=== PATIENT | female | born 1940 | race Caucasian/White ===

== ENCOUNTER → 2019-02-18 | Outpatient (CLI) | payer MEDICARE, OTHER ==
--- NOTE | 2019-02-18 09:51 | NUR ---
The pt and her daughter entered at the [facility] entrance and requested direction to wound care. I offered and provided the pt with a wheel chair and brought her to the place of her appointment. The pt and her daughter said they were extremely grateful for the assistance.
== END ==
LOC: WOUNDCARE 09:34
PROVIDERS: ATTEND Nurse Practitioner
DX: I70.261 Atherosclerosis of native arteries of extremities with gangrene, right leg (principal); L97.212 Non-pressure chronic ulcer of right calf with fat layer exposed; I87.2 Venous insufficiency (chronic) (peripheral)
CPT/HCPCS: 99204

== ENCOUNTER → 2019-02-25 | Outpatient (CLI) | payer MEDICARE, OTHER | LOC: WOUNDCARE 09:43 | PROVIDERS: ATTEND Nurse Practitioner | DX: L97.212 Non-pressure chronic ulcer of right calf with fat layer exposed (principal); I87.2 Venous insufficiency (chronic) (peripheral); I96 Gangrene, not elsewhere classified | CPT/HCPCS: 11042 ==

== ENCOUNTER → 2019-03-02 | Outpatient (CLI) | payer MEDICARE, OTHER | LOC: WOUNDCARE 11:06 | PROVIDERS: ATTEND Nurse Practitioner | DX: L97.212 Non-pressure chronic ulcer of right calf with fat layer exposed (principal); I10 Essential (primary) hypertension; I25.10 Atherosclerotic heart disease of native coronary artery without angina pectoris; M19.90 Unspecified osteoarthritis, unspecified site | CPT/HCPCS: 29581 ==

== ENCOUNTER → 2019-03-04 | Outpatient (CLI) | payer MEDICARE, OTHER | LOC: WOUNDCARE 09:40 | PROVIDERS: ATTEND Nurse Practitioner | DX: L97.212 Non-pressure chronic ulcer of right calf with fat layer exposed (principal); I87.2 Venous insufficiency (chronic) (peripheral); I96 Gangrene, not elsewhere classified | CPT/HCPCS: 11042 ==

== ENCOUNTER → 2019-03-09 | Outpatient (CLI) | payer MEDICARE, OTHER | LOC: WOUNDCARE 09:40 | PROVIDERS: ATTEND Nurse Practitioner | DX: L97.212 Non-pressure chronic ulcer of right calf with fat layer exposed (principal); H26.9 Unspecified cataract; D64.9 Anemia, unspecified; I49.9 Cardiac arrhythmia, unspecified; I25.10 Atherosclerotic heart disease of native coronary artery without angina pectoris; I10 Essential (primary) hypertension; K52.9 Noninfective gastroenteritis and colitis, unspecified; M19.90 Unspecified osteoarthritis, unspecified site; G62.9 Polyneuropathy, unspecified | CPT/HCPCS: 29581 ==

== ENCOUNTER → 2019-03-11 | Outpatient (CLI) | payer MEDICARE, OTHER | LOC: WOUNDCARE 09:32 | PROVIDERS: ATTEND Nurse Practitioner | DX: I87.2 Venous insufficiency (chronic) (peripheral) (principal); L97.212 Non-pressure chronic ulcer of right calf with fat layer exposed; I96 Gangrene, not elsewhere classified | CPT/HCPCS: 11042; 87070; 87075; 87205 ==

== ENCOUNTER → 2019-03-18 | Outpatient (CLI) | payer MEDICARE, OTHER | LOC: WOUNDCARE 09:23 | PROVIDERS: ATTEND Nurse Practitioner | DX: L97.212 Non-pressure chronic ulcer of right calf with fat layer exposed (principal); I87.2 Venous insufficiency (chronic) (peripheral); I96 Gangrene, not elsewhere classified | CPT/HCPCS: 11042 ==

== ENCOUNTER → 2019-03-25 | Outpatient (CLI) | payer MEDICARE, OTHER | LOC: WOUNDCARE 09:32 | PROVIDERS: ATTEND Nurse Practitioner | DX: I87.2 Venous insufficiency (chronic) (peripheral) (principal); L97.212 Non-pressure chronic ulcer of right calf with fat layer exposed | CPT/HCPCS: 99212 ==

== ENCOUNTER → 2019-12-09 | Outpatient (CLI) | payer OTHER, MEDICARE | LOC: LABNPT 13:09 | PROVIDERS: ATTEND Internal Medicine | DX: Z01.89 Encounter for other specified special examinations (principal) | CPT/HCPCS: 84145 ==

== ENCOUNTER → 2019-12-30 | Outpatient (CLI) | payer MEDICARE, OTHER ==
[~2019-12-30] MED LIST: CATHETER FLUSH 10 ML SYR IV PRN; HOLD METFORMIN - RECEIVED CONTRAST 20 ML VIAL IV SCH; IOHEXOL 350 MG/ML 100 ML (OMNIPAQUE 350) VIAL IV ONE; NS 100 ML (IVPB) BAG IV ONE
--- NOTE | 2019-12-30 14:14 | Diagnostic Imaging Report ---
PROCEDURE: CT chest with contrast only. TECHNIQUE: Multiple contiguous axial images were obtained through the chest after administration of intravenous contrast. Auto Exposure Controls were utilized during the CT exam to meet ALARA standards for radiation dose reduction. INDICATION: Thyroid cancer. COMPARISON: There are no prior CT chest examinations available for comparison. FINDINGS: The heart is enlarged.. There are dense coronary artery calcifications visualized. The ascending aorta is somewhat ectatic but not aneurysmally dilated. There is no sign of a dissection either. The pulmonary arteries were not well opacified and consequently difficult to assess for pulmonary embolus. There is no definite defect to indicate a pulmonary embolus. There are bilateral pleural effusions. The effusion on the right measures approximately 5.8 cm of maximum depth while the left-sided effusion is estimated to be approximately 1.5 cm. There is also small amount of associated atelectasis/infiltrate in the right lung base and very little atelectasis/infiltrate in the left lung base. However, there are alveolar/interstitial infiltrates in the superior segment of the right lower lobe and there is a prominent area of increased density in the periphery of the right upper lobe. This may be due to consolidated pneumonia. The possibility that there is a mass lesion in this area should also be considered. If previous studies are available, they would be helpful for comparison. If there are no prior exams available, then a short-term (4-6 week) follow-up CT chest exam should be obtained. The left lung is relatively clear. There is no mediastinal or hilar adenopathy. The thyroid gland was not well visualized. There is no obvious breast mass. The sections through the upper abdomen show several small rounded areas of low density within the liver. These are probably cysts. Ultrasound could confirm this. There are also numerous surgical clips in the region of the head of the pancreas and about the stomach. Correlation with patient's surgical history would be recommended. The bone windows show that the vertebral bodies have similar heterogeneous appearance. There is no clear evidence for a marrow replacing process to suggest metastatic disease. If further study is desired however, MRI would be recommended. There is a pectus excavatum deformity as well as evidence of prior trauma to the sternum. There is some deformity of the lower ribs on the right. This could be a sequela of prior trauma. IMPRESSION: 1. There is bibasilar pneumonia/atelectasis with bilateral pleural effusions with greater involvement on the right. There are also alveolar/interstitial infiltrates in the superior segment of the right lower lobe and the right upper lobe. The area of increased density in the right upper lobe could be due to pneumonia/atelectasis alone. The possibility that there is an underlying neoplastic process in this region should still be considered. Recommendations as above. 2. There is no acute cardiopulmonary abnormality noted, otherwise. The pulmonary arteries were not well opacified, however, difficult to assess. 3. There is cardiomegaly and coronary artery disease. 4. There is no clear evidence for a lytic or blastic lesion to suggest skeletal metastatic disease. Recommendations as above. Dictated by: Dictated on workstation # [id number]
== END ==
LOC: RAD 12:21
PROVIDERS: ATTEND Family Medicine
DX: I51.7 Cardiomegaly (principal); J98.4 Other disorders of lung; I25.10 Atherosclerotic heart disease of native coronary artery without angina pectoris; R93.89 Abnormal findings on diagnostic imaging of other specified body structures
CPT/HCPCS: 71260

== ENCOUNTER 2020-01-15 20:25 | Inpatient (IN) | payer MEDICARE, OTHER ==
[~2020-01-15] VITALS: Ht 162.5 cm; Wt 47.4 kg
[2020-01-15] MEDS ORDERED: ONDANSETRON 4 MG (ZOFRAN) ORAL DISSOLVE TAB PO PRN (20:30)
[2020-01-15] MEDS ORDERED: VANCOMYCIN INJECTION 750 MG in NS (IVPB) 250 ML IV SCH (20:30)
[2020-01-15] MEDS ORDERED: ONDANSETRON 4 MG/2 ML (SDV) Z0FRAN IV PRN (20:30)
[2020-01-15] MEDS ORDERED: MELATONIN 3 MG TABLET PO PRN (20:30)
[2020-01-15] MEDS ORDERED: polyethylene glycoL POWDER 17 GM (MIRALAX) PACK PO PRN (20:30)
[2020-01-15] MEDS ORDERED: BISACODYL 10 MG SUPP (DULCOLAX) PR PRN (20:30)
[2020-01-15] MEDS ORDERED: ACETAMINOPHEN 325 MG TABLET PO PRN (20:30)
[2020-01-15 23:30] VITALS: BP 65/43
[2020-01-15 23:45] VITALS: BP 43/30
[2020-01-16] VITALS (28 sets, daily range): BP systolic 50–139; BP diastolic 41–90
[2020-01-16] MEDS ORDERED: NS IV 1000 ML 1,000 ML ONE (00:15)
[2020-01-16] MEDS ORDERED: NS IV 500 ML 500 ML IV SCH (00:15)
--- NOTE | 2020-01-16 00:30 | NUR ---
0015: GREAT DIFFICULTY GETTING PT'S BLOOD PRESSURE AND O2 SATURATION TO PULL UP ON ICU MONITOR. MULTIPLE BLOOD PRESSURE SIZE CUFFS ATTEMPTED ON TO EACH ARM AND PT'S RIGHT THIGH. READINGS OF 40/20 INITIALLY ON RIGHT THIGH, HOWEVER PT IS A&O AND ABLE TO COMMUNICATE WITH THIS RN. O2 SATURATION CHECKED ON FOREHEAD, EAR, NOSE, TOES, AND FINGERS WITHOUT BEING ABLE TO READ. TEMP IS CURRENTLY 35.4, WARM BLANKETS AND BEAR HUGGER APPLIED IN ATTEMPTS TO WARM PT AND HELP WITH CIRCULATION TO FACILITATE AN O2 SATURATION READING. ABG DRAWN TO CHECK OXYGENATION. SEE LAB RESULTS. PT'S ONLY IV IS A 22 G TO LEFT INNER WRIST. E-ICU NOTIFIED. NEW ORDERS FOR CENTRAL LINE PLACEMENT AND 500 ML NS BOLUS. DOCTOR TO PUT IN ORDERS. 0020: DR. GRESHAM NOTIFIED OF CONSULT AND THE NEED FOR CENTRAL LINE PLACEMENT. CONSENT OBTAINED FROM PATIENT, WITNESSED BY THIS RN AND KERRY HUTCHINS. 0130: DR. GRESHAM AT BEDSIDE FOR CENTRAL LINE PLACEMENT. E-ICU TO CONFIRM PLACEMENT BY CHEST X-RAY. B/P FINALLY ABLE TO BE TAKEN WITH PORTABLE VITAL SIGN MACHINE. SEE INTERVENTIONS. 0220: E-ICU UNABLE TO SEE X-RAY RESULTS; STAT RAD TO READ X-RAY AND FAX REPORT. 0245: X-RAY REPORT FAXED TO THIS RN; DR. GRESHAM NOTIFIED OF RESULTS. NEW ORDER RECEIVED TO REPEAT CHEST X-RAY IN 4 HOURS AND OK GIVEN TO USE CENTRAL LINE. 0250: STAT RAD CALLED THIS RN FOR DR. GRESHAM'S PHONE NUMBER TO NOTIFY HIM OF FINDINGS. PT'S O2 SATURATION IS CURRENTLY 100% ON 3 L NC WITH NO DISTRESS OR WORK OF BREATHING NOTED.
[2020-01-16 00:33] LABS: ABG BASE EXCESS 4.5 MMOL/L (-2.5-2.5); ABG OXYGEN SATURATION 87 % (94-100); ABG PCO2 52 MMHG (35-45); ABG PH 7.37 (7.37-7.43); ABG PO2 58 MMHG (79-93); ABG TCO2 31.5 MMOL/L (21.0-31.0)
[2020-01-16 00:35] LABS: ALLENS TEST YES-POS; INSPIRED O2 ROOM AIR; PATIENT TEMP 35.5; VENTILATOR NO
--- OUTSIDE RECORDS SUMMARY | 2020-01-16 00:49 | XMS REPORT ---
Author Author Cookie PRICE Organization [facility] Address [address] [place] [address] Care Team Providers Care Law Firm Administrator Name Role Phone TJTAMY KINGA Unavailable PROBLEMS Type Condition ICD9-CM Code [id number] Code Onset Dates Condition S tatus SNOMED Code Problem Vitamin B12 deficiency E53.8 Jul, Acti ve [id number] Problem Hypoglycemia E16.2 May, Active 3028 10781 Problem Essential hypertension I10 Active 17491418 Problem Iron deficiency anemia D50.9 Active 53675792 Problem Depression F32.9 Active 69705801 Problem Osteoporosis M81.0 Active 1308960 6 Problem Osteoarthritis of spine with radiculopathy, cervical r egion M47.22 Oct, Active 708139850 Problem Stenosis of carotid artery I65.29 Oct, Active 654017207 Problem Papillary thyroid carcinoma C73 Sep, Active 491378436 Problem Postoperative hypothyroidism E89.0 A ctive 16308955 Problem CKD (chronic kidney disease) stage 3, GFR 30-59 ml/min N18.3 15 Feb, 2017 Active 648302457 Problem Benign essential hypertension I10 Active 5643735 Problem 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 Active 504991415 Problem Myalgia and myositis TUE8346 Aug, Active 35775881 Problem Headache(784.0) R51 Active 2506 4002 Problem Parathyroid adenoma D35.1 Jun, Active 704147770 Problem Pure hypercholesterolemia E78.00 Acti ve [id number] ALLERGIES No Information ENCOUNTERS Encounter Location Date Diagnosis [facility] [address] [place] [address] Oct, [facility] [address] [place] [address] Oct, Neuropathic pain M79.2 and Vitamin B12 deficiency E53.[address] [address] Oct, [address] [address] Sep, [address] [address] Sep, [address] [address] Sep, [address] [address] Sep, [facility] [address] [facility] [id number] [address] [place] [address] Sep, Fungal infection of toenail B35.1 [facility] [address] [facility] [id number] [address] [place] [address] Sep, Long-term use of high-risk m edication Z79.[address] [address] Sep, Postoperative hypothyroidism E89.0 ; Isra ign essential hypertension I10 ; High risk medications (not anticoagulants) long-term use Z79.899 ; Pure hypercholesterolemia E78.00 ; Fungal infection of toenail B35.1 and Long-term use of high-risk medication Z79.[address] [address] Sep, [address] [address] Sep, [address] [address] Aug, [facility] [address] [facility] [id number] [address] [place] [address] Aug, [facility] [address] [facility] [id number] [address] [place] [address] Jul, [facility] [address] [facility] [id number] [address] [place] [address] Jun, [facility] [address] [facility] [id number] [address] [place] [address] Jun, [facility] [address] [id number] [address] [place] [address] Jun, [facility] [address] [id number] [address] [place] [address] Jun, [facility] [address] [id number] [address] [place] [address] Jun, [facility] [address] [id number] [address] [place] [address] Jun, [facility] [address] [id number] [address] [place] [address] Jun, [facility] [address] [id number] [address] [place] [address] Oct, [facility] [address] [id number] [address] [place] [address] Jan, Acute pain of right knee M25 .561 [facility] [address] [id number] [address] [place] [address] November, IMMUNIZATIONS No Known Immunizations SOCIAL HISTORY Never Assessed REASON FOR VISIT Controlled Med Refill PLAN OF CARE VITAL SIGNS MEDICATIONS Medication Instructions Dosage Frequency Start Date End Date Duration S tatus Lamisil 250 MG Orally Once a day 1 tablet 24h Sep, Active Tramadol HCl 50 MG Orally 3 times a day 2 tablets 8h 28 days Active RESULTS No Results PROCEDURES No Known procedures INSTRUCTIONS MEDICATIONS ADMINISTERED No Known Medications MEDICAL (GENERAL) HISTORY Type Description Date Medical History Iron deficiency anemia Medical History Osteoporosis Medical History Arthritis Medical History Hypertension Medical History Thyroid cancer Medical History Aortic aneurysm Surgical History Thyroidectomy Surgical History Cholecystectomy Surgical History Appendectomy
--- OUTSIDE RECORDS SUMMARY | 2020-01-16 00:49 | XMS REPORT ---
Author Author Cookie PRICE Organization [facility] Address [address] [place] [address] Care Team Providers Care Laborer Road Name Role Phone TJTAMY KINGA Unavailable PROBLEMS Type Condition ICD9-CM Code MOB41-VN Code Onset Dates Condition S tatus SNOMED Code Problem Papillary thyroid carcinoma C73 Sep, Active 145833029 Problem Stenosis of carotid artery I65.29 Oct, Active 294948387 Problem Headache(784.0) R51 Active 2506 4002 Problem Myalgia and myositis [id number] Aug, Active 27558485 Problem Depression F32.9 Active 23515286 Problem Parathyroid adenoma D35.1 Jun, Active 203069147 Problem CKD (chronic kidney disease) stage 3, GFR 30-59 ml/min N18.3 Feb, Active 883853196 Problem 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 Active 397620470 Problem Vitamin B12 deficiency E53.8 28 Jul, 2009 Acti ve 516619907 Problem Iron deficiency anemia D50.9 Active 51472318 Problem Essential hypertension I10 Active 98780805 Problem Iron deficiency anemia secondary to inadequate d ietary iron intake D50.8 Active 962937753 Problem Hypoglycemia E16.2 May, Active 3028 87345 Problem Postprocedural hypothyroidism E89.0 Active 59732425 Problem Osteoarthritis of spine with radiculopathy, cervical r egion M47.22 Oct, Active 159848730 Problem Osteoporosis M81.0 Active 6522166 6 Problem Benign essential hypertension I10 Active 3556100 Problem Postoperative hypothyroidism E89.0 A ctive 24169011 Problem Pure hypercholesterolemia E78.00 Acti ve [id number] ALLERGIES No Information ENCOUNTERS Encounter Location Date Diagnosis [facility] [address] [place] [address] November, [facility] [address] [place] [address] November, [facility] [address] [address] November, [facility] [address] [place] [address] November, Urinary tract infection without hematuria, site unspecified N39.0 and Postprocedural hypothyroidism E89.0 [facility] [address] [address] November, Urinary tract infection without hematuri a, site unspecified N39.0 [facility] [address] [address] November, [facility] [address] [address] November, Hyponatremia E87.1 ; Iron deficiency ane ivanna secondary to inadequate dietary iron intake D50.8 ; Increased frequency of urination R35.0 ; Thyroid condition E07.9 and Postprocedural hypothyroidism E89.0 [facility] [address] [place] [address] Oct, Thyroid condition E07.9 and Postprocedural hypothyroidism E89.0 [facility] [address] [address] Oct, [facility] [address] [address] Oct, [facility] [address] [address] Oct, [facility] [address] [place] [address] Oct, [facility] [address] [place] [address] Oct, Neuropathic pain M79.2 and Vitamin B12 deficiency E53.8 [facility] [address] [address] Oct, [facility] [address] [address] Sep, [facility] [address] [address] Sep, [facility] [address] [address] Sep, [address] [address] Sep, [facility] [address] [id number] [address] [place] [address] Sep, Fungal infection of toenail B35.1 [facility] [address] [id number] [address] [place] [address] Sep, Long-term use of high-risk m edication Z79.[address] [address] Sep, Postoperative hypothyroidism E89.0 ; Isra ign essential hypertension I10 ; High risk medications (not anticoagulants) long-term use Z79.899 ; Pure hypercholesterolemia E78.00 ; Fungal infection of toenail B35.1 and Long-term use of high-risk medication Z79.[address] [address] Sep, [address] [address] Sep, [address] [address] Aug, [facility] [address] [facility] [id number] [address] [place] [address] Aug, [facility] [address] [facility] [id number] [address] [place] [address] Jul, [facility] [address] [id number] [address] [place] [address] Jun, [facility] [address] [id number] [address] [place] [address] Jun, [facility] [address] [facility] [id number] [address] [place] [address] Jun, [facility] [address] [facility] [id number] [address] [place] [address] Jun, [facility] [address] [facility] [id number] [address] [place] [address] Jun, [facility] [address] [facility] [id number] [address] [place] [address] Jun, [facility] [address] [facility] [id number] [address] [place] [address] Jun, [facility] [address] [facility] [id number] [address] [place] [address] Oct, [facility] [address] [facility] [id number] [address] [place] [address] Jan, Acute pain of right knee M25 .561 [facility] [address] [facility] [id number] [address] [place] [address] November, IMMUNIZATIONS No Known Immunizations SOCIAL HISTORY Never Assessed REASON FOR VISIT Controlled Med Refill PLAN OF CARE VITAL SIGNS MEDICATIONS Medication Instructions Dosage Frequency Start Date End Date Duration S tatus Hydrocodone-Acetaminophen 7.5-325 MG Orally 3 times a day 1 tablet as needed 8h Sep, 28 days Active RESULTS No Results PROCEDURES No Known procedures INSTRUCTIONS MEDICATIONS ADMINISTERED No Known Medications MEDICAL (GENERAL) HISTORY Type Description Date Medical History Iron deficiency anemia Medical History Osteoporosis Medical History Arthritis Medical History Hypertension Medical History Thyroid cancer Medical History Aortic aneurysm Surgical History Thyroidectomy Surgical History Cholecystectomy Surgical History Appendectomy
--- OUTSIDE RECORDS SUMMARY | 2020-01-16 00:49 | XMS REPORT ---
Author Author Cookie PRICE Organization [facility] Address [address] [place] [address] Care Team Providers Care Computer Security Coordinator Name Role Phone TJTAMY KINGA Unavailable PROBLEMS Type Condition ICD9-CM Code AHC95-LB Code Onset Dates Condition S tatus SNOMED Code Problem Papillary thyroid carcinoma C73 Sep, Active 166278463 Problem Stenosis of carotid artery I65.29 Oct, Active 628127805 Problem Parathyroid adenoma D35.1 Jun, Active 026872341 Problem Myalgia and myositis [id number] Aug, Active 09211309 Problem CKD (chronic kidney disease) stage 3, GFR 30-59 ml/min N18.3 Feb, Active 203362535 Problem 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 Active 061504153 Problem Hypoglycemia E16.2 May, Active 3028 69884 Problem Osteoarthritis of spine with radiculopathy, cervical r egion M47.22 Oct, Active 342903654 Problem Benign essential hypertension I10 Active 1703700 Problem Postoperative hypothyroidism E89.0 A ctive 76029028 Problem Pure hypercholesterolemia E78.00 Acti ve 510353211 Problem 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 Acti ve 26087312 Problem Osteoporosis M81.0 Active 0698667 6 Problem 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 Active [id number] Problem Vitamin B12 deficiency E53.8 28 Jul, 2009 Acti ve 033274042 Problem Iron deficiency anemia secondary to inadequate d ietary iron intake D50.8 Active 310023704 Problem Postprocedural hypothyroidism E89.0 Active 19890757 Problem Chronic systolic (congestive) heart failure I50.22 Active 735213759 Problem Atherosclerosis of [place] of both lower extremities, with unspecified presence of clinical manifestation I70.203 Active [id number] ALLERGIES No Information ENCOUNTERS Encounter Location Date Diagnosis [address] [place] [address] Dec, [address] [place] [address] Oct, [address] [place] [address] 05 Sep, 2019 Osteoarthritis of spine with radiculopathy, cervical region M47.22 [address] [place] [address] 21 Aug, 2019 Osteoarthritis of spine with radiculopathy, cervical region M47.22 [address] [place] [address] 17 Aug, 2019 Benign essential hypertensio n I10 [address] [place] [address] 13 Aug, 2019 Right hip pain M25.551 and R ight knee pain, unspecified chronicity M25.561 [address] [place] [address] 13 Aug, 2019 Encounter for Medicare [facility] wellness exam Z00.00 ; CKD (chronic kidney disease) stage 3, GFR 30-59 ml/min N18.3 ; Chronic systolic (congestive) heart failure I50.22 ; 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 ; Benign essential hypertension I10 ; Pure hypercholesterolemia E78.00 ; Osteoporosis M81.0 ; Atherosclerosis of [place] artery of both lower extremities, with unspecified presence of clinical manifestation I70.203 and 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 [place] [address] Aug, [facility] [address] [id number] [place] [address] Aug, Benign essential hypertension I10 [address] [place] [address] Aug, Osteoarthritis of spine with radiculopathy, cervical region M47.22 [facility] [address] [id number] [place] [address] Jul, [address] [place] [address] Jul, Osteoarthritis of spine with radiculopathy, cervical region M47.22 [address] [place] [address] Jul, [address] [place] [address] Jul, Benign essential hypertensio n I10 [address] [place] [address] 08 Jul, 2019 Iron deficiency anemia secon chris to inadequate dietary iron intake D50.8 ; Postprocedural hypothyroidism E89.0 ; Hyponatremia E87.1 ; Long-term use of high-risk medication Z79.899 ; CKD (chronic kidney disease) stage 3, GFR 30-59 ml/min N18.3 ; Pure hypercholesterolemia E78.00 ; Benign essential hypertension I10 ; Iron deficiency anemia D50.9 ; Neuropathic pain M79.2 ; Osteoporosis M81.0 ; Vitamin B12 deficiency E53.8 and Osteoarthritis of spine with radiculopathy, cervical region M47.22 [facility] [address] [facility] [place] [address] Jul, Iron deficiency anemia secondary to inadequate dietary iron intake D50.8 [address] [place] [address] Jun, [address] [place] [address] Jun, [address] [place] [address] Jun, Mixed simple and mucopurulen t chronic bronchitis J41.8 ; Vitamin B12 deficiency E53.8 and CKD (chronic kidney disease) stage 3, GFR 30-59 ml/min N18.3 [facility] [place] [address] [facility] [address] [id number] [place] [address] Jun, [facility] [place] [address] [place] [address] Jun, [facility] [address] [place] [address] May, [facility] [address] [place] [address] May, [facility] [address] [place] [address] May, [facility] [address] [place] [address] Apr, [facility] [address] [place] [address] Apr, [facility] [address] [place] [address] Apr, [facility] [address] [place] [address] Apr, [facility] [place] [address] [id number] [place] [address] Mar, [facility] [address] [place] [address] Mar, [facility] [address] [place] [address] Mar, [facility] [address] [place] [address] Mar, Acute on chronic systolic co ngestive heart failure I50.23 [facility] [address] [place] [address] Mar, [facility] [address] [place] [address] Feb, [facility] [address] [place] [address] Feb, [address] [place] [address] Feb, CKD (chronic kidney disease) stage 3, GFR 30-59 ml/min N18.[address] [place] [address] 08 Feb, 2019 Postoperative hypothyroidism E89.0 ; Papillary thyroid carcinoma C73 ; Hyponatremia E87.1 ; Wound drainage T14.8XXA and Bronchitis J40 [facility] [address] [id number] [place] [address] Feb, [address] [place] [address] Feb, [address] [place] [address] Jan, [address] [place] [address] Jan, Mixed simple and mucopurulen t chronic bronchitis J41.8 ; Iron deficiency anemia D50.9 ; Postoperative hypothyroidism E89.0 ; Benign essential hypertension I10 ; Papillary thyroid carcinoma C73 and Parathyroid adenoma D35.[address] [place] [address] Jan, [address] [place] [address] Jan, [address] [place] [address] Dec, [facility] [address] [facility] [place] [address] Dec, Iron deficiency anemia secondary to inadequate dietary iron intake D50.8 [address] [place] [address] Dec, Iron deficiency anemia secon chris to inadequate dietary iron intake D50.8 [address] [place] [address] Dec, [facility] [place] [address] [facility] [place] [address] Dec, Postprocedural hypothyroidism E89.0 [facility] [address] [place] [address] Dec, [facility] [address] [place] [address] November, [facility] [address] [place] [address] November, Postprocedural hypothyroidis m E89.0 [facility] [place] [address] [place] [address] November, [facility] [address] [place] [address] November, [facility] [place] [id number] [address] November, Urinary tract infection without hematuria, site unspecified N39.0 and Postprocedural hypothyroidism E89.0 [facility] [place] [address] [place] [address] November, Urinary tract infection with out hematuria, site unspecified N39.0 [facility] [address] [place] [address] November, [facility] [address] [place] [address] November, Hyponatremia E87.1 ; Iron de ficiency anemia secondary to inadequate dietary iron intake D50.8 ; Increased frequency of urination R35.0 ; Thyroid condition E07.9 and Postprocedural hypothyroidism E89.0 [facility] [place] [address] [facility] [place] [address] Oct, Thyroid condition E07.9 and Postprocedural hypothyroidism E89.0 [facility] [place] [address] [place] [address] Oct, [facility] [place] [address] [place] [address] Oct, [facility] [place] [address] [place] [address] Oct, [facility] [place] [address] [facility] [id number] [place] [address] Oct, [facility] [place] [address] [facility] [id number] [place] [address] Oct, Neuropathic pain M79.2 and Vitamin B12 deficiency E53.8 [facility] [address] [place] [address] Oct, [facility] [address] [place] [address] Sep, [facility] [address] [place] [address] Sep, [address] [place] [address] Sep, [facility] [address] [place] [address] Sep, [facility] [address] [id number] [place] [address] Sep, Fungal infection of toenail B35.1 [facility] [address] [id number] [place] [address] Sep, Long-term use of high-risk medication Z7 9.899 [facility] [address] [place] [address] Sep, Postoperative hypothyroidism E89.0 ; Benign essential hypertension I10 ; High risk medications (not anticoagulants) long-term use Z79.899 ; Pure hypercholesterolemia E78.00 ; Fungal infection of toenail B35.1 and Long-term use of high-risk medication Z79.899 [facility] [address] [place] [address] Sep, [address] [facility] [address] [place] [address] Sep, [facility] [facility] [address] [facility] [address] [place] [address] Aug, [facility] [address] [id number] [place] [address] Aug, [facility] [id number] [place] [address] Jul, [facility] [id number] [place] [address] Jun, [facility] [id number] [place] [address] Jun, [facility] [id number] [place] [address] Jun, [facility] [id number] [place] [address] Jun, [facility] [id number] [place] [address] Jun, [facility] [id number] [place] [address] Jun, [facility] [id number] [place] [address] Jun, [facility] [address] [id number] [place] [address] Oct, [facility] [address] [facility] [id number] [place] [address] Jan, Acute pain of right knee M25 .561 [facility] [address] [id number] [place] [address] November, IMMUNIZATIONS No Known Immunizations SOCIAL HISTORY Never Assessed REASON FOR VISIT PAIN MEDICATION PLAN OF CARE VITAL SIGNS MEDICATIONS Unknown Medications RESULTS No Results PROCEDURES No Known procedures INSTRUCTIONS MEDICATIONS ADMINISTERED No Known Medications MEDICAL (GENERAL) HISTORY Type Description Date Medical History Iron deficiency anemia Medical History Osteoporosis Medical History Arthritis Medical History Hypertension Medical History Thyroid cancer Medical History Aortic aneurysm Surgical History Thyroidectomy Surgical History Cholecystectomy Surgical History Appendectomy Hospitalization History Multiple Hospital Stays
--- OUTSIDE RECORDS SUMMARY | 2020-01-16 00:49 | XMS REPORT | Continuity of Care Document ---
Author Author [facility] Organization [facility] Address Unknown Phone Unavailable Care Team Providers Care Floor And Wall Applier Liquid Name Role Phone KINGA PRICE MD PP Insurance Providers Payer Name Policy Number Subscriber Name Relationship s Medicare [id number] Cookie Lofton Self / Same As Patient [employer] [id number] Cookie Lofton Self / Same As Patient Problems No Known Problems or Medical conditions. Allergies, Adverse Reactions, Alerts Allergen Type Severity Reaction Last Updated No Known Drug Allergies Allergy Unknown 09/18/07 Medications No known medications Response Recorded Date/Time Status not known Unknown Results No Known Relevant Diagnostic Tests, Laboratory Data and/or Discharge Summary.
--- OUTSIDE RECORDS SUMMARY | 2020-01-16 00:49 | XMS REPORT ---
Author Author Cookie PRICE Organization [facility] Address [address] [place] [address] Care Team Providers Care Receiving Team Member Name Role Phone JENNIFERJOSE KINGA Unavailable PROBLEMS Type Condition ICD9-CM Code CCK76-LQ Code Onset Dates Condition S tatus SNOMED Code Problem Vitamin B12 deficiency E53.8 Jul, Acti ve 761521976 Problem Hypoglycemia E16.2 May, Active 3028 06961 Problem Essential hypertension I10 Active 25890113 Problem Iron deficiency anemia D50.9 Active 88240603 Problem Depression F32.9 Active 70129215 Problem Osteoporosis M81.0 Active 0061291 6 Problem Osteoarthritis of spine with radiculopathy, cervical r egion M47.22 Oct, Active 059188049 Problem Stenosis of carotid artery I65.29 Oct, Active 265587009 Problem Papillary thyroid carcinoma C73 Sep, Active 230389148 Problem Postoperative hypothyroidism E89.0 A ctive 30332078 Problem CKD (chronic kidney disease) stage 3, GFR 30-59 ml/min N18.3 15 Feb, 2017 Active 870127650 Problem Benign essential hypertension I10 Active 9365369 Problem 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 Active 166165386 Problem Myalgia and myositis CKV0569 Aug, Active 29128583 Problem Headache(784.0) R51 Active 2506 4002 Problem Parathyroid adenoma D35.1 Jun, Active 795566932 Problem Pure hypercholesterolemia E78.00 Acti ve 569518032 ALLERGIES No Known Allergies ENCOUNTERS Encounter Location Date Diagnosis [facility] [address] [place] [address] Oct, [facility] [address] [place] [address] Oct, Neuropathic pain M79.2 and Vitamin B12 deficiency E53.[address] [address] Oct, [address] [address] Sep, [address] [address] Sep, [address] [address] Sep, [address] [address] Sep, [facility] [address] [facility] [id number] [address] [place] [address] Sep, Fungal infection of toenail B35.1 [facility] [address] [facility] [id number] [address] [place] [address] Sep, Long-term use of high-risk m edication Z79.[address] [address] Sep, Postoperative hypothyroidism E89.0 ; Isra ign essential hypertension I10 ; High risk medications (not anticoagulants) long-term use Z79.899 ; Pure hypercholesterolemia E78.00 ; Fungal infection of toenail B35.1 and Long-term use of high-risk medication Z79.[address] [address] Sep, [address] [address] Sep, [address] [address] Aug, [facility] [address] [id number] [address] [place] [address] Aug, [facility] [address] [facility] [id number] [address] [place] [address] Jul, [facility] [address] [facility] [id number] [address] [place] [address] Jun, [facility] [address] [facility] [id number] [address] [place] [address] Jun, [facility] [address] [id number] [address] [place] [address] Jun, [facility] [address] [id number] [address] [place] [address] Jun, [facility] [address] [id number] [address] [place] [address] Jun, [facility] [address] [id number] [address] [place] [address] Jun, [facility] [address] [id number] [address] [place] [address] Jun, [facility] [address] [id number] [address] [place] [address] Oct, [facility] [address] [id number] [address] [place] [address] Jan, Acute pain of right knee M25 .561 [facility] [address] [id number] [address] [place] [address] November, IMMUNIZATIONS No Known Immunizations SOCIAL HISTORY Never Assessed REASON FOR VISIT 6 Months F/U PLAN OF CARE VITAL SIGNS Height 65 in 2018-09-08 Weight 92lb lbs 2018-09-08 BMI 15.31 kg/m2 2018-09-08 Blood pressure systolic 102 mmHg 2018-09-08 Blood pressure diastolic 60 mmHg 2018-09-08 MEDICATIONS Medication Instructions Dosage Frequency Start Date End Date Duration S tatus Triamterene Active Hydrocodone-Acetaminophen 7.5-325 MG Orally every 8 hours prn 1 tab let Aug, 30 days Active Lamisil 250 MG Orally Once a day 1 tablet 24h Sep, Active Levothyroxine Sodium 100 MCG by oral route at bedtime 1 tablet Active Coreg Active Lisinopril Active Aspirin Adult Low Dose A ctive Tramadol HCl 50 MG Orally 3 times a day 2 tablets 8h 28 days Active RESULTS No Results PROCEDURES Procedure Date Ordered Result Body Site LAB NOT BILLED BY [facility] September 08, 2018 INSTRUCTIONS MEDICATIONS ADMINISTERED No Known Medications MEDICAL (GENERAL) HISTORY Type Description Date Medical History Iron deficiency anemia Medical History Osteoporosis Medical History Arthritis Medical History Hypertension Medical History Thyroid cancer Medical History Aortic aneurysm Surgical History Thyroidectomy Surgical History Cholecystectomy Surgical History Appendectomy
--- OUTSIDE RECORDS SUMMARY | 2020-01-16 00:49 | XMS REPORT ---
Author Author Jacey LEACH Organization [facility] Address [address] [place] [address] Care Team Providers Care Head Of Drama Name Role Phone RICH LEACH Unavailable PROBLEMS Unknown Problems ALLERGIES No Known Allergies ENCOUNTERS Encounter Location Date Diagnosis [facility] [address] [facility] [id number] [address] [place] [address] Jan, Acute pain of right knee M25 .561 IMMUNIZATIONS No Known Immunizations SOCIAL HISTORY Never Assessed REASON FOR VISIT knee pain PLAN OF CARE Activity Details Follow Up prn Reason: VITAL SIGNS Height 65 in 2017-01-04 Weight 83.4 lbs 2017-01-04 Temperature 98.4 degrees Fahrenheit 2017-01-04 Heart Rate 88 bpm 2017-01-04 Respiratory Rate 18 2017-01-04 BMI 13.88 kg/m2 2017-01-04 Blood pressure systolic 102 mmHg 2017-01-04 Blood pressure diastolic 64 mmHg 2017-01-04 MEDICATIONS Medication Instructions Dosage Frequency Start Date End Date Duration S tatus Aspirin Adult Low Dose A ctive Triamterene Active Hydrocodone-Acetaminophen Active Hydrocodone-Ibuprofen 7.5-200 MG Orally every 6 hrs 1 tablet as nee ded 6h Jan, Jan, 5 days Active Tramadol HCl Active Levothyroxine Sodium Act franklin Lisinopril Active Coreg Active RESULTS No Results PROCEDURES Procedure Date Ordered Result Body Site [facility] VISIT ESTABLISHED PATIENT January 04, 2017 INSTRUCTIONS MEDICATIONS ADMINISTERED No Known Medications MEDICAL (GENERAL) HISTORY Type Description Date Medical History iron deficiency anemia Medical History osteoporosis Medical History Arthritis Medical History hypertension Medical History thyroid cancer Medical History aortic aneurism Surgical History thyroidectomy Surgical History cholecystectomy Surgical History appendectomy
--- OUTSIDE RECORDS SUMMARY | 2020-01-16 00:49 | XMS REPORT ---
Author Author Cookie PRICE Organization [facility] Address [address] [place] [address] Care Team Providers Care Sleeping Room Cleaner Name Role Phone TJTAMY KINGA Unavailable PROBLEMS Type Condition ICD9-CM Code KGH90-AL Code Onset Dates Condition S tatus SNOMED Code Problem Papillary thyroid carcinoma C73 Sep, Active 158374180 Problem Stenosis of carotid artery I65.29 Oct, Active 276816469 Problem Parathyroid adenoma D35.1 Jun, Active 471001835 Problem Myalgia and myositis [id number] Aug, Active 60641572 Problem CKD (chronic kidney disease) stage 3, GFR 30-59 ml/min N18.3 Feb, Active 316092408 Problem 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 Active 645900548 Problem Hypoglycemia E16.2 May, Active 3028 01830 Problem Osteoarthritis of spine with radiculopathy, cervical r egion M47.22 Oct, Active 111519135 Problem Benign essential hypertension I10 Active 5721646 Problem Postoperative hypothyroidism E89.0 A ctive 51364582 Problem Pure hypercholesterolemia E78.00 Acti ve 187710488 Problem 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 Acti ve 38660750 Problem Osteoporosis M81.0 Active 8642952 6 Problem 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 Active [id number] Problem Vitamin B12 deficiency E53.8 28 Jul, 2009 Acti ve 401996381 Problem Iron deficiency anemia secondary to inadequate d ietary iron intake D50.8 Active 251513141 Problem Postprocedural hypothyroidism E89.0 Active 19382294 Problem Chronic systolic (congestive) heart failure I50.22 Active 550455551 Problem Atherosclerosis of lytton ar pernell of both lower extremities, with unspecified presence of clinical manifestation I70.203 Active [id number] ALLERGIES No Information ENCOUNTERS Encounter Location Date Diagnosis [address] [place] [address] Dec, [address] [place] [address] Oct, [address] [place] [address] 05 Sep, 2019 Osteoarthritis of spine with radiculopathy, cervical region M47.22 [address] [place] [address] 21 Aug, 2019 Osteoarthritis of spine with radiculopathy, cervical region M47.22 [address] [place] [address] 17 Aug, 2019 Benign essential hypertensio n I10 [address] [place] [address] 13 Aug, 2019 Right hip pain M25.551 and R ight knee pain, unspecified chronicity M25.561 [address] [place] [address] 13 Aug, 2019 Encounter for Medicare [facility] wellness exam Z00.00 ; CKD (chronic kidney disease) stage 3, GFR 30-59 ml/min N18.3 ; Chronic systolic (congestive) heart failure I50.22 ; 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22 [facility] [address] [id number] [place] [address] Jul, [address] [place] [address] Jul, Osteoarthritis of spine with radiculopathy, cervical region M47.22 [address] [place] [address] Jul, [address] [place] [address] Jul, Benign essential hypertensio n I10 [address] [place] [address] 08 Jul, 2019 Iron deficiency anemia secon [...] of spine with radiculopathy, cervical region M47.22 [facility] [address] [facility] [place] [address] Jul, Iron deficiency anemia secondary to inadequate dietary iron intake D50.8 [address] [place] [address] Jun, [address] [place] [address] Jun, [address] [place] [address] Jun, Mixed simple and mucopurulen t chronic bronchitis J41.8 ; Vitamin B12 deficiency E53.8 and CKD (chronic kidney disease) stage 3, GFR 30-59 ml/min N18.3 [facility] [place] [address] [facility] [address] [id number] [place] [address] Jun, [facility] [place] [address] [place] [address] Jun, [facility] [address] [place] [address] May, [facility] [address] [place] [address] May, [facility] [address] [place] [address] May, [facility] [address] [place] [address] Apr, [facility] [address] [place] [address] Apr, [facility] [address] [place] [address] Apr, [facility] [address] [place] [address] Apr, [facility] [address] [id number] [place] [address] Mar, [facility] [address] [place] [address] Mar, [facility] [address] [place] [address] Mar, [facility] [address] [place] [address] Mar, Acute on chronic systolic co ngestive heart failure I50.23 [facility] [place] [address] [place] [address] Mar, [facility] [address] [place] [address] Feb, [facility] [address] [place] [address] Feb, [address] [place] [address] Feb, CKD (chronic kidney disease) stage 3, GFR 30-59 ml/min N18.[address] [place] [address] 08 Feb, 2019 Postoperative hypothyroidism E89.0 ; Papillary thyroid carcinoma C73 ; Hyponatremia E87.1 ; Wound drainage T14.8XXA and Bronchitis J40 [facility] [address] [id number] [place] [address] Feb, [address] [place] [address] Feb, [address] [place] [address] Jan, [address] [place] [address] Jan, Mixed simple and mucopurulen t chronic bronchitis J41.8 ; Iron deficiency anemia D50.9 ; Postoperative hypothyroidism E89.0 ; Benign essential hypertension I10 ; Papillary thyroid carcinoma C73 and Parathyroid adenoma D35.1 [address] [place] [address] Jan, [address] [place] [address] Jan, [address] [place] [address] Dec, [facility] [address] [facility] [place] [address] Dec, Iron deficiency anemia secondary to inadequate dietary iron intake D50.8 [address] [place] [address] Dec, Iron deficiency anemia secon chris to inadequate dietary iron intake D50.8 [address] [place] [address] Dec, [facility] [place] [address] [facility] [place] [address] Dec, Postprocedural hypothyroidism E89.0 [facility] [address] [place] [address] Dec, [facility] [address] [place] [address] November, [facility] [address] [place] [address] November, Postprocedural hypothyroidis m E89.0 [facility] [place] [place] [address] [place] [address] November, [facility] [place] [address] [place] [address] November, [facility] [place] [id number] [address] November, Urinary tract infection without hematuria, site unspecified N39.0 and Postprocedural hypothyroidism E89.0 [facility] [place] [address] [place] [address] November, Urinary tract infection with out hematuria, site unspecified N39.0 [facility] [place] [address] [place] [address] November, [facility] [place] [address] [place] [address] November, Hyponatremia E87.1 ; Iron de ficiency anemia secondary to inadequate dietary iron intake D50.8 ; Increased frequency of urination R35.0 ; Thyroid condition E07.9 and Postprocedural hypothyroidism E89.0 [facility] [place] [address] [id number] [place] [address] Oct, Thyroid condition E07.9 and Postprocedural hypothyroidism E89.0 [facility] [place] [address] [place] [address] Oct, [facility] [place] [address] [place] [address] Oct, [facility] [place] [address] [place] [address] Oct, [facility] [place] [address] [facility] [id number] [place] [address] Oct, [facility] [place] [address] [facility] [id number] [place] [address] Oct, Neuropathic pain M79.2 and Vitamin B12 deficiency E53.[address] [facility] [address] [place] [address] Oct, [facility] [address] [place] [address] Sep, [facility] [address] [place] [address] Sep, [address] [place] [address] Sep, [facility] [address] [place] [address] Sep, [facility] [address] [id number] [place] [address] Sep, Fungal infection of toenail B35.1 [facility] [address] [id number] [place] [address] Sep, Long-term use of high-risk medication Z7 9.[address] [facility] [address] [place] [address] Sep, Postoperative hypothyroidism E89.0 ; Benign essential hypertension I10 ; High risk medications (not anticoagulants) long-term use Z79.899 ; Pure hypercholesterolemia E78.00 ; Fungal infection of toenail B35.1 and Long-term use of high-risk medication Z79.[address] [facility] [address] [place] [address] Sep, [address] [facility] [address] [place] [address] Sep, [facility] [place] [address] [place] [address] Aug, [facility] [address] [id number] [place] [address] Aug, [facility] [id number] [place] [address] Jul, [facility] [id number] [place] [address] Jun, [facility] [id number] [place] [address] Jun, [facility] [id number] [place] [address] Jun, [facility] [id number] [place] [address] Jun, [facility] [id number] [place] [address] Jun, [facility] [id number] [place] [address] Jun, [facility] [id number] [place] [address] Jun, [facility] [address] [id number] [place] [address] Oct, [facility] [address] [facility] [id number] [place] [address] Jan, Acute pain of right knee M25 .561 [facility] [id number] [place] [address] November, IMMUNIZATIONS No Known Immunizations SOCIAL HISTORY Never Assessed REASON FOR VISIT med refill PLAN OF CARE VITAL SIGNS MEDICATIONS Medication Instructions Dosage Frequency Start Date End Date Duration S tatus Lisinopril 10 MG Orally Once a day 1 tablet 24h 90 d ays Active RESULTS No Results PROCEDURES No Known procedures INSTRUCTIONS MEDICATIONS ADMINISTERED No Known Medications MEDICAL (GENERAL) HISTORY Type Description Date Medical History Iron deficiency anemia Medical History Osteoporosis Medical History Arthritis Medical History Hypertension Medical History Thyroid cancer Medical History Aortic aneurysm Surgical History Thyroidectomy Surgical History Cholecystectomy Surgical History Appendectomy Hospitalization History Multiple Hospital Stays
--- OUTSIDE RECORDS SUMMARY | 2020-01-16 00:49 | XMS REPORT ---
Author Author Cookie PRICE Organization [facility] Address [address] [place] [address] Care Team Providers Care Research Laboratory Manager Name Role Phone TJTAMY KINGA Unavailable PROBLEMS Type Condition ICD9-CM Code UPY71-ZP Code Onset Dates Condition S tatus SNOMED Code Problem Papillary thyroid carcinoma C73 Sep, Active 301353167 Problem Stenosis of carotid artery I65.29 Oct, Active 869063142 Problem Parathyroid adenoma D35.1 Jun, Active 500717392 Problem Myalgia and myositis [id number] Aug, Active 26677367 Problem CKD (chronic kidney disease) stage 3, GFR 30-59 ml/min N18.3 Feb, Active 909435258 Problem 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 Active 672633922 Problem Hypoglycemia E16.2 May, Active 3028 38410 Problem Osteoarthritis of spine with radiculopathy, cervical r egion M47.22 Oct, Active 924879156 Problem Benign essential hypertension I10 Active 1502546 Problem Postoperative hypothyroidism E89.0 A ctive 45137148 Problem Pure hypercholesterolemia E78.00 Acti ve 957644982 Problem 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 Acti ve 50203582 Problem Osteoporosis M81.0 Active 9966287 6 Problem 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 Active [id number] Problem Vitamin B12 deficiency E53.8 28 Jul, 2009 Acti ve 167907443 Problem Iron deficiency anemia secondary to inadequate d ietary iron intake D50.8 Active 662249312 Problem Postprocedural hypothyroidism E89.0 Active 90608905 Problem Chronic systolic (congestive) heart failure I50.22 Active 361478089 Problem Atherosclerosis of [place] of both lower extremities, with unspecified presence of clinical manifestation I70.203 Active [id number] ALLERGIES No Information ENCOUNTERS Encounter Location Date Diagnosis [address] [place] [address] Dec, [address] [place] [address] Oct, [address] [place] [address] 05 Sep, 2019 Osteoarthritis of spine with radiculopathy, cervical region M47.22 [address] [place] [address] 21 Aug, 2019 Osteoarthritis of spine with radiculopathy, cervical region M47.22 [address] [place] [address] 17 Aug, 2019 Benign essential hypertensio n I10 [address] [place] [address] 13 Aug, 2019 Right hip pain M25.551 and R ight knee pain, unspecified chronicity M25.561 [address] [place] [address] 13 Aug, 2019 Encounter [facility] Medicare [facility] Z00.00 ; CKD (chronic kidney disease) stage 3, GFR 30-59 ml/min N18.3 ; Chronic systolic (congestive) heart failure I50.22 ; 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 ; Benign essential hypertension I10 ; Pure hypercholesterolemia E78.00 ; Osteoporosis M81.0 ; Atherosclerosis of [place] artery of both lower extremities, with unspecified presence of clinical manifestation I70.203 and 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 [facility] [address] [id number] [place] [address] Aug, [facility] [address] [id number] [place] [address] Aug, Benign essential hypertension I10 [address] [place] [address] Aug, Osteoarthritis of spine with radiculopathy, cervical region M47.22 [facility] [address] [id number] [place] [address] Jul, [address] [place] [address] Jul, Osteoarthritis of spine with radiculopathy, cervical region M47.22 [address] [place] [address] Jul, [address] [place] [address] Jul, Benign essential hypertensio n I10 [address] [place] [address] 08 Jul, 2019 Iron deficiency anemia secon [...] of spine with radiculopathy, cervical region M47.22 [facility] [address] [facility] [place] [address] Jul, Iron deficiency anemia secondary to inadequate dietary iron intake D50.8 [address] [place] [address] Jun, [address] [place] [address] Jun, [address] [place] [address] Jun, Mixed simple and mucopurulen t chronic bronchitis J41.8 ; Vitamin B12 deficiency E53.8 and CKD (chronic kidney disease) stage 3, GFR 30-59 ml/min N18.3 [facility] [place] [address] [facility] [id number] [address] Jun, [facility] [place] [address] [place] [address] Jun, [facility] [address] [place] [address] May, [facility] [address] [place] [address] May, [facility] [address] [place] [address] May, [facility] [address] [place] [address] Apr, [facility] [address] [place] [address] Apr, [facility] [address] [place] [address] Apr, [facility] [address] [place] [address] Apr, [facility] [address] [id number] [place] [address] Mar, [facility] [address] [place] [address] Mar, [facility] [address] [place] [address] Mar, [facility] [address] [place] [address] Mar, Acute on chronic systolic co ngestive heart failure I50.23 [facility] [place] [address] [place] [address] Mar, [facility] [address] [place] [address] Feb, [facility] [address] [place] [address] Feb, [address] [place] [address] Feb, CKD (chronic kidney disease) stage 3, GFR 30-59 ml/min N18.[address] [place] [address] 08 Feb, 2019 Postoperative hypothyroidism E89.0 ; Papillary thyroid carcinoma C73 ; Hyponatremia E87.1 ; Wound drainage T14.8XXA and Bronchitis J40 [facility] [address] [id number] [place] [address] Feb, [address] [place] [address] Feb, [address] [place] [address] Jan, [address] [place] [address] Jan, Mixed simple and mucopurulen t chronic bronchitis J41.8 ; Iron deficiency anemia D50.9 ; Postoperative hypothyroidism E89.0 ; Benign essential hypertension I10 ; Papillary thyroid carcinoma C73 and Parathyroid adenoma D35.1 [address] [place] [address] Jan, [address] [place] [address] Jan, [address] [place] [address] Dec, [facility] [address] [facility] [place] [address] Dec, Iron deficiency anemia secondary to inadequate dietary iron intake D50.8 [address] [place] [address] Dec, Iron deficiency anemia secon chris to inadequate dietary iron intake D50.8 [address] [place] [address] Dec, [facility] [place] [address] [facility] [place] [address] Dec, Postprocedural hypothyroidism E89.0 [facility] [address] [place] [address] Dec, [facility] [address] [place] [address] November, [facility] [address] [place] [address] November, Postprocedural hypothyroidis m E89.0 [facility] [place] [address] [place] [address] November, [facility] [address] [place] [address] November, [facility] [place] [id number] [address] November, Urinary tract infection without hematuria, site unspecified N39.0 and Postprocedural hypothyroidism E89.0 [facility] [place] [address] [place] [address] November, Urinary tract infection with out hematuria, site unspecified N39.0 [facility] [address] [place] [address] November, [facility] [address] [place] [address] November, Hyponatremia E87.1 ; Iron de ficiency anemia secondary to inadequate dietary iron intake D50.8 ; Increased frequency of urination R35.0 ; Thyroid condition E07.9 and Postprocedural hypothyroidism E89.0 [facility] [place] [address] [facility] [place] [address] Oct, Thyroid condition E07.9 and Postprocedural hypothyroidism E89.0 [facility] [place] [place] [address] [place] [address] Oct, [facility] [place] [address] [place] [address] Oct, [facility] [place] [address] [place] [address] Oct, [facility] [place] [address] [facility] [id number] [place] [address] Oct, [facility] [place] [address] [facility] [id number] [place] [address] Oct, Neuropathic pain M79.2 and Vitamin B12 deficiency E53.8 [facility] [address] [place] [address] Oct, [facility] [address] [place] [address] Sep, [facility] [address] [place] [address] Sep, [address] [place] [address] Sep, [facility] [address] [place] [address] Sep, [facility] [address] [id number] [place] [address] Sep, Fungal infection of toenail B35.1 [facility] [address] [id number] [place] [address] Sep, Long-term use of high-risk medication Z7 9.899 [facility] [address] [place] [address] Sep, Postoperative hypothyroidism E89.0 ; Benign essential hypertension I10 ; High risk medications (not anticoagulants) long-term use Z79.899 ; Pure hypercholesterolemia E78.00 ; Fungal infection of toenail B35.1 and Long-term use of high-risk medication Z79.899 [facility] [address] [place] [address] Sep, [address] [facility] [address] [place] [address] Sep, [facility] [place] [address] [place] [address] Aug, [facility] [address] [id number] [place] [address] Aug, [facility] [id number] [place] [address] Jul, [facility] [id number] [place] [address] Jun, [facility] [address] [address] Jun, [facility] [id number] [place] [address] Jun, [facility] [id number] [place] [address] Jun, [facility] [id number] [place] [address] Jun, [facility] [id number] [place] [address] Jun, [facility] [id number] [place] [address] Jun, [facility] [address] [id number] [place] [address] Oct, [facility] [address] [facility] [id number] [place] [address] Jan, Acute pain of right knee M25 .561 [facility] [id number] [place] [address] November, IMMUNIZATIONS No Known Immunizations SOCIAL HISTORY Never Assessed REASON FOR VISIT med refill PLAN OF CARE VITAL SIGNS MEDICATIONS Medication Instructions Dosage Frequency Start Date End Date Duration S tatus Tramadol HCl 50 MG Orally 3 times [...]
--- OUTSIDE RECORDS SUMMARY | 2020-01-16 00:50 | XMS REPORT | Continuity of Care Document ---
Author Organization Unknown Address Unknown Phone Unavailable Allergies Active Description Code Type Severity Reaction Onset Reported/Identified Relationship to Patient Clinical Status Yes NO KNOWN DRUG ALLERGIES UNKNOWN NO KNOWN DRUG ALLERG Yes NO KNOWN DRUG ALLERGIES UNKNOWN UNKNOWN Yes No Known Drug Allergies [id number] Drug Allergy Unknown N/A 09/18/2007 Medications Medication Packaging Start Date St op Date Route Dosage Sig IPRATROPIUM/ALBUTEROL INH SO LN (DUO-NEB INH SOLN) MLS 05/31/2017 05/31/2017 ONCE&1351 NORMAL SALINE 500CC IV BAG I NJ 0.9 % (NS 500CC IV BAG) ml 05/31/2017 05/31/2017 ONCE&1351 GUAIFENESIN TAB 600 MG (MUCINEX) MG 05/31/2017 05/31/2017 ONCE&1509 NORMAL SALINE 1000CC IV BAG INJ 0.9 % (NS 1000CC IV BAG) ml 05/31/2017 06/15/2017 CONTINUOUSEVERY 0 Hour AZITHROMYCIN TAB 250 MG (ZITHROMAX) MG 05/31/2017 05/31/2017 ONCE&1525 IPRATROPIUM/ALBUTEROL INH SO LN (DUO-NEB INH SOLN) MLS 05/31/2017 06/07/2017 QID&0600,1100,1600,2100 CARVEDILOL TAB 6.25 MG (COREG) MG 05/31/2017 06/07/2017 BID&0800,2000 TRAMADOL TAB 50 MG (ULTRAM) MG 05/31/2017 06/10/2017 Q8H&0600,1400,2200 LISINOPRIL TAB 10 MG (ZESTRIL) MG 06/01/2017 06/07/2017 Daily&0900 CEFTRIAXONE PREMIX IV BAG IV 1 GM/50CC (ROCEPHIN PREMIX IV BAG) GM 06/01/2017 06/07/2017 Daily&1700 LEVOTHYROXINE TAB 88 MCG (SYNTHROID) MCG 06/01/2017 06/07/2017 Daily&0900 TRAMADOL TAB 50 MG (ULTRAM) MG 06/01/2017 06/01/2017 ONCE&1400 TRAMADOL TAB 50 MG (ULTRAM) MG 06/01/2017 06/11/2017 Q8H&0600,1400,2200 CEFUROXIME TAB 250 MG (CEFTIN) MG 06/02/2017 06/12/2017 BID&0800,2000 AZITHROMYCIN TAB 500 MG (ZITHROMAX) MG 06/03/2017 06/06/2017 Daily&0900 KETOROLAC VIAL INJ 15 MG/CC (TORADOL VIAL) MG 08/18/2017 08/18/2017 ONCE&1620 NORMAL SALINE 500CC IV BAG I NJ 0.9 % (NS 500CC IV BAG) ml 02/16/2018 03/03/2018 CONTINUOUSEVERY 0 Hour HYDROCODONE/APAP 5MG/325MG T AB 5 MG/325MG (ERICA-TAB 5/325) Dose(s) 02/16/2018 02/26/2018 PRN Q4H SUMATRIPTAN TAB 50 MG (IMITREX) Dose(s) 02/16/2018 02/23/2018 PRN Q6H CEFTRIAXONE PREMIX IV BAG IV 1 GM/50CC (ROCEPHIN PREMIX IV BAG) GM 02/16/2018 02/22/2018 Daily&0900 NYSTATIN ORAL SUSP LIQ (MYCOSTATIN Susp) ml 02/16/2018 03/02/2018 Q6H&0600,1200,1800,2359 CARVEDILOL TAB 6.25 MG (COREG) Dose(s) 02/16/2018 02/23/2018 BID&0800,2000 RANITIDINE TAB 150 MG (ZANTAC) MG 02/16/2018 02/22/2018 QHS&2100 NORMAL SALINE 1000CC IV BAG INJ 0.9 % (NS 1000CC IV BAG) ml 02/17/2018 03/04/2018 CONTINUOUSEVERY 0 Hour TRAMADOL TAB 50 MG (ULTRAM) Dose(s) 02/17/2018 02/27/2018 PRN TID LISINOPRIL TAB 10 MG (ZESTRIL) MG 02/17/2018 02/23/2018 Daily&0900 ASA 81MG ENTERIC COATED TAB 81 MG (BABY ASPIRIN EC) Dose(s) 02/17/2018 03/02/2018 Daily&0900 NORMAL SALINE 50CC IV BAG IN J (NS 50CC MINI-BAG) ml 02/17/2018 02/22/2018 Daily&0900 LISINOPRIL TAB 10 MG (ZESTRIL) Dose(s) 02/17/2018 02/23/2018 Daily&0900 LEVOTHYROXINE TAB 88 MCG (SYNTHROID) Dose(s) 02/17/2018 02/23/2018 Daily&0900 MILK OF MARIANNE LIQ ml 02/17/2018 03/19/2018 PRN Daily NORMAL SALINE 1000CC IV BAG INJ 0.9 % (NS 1000CC IV BAG) ml 01/30/2019 02/14/2019 CONTINUOUSEVERY 0 Hour SUMATRIPTAN TAB 50 MG (IMITREX) Dose(s) 01/30/2019 02/06/2019 PRN Q6H CLONIDINE TAB 0.1 MG (CATAPRES) MG 01/30/2019 02/06/2019 PRN Q6H CALCIUM CARBONATE TAB 500 MG (TUMS) MG 01/30/2019 02/06/2019 PRN Q6H DIPHENHYDRAMINE CAP 25 MG (BENADRYL) MG 01/30/2019 02/06/2019 PRN Q6H ACETAMINOPHEN SUPPOS SUP 650 MG (TYLENOL) MG 01/30/2019 02/06/2019 PRN Q4H ONDANSETRON VIAL INJ 4 MG/2CC (ZOFRAN 2CC VIAL) MG 01/30/2019 02/06/2019 PRN Q4H ALUM/MAG/SIMETH 30CC LIQ (MYLANTA PLUS) cc 01/30/2019 02/09/2019 PRN Q4H GUAIFENESIN - DM LIQ (ROBITUSSIN DM) MLS 01/30/2019 02/06/2019 PRN Q4H CARVEDILOL TAB 6.25 MG (COREG) Dose(s) 01/30/2019 02/06/2019 BID&0800,2000 Docusate sodium 100mg oral capsule (COLACE ) 01/30/2019 03/01/2019 PRN BID RANITIDINE TAB 150 MG (ZANTAC) MG 01/30/2019 02/05/2019 QHS&2100 MELATONIN TAB 3 MG (MELATONIN) MG 01/30/2019 02/05/2019 PRN QHS LEVOTHYROXINE TAB 100 MCG (SYNTHROID) MCG 01/31/2019 02/28/2019 Q48H&0900 LISINOPRIL TAB 10 MG (ZESTRIL) Dose(s) 01/31/2019 02/06/2019 Daily&0900 ASA 81MG ENTERIC COATED TAB 81 MG (BABY ASPIRIN EC) Dose(s) 01/31/2019 02/13/2019 Daily&0900 POLYETHYLENE GLYCOL POWDER U D PWD (MIRALAX 17GM UNIT DOSE PAKS) gm 01/31/2019 02/06/2019 Daily&0900 MILK OF MARIANNE NAVA ml 01/31/2019 03/01/2019 PRN Daily LEVOTHYROXINE TAB 88 MCG (SYNTHROID) MCG 01/31/2019 02/06/2019 Q48H&0900 LEVOTHYROXINE TAB 100 MCG (SYNTHROID) MCG 02/01/2019 03/02/2019 Daily&0600 TRAMADOL TAB 50 MG (ULTRAM) MG 02/01/2019 02/11/2019 Q8H&0600,1400,2200 LORAZEPAM 1CC VIAL INJ 2 MG/CC (ATIVAN VIA L) MG 02/02/2019 02/02/2019 PRN ONCE LORAZEPAM 1CC VIAL INJ 2 MG/CC (ATIVAN VIA L) MG 02/02/2019 02/02/2019 PRN ONCE ONDANSETRON 8 MG Oral DissolveTab (ZOFRAN) MG 02/03/2019 03/04/2019 Daily&0600 LEVOTHYROXINE TAB 100 MCG (SYNTHROID) MCG 02/03/2019 02/03/2019 ONCE&0900 LEVOTHYROXINE TAB 88 MCG (SYNTHROID) MCG 02/03/2019 02/03/2019 ONCE&0900 TRIAMTERENE/HCTZ 37.5/25 TAB 37.5 MG-25MG (MAXZIDE-25) cap 02/03/2019 02/03/2019 ONCE&0900 ACETAMINOPHEN ORAL TABLET 325mg(Tylenol) MG 02/03/2019 03/05/2019 PRN EVERY 6 Hour ACETAMINOPHEN SUPPOS SUP 650 MG (TYLENOL) MG 02/03/2019 02/10/2019 PRN Q4H ONDANSETRON VIAL INJ 4 MG/2CC (ZOFRAN 2CC VIAL) MG 02/03/2019 02/10/2019 PRN Q4H NORMAL SALINE 1000CC IV BAG INJ 0.9 % (NS 1000CC IV BAG) ml 02/03/2019 02/18/2019 CONTINUOUSEVERY 0 Hour ALUM/MAG/SIMETH 30CC LIQ (MYLANTA PLUS) cc 02/03/2019 02/13/2019 PRN Q4H GUAIFENESIN - DM LIQ (ROBITUSSIN DM) MLS 02/03/2019 02/10/2019 PRN Q4H ALPRAZOLAM TAB 0.25 MG (XANAX) MG 02/03/2019 02/13/2019 PRN Q6H CLONIDINE TAB 0.1 MG (CATAPRES) MG 02/03/2019 02/10/2019 PRN Q6H CALCIUM CARBONATE TAB 500 MG (TUMS) MG 02/03/2019 02/10/2019 PRN Q6H DIPHENHYDRAMINE CAP 25 MG (BENADRYL) MG 02/03/2019 02/10/2019 PRN Q6H SUMATRIPTAN TAB 50 MG (IMITREX) MG 02/03/2019 02/10/2019 PRN Q6H TRAMADOL TAB 50 MG (ULTRAM) MG 02/03/2019 02/13/2019 Q8H&0600,1400,2200 CARVEDILOL TAB 6.25 MG (COREG) Dose(s) 02/03/2019 02/10/2019 BID&0800,2000 Docusate sodium 100mg oral capsule (COLACE ) 02/03/2019 03/05/2019 PRN BID LACTULOSE SYRUP LIQ 20 GM/30 CC (CHRONULAC SYRUP) GM 02/03/2019 03/05/2019 PRN BID RANITIDINE TAB 150 MG (ZANTAC) MG 02/03/2019 02/09/2019 QHS&2100 MELATONIN TAB 3 MG (MELATONIN) MG 02/03/2019 02/09/2019 PRN QHS LEVOTHYROXINE TAB 100 MCG (SYNTHROID) MCG 02/04/2019 03/05/2019 Daily&0600 ONDANSETRON 8 MG Oral DissolveTab (ZOFRAN) MG 02/04/2019 03/05/2019 Daily&0900 LISINOPRIL TAB 10 MG (ZESTRIL) MG 02/04/2019 03/04/2019 Daily&0900 ASPIRIN ENTERIC COATED TAB 8 1 MG (BABY ASPIRIN EC) MG 02/04/2019 02/09/2019 Daily&0900 BISACODYL TAB 5 MG (DULCOLAX) MG 02/04/2019 02/10/2019 PRN Daily POLYETHYLENE GLYCOL POWDER U D PWD (MIRALAX 17GM UNIT DOSE PAKS) gm 02/04/2019 02/10/2019 Daily&0900 BISACODYL SUPPOS 10 MG (DULCOLAX SUPPOS) MG 02/04/2019 02/10/2019 PRN Daily MILK OF MARIANNE LIQ ml 02/04/2019 03/05/2019 PRN Daily FUROSEMIDE VIAL INJ 20 MG (LASIX VIAL) MG 02/05/2019 02/05/2019 ONCE&0801 Docusate sodium 100mg oral capsule (COLACE ) 02/05/2019 03/07/2019 PRN BID FUROSEMIDE VIAL INJ 20 MG (LASIX VIAL) MG 02/06/2019 02/06/2019 ONCE&0643 FUROSEMIDE VIAL INJ 20 MG (LASIX VIAL) MG 02/08/2019 02/08/2019 ONCE&0700 LEVOTHYROXINE TAB 100 MCG (SYNTHROID) MCG 02/08/2019 03/09/2019 Daily&0900 IPRATROPIUM/ALBUTEROL INH SO LN (DUO-NEB INH SOLN) MLS 11/30/2019 11/30/2019 ONCE&0838 NORMAL SALINE 1000CC IV BAG INJ 0.9 % (NS 1000CC IV BAG) ml 11/30/2019 12/10/2019 CONTINUOUSEVERY 0 Hour Piperacillin-tazobactam) 2.2 5 Gm IV Vial (Zosyn) GM 11/30/2019 12/10/2019 Q8H&0200,1000,1800 Normal SALINE 0.9 % (NS 100cc) (plain bag) ml 11/30/2019 12/09/2019 BID&1100,2300 LACTOBACILLUS BULGARIS TAB (LACTINEX BULGA RIS) 11/30/2019 12/10/2019 QID&0800,1200,1700,2200 PANTOPRAZOLE VIAL INJ 40 MG (PROTONIX IV) MG 11/30/2019 12/09/2019 Q24H&1200 ONDANSETRON VIAL INJ 4 MG/2CC (ZOFRAN 2CC VIAL) MG 11/30/2019 12/07/2019 PRN Q6H TRAMADOL TAB 50 MG (ULTRAM) MG 11/30/2019 12/10/2019 Q8H&0600,1400,2200 HYDROCODONE/APAP 5MG/325MG T AB 5 MG/325MG (ERICA-TAB 5/325) TAB 11/30/2019 12/10/2019 PRN Q6H LEVALBUTEROL LIQ 1.25 MG/3ML (XOPENEX) MG 11/30/2019 12/07/2019 TID&0800,1400,2000 CARVEDILOL TAB 6.25 MG (COREG) MG 11/30/2019 12/07/2019 BID&0800,1999 ENOXAPARIN SYRINGE INJ 30 MG (LOVENOX SYRI NGE) MG 11/30/2019 12/09/2019 Daily&1999 LEVOTHYROXINE TAB 100 MCG (SYNTHROID) MCG 12/01/2019 12/10/2019 Daily&0900 LISINOPRIL TAB 10 MG (ZESTRIL) MG 12/01/2019 12/30/2019 Daily&0900 ASPIRIN ENTERIC COATED TAB 8 1 MG (BABY ASPIRIN EC) MG 12/01/2019 12/07/2019 Daily&0900 FUROSEMIDE TAB 20 MG (LASIX) MG 12/01/2019 12/07/2019 Daily&0900 Doxycycline hyclate 100mg capsule (Vibramy greg) MG 12/01/2019 12/11/2019 BID&0800,1999 SUMATRIPTAN TAB 50 MG (IMITREX) MG 12/02/2019 12/09/2019 PRN Q2H CEFDINIR CAP 300 MG (OMNICEF) MG 12/02/2019 12/06/2019 BID&1100,2300 HYDROCODONE/APAP 5MG/325MG T AB 5 MG/325MG (ERICA-TAB 5/325) TAB 12/02/2019 12/12/2019 PRN Q12H CARVEDILOL TAB 6.25 MG (COREG) MG 12/02/2019 12/09/2019 BID&0800,1999 Doxycycline hyclate 100mg capsule (Vibramy greg) MG 12/02/2019 12/05/2019 BID&0800,1999 PANTOPRAZOLE TAB 40 MG (PROTONIX) MG 12/03/2019 12/16/2019 Q24H&0900 ALPRAZOLAM TAB 0.25 MG (XANAX) MG 12/06/2019 12/06/2019 ONCE&1802 FUROSEMIDE VIAL INJ 20 MG (LASIX VIAL) MG 12/06/2019 12/06/2019 ONCE&1934 CARVEDILOL TAB 6.25 MG (COREG) MG 12/06/2019 12/13/2019 BID&08 CEFDINIR CAP 300 MG (OMNICEF) MG 12/06/2019 12/11/2019 BID&799,1999 ALBUTEROL INHALER MDI 8 GM (VENTOLIN HFA) PUFF(S) 12/06/2019 12/16/2019 QID&0600,1200,1800,2359 HYDROCODONE/APAP 5MG/325MG T AB 5 MG/325MG (ERICA-TAB 5/325) TAB 12/07/2019 12/17/2019 PRN Q12H ACETAMINOPHEN ORAL TABLET 325mg(Tylenol) MG 12/07/2019 01/05/2020 PRN EVERY 6 Hour ACETAMINOPHEN SUPPOS SUP 650 MG (TYLENOL) MG 12/07/2019 12/13/2019 PRN Q4H ALUM/MAG/SIMETH 30CC LIQ (MYLANTA PLUS) cc 12/07/2019 12/16/2019 PRN Q4H GUAIFENESIN - DM LIQ (ROBITUSSIN DM) MLS 12/07/2019 12/13/2019 PRN Q4H NORMAL SALINE 500CC IV BAG I NJ 0.9 % (NS 500CC IV BAG) ml 12/07/2019 12/07/2019 ONCE&0245 CLONIDINE TAB 0.1 MG (CATAPRES) MG 12/07/2019 12/20/2019 PRN Q6H ONDANSETRON VIAL INJ 4 MG/2CC (ZOFRAN 2CC VIAL) MG 12/07/2019 12/13/2019 PRN Q6H CALCIUM CARBONATE TAB 500 MG (TUMS) MG 12/07/2019 12/13/2019 PRN Q6H DIPHENHYDRAMINE CAP 25 MG (BENADRYL) MG 12/07/2019 12/13/2019 PRN Q6H ALBUTEROL SVN 2.5MG/3CC LIQ 2.5 MG (PROVENTIL KASANDRA 2.5MG/3CC) MG 12/07/2019 12/16/2019 QID&0600,1100,1600,2100 ALPRAZOLAM TAB 0.25 MG (XANAX) MG 12/07/2019 12/16/2019 PRN Q6H Docusate sodium 100mg oral capsule (COLACE ) MG 12/07/2019 01/05/2020 PRN BID LISINOPRIL TAB 10 MG (ZESTRIL) MG 12/07/2019 12/13/2019 Daily&0900 ASA 81MG ENTERIC COATED TAB 81 MG (BABY ASPIRIN EC) TABS 12/07/2019 12/20/2019 Daily&0900 BISACODYL TAB 5 MG (DULCOLAX) MG 12/07/2019 12/13/2019 PRN Daily FUROSEMIDE TAB 20 MG (LASIX) MG 12/07/2019 12/15/2019 Q48H&0900 BISACODYL SUPPOS 10 MG (DULCOLAX SUPPOS) MG 12/07/2019 12/13/2019 PRN Daily LEVOTHYROXINE TAB 112 MCG (SYNTHROID) MCG 12/07/2019 12/13/2019 Daily&0900 MILK OF MAGNMICHI LIQ ml 12/07/2019 01/05/2020 PRN Daily TRAMADOL TAB 50 MG (ULTRAM) MG 12/07/2019 12/12/2019 Q8H&0600,1400,2200 MELATONIN TAB 3 MG (MELATONIN) MG 12/07/2019 01/05/2020 PRN QHS TRAMADOL TAB 50 MG (ULTRAM) MG 12/07/2019 12/12/2019 Q8H&0600,1400,2200 LEVOTHYROXINE TAB 112 MCG (SYNTHROID) MCG 12/08/2019 12/17/2019 QAM&0600 POTASSIUM CHLORIDE TAB 10 MEQ (K-DUR) MEQ 12/08/2019 12/08/2019 ONCE&0900 FUROSEMIDE VIAL INJ 20 MG (LASIX VIAL) MG 12/08/2019 12/08/2019 ONCE&0900 NORMAL SALINE 1000CC IV BAG INJ 0.9 % (NS 1000CC IV BAG) ml 12/09/2019 12/24/2019 CONTINUOUSEVERY 0 Hour ACETAMINOPHEN ORAL TABLET 325mg(Tylenol) MG 12/09/2019 01/08/2020 PRN EVERY 6 Hour CLONIDINE TAB 0.1 MG (CATAPRES) MG 12/09/2019 12/23/2019 PRN Q6H ONDANSETRON VIAL INJ 4 MG/2CC (ZOFRAN 2CC VIAL) MG 12/09/2019 12/16/2019 PRN Q6H CALCIUM CARBONATE TAB 500 MG (TUMS) MG 12/09/2019 12/16/2019 PRN Q6H DIPHENHYDRAMINE CAP 25 MG (BENADRYL) MG 12/09/2019 12/16/2019 PRN Q6H HYDROCODONE/APAP 5MG/325MG T AB 5 MG/325MG (ERICA-TAB 5/325) TAB 12/09/2019 2019 PRN Q6H ALPRAZOLAM TAB 0.25 MG (XANAX) MG 12/09/2019 2019 PRN Q6H TRAMADOL TAB 50 MG (ULTRAM) MG 12/09/2019 12/14/2019 Q8H&0600,1400,2200 ACETAMINOPHEN SUPPOS SUP 650 MG (TYLENOL) MG 12/09/2019 12/16/2019 PRN Q4H Piperacillin-tazobactam 3.37 5 Gm IV recon soln (Zosyn) GM 12/09/2019 12/14/2019 Q8H&0600,1400,2200 ALUM/MAG/SIMETH 30CC LIQ (MYLANTA PLUS) cc 12/09/2019 2019 PRN Q4H GUAIFENESIN - DM LIQ (ROBITUSSIN DM) MLS 12/09/2019 12/16/2019 PRN Q4H ALBUTEROL SVN 2.5MG/3CC LIQ 2.5 MG (PROVENTIL KASANDRA 2.5MG/3CC) MG 12/09/2019 2019 QID&0600,1100,1600,2100 CARVEDILOL TAB 6.25 MG (COREG) MG 12/09/2019 12/16/2019 BID&0800,2000 Docusate sodium 100mg oral capsule (COLACE ) MG 12/09/2019 01/08/2020 PRN BID ENOXAPARIN SYRINGE INJ 40 MG (LOVENOX SYRI NGE) MG 12/09/2019 12/18/2019 QPM&2000 LACTULOSE SYRUP LIQ 20 GM/30 CC (CHRONULAC SYRUP) GM 12/09/2019 01/08/2020 BID&0800,2000 MELATONIN TAB 3 MG (MELATONIN) MG 12/09/2019 01/07/2020 PRN QHS LEVOTHYROXINE TAB 112 MCG (SYNTHROID) MCG 12/10/2019 12/16/2019 QAM&0630 LISINOPRIL TAB 10 MG (ZESTRIL) MG 12/10/2019 12/16/2019 Daily&0900 ASPIRIN ENTERIC COATED TAB 8 1 MG (BABY ASPIRIN EC) MG 12/10/2019 12/16/2019 Daily&0900 BISACODYL TAB 5 MG (DULCOLAX) MG 12/10/2019 12/16/2019 PRN Daily FUROSEMIDE TAB 20 MG (LASIX) MG 12/10/2019 12/18/2019 Q48H&0900 POLYETHYLENE GLYCOL POWDER U D PWD (MIRALAX 17GM UNIT DOSE PAKS) gm 12/10/2019 12/16/2019 Daily&0900 BISACODYL SUPPOS 10 MG (DULCOLAX SUPPOS) MG 12/10/2019 12/16/2019 PRN Daily MILK OF MAGNMICHI LIQ ml 12/10/2019 01/08/2020 PRN Daily FLUCONAZOLE TAB 100 MG (DIFLUCAN) MG 12/11/2019 12/24/2019 Daily&0900 AMOX-CLAV 875/125 TAB 875 MG-125MG (AUGMEN TIN) TAB 12/11/2019 12/20/2019 BID&0800,2000 CYANOCBALAMIN VIAL INJ 1000 MCG/CC (VIT B12 VIAL) 12/11/2019 12/11/2019 PRN ONCE NORMAL SALINE 1000CC IV BAG INJ 0.9 % (NS 1000CC IV BAG) ml 01/15/2020 01/30/2020 CONTINUOUSEVERY 0 Hour NORMAL SALINE 250CC IV BAG I NJ 0.9 % (NS 250CC IV BAG) ml 01/15/2020 01/15/2020 ONCE&2003 Piperacillin-tazobactam 3.37 5 Gm IV recon soln (Zosyn) GM 01/15/2020 01/15/2020 ONCE&2003 Problems Date Dx Coded Attending Type Code Diagnosis Diagnosed By 02/09/2017 Keith Crocker 729.5 PAIN IN LIMB 02/09/2017 Keith Crocker M79.652 PAIN IN LEFT THIGH 05/30/2017 Raquel Olguin J18.9 PNEUMONIA, UNSPECIFIED ORGANISM 05/30/2017 Raquel Olguin J18.9 PNEUMONIA, UNSPECIFIED ORGANISM 05/31/2017 Paul Naqvi 486 PNEUMONIA, ORGANISM UNSPECIFIED 05/31/2017 Brown, Paul A J18.9 PNEUMONIA, UNSPECIFIED ORGANISM 05/31/2017 Paul Naqvi A 486 PNEUMONIA, ORGANISM UNSPECIFIED 05/31/2017 Driss, Paul A J18.9 PNEUMONIA, UNSPECIFIED ORGANISM 05/31/2017 Keith Crocker J18.9 PNEUMONIA, UNSPECIFIED ORGANISM 05/31/2017 Paul Naqvi W 486 PNEUMONIA, ORGANISM UNSPECIFIED 05/31/2017 Brown, Paul W J18.9 PNEUMONIA, UNSPECIFIED ORGANISM 05/31/2017 Paul Naqvi W 486 PNEUMONIA, ORGANISM UNSPECIFIED 05/31/2017 BrownPaul W J18.9 PNEUMONIA, UNSPECIFIED ORGANISM 06/03/2017 Paul Naqvi W 244.9 UNSPECIFIED HYPOTHYROIDISM 06/03/2017 Paul Naqvi W 276.1 06/03/2017 BrownPaul W 401.0 MALIGNANT ESSENTIAL HYPERTENSION 06/03/2017 Paul Naqvi W 486 PNEUMONIA, ORGANISM UNSPECIFIED 06/03/2017 Paul Naqvi W 530.81 ESOPHAGEAL REFLUX 06/03/2017 Paul Naqvi W E03.9 HYPOTHYROIDISM, UNSPECIFIED 06/03/2017 Paul Naqvi W E87.1 HYPO- OSMOLALITY AND HYPONATREMIA 06/03/2017 Paul Naqvi W I10 ESSENTIAL (PRIMARY) HYPERTENSION 06/03/2017 Paul Naqvi W J18.9 PNEUMONIA, UNSPECIFIED ORGANISM 06/03/2017 Paul Naqvi W K21.9 GASTRO-ESOPHAGEAL REFLUX DISEASE WITHOUT ESOPHAGITIS 08/18/2017 Keith Crocker 244.9 UNSPECIFIED HYPOTHYROIDISM 08/18/2017 Keith Crocker 401.0 MALIGNANT ESSENTIAL HYPERTENSION 08/18/2017 Keith Crocker 518.89 OTHER DISEASES OF LUNG, NOT ELSEWHERE CLASSIFIED 08/18/2017 Keith Crocker 530.81 08/18/2017 Keith Crocker 780.79 OTHER MALAISE AND FATIGUE 08/18/2017 Keith Crocker 786.5 08/18/2017 Keith Crocker E03.9 HYPOTHYROIDISM, UNSPECIFIED 08/18/2017 Keith Crocker I10 ESSENTIAL (PRIMARY) HYPERTENSION 08/18/2017 Keith Crocker 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 08/18/2017 Keith Crocker K21.9 GASTRO-ESOPHAGEAL REFLUX DISEASE WITHOUT ESOPHAGITIS 08/18/2017 Howayek, Keith A R07.89 OTHER CHEST PAIN 08/18/2017 Keith Crocker W R53.83 OTHER FATIGUE 02/07/2018 W 466.0 ACUT E BRONCHITIS 02/07/2018 W J20.9 ACUT E BRONCHITIS, UNSPECIFIED 02/16/2018 César, Theresa W 263.0 MALNUTRITION OF MODERATE DEGREE 02/16/2018 César, Theresa W 276.1 HYPOSMOLALITY AND/OR HYPONATREMIA 02/16/2018 César, Theresa W 599.0 URINARY TRACT INFECTION, SITE NOT SPECIFIED 02/16/2018 César, Theresa W 797 SENILITY WITHOUT MENTION OF PSYCHOSIS 02/16/2018 César, Theresa W E44.0 MODERATE PROTEIN-CALORIE MALNUTRITION 02/16/2018 César, Theresa W E87.1 HYPO- OSMOLALITY AND HYPONATREMIA 02/16/2018 César, Theresa W N39.0 URINARY TRACT INFECTION, SITE NOT SPECIFIED 02/16/2018 César, Theresa W 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 02/18/2018 César, Theresa W 244.9 02/18/2018 César, Theresa W 263.0 MALNUTRITION OF MODERATE DEGREE 02/18/2018 César, Theresa A 276.1 HYPOSMOLALITY AND/OR HYPONATREMIA 02/18/2018 César, Theresa W 401.0 02/18/2018 César, Theresa W 599.0 URINARY TRACT INFECTION, SITE NOT SPECIFIED 02/18/2018 César, Theresa W 791.9 OTHER NONSPECIFIC FINDINGS ON EXAMINATION OF URINE 02/18/2018 César, Theresa W 797 SENILITY WITHOUT MENTION OF PSYCHOSIS 02/18/2018 César, Theresa W E03.9 HYPOTHYROIDISM, UNSPECIFIED 02/18/2018 César, Theresa W E44.0 MODERATE PROTEIN-CALORIE MALNUTRITION 02/18/2018 César, Theresa A E87.1 HYPO- OSMOLALITY AND HYPONATREMIA 02/18/2018 César, Theresa W I10 ESSENTIAL (PRIMARY) HYPERTENSION 02/18/2018 César, Theresa W N39.0 URINARY TRACT INFECTION, SITE NOT SPECIFIED 02/18/2018 César, Theresa W 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 02/18/2018 César, Theresa W R82.998 OTHER ABNORMAL FINDINGS IN URINE 02/21/2018 W 786.05 NITO RTNESS OF BREATH 02/21/2018 W R06.02 NITO RTNESS OF BREATH 05/09/2018 W 719.47 CHRISTOPH N IN JOINT INVOLVING ANKLE AND FOOT 05/09/2018 W M25.579 PA IN IN UNSPECIFIED ANKLE AND JOINTS OF UNSPECIFIED FOOT 09/27/2018 W 729.5 PAIN IN LIMB 09/27/2018 W M79.673 PA IN IN UNSPECIFIED FOOT 01/18/2019 Keith Crocker W 244.9 UNSPECIFIED HYPOTHYROIDISM 01/18/2019 Keith Crocker W 401.0 MALIGNANT ESSENTIAL HYPERTENSION 01/18/2019 Keith Crocker W 780.79 OTHER MALAISE AND FATIGUE 01/18/2019 Keith Crocker W E03.9 HYPOTHYROIDISM, UNSPECIFIED 01/18/2019 Keith Crocker W I10 ESSENTIAL (PRIMARY) HYPERTENSION 01/18/2019 Keith Crocker W R53.83 OTHER FATIGUE 01/30/2019 Raquel Olguin W 244.9 UNSPECIFIED HYPOTHYROIDISM 01/30/2019 Raquel Olguin W 276.1 HYPOSMOLALITY AND/OR HYPONATREMIA 01/30/2019 Raquel Olguin W E03.9 HYPOTHYROIDISM, UNSPECIFIED 01/30/2019 Raquel Olguin W E87.1 HYPO- OSMOLALITY AND HYPONATREMIA 02/03/2019 Raquel Olguin W 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 02/03/2019 Raquel Olguin W 244.9 UNSPECIFIED HYPOTHYROIDISM 02/03/2019 Raquel Olguin W 276.1 HYPOSMOLALITY AND/OR HYPONATREMIA 02/03/2019 Raquel Olguin W 401.0 MALIGNANT ESSENTIAL HYPERTENSION 02/03/2019 Raquel Olguin W 530.81 ESOPHAGEAL REFLUX 02/03/2019 Raquel Olguin W 780.79 OTHER MALAISE AND FATIGUE 02/03/2019 Raquel Olguin W 783.21 LOSS OF WEIGHT 02/03/2019 Raquel Olguin W E03.9 HYPOTHYROIDISM, UNSPECIFIED 02/03/2019 Raquel Olguin W E87.1 HYPO- OSMOLALITY AND HYPONATREMIA 02/03/2019 Raquel Olguin W 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 HYPOTHYROIDISM 02/03/2019 Raquel Olguin W I10 ESSENTIAL (PRIMARY) HYPERTENSION 02/03/2019 Raquel Olguin W K21.9 GASTRO- ESOPHAGEAL REFLUX DISEASE WITHOUT ESOPHAGITIS 02/03/2019 OlguinKeanui W R53.81 OTHER MALAISE 02/03/2019 OlguinKeanui W R63.4 ABNORMAL WEIGHT LOSS 02/08/2019 Olguin, Raquel W 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 02/08/2019 Olguin, Raquel W 276.1 HYPOSMOLALITY AND/OR HYPONATREMIA 02/08/2019 Dom Raquel W 401.0 MALIGNANT ESSENTIAL HYPERTENSION 02/08/2019 OlguinRaquel frausto W 530.81 ESOPHAGEAL REFLUX 02/08/2019 Olguin, Raquel W 780.79 OTHER MALAISE AND FATIGUE 02/08/2019 OlguinKeanui W E87.1 HYPO- OSMOLALITY AND HYPONATREMIA 02/08/2019 Olguin, Raquel W 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 HYPOTHYROIDISM 02/08/2019 Olguin, Raquel W I10 ESSENTIAL (PRIMARY) HYPERTENSION 02/08/2019 Dom Raquel W K21.9 GASTRO- ESOPHAGEAL REFLUX DISEASE WITHOUT ESOPHAGITIS 02/08/2019 Dom Raquel W R53.81 OTHER MALAISE 02/16/2019 RANDI CHOU, RUBY Shelton Ot 19 3 MALIGN NEOPL THYROID 02/22/2019 SIM WYATT APRN Ot 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 02/22/2019 SIM WYATT APRN Ot I87.2 VENOUS INSUFFICIENCY (CHRONIC) (PERIPHER 02/22/2019 SIM WYATT APRN Ot L97.212 NON-PRESSURE CHRONIC ULCER OF RIGHT CALF 02/27/2019 Keith Crocker 599.0 URINARY TRACT INFECTION, SITE NOT S 02/27/2019 Keith Crocker 780.79 OTHER M 02/27/2019 Keith Crocker E03.9 HYPOTHYROIDISM, UNSPECIFIED 02/27/2019 Keith Crocker E44.0 MODERATE PROTEIN-CALORIE MALNUTRITION 02/27/2019 Keith Crocker E87.1 HYPO- OSMOLALITY AND HYPONATREMIA 02/27/2019 Keith Crocker 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 HYPOTHYROIDISM 02/27/2019 Keith Crocker I10 ESSENTIAL 02/27/2019 Keith Crocker 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 02/27/2019 Keith Crocker K21.9 GASTRO-ESOPHAGEAL REFLUX DISEASE WITHOUT ESOPHAGITIS 02/27/2019 Keith Crocker M25.579 PAIN IN UNSPECIFIED ANKLE AND JOINTS OF UNSPECIFIED FOOT 02/27/2019 Keith Crocker M79.652 PAIN IN LEFT THIGH 02/27/2019 Keith Crocker M79.673 PAIN IN UNSPECIFIED FOOT 02/27/2019 Keith Crocker N39.0 URINARY TRACT INFECTION, SITE NOT SPECIFIED 02/27/2019 Keith Crocker R06.02 SHORTNESS OF BREATH 02/27/2019 Keith Crocker R53.1 WEAKNESS 02/27/2019 Keith Crocker R53.81 OTHER MALAISE 02/27/2019 Keith Crocker R53.83 OTHER FATIGUE 02/27/2019 Keith Crocker 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 02/27/2019 Keith Crocker R82.998 OTHER ABNORMAL FINDINGS IN URINE 03/01/2019 SIM WYATT APRN Ot I87.2 VENOUS INSUFFICIENCY (CHRONIC) (PERIPHER 03/01/2019 SIM WYATT STOCK LETTERER Ot I 96 GANGR[place], NOT ELSEWHERE CLASSIFIED 03/01/2019 SIM WYATT STOCK LETTERER Ot L97.212 NON-PRESSURE CHRONIC ULCER OF RIGHT CALF 03/04/2019 SIM WYATT STOCK LETTERER Ot I 10 ESSENTIAL (PRIMARY) HYPERTENSION 03/04/2019 SIM WYATT APRN Ot I25.10 ATHSCL HEART DISEASE OF [place] CORONARY 03/04/2019 SIM WYATT STOCK LETTERER Ot L97.212 NON-PRESSURE CHRONIC ULCER OF RIGHT CALF 03/04/2019 SIM WYATT APRN Ot M19.90 UNSPECIFIED OSTEOARTHRITIS, UNSPECIFIED 03/08/2019 SIM WYATT STOCK LETTERER Ot I 10 ESSENTIAL (PRIMARY) HYPERTENSION 03/08/2019 SIM WYATT APRN Ot I25.10 ATHSCL HEART DISEASE OF [place] CORONARY 03/08/2019 SIM WYATT STOCK LETTERER Ot L97.212 NON-PRESSURE CHRONIC ULCER OF RIGHT CALF 03/08/2019 SIM WYATT STOCK LETTERER Ot M19.90 UNSPECIFIED OSTEOARTHRITIS, UNSPECIFIED 03/11/2019 SIM WYATT APRN Ot D64.9 ANEMIA, UNSPECIFIED 03/11/2019 EDMUNDO, SIM R STOCK LETTERER Ot G62.9 POLYNEUROPATHY, UNSPECIFIED 03/11/2019 EDMUNDO SIM R STOCK LETTERER Ot H26.9 UNSPECIFIED CATARACT 03/11/2019 MOJGAN WYATTN R STOCK LETTERER Ot I 10 ESSENTIAL (PRIMARY) HYPERTENSION 03/11/2019 SIM WYATT R STOCK LETTERER Ot I25.10 ATHSCL HEART DISEASE OF [place] CORONARY 03/11/2019 SIM WYATT R STOCK LETTERER Ot I49.9 CARDIAC ARRHYTHMIA, UNSPECIFIED 03/11/2019 MOJGAN WYATTN R STOCK LETTERER Ot K52.9 NONINFECTIVE GASTROENTERITIS AND COLITIS 03/11/2019 EDMUNDO SIM R STOCK LETTERER Ot L97.212 NON-PRESSURE CHRONIC ULCER OF RIGHT CALF 03/11/2019 SIM WYATT R STOCK LETTERER Ot M19.90 UNSPECIFIED OSTEOARTHRITIS, UNSPECIFIED 03/11/2019 SIM WYATT R STOCK LETTERER Ot 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 03/11/2019 EDMUNDO SIM R STOCK LETTERER Ot I87.2 VENOUS INSUFFICIENCY (CHRONIC) (PERIPHER 03/11/2019 SIM WYATT R STOCK LETTERER Ot L97.212 NON-PRESSURE CHRONIC ULCER OF RIGHT CALF 03/15/2019 SIM WYATT R STOCK LETTERER Ot D64.9 ANEMIA, UNSPECIFIED 03/15/2019 SIM WYATT R STOCK LETTERER Ot G62.9 POLYNEUROPATHY, UNSPECIFIED 03/15/2019 SIM WYATT R STOCK LETTERER Ot H26.9 UNSPECIFIED CATARACT 03/15/2019 SIM WYATT R STOCK LETTERER Ot I 10 ESSENTIAL (PRIMARY) HYPERTENSION 03/15/2019 SIM WYATT STOCK LETTERER Ot I25.10 ATHSCL HEART DISEASE OF [place] CORONARY 03/15/2019 SIM WYATT R STOCK LETTERER Ot I49.9 CARDIAC ARRHYTHMIA, UNSPECIFIED 03/15/2019 EDMUNDO SIM R STOCK LETTERER Ot K52.9 NONINFECTIVE GASTROENTERITIS AND COLITIS 03/15/2019 EDMUNDO SIM R STOCK LETTERER Ot L97.212 NON-PRESSURE CHRONIC ULCER OF RIGHT CALF 03/15/2019 SIM WYATT R STOCK LETTERER Ot M19.90 UNSPECIFIED OSTEOARTHRITIS, UNSPECIFIED 03/15/2019 EDMUNDO SIM R STOCK LETTERER Ot 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 03/15/2019 SIM WYATT R STOCK LETTERER Ot I87.2 VENOUS INSUFFICIENCY (CHRONIC) (PERIPHER 03/15/2019 EDMUNDO SIM R STOCK LETTERER Ot L97.212 NON-PRESSURE CHRONIC ULCER OF RIGHT CALF 03/22/2019 SIM WYATT R STOCK LETTERER Ot I87.2 VENOUS INSUFFICIENCY (CHRONIC) (PERIPHER 03/22/2019 EDMUNDO SIM R STOCK LETTERER Ot I 96 GANGR[place], NOT ELSEWHERE CLASSIFIED 03/22/2019 SIM WYATT R STOCK LETTERER Ot L97.212 NON-PRESSURE CHRONIC ULCER OF RIGHT CALF 03/22/2019 EDMUNDO SIM R STOCK LETTERER Ot I87.2 VENOUS INSUFFICIENCY (CHRONIC) (PERIPHER 03/22/2019 EDMUNDO, SIM R STOCK LETTERER Ot I 96 GANGRENE, NOT ELSEWHERE CLASSIFIED 03/22/2019 EDMUNDO SIM R STOCK LETTERER Ot L97.212 NON-PRESSURE CHRONIC ULCER OF RIGHT CALF 03/25/2019 EDMUNDO SIM R STOCK LETTERER Ot I 10 ESSENTIAL (PRIMARY) HYPERTENSION 03/25/2019 EDMUNDO SIM R STOCK LETTERER Ot I25.10 ATHSCL HEART DISEASE OF [place] CORONARY 03/25/2019 EDMUNDO SIM R STOCK LETTERER Ot L97.212 NON-PRESSURE CHRONIC ULCER OF RIGHT CALF 03/25/2019 EDMUNDO SIM R STOCK LETTERER Ot M19.90 UNSPECIFIED OSTEOARTHRITIS, UNSPECIFIED 03/29/2019 EDMUNDO SIM R STOCK LETTERER Ot I 10 ESSENTIAL (PRIMARY) HYPERTENSION 03/29/2019 EDMUNDO SIM R STOCK LETTERER Ot I25.10 ATHSCL HEART DISEASE OF [place] CORONARY 03/29/2019 EDMUNDO SIM R STOCK LETTERER Ot L97.212 NON-PRESSURE CHRONIC ULCER OF RIGHT CALF 03/29/2019 EDMUNDO SIM R STOCK LETTERER Ot M19.90 UNSPECIFIED OSTEOARTHRITIS, UNSPECIFIED 03/30/2019 SIM WYATT R STOCK LETTERER Ot I87.2 VENOUS INSUFFICIENCY (CHRONIC) (PERIPHER 03/30/2019 EDMUNDO SIM R STOCK LETTERER Ot I 96 GANGRENE, NOT ELSEWHERE CLASSIFIED 03/30/2019 SIM WYATT R STOCK LETTERER Ot L97.212 NON-PRESSURE CHRONIC ULCER OF RIGHT CALF 03/31/2019 SIM WYATT R STOCK LETTERER Ot I87.2 VENOUS INSUFFICIENCY (CHRONIC) (PERIPHER 03/31/2019 EDMUNDO SIM R STOCK LETTERER Ot I 96 GANGRENE, NOT ELSEWHERE CLASSIFIED 03/31/2019 SIM WYATT R STOCK LETTERER Ot L97.212 NON-PRESSURE CHRONIC ULCER OF RIGHT CALF 03/31/2019 SIM WYATT R STOCK LETTERER Ot D64.9 ANEMIA, UNSPECIFIED 03/31/2019 SIM WYATT R STOCK LETTERER Ot G62.9 POLYNEUROPATHY, UNSPECIFIED 03/31/2019 SIM WYATT R STOCK LETTERER Ot H26.9 UNSPECIFIED CATARACT 03/31/2019 SIM WYATT R STOCK LETTERER Ot I 10 ESSENTIAL (PRIMARY) HYPERTENSION 03/31/2019 SIM WYATT R STOCK LETTERER Ot I25.10 ATHSCL HEART DISEASE OF [place] CORONARY 03/31/2019 SIM WYATT R STOCK LETTERER Ot I49.9 CARDIAC ARRHYTHMIA, UNSPECIFIED 03/31/2019 SIM WYATT R STOCK LETTERER Ot K52.9 NONINFECTIVE GASTROENTERITIS AND COLITIS 03/31/2019 SIM WYATT R STOCK LETTERER Ot L97.212 NON-PRESSURE CHRONIC ULCER OF RIGHT CALF 03/31/2019 SIM WYATT STOCK LETTERER Ot M19.90 UNSPECIFIED OSTEOARTHRITIS, UNSPECIFIED 04/01/2019 SIM WYATT STOCK LETTERER Ot I87.2 VENOUS INSUFFICIENCY (CHRONIC) (PERIPHER 04/01/2019 SIM WYATT R STOCK LETTERER Ot I 96 GANGRENE, NOT ELSEWHERE CLASSIFIED 04/01/2019 SIM WYATT R STOCK LETTERER Ot L97.212 NON-PRESSURE CHRONIC ULCER OF RIGHT CALF 04/14/2019 EDMUNDO SIM R STOCK LETTERER Ot I87.2 VENOUS INSUFFICIENCY (CHRONIC) (PERIPHER 04/14/2019 SIM WYATT R STOCK LETTERER Ot L97.212 NON-PRESSURE CHRONIC ULCER OF RIGHT CALF 04/14/2019 EDMUNDO SIM R STOCK LETTERER Ot I87.2 VENOUS INSUFFICIENCY (CHRONIC) (PERIPHER 04/14/2019 SIM WYATT R STOCK LETTERER Ot I 96 [place]ANGR[place], NOT ELSEWHERE CLASSIFIED 04/14/2019 SIM WYATT R STOCK LETTERER Ot L97.212 NON-PRESSURE CHRONIC ULCER OF RIGHT CALF 04/20/2019 SIM WYATT R STOCK LETTERER Ot I87.2 VENOUS INSUFFICIENCY (CHRONIC) (PERIPHER 04/20/2019 SIM WYATT R STOCK LETTERER Ot L97.212 NON-PRESSURE CHRONIC ULCER OF RIGHT CALF 05/22/2019 Raquel Olguin L97.209 NON- PRESSURE CHRONIC ULCER OF UNSP CALF WITH UNSP SEVERITY 05/22/2019 Raquel Olguin L97.209 NON- PRESSURE CHRONIC ULCER OF UNSP CALF WITH UNSP SEVERITY 11/30/2019 Olguin, Raquel W 486 PNEUMONIA, ORGANISM UNSPECIFIED 11/30/2019 Raquel Olguin W J18.8 OTHER PNEUMONIA, UNSPECIFIED ORGANISM 12/03/2019 Raquel Olguin W 486 PNEUMONIA, ORGANISM UNSPECIFIED 12/03/2019 Raquel Olguin W E03.9 HYPOTHYROIDISM, UNSPECIFIED 12/03/2019 Raquel Olguin W E44.0 MODERATE PROTEIN-CALORIE MALNUTRITION 12/03/2019 Raquel Olguin W E87.1 HYPO- OSMOLALITY AND HYPONATREMIA 12/03/2019 Raquel Olguin W 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 HYPOTHYROIDISM 12/03/2019 Raquel Olguin W I10 ESSENTIAL (PRIMARY) HYPERTENSION 12/03/2019 Raquel Olguin W J18.8 OTHER PNEUMONIA, UNSPECIFIED ORGANISM 12/03/2019 Raquel Olguin W 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 12/03/2019 Raquel Olguin W K21.9 GASTRO- ESOPHAGEAL REFLUX DISEASE WITHOUT ESOPHAGITIS 12/03/2019 Raquel Olguin W M25.579 PAIN IN UNSPECIFIED ANKLE AND JOINTS OF UNSPECIFIED FOOT 12/03/2019 Raquel Olguin W M79.652 PAIN IN LEFT THIGH 12/03/2019 Raquel Olguin W M79.673 PAIN IN UNSPECIFIED FOOT 12/03/2019 Raquel Olguin W N39.0 URINARY TRACT INFECTION, SITE NOT SPECIFIED 12/03/2019 Raquel Olguin W R06.02 SHORTNESS OF BREATH 12/03/2019 Raquel Olguin W R09.02 HYPOXEMIA 12/03/2019 Raquel Olguin W R53.81 OTHER MALAISE 12/03/2019 Raquel Olguin R53.83 OTHER FATIGUE 12/03/2019 Raquel Olguin W 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 12/03/2019 Raquel Olguin W R82.998 OTHER ABNORMAL FINDINGS IN URINE 12/06/2019 Raquel Olguin W 511.1 PLEURISY WITH EFFUSION, WITH MENTION OF A BACTERIAL CAUSE OTHER THAN TUBERCULOSIS 12/06/2019 Raquel Olguin W J90 PLEURAL EFFUSION, NOT ELSEWHERE CLASSIFIED 12/06/2019 Raquel Olguin W 511.1 PLEURISY WITH EFFUSION, WITH MENTION OF A BACTERIAL CAUSE OTHER THAN TUBERCULOSIS 12/06/2019 Raquel Olguin W 799.02 HYPOXEMIA 12/06/2019 Dom Raquel W J90 PLEURAL EFFUSION, NOT ELSEWHERE CLASSIFIED 12/06/2019 OlguinKeanui W R09.02 HYPOXEMIA 12/09/2019 OlguinKeanui W 511.1 PLEURISY WITH EFFUSION, WITH MENTION OF A BACTERIAL CAUSE OTHER THAN TUBERCULOSIS 12/09/2019 Olguin Raquel W 799.02 HYPOXEMIA 12/09/2019 OlguinKeanui W J90 PLEURAL EFFUSION, NOT ELSEWHERE CLASSIFIED 12/09/2019 DomKeanui W R09.02 HYPOXEMIA 12/09/2019 Dom Raquel W I10 ESSENTIAL (PRIMARY) HYPERTENSION 12/09/2019 Raquel Olguin W J18.8 OTHER PNEUMONIA, UNSPECIFIED ORGANISM 12/09/2019 Raquel Olguin W N39.0 URINARY TRACT INFECTION, SITE NOT SPECIFIED 12/09/2019 Raquel Olguin W R06.02 SHORTNESS OF BREATH 12/09/2019 Raquel Olguin W R82.998 OTHER ABNORMAL FINDINGS IN URINE 12/09/2019 Raquel Olguin W E44.0 MODERATE PROTEIN-CALORIE MALNUTRITION 12/09/2019 Raquel Olguin W 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 HYPOTHYROIDISM 12/09/2019 Raquel Olguin W I10 ESSENTIAL (PRIMARY) HYPERTENSION 12/09/2019 Raquel Olguin W J18.8 OTHER PNEUMONIA, UNSPECIFIED ORGANISM 12/09/2019 Raquel Olguin W 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 12/09/2019 Raquel Olguin W M79.652 PAIN IN LEFT THIGH 12/09/2019 Raquel Olguin W M79.673 PAIN IN UNSPECIFIED FOOT 12/09/2019 Raquel Olguin W N39.0 URINARY TRACT INFECTION, SITE NOT SPECIFIED 12/09/2019 Raquel Olguin W R06.02 SHORTNESS OF BREATH 12/09/2019 Raquel Olguin W R82.998 OTHER ABNORMAL FINDINGS IN URINE 12/09/2019 Raquel Olguin W E03.9 HYPOTHYROIDISM, UNSPECIFIED 12/09/2019 Dom Raquel W E44.0 MODERATE PROTEIN-CALORIE MALNUTRITION 12/09/2019 Dom Raquel W 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 HYPOTHYROIDISM 12/09/2019 Raquel Olguin W I10 ESSENTIAL (PRIMARY) HYPERTENSION 12/09/2019 Raquel Olguin W J18.8 OTHER PNEUMONIA, UNSPECIFIED ORGANISM 12/09/2019 Raquel Olguin W 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 12/09/2019 Raquel Olguin W K21.9 GASTRO- ESOPHAGEAL REFLUX DISEASE WITHOUT ESOPHAGITIS 12/09/2019 Raquel Olguin W M25.579 PAIN IN UNSPECIFIED ANKLE AND JOINTS OF UNSPECIFIED FOOT 12/09/2019 Raquel Olguin W M79.652 PAIN IN LEFT THIGH 12/09/2019 Raquel Olguin W M79.673 PAIN IN UNSPECIFIED FOOT 12/09/2019 Dom Raquel W N39.0 URINARY TRACT INFECTION, SITE NOT SPECIFIED 12/09/2019 Raquel Olguin W R06.02 SHORTNESS OF BREATH 12/09/2019 Dom Raquel W R53.81 OTHER MALAISE 12/09/2019 Dom Raquel W R82.998 OTHER ABNORMAL FINDINGS IN URINE 12/09/2019 Raquel Olguin W E03.9 HYPOTHYROIDISM, UNSPECIFIED 12/09/2019 Raquel Olguin W E44.0 MODERATE PROTEIN-CALORIE MALNUTRITION 12/09/2019 Dom Raquel W 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 HYPOTHYROIDISM 12/09/2019 Raquel Olguin W I10 ESSENTIAL (PRIMARY) HYPERTENSION 12/09/2019 Raquel Olguin W J18.8 OTHER PNEUMONIA, UNSPECIFIED ORGANISM 12/09/2019 Raquel Olguin W 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 12/09/2019 Raquel Olguin W K21.9 GASTRO- ESOPHAGEAL REFLUX DISEASE WITHOUT ESOPHAGITIS 12/09/2019 Raquel Olguin W M25.579 PAIN IN UNSPECIFIED ANKLE AND JOINTS OF UNSPECIFIED FOOT 12/09/2019 Raquel Olguin W M79.652 PAIN IN LEFT THIGH 12/09/2019 Dom Raquel W M79.673 PAIN IN UNSPECIFIED FOOT 12/09/2019 Dom Raquel W N39.0 URINARY TRACT INFECTION, SITE NOT SPECIFIED 12/09/2019 Dom Raquel W R06.02 SHORTNESS OF BREATH 12/09/2019 Dom Raquel W R53.81 OTHER MALAISE 12/09/2019 Dom Raquel W R82.998 OTHER ABNORMAL FINDINGS IN URINE 12/09/2019 Dom Raquel W E03.9 HYPOTHYROIDISM, UNSPECIFIED 12/09/2019 Dom Raquel W E44.0 MODERATE PROTEIN-CALORIE MALNUTRITION 12/09/2019 Dom Raquel W 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 HYPOTHYROIDISM 12/09/2019 Dom Raquel W I10 ESSENTIAL (PRIMARY) HYPERTENSION 12/09/2019 Dom Raquel W J18.8 OTHER PNEUMONIA, UNSPECIFIED ORGANISM 12/09/2019 Raquel Olguin W 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 12/09/2019 Raquel Olguin W K21.9 GASTRO- ESOPHAGEAL REFLUX DISEASE WITHOUT ESOPHAGITIS 12/09/2019 Raquel Olguin W M25.579 PAIN IN UNSPECIFIED ANKLE AND JOINTS OF UNSPECIFIED FOOT 12/09/2019 Raquel Olguin W M79.652 PAIN IN LEFT THIGH 12/09/2019 Dom Raquel W M79.673 PAIN IN UNSPECIFIED FOOT 12/09/2019 Raquel Olguin W N39.0 URINARY TRACT INFECTION, SITE NOT SPECIFIED 12/09/2019 Raquel Olguin W R06.02 SHORTNESS OF BREATH 12/09/2019 Raquel Olguin W R53.81 OTHER MALAISE 12/09/2019 Dom Raquel W 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 12/09/2019 Raquel Olguin W R82.998 OTHER ABNORMAL FINDINGS IN URINE 12/09/2019 Raquel Olguin W E03.9 HYPOTHYROIDISM, UNSPECIFIED 12/09/2019 Dom Raquel W E44.0 MODERATE PROTEIN-CALORIE MALNUTRITION 12/09/2019 Raquel Olguin W E87.1 HYPO- OSMOLALITY AND HYPONATREMIA 12/09/2019 Dom Raquel W 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 HYPOTHYROIDISM 12/09/2019 Dom Raquel W I10 ESSENTIAL (PRIMARY) HYPERTENSION 12/09/2019 Raquel Olguin W J18.8 OTHER PNEUMONIA, UNSPECIFIED ORGANISM 12/09/2019 Raquel Olguin W 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 12/09/2019 Dom Raquel W K21.9 GASTRO- ESOPHAGEAL REFLUX DISEASE WITHOUT ESOPHAGITIS 12/09/2019 Dom Raquel W M25.579 PAIN IN UNSPECIFIED ANKLE AND JOINTS OF UNSPECIFIED FOOT 12/09/2019 Raquel Olguin W M79.652 PAIN IN LEFT THIGH 12/09/2019 Raquel Olguin W M79.673 PAIN IN UNSPECIFIED FOOT 12/09/2019 Raquel Olguin W N39.0 URINARY TRACT INFECTION, SITE NOT SPECIFIED 12/09/2019 Raquel Olguin W R06.02 SHORTNESS OF BREATH 12/09/2019 Raquel Olguin W R09.02 HYPOXEMIA 12/09/2019 Raquel Olguin W R53.81 OTHER MALAISE 12/09/2019 Keanu Olguini R53.83 OTHER FATIGUE 12/09/2019 Raquel Olguin W 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 12/09/2019 Raquel Olguin W R82.998 OTHER ABNORMAL FINDINGS IN URINE 12/09/2019 Raquel Olguin W E03.9 HYPOTHYROIDISM, UNSPECIFIED 12/09/2019 Raquel Olguin W E44.0 MODERATE PROTEIN-CALORIE MALNUTRITION 12/09/2019 Raquel Olguin W E87.1 HYPO- OSMOLALITY AND HYPONATREMIA 12/09/2019 Raquel Olguin W 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 HYPOTHYROIDISM 12/09/2019 Raquel Olguin W I10 ESSENTIAL (PRIMARY) HYPERTENSION 12/09/2019 Raquel Olguin W J18.8 OTHER PNEUMONIA, UNSPECIFIED ORGANISM 12/09/2019 Raquel Olguin W 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 12/09/2019 Raquel Olguin W K21.9 GASTRO- ESOPHAGEAL REFLUX DISEASE WITHOUT ESOPHAGITIS 12/09/2019 Raquel Olguin W M25.579 PAIN IN UNSPECIFIED ANKLE AND JOINTS OF UNSPECIFIED FOOT 12/09/2019 Raquel Olguin W M79.652 PAIN IN LEFT THIGH 12/09/2019 Raquel Olguin W M79.673 PAIN IN UNSPECIFIED FOOT 12/09/2019 Raquel Olguin W N39.0 URINARY TRACT INFECTION, SITE NOT SPECIFIED 12/09/2019 Raquel Olguin W R06.02 SHORTNESS OF BREATH 12/09/2019 Raquel Olguin W R09.02 HYPOXEMIA 12/09/2019 Raquel Olguin W R53.81 OTHER MALAISE 12/09/2019 Raquel Olguin R53.83 OTHER FATIGUE 12/09/2019 Raquel Olguin W 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 12/09/2019 Raquel Olguin W R82.998 OTHER ABNORMAL FINDINGS IN URINE 12/09/2019 Raquel Olguin W E03.9 HYPOTHYROIDISM, UNSPECIFIED 12/09/2019 Raquel Olguin W E44.0 MODERATE PROTEIN-CALORIE MALNUTRITION 12/09/2019 Raquel Olguin W E87.1 HYPO- OSMOLALITY AND HYPONATREMIA 12/09/2019 Raquel Olguin W 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 HYPOTHYROIDISM 12/09/2019 Raquel Olguin W I10 ESSENTIAL (PRIMARY) HYPERTENSION 12/09/2019 Raquel Olguin W J18.8 OTHER PNEUMONIA, UNSPECIFIED ORGANISM 12/09/2019 Raquel Olguin W 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 12/09/2019 Raquel Olguin W K21.9 GASTRO- ESOPHAGEAL REFLUX DISEASE WITHOUT ESOPHAGITIS 12/09/2019 Raquel Olguin W M25.579 PAIN IN UNSPECIFIED ANKLE AND JOINTS OF UNSPECIFIED FOOT 12/09/2019 Raquel Olguin W M79.652 PAIN IN LEFT THIGH 12/09/2019 Raquel Olguin W M79.673 PAIN IN UNSPECIFIED FOOT 12/09/2019 Raquel Olguin W N39.0 URINARY TRACT INFECTION, SITE NOT SPECIFIED 12/09/2019 Raquel Olguin W R06.02 SHORTNESS OF BREATH 12/09/2019 Raquel Olguin W R09.02 HYPOXEMIA 12/09/2019 Raquel Olguin W R53.81 OTHER MALAISE 12/09/2019 Raquel Olguin R53.83 OTHER FATIGUE 12/09/2019 Raquel Olguin W 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 12/09/2019 Raquel Olguin W R82.998 OTHER ABNORMAL FINDINGS IN URINE 12/09/2019 Raquel Olguin W E03.9 HYPOTHYROIDISM, UNSPECIFIED 12/09/2019 Raquel Olguin W E44.0 MODERATE PROTEIN-CALORIE MALNUTRITION 12/09/2019 Raquel Olguin W E87.1 HYPO- OSMOLALITY AND HYPONATREMIA 12/09/2019 Raquel Olguin W 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 HYPOTHYROIDISM 12/09/2019 Raquel Olguin W I10 ESSENTIAL (PRIMARY) HYPERTENSION 12/09/2019 Raquel Olguin W J18.8 OTHER PNEUMONIA, UNSPECIFIED ORGANISM 12/09/2019 Raquel Olguin W 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 12/09/2019 Raquel Olguin W K21.9 GASTRO- ESOPHAGEAL REFLUX DISEASE WITHOUT ESOPHAGITIS 12/09/2019 Raquel Olguin W M25.579 PAIN IN UNSPECIFIED ANKLE AND JOINTS OF UNSPECIFIED FOOT 12/09/2019 Raquel Olguin W M79.652 PAIN IN LEFT THIGH 12/09/2019 Raquel Olguin W M79.673 PAIN IN UNSPECIFIED FOOT 12/09/2019 Raquel lOguin W N39.0 URINARY TRACT INFECTION, SITE NOT SPECIFIED 12/09/2019 Raquel Olguin W R06.02 SHORTNESS OF BREATH 12/09/2019 Raquel Olguin W R09.02 HYPOXEMIA 12/09/2019 Raquel Olguin W R53.81 OTHER MALAISE 12/09/2019 Raquel Olguin R53.83 OTHER FATIGUE 12/09/2019 Raquel Olguin W 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 12/09/2019 Raquel Olguin W R82.998 OTHER ABNORMAL FINDINGS IN URINE 12/09/2019 Raquel Olguin W E03.9 HYPOTHYROIDISM, UNSPECIFIED 12/09/2019 Raquel Olguin W E44.0 MODERATE PROTEIN-CALORIE MALNUTRITION 12/09/2019 Raquel Olguin W E87.1 HYPO- OSMOLALITY AND HYPONATREMIA 12/09/2019 Raquel Olguin W 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 HYPOTHYROIDISM 12/09/2019 Raquel Olguin W I10 ESSENTIAL (PRIMARY) HYPERTENSION 12/09/2019 Raquel Olguin W J18.8 OTHER PNEUMONIA, UNSPECIFIED ORGANISM 12/09/2019 Raquel Olguin W 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 12/09/2019 Raquel Olguin W K21.9 GASTRO- ESOPHAGEAL REFLUX DISEASE WITHOUT ESOPHAGITIS 12/09/2019 Raquel Olguin W M25.579 PAIN IN UNSPECIFIED ANKLE AND JOINTS OF UNSPECIFIED FOOT 12/09/2019 Raquel Olguin W M79.652 PAIN IN LEFT THIGH 12/09/2019 Raquel Olguin W M79.673 PAIN IN UNSPECIFIED FOOT 12/09/2019 Raquel Olguin W N39.0 URINARY TRACT INFECTION, SITE NOT SPECIFIED 12/09/2019 Raquel Olguin W R06.02 SHORTNESS OF BREATH 12/09/2019 Raquel Olguin W R09.02 HYPOXEMIA 12/09/2019 Raquel Olguin W R53.81 OTHER MALAISE 12/09/2019 Keanu Olguini R53.83 OTHER FATIGUE 12/09/2019 Raquel Olguin W 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 12/09/2019 Raquel Olguin W R82.998 OTHER ABNORMAL FINDINGS IN URINE 12/09/2019 Raquel Olguin W E03.9 HYPOTHYROIDISM, UNSPECIFIED 12/09/2019 Raquel Olguin W E44.0 MODERATE PROTEIN-CALORIE MALNUTRITION 12/09/2019 Raquel Olguin W E87.1 HYPO- OSMOLALITY AND HYPONATREMIA 12/09/2019 Raquel Olguin W 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 HYPOTHYROIDISM 12/09/2019 Raquel Olguin W I10 ESSENTIAL (PRIMARY) HYPERTENSION 12/09/2019 Raquel Olguin W J18.8 OTHER PNEUMONIA, UNSPECIFIED ORGANISM 12/09/2019 Raquel Olguin W 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 12/09/2019 Raquel Olguin W K21.9 GASTRO- ESOPHAGEAL REFLUX DISEASE WITHOUT ESOPHAGITIS 12/09/2019 Raquel Olguin W M25.579 PAIN IN UNSPECIFIED ANKLE AND JOINTS OF UNSPECIFIED FOOT 12/09/2019 Raquel Olguin W M79.652 PAIN IN LEFT THIGH 12/09/2019 Raquel Olguin W M79.673 PAIN IN UNSPECIFIED FOOT 12/09/2019 Raquel Olguin W N39.0 URINARY TRACT INFECTION, SITE NOT SPECIFIED 12/09/2019 Raquel Olguin W R06.02 SHORTNESS OF BREATH 12/09/2019 Raquel Olguin W R09.02 HYPOXEMIA 12/09/2019 Raquel Olguin W R53.81 OTHER MALAISE 12/09/2019 Raquel Olguin R53.83 OTHER FATIGUE 12/09/2019 Raquel Olguin W 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 12/09/2019 Raquel Olguin W R82.998 OTHER ABNORMAL FINDINGS IN URINE 12/09/2019 Raquel Olguin W E03.9 HYPOTHYROIDISM, UNSPECIFIED 12/09/2019 Raquel Olguin W E44.0 MODERATE PROTEIN-CALORIE MALNUTRITION 12/09/2019 Raquel Olguin W E87.1 HYPO- OSMOLALITY AND HYPONATREMIA 12/09/2019 Raquel Olguin W 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 HYPOTHYROIDISM 12/09/2019 Raquel Olguin W I10 ESSENTIAL (PRIMARY) HYPERTENSION 12/09/2019 Raquel Olguin W J18.8 OTHER PNEUMONIA, UNSPECIFIED ORGANISM 12/09/2019 Raquel Olguin W 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 12/09/2019 Raquel Olguin W K21.9 GASTRO- ESOPHAGEAL REFLUX DISEASE WITHOUT ESOPHAGITIS 12/09/2019 Raquel Olguin W M25.579 PAIN IN UNSPECIFIED ANKLE AND JOINTS OF UNSPECIFIED FOOT 12/09/2019 Raquel Olguin W M79.652 PAIN IN LEFT THIGH 12/09/2019 Raquel Olguin W M79.673 PAIN IN UNSPECIFIED FOOT 12/09/2019 Raquel Olguin W N39.0 URINARY TRACT INFECTION, SITE NOT SPECIFIED 12/09/2019 Raquel Olguin W R06.02 SHORTNESS OF BREATH 12/09/2019 Raquel Olguin W R09.02 HYPOXEMIA 12/09/2019 Raquel Olguin W R53.81 OTHER MALAISE 12/09/2019 Raquel Olguin R53.83 OTHER FATIGUE 12/09/2019 Raquel Olguin W 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 12/09/2019 Raquel Olguin W R82.998 OTHER ABNORMAL FINDINGS IN URINE 12/09/2019 Raquel Olguin W E03.9 HYPOTHYROIDISM, UNSPECIFIED 12/09/2019 Raquel Olguin W E44.0 MODERATE PROTEIN-CALORIE MALNUTRITION 12/09/2019 Raquel Olguin W E87.1 HYPO- OSMOLALITY AND HYPONATREMIA 12/09/2019 Raquel Olguin W 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 HYPOTHYROIDISM 12/09/2019 Raquel Olguin W I10 ESSENTIAL (PRIMARY) HYPERTENSION 12/09/2019 Raquel Olguin W J18.8 OTHER PNEUMONIA, UNSPECIFIED ORGANISM 12/09/2019 Raquel Olguin W 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 12/09/2019 Raquel Olguin W K21.9 GASTRO- ESOPHAGEAL REFLUX DISEASE WITHOUT ESOPHAGITIS 12/09/2019 Raquel Olguin W M25.579 PAIN IN UNSPECIFIED ANKLE AND JOINTS OF UNSPECIFIED FOOT 12/09/2019 Raquel Olguin W M79.652 PAIN IN LEFT THIGH 12/09/2019 Raquel Olguin W M79.673 PAIN IN UNSPECIFIED FOOT 12/09/2019 Raquel Olguin W N39.0 URINARY TRACT INFECTION, SITE NOT SPECIFIED 12/09/2019 Raquel Olguin W R06.02 SHORTNESS OF BREATH 12/09/2019 Raquel Olguin W R09.02 HYPOXEMIA 12/09/2019 Raquel Olguin W R53.81 OTHER MALAISE 12/09/2019 Keanu Olguini R53.83 OTHER FATIGUE 12/09/2019 Raquel Olguin W 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 12/09/2019 Raquel Olguin W R82.998 OTHER ABNORMAL FINDINGS IN URINE 12/09/2019 Raqule Olguin W E03.9 HYPOTHYROIDISM, UNSPECIFIED 12/09/2019 Raquel Olguin W E44.0 MODERATE PROTEIN-CALORIE MALNUTRITION 12/09/2019 Raquel Olguin W E87.1 HYPO- OSMOLALITY AND HYPONATREMIA 12/09/2019 Raquel Olguin W 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 HYPOTHYROIDISM 12/09/2019 Raquel Olguin W I10 ESSENTIAL (PRIMARY) HYPERTENSION 12/09/2019 Raquel Olguin W J18.8 OTHER PNEUMONIA, UNSPECIFIED ORGANISM 12/09/2019 Raquel Olguin W 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 12/09/2019 Raquel Olguin W K21.9 GASTRO- ESOPHAGEAL REFLUX DISEASE WITHOUT ESOPHAGITIS 12/09/2019 Raquel Olguin M25.579 PAIN IN UNSPECIFIED ANKLE AND JOINTS OF UNSPECIFIED FOOT 12/09/2019 Raquel Olguin W M79.652 PAIN IN LEFT THIGH 12/09/2019 Raquel Olguin W M79.673 PAIN IN UNSPECIFIED FOOT 12/09/2019 Raquel Olguin W N39.0 URINARY TRACT INFECTION, SITE NOT SPECIFIED 12/09/2019 Raquel Olguin W R06.02 SHORTNESS OF BREATH 12/09/2019 Raquel Olguin W R09.02 HYPOXEMIA 12/09/2019 Raquel Olguin W R53.81 OTHER MALAISE 12/09/2019 Olguin, Raquel R53.83 OTHER FATIGUE 12/09/2019 Dom Raquel W 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 12/09/2019 DomKeanui W R82.998 OTHER ABNORMAL FINDINGS IN URINE 12/12/2019 Dom Raquel W E03.9 HYPOTHYROIDISM, UNSPECIFIED 12/12/2019 OlguinKeanui W E44.0 MODERATE PROTEIN-CALORIE MALNUTRITION 12/12/2019 Dom Raquel W E87.1 HYPO- OSMOLALITY AND HYPONATREMIA 12/12/2019 Dom Raquel W 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 HYPOTHYROIDISM 12/12/2019 Dom Raquel W I10 ESSENTIAL (PRIMARY) HYPERTENSION 12/12/2019 Raquel Olguin W J18.8 OTHER PNEUMONIA, UNSPECIFIED ORGANISM 12/12/2019 Raquel Olguin W 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 12/12/2019 Dom Raquel W K21.9 GASTRO- ESOPHAGEAL REFLUX DISEASE WITHOUT ESOPHAGITIS 12/12/2019 Raquel Olguin W M25.579 PAIN IN UNSPECIFIED ANKLE AND JOINTS OF UNSPECIFIED FOOT 12/12/2019 Dom Raquel W M79.652 PAIN IN LEFT THIGH 12/12/2019 Dom Raquel W M79.673 PAIN IN UNSPECIFIED FOOT 12/12/2019 Dom Raquel W N39.0 URINARY TRACT INFECTION, SITE NOT SPECIFIED 12/12/2019 Dom Raquel W R06.02 SHORTNESS OF BREATH 12/12/2019 Dom Raquel W R09.02 HYPOXEMIA 12/12/2019 Dom Raquel W R53.81 OTHER MALAISE 12/12/2019 Raquel lOguin R53.83 OTHER FATIGUE 12/12/2019 oDm Raquel W 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 12/12/2019 Dom Raquel W R82.998 OTHER ABNORMAL FINDINGS IN URINE 12/13/2019 RAQUEL OLGUIN DO Ot Z01.89 ENCOUNTER FOR OTHER SPECIFIED SPECIAL EX 12/14/2019 RAQUEL OLGUIN DO Ot Z01.89 ENCOUNTER FOR OTHER SPECIFIED SPECIAL EX 12/14/2019 SIM WYATT STOCK LETTERER Ot 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 12/14/2019 SIM WYATT STOCK LETTERER Ot I87.2 VENOUS INSUFFICIENCY (CHRONIC) (PERIPHER 12/14/2019 EDMUNDO, SIM R STOCK LETTERER Ot L97.212 NON-PRESSURE CHRONIC ULCER OF RIGHT CALF 12/14/2019 EDMUNDO SIM R STOCK LETTERER Ot I87.2 VENOUS INSUFFICIENCY (CHRONIC) (PERIPHER 12/14/2019 EDMUNDO, SIM R STOCK LETTERER Ot I 96 [place]ANGR[place], NOT ELSEWHERE CLASSIFIED 12/14/2019 EDMUNDO SIM R STOCK LETTERER Ot L97.212 NON-PRESSURE CHRONIC ULCER OF RIGHT CALF 12/14/2019 EDMUNDO SIM R STOCK LETTERER Ot I 10 ESSENTIAL (PRIMARY) HYPERTENSION 12/14/2019 EDMUNDO, SIM R STOCK LETTERER Ot I25.10 ATHSCL HEART DISEASE OF [place] CORONARY 12/14/2019 EDMUNDO, SIM R STOCK LETTERER Ot L97.212 NON-PRESSURE CHRONIC ULCER OF RIGHT CALF 12/14/2019 EDMUNDO, SIM R STOCK LETTERER Ot M19.90 UNSPECIFIED OSTEOARTHRITIS, UNSPECIFIED 12/14/2019 EDMUNDO SIM R STOCK LETTERER Ot I87.2 VENOUS INSUFFICIENCY (CHRONIC) (PERIPHER 12/14/2019 EDMUNDO, SIM R STOCK LETTERER Ot I 96 [place]GR[place], NOT ELSEWHERE CLASSIFIED 12/14/2019 EDMUNDO SIM R STOCK LETTERER Ot L97.212 NON-PRESSURE CHRONIC ULCER OF RIGHT CALF 12/14/2019 EDMUNDO SIM R STOCK LETTERER Ot D64.9 ANEMIA, UNSPECIFIED 12/14/2019 EDMUNDO SIM R STOCK LETTERER Ot G62.9 POLYNEUROPATHY, UNSPECIFIED 12/14/2019 EDMUNDO, SIM R STOCK LETTERER Ot H26.9 UNSPECIFIED CATARACT 12/14/2019 EDMUNDO SIM R STOCK LETTERER Ot I 10 ESSENTIAL (PRIMARY) HYPERTENSION 12/14/2019 EDMUNDO SIM R STOCK LETTERER Ot I25.10 ATHSCL HEART DISEASE OF [place] CORONARY 12/14/2019 EDMUNDO SIM R STOCK LETTERER Ot I49.9 CARDIAC ARRHYTHMIA, UNSPECIFIED 12/14/2019 EDMUNDO SIM R STOCK LETTERER Ot K52.9 NONINFECTIVE GASTROENTERITIS AND COLITIS 12/14/2019 EDMUNDO SIM R STOCK LETTERER Ot L97.212 NON-PRESSURE CHRONIC ULCER OF RIGHT CALF 12/14/2019 EDMUNDO SIM R STOCK LETTERER Ot M19.90 UNSPECIFIED OSTEOARTHRITIS, UNSPECIFIED 12/14/2019 EDMUNDO, SIM R STOCK LETTERER Ot I87.2 VENOUS INSUFFICIENCY (CHRONIC) (PERIPHER 12/14/2019 EDMUNDO, SIM R STOCK LETTERER Ot I 96 [place], NOT ELSEWHERE CLASSIFIED 12/14/2019 EDMUNDO SIM R STOCK LETTERER Ot L97.212 NON-PRESSURE CHRONIC ULCER OF RIGHT CALF 12/14/2019 SIM WYATT R STOCK LETTERER Ot I87.2 VENOUS INSUFFICIENCY (CHRONIC) (PERIPHER 12/14/2019 EDMUNDO SIM R STOCK LETTERER Ot I 96 [place], NOT ELSEWHERE CLASSIFIED 12/14/2019 EDMUNDO SIM R STOCK LETTERER Ot L97.212 NON-PRESSURE CHRONIC ULCER OF RIGHT CALF 12/14/2019 SIM WYATT R STOCK LETTERER Ot I87.2 VENOUS INSUFFICIENCY (CHRONIC) (PERIPHER 12/14/2019 EDMUNDO SIM R STOCK LETTERER Ot L97.212 NON-PRESSURE CHRONIC ULCER OF RIGHT CALF 12/14/2019 KEANU OLGUIN DOI Ot Z01.89 ENCOUNTER FOR OTHER SPECIFIED SPECIAL EX 12/16/2019 SIM WYATT R STOCK LETTERER Ot 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 12/16/2019 SIM WYATT R STOCK LETTERER Ot I87.2 VENOUS INSUFFICIENCY (CHRONIC) (PERIPHER 12/16/2019 EDMUNDO SIM R STOCK LETTERER Ot L97.212 NON-PRESSURE CHRONIC ULCER OF RIGHT CALF 12/16/2019 EDMUNDO SIM R STOCK LETTERER Ot I87.2 VENOUS INSUFFICIENCY (CHRONIC) (PERIPHER 12/16/2019 SIM WYATT R STOCK LETTERER Ot I 96 GANGRENE, NOT ELSEWHERE CLASSIFIED 12/16/2019 EDMUNDO SIM R STOCK LETTERER Ot L97.212 NON-PRESSURE CHRONIC ULCER OF RIGHT CALF 12/16/2019 MOJGAN WYATTN R STOCK LETTERER Ot I 10 ESSENTIAL (PRIMARY) HYPERTENSION 12/16/2019 MOJGAN WYATTN R STOCK LETTERER Ot I25.10 ATHSCL HEART DISEASE OF [place] CORONARY 12/16/2019 EDMUNDO SIM R STOCK LETTERER Ot L97.212 NON-PRESSURE CHRONIC ULCER OF RIGHT CALF 12/16/2019 MOJGAN WYATTN R STOCK LETTERER Ot M19.90 UNSPECIFIED OSTEOARTHRITIS, UNSPECIFIED 12/16/2019 EDMUNDO SIM R STOCK LETTERER Ot I87.2 VENOUS INSUFFICIENCY (CHRONIC) (PERIPHER 12/16/2019 EDMUNDO SIM R STOCK LETTERER Ot I 96 GANGR[place], NOT ELSEWHERE CLASSIFIED 12/16/2019 EDMUNDO SIM R STOCK LETTERER Ot L97.212 NON-PRESSURE CHRONIC ULCER OF RIGHT CALF 12/16/2019 MOJGAN WYATTN R STOCK LETTERER Ot D64.9 ANEMIA, UNSPECIFIED 12/16/2019 EDMUNDO SIM R STOCK LETTERER Ot G62.9 POLYNEUROPATHY, UNSPECIFIED 12/16/2019 EDMUNDO SIM R STOCK LETTERER Ot H26.9 UNSPECIFIED CATARACT 12/16/2019 EDMUNDO SIM R STOCK LETTERER Ot I 10 ESSENTIAL (PRIMARY) HYPERTENSION 12/16/2019 EDMUNDO SIM R STOCK LETTERER Ot I25.10 ATHSCL HEART DISEASE OF [place] CORONARY 12/16/2019 EDMUNDO SIM R STOCK LETTERER Ot I49.9 CARDIAC ARRHYTHMIA, UNSPECIFIED 12/16/2019 EDMUNDO SIM R STOCK LETTERER Ot K52.9 NONINFECTIVE GASTROENTERITIS AND COLITIS 12/16/2019 EDMUNDO SIM R STOCK LETTERER Ot L97.212 NON-PRESSURE CHRONIC ULCER OF RIGHT CALF 12/16/2019 EDMUNDO SIM R STOCK LETTERER Ot M19.90 UNSPECIFIED OSTEOARTHRITIS, UNSPECIFIED 12/16/2019 EDMUNDO SIM R STOCK LETTERER Ot I87.2 VENOUS INSUFFICIENCY (CHRONIC) (PERIPHER 12/16/2019 EDMUNDO, SIM R STOCK LETTERER Ot I 96 GANGR[place], NOT ELSEWHERE CLASSIFIED 12/16/2019 EDMUNDO SIM R STOCK LETTERER Ot L97.212 NON-PRESSURE CHRONIC ULCER OF RIGHT CALF 12/16/2019 EDMUNDO SIM R STOCK LETTERER Ot I87.2 VENOUS INSUFFICIENCY (CHRONIC) (PERIPHER 12/16/2019 EDMUNDO, SIM R STOCK LETTERER Ot I 96 GANGRENE, NOT ELSEWHERE CLASSIFIED 12/16/2019 EDMUNDO SIM R STOCK LETTERER Ot L97.212 NON-PRESSURE CHRONIC ULCER OF RIGHT CALF 12/16/2019 EDMUNDO SIM R STOCK LETTERER Ot I87.2 VENOUS INSUFFICIENCY (CHRONIC) (PERIPHER 12/16/2019 EDMUNDO SIM R STOCK LETTERER Ot L97.212 NON-PRESSURE CHRONIC ULCER OF RIGHT CALF 12/16/2019 RAQUEL OLGUIN DO Ot Z01.89 ENCOUNTER FOR OTHER SPECIFIED SPECIAL EX 01/03/2020 KINGA PRICE MD Ot I25.10 ATHSCL HEART DISEASE OF [place] CORONARY 01/03/2020 KINGA PRICE MD Ot I51.7 CARDIOMEGALY 01/03/2020 KINGA PRICE MD Ot 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 01/03/2020 KINGA PRICE MD Ot R93.89 ABNORMAL FINDINGS ON DX IMAGING OF OTH B Procedures There is no data. Results Test Result Range Comprehensive Metabolic Panel - 05/31/17 14:15 Albumin 3.8 g/dL 3.6-5.1 ALP 103 U/L 35-130 ALT 14 U/L 6-45 Anion Gap 19 6-14 AST 23 U/L 2-40 BUN 16 mg/dL 5-25 Calcium 9.7 mg/dL 8.3-10.4 Chloride 84 mmol/L 95-114 CO2 27 mEq/L 22-33 Creat 1.06 mg/dL 0.50-1.50 eGFR 50 mL/min/1.73m2 >59 Globulin 2.9 g/dL 2.3-3.5 Glucose 100 mg/dL 70-110 Osmo 260 280-295 Potassium 4.7 mmol/L 3.5-5.3 Sodium 125 Result Verified by Repeat Analysis m mol/L 134-148 TBil 0.7 mg/dL 0.2-1.2 TP 6.7 g/dL 6.0-8.3 Mycoplasma - 05/31/17 14:15 Mycoplasma Positive Negative Lactic Acid - 05/31/17 14:15 Lactic Acid 26.2 mg/dL 4.5-19.8 Blood Culture - 05/31/17 14:15 PRELIM CULTURE RESULTS Blood Culture Negativ e, No Growth Day 1 FINAL CULTURE RESULTS Blood Culture Negative , No Growth Day 5 MEDIA PLATED Setup at 15:41 on 05/31/2017 C 44 CULTURE SOURCE Rt. arm Blood Culture - 05/31/17 15:15 PRELIM CULTURE RESULTS Blood Culture Negativ e, No Growth Day 1 FINAL CULTURE RESULTS Blood Culture Negative , No Growth Day 5 MEDIA PLATED Setup at 15:42 on 05/31/2017 C 41 CULTURE SOURCE Lt. arm Urinalysis - 05/31/17 18:02 Icotest N/A Negative Urine Crystals Amorphous material: moderate/HPF Urine Volume Urine Volume Sufficient (10mL) Urine-Appearance Slightly Cloudy Clear Urine-Bacteria Trace Urine-Bilirubin Negative Negative Urine-Blood Negative Negative Urine-Color Yellow Colorless-[place] ow Urine-Epithelial Cells 10-20/HPF Urine-Glucose Negative Negative Urine-Ketones Negative Negative Urine-Leukocytes Negative Negative Urine-Nitrite Negative Negative Urine-Other Urine Saved if Culture Need ed (48hrs from time of collection) Urine-pH 7.0 5-8.5 Urine-Protein Trace Negative Urine-RBC 0-2/HPF Urine-Specific Slemp 1.015 1.000-1 .030 Urine-WBC 0-3/HPF Urobilinogen 1.0 0.2-1.0 [facility] - 06/01/17 05:50 Anion Gap 14 6-14 BUN 13 mg/dL 5-25 Calcium 8.6 mg/dL 8.3-10.4 Chloride 91 mmol/L 95-114 CO2 28 mEq/L 22-33 Creat 0.79 mg/dL 0.50-1.50 eGFR 71 mL/min/1.73m2 >59 Glucose 96 mg/dL 70-110 Osmo 265 280-295 Potassium 4.5 mmol/L 3.5-5.3 Sodium 128 mmol/L 134-148 Lactic Acid - 06/02/17 07:00 Lactic Acid 8.9 mg/dL 4.5-19.8 [facility] - 06/03/17 07:19 Anion Gap 13 6-14 BUN 13 mg/dL 5-25 Calcium 8.7 mg/dL 8.3-10.4 Chloride 99 mmol/L 95-114 CO2 26 mEq/L 22-33 Creat 0.73 mg/dL 0.50-1.50 eGFR 77 mL/min/1.73m2 >59 Glucose 82 mg/dL 70-110 Osmo 274 280-295 Potassium 4.6 mmol/L 3.5-5.3 Sodium 133 mmol/L 134-148 Sputum Culture - 06/03/17 07:34 PRELIM CULTURE RESULTS Moderate Gram Positiv e Mixed [id number] Yeast FINAL CULTURE RESULTS No Further Workup done MEDIA PLATED Setup at 08:11 on 06/03/2017 Troponin I - 08/18/17 14:14 Troponin <0.020 ng/mL 0.0-0.4 Urinalysis - 08/18/17 14:14 Icotest N/A Negative Urine Volume Urine Volume Sufficient (10mL) Urine-Appearance Clear Clear Urine-Bacteria Trace Urine-Bilirubin Negative Negative Urine-Blood Negative Negative Urine-Color Yellow Colorless-[place] ow Urine-Epithelial Cells 5-10/HPF Urine-Glucose Negative Negative Urine-Ketones Negative Negative Urine-Leukocytes Negative Negative Urine-Nitrite Negative Negative Urine-Other Urine Saved if Culture Need ed (48hrs from time of collection) Urine-pH 6.0 5-8.5 Urine-Protein Negative Negative Urine-Specific Slemp 1.010 1.000-1 .030 Urine-WBC 2-5/HPF Urobilinogen 0.2 E.U./dL 0.2-1.0 Mycoplasma - 02/07/18 14:48 Mycoplasma Negative Negative CBC with Auto Diff - 02/07/18 14:48 Baso% 0.20 % 0.00-2.50 Eos 0.1 K/uL 0.0-0.7 Eos% 1.2 % 0.0-7.0 Hct 43.2 % 36.0-46.0 Hgb 14.0 g/dL 13.0-15.0 Lym 1.57 K/uL 0.60-3.40 Lym% 26.5 % 10.0-50.0 MCH 32.2 pg 27.0-31.0 MCHC 32.4 g/dL 32.0-36.0 MCV 99.3 fL 80.0-97.0 Tate% 9.9 % 0.0-12.0 MPV 8.7 fL 7.4-10.0 Jill% 62.2 % 37.0-80.0 Plt 318 K/uL 150-400 RBC 4.35 M/uL 3.60-5.00 RDW 14.6 % 11.6-14.8 WBC 5.93 K/uL 5.00-10.00 Jill 3.69 K/uL 2.00-6.90 Tate 0.6 K/uL 0.0-0.9 Baso 0.0 K/uL 0.0-0.2 Arterial Blood Gas - 02/16/18 14:28 Base 6.00 mmol/L 1.80-4.20 HCO3 31 mmol/L 20-31 O2 Sat 94 RM AIR % 95-100 pCO2 48 mm/Hg 35-45 pH 7.42 7.35-7.45 PO2 72 mm/Hg 80-95 Urinalysis - 02/16/18 15:11 Icotest N/A Negative Urine Volume Urine Volume Sufficient (10mL) Urine-Appearance Clear Clear Urine-Bacteria Trace Urine-Bilirubin Negative Negative Urine-Blood Negative Negative Urine-Color Yellow Colorless-[place] ow Urine-Epithelial Cells 10-20/HPF Urine-Glucose Negative Negative Urine-Ketones Negative Negative Urine-Leukocytes 1+ Negative Urine-Nitrite Negative Negative Urine-Other Urine Saved if Culture Need ed (48hrs from time of collection) Urine-pH 7.5 5-8.5 Urine-Protein Trace Negative Urine-RBC Rare/HPF Urine-Specific Slemp 1.015 1.000-1 .030 Urine-WBC 10-20/HPF Urobilinogen 0.2 E.U./dL 0.2-1.0 [facility] - 02/17/18 07:13 Anion Gap 17 6-14 BUN 12 mg/dL 5-25 Calcium 9.1 mg/dL 8.3-10.4 Chloride 91 mmol/L 95-114 CO2 26 mEq/L 22-33 Creat 0.75 mg/dL 0.50-1.50 eGFR 75 mL/min/1.73m2 >59 Glucose 98 mg/dL 70-110 Osmo 269 280-295 Potassium 4.1 mmol/L 3.5-5.3 Sodium 130 mmol/L 134-148 [facility] - 02/18/18 07:41 Anion Gap 15 6-14 BUN 12 mg/dL 5-25 Calcium 8.6 mg/dL 8.3-10.4 Chloride 97 mmol/L 95-114 CO2 24 mEq/L 22-33 Creat 0.73 mg/dL 0.50-1.50 eGFR 77 mL/min/1.73m2 >59 Glucose 110 mg/dL 70-110 Osmo 274 280-295 Potassium 4.2 mmol/L 3.5-5.3 Sodium 132 mmol/L 134-148 [facility] - 02/20/18 12:37 Anion Gap 14 6-14 BUN 11 mg/dL 5-25 Calcium 8.8 mg/dL 8.3-10.4 Chloride 95 mmol/L 95-114 CO2 27 mEq/L 22-33 Creat 0.76 mg/dL 0.50-1.50 eGFR 74 mL/min/1.73m2 >59 Glucose 93 mg/dL 70-110 Osmo 272 280-295 Potassium 4.4 mmol/L 3.5-5.3 Sodium 132 mmol/L 134-148 Thyroid Stimulating Hormone - 02/21/18 1 3:40 TSH 23.25 mIU/mL 0.32-5.00 Sed Rate - 05/09/18 14:39 Sed Rate 9 mm/hr -15 - PANEL (PROFILE 1) - 09/08/18 15 :52 Prescribed Drug 1 Tramadol NRG Creatinine 24.9 mg/dL > or = 20.0 pH 7.08 4.5 - 9.0 Oxidant NEGATIVE mcg/mL <200 Amphetamines NEGATIVE ng/mL <500 medMATCH Amphetamines CONSISTENT NRG Benzodiazepines NEGATIVE ng/mL <100 medMATCH Benzodiazepines CONSISTENT NRG Marijuana Metabolite NEGATIVE ng/mL <20 medMATCH Marijuana Metab CONSISTENT NRG Cocaine Metabolite NEGATIVE ng/mL <150 medMATCH Cocaine Metab CONSISTENT NRG Opiates POSITIVE ng/mL <100 Oxycodone NEGATIVE ng/mL <100 medMATCH Oxycodone CONSISTENT NRG COMMENT NRG Codeine NEGATIVE ng/mL <50 medMATCH Codeine CONSISTENT NRG Hydrocodone 530 ng/mL <50 medMATCH Hydrocodone CONSISTENT NRG Hydromorphone 181 ng/mL <50 medMATCH Hydromorphone CONSISTENT NRG Morphine NEGATIVE ng/mL <50 medMATCH Morphine CONSISTENT NRG Norhydrocodone 1317 ng/mL <50 medMATCH Norhydrocodone CONSISTENT NRG Prescribed Drug 2 Hydrocodone NRG Barbiturates NEGATIVE ng/mL <300 medMATCH Barbiturates CONSISTENT NRG Methadone Metabolite NEGATIVE ng/mL <100 medMATCH Methadone Metab CONSISTENT NRG Phencyclidine NEGATIVE ng/mL <25 medMATCH Phencyclidine CONSISTENT NRG THYROID ANTIBODIES - 11/05/18 15:06 THYROID PEROXIDASE ANTIBODIES <1 IU/mL <9 THYROGLOBULIN ANTIBODIES <1 IU/mL < or = 1 CMP - 11/05/18 15:06 GLUCOSE 105 mg/dL 65-99 UREA NITROGEN (BUN) 22 mg/dL 7-25 CREATININE 0.91 mg/dL 0.60-0.93 eGFR NON-AFR. SAUDI ARABIAN 61 mL/min/1.73m2 > OR = 60 eGFR 71 mL/min/1.73m2 > OR = 60 BUN/CREATININE RATIO NOT APPLICABLE (calc) 6-22 SODIUM 133 mmol/L 135-146 POTASSIUM 4.9 mmol/L 3.5-5.3 CHLORIDE 91 mmol/L 98-110 CARBON DIOXIDE 29 mmol/L 20-32 CALCIUM 9.2 mg/dL 8.6-10.4 PROTEIN, TOTAL 6.1 g/dL 6.1-8.1 ALBUMIN 3.8 g/dL 3.6-5.1 GLOBULIN 2.3 g/dL (calc) 1.9-3.7 ALBUMIN/GLOBULIN RATIO 1.7 (calc) 1.0-2. 5 BILIRUBIN, TOTAL 0.4 mg/dL 0.2-1.2 ALKALINE PHOSPHATASE 81 U/L 33-130 AST 28 U/L 10-35 ALT 15 U/L 6-29 TSH - 11/05/18 15:06 TSH 88.63 mIU/L 0.40-4.50 THYROGLOBULIN ANTIBODY - 11/06/18 16:03 THYROGLOBULIN ANTIBODIES <1 IU/mL < or = 1 THYROGLOBULIN - 12/08/18 16:24 THYROGLOBULIN NRG ANEMIA PANEL - 12/30/18 15:36 IRON, TOTAL 92 mcg/dL 45-160 FERRITIN 27 ng/mL 16-288 IRON BINDING CAPACITY 413 mcg/dL (calc) 250-450 % SATURATION 22 % (calc) 16-45 Urinalysis - 01/18/19 11:45 Icotest N/A Negative Urine Volume Urine Volume Sufficient (10mL) Urine Yeast No Yeast present Urine-Appearance Clear Clear Urine-Bacteria Negative Urine-Bilirubin Negative Negative Urine-Blood Negative Negative Urine-Color Yellow Colorless-[place] ow Urine-Glucose Negative Negative Urine-Ketones Negative Negative Urine-Leukocytes Negative Negative Urine-Nitrite Negative Negative Urine-Other Urine Saved if Culture Need ed (48hrs from time of collection) Urine-pH 7.0 5-8.5 Urine-Protein Negative Negative Urine-RBC Negative Urine-Specific Slemp 1.015 1.000-1 .030 Urine-WBC Rare/HPF Urobilinogen 0.2 E.U./dL 0.2-1.0 Comprehensive Metabolic Panel - 01/18/19 12:19 Albumin 3.4 g/dL 3.6-5.1 ALP 87 U/L 35-130 ALT 20 U/L 6-45 Anion Gap 15 6-14 AST 27 U/L 2-40 BUN 20 mg/dL 5-25 Calcium 9.5 mg/dL 8.3-10.4 Chloride 100 mmol/L 95-114 CO2 29 mEq/L 22-33 Creat 0.91 mg/dL 0.50-1.50 eGFR 60 mL/min/1.73m2 >59 Globulin 2.3 g/dL 2.3-3.5 Glucose 85 mg/dL 70-110 Osmo 289 280-295 Potassium 4.8 mmol/L 3.5-5.3 Sodium 139 mmol/L 134-148 TBil 0.3 mg/dL 0.2-1.2 TP 5.7 g/dL 6.0-8.3 BMP - 01/30/19 09:46 Anion Gap 16 6-14 BUN 18 mg/dL 5-25 Calcium 9.1 mg/dL 8.3-10.4 Chloride 88 mmol/L 95-114 CO2 25 mEq/L 22-33 Creat 0.84 mg/dL 0.50-1.50 eGFR 66 mL/min/1.73m2 >59 Glucose 109 mg/dL 70-110 Osmo 259 280-295 Potassium 5.1 mmol/L 3.5-5.3 Sodium 124 mmol/L 134-148 SPOT LYTES URINE - 01/30/19 10:18 CL-U 123.00 MMOL/L 0.00-0.00 K-U 52.40 mmol/L 0.00-0.00 Na-U 129.00 mmol/L 0.00-0.00 Urinalysis - 01/30/19 10:18 Icotest N/A Negative Urine Volume Urine Volume Sufficient (10mL) Urine Yeast No Yeast present Urine-Appearance Clear Clear Urine-Bacteria Trace Urine-Bilirubin Negative Negative Urine-Blood Negative Negative Urine-Color Yellow Colorless-[place] ow Urine-Epithelial Cells 10-20/HPF Urine-Glucose Negative Negative Urine-Ketones Negative Negative Urine-Leukocytes Trace Negative Urine-Nitrite Negative Negative Urine-Other Urine Saved if Culture Need ed (48hrs from time of collection) Urine-pH 7.0 5-8.5 Urine-Protein 1+ Negative Urine-RBC Negative Urine-Specific Slemp 1.015 1.000-1 .030 Urine-WBC Negative Urobilinogen 0.2 E.U./dL 0.2-1.0 Thyroid Stimulating Hormone - 01/30/19 1 1:02 TSH 50.09 mIU/mL 0.32-5.00 Osmolality, Urine - 01/30/19 11:02 OSMOLALITY, URINE 501 MOSMOL/KG Osmolality, Urine - 01/30/19 11:02 Osmolality, Urine 501 mOsmol/kg Comprehensive Metabolic Panel - 01/31/19 05:50 Albumin 3.3 g/dL 3.6-5.1 ALP 83 U/L 35-130 ALT 15 U/L 6-45 Anion Gap 16 6-14 AST 26 U/L 2-40 BUN 15 mg/dL 5-25 Calcium 8.9 mg/dL 8.3-10.4 Chloride 89 mmol/L 95-114 CO2 24 mEq/L 22-33 Creat 0.75 mg/dL 0.50-1.50 eGFR 75 mL/min/1.73m2 >59 Globulin 2.2 g/dL 2.3-3.5 Glucose 100 mg/dL 70-110 Osmo 258 280-295 Potassium 4.6 mmol/L 3.5-5.3 Sodium 124 mmol/L 134-148 TBil 0.4 mg/dL 0.2-1.2 TP 5.5 g/dL 6.0-8.3 Comprehensive Metabolic Panel - 02/01/19 05:48 Albumin 3.2 g/dL 3.6-5.1 ALP 81 U/L 35-130 ALT 15 U/L 6-45 Anion Gap 15 6-14 AST 25 U/L 2-40 BUN 13 mg/dL 5-25 Calcium 8.6 mg/dL 8.3-10.4 Chloride 92 mmol/L 95-114 CO2 23 mEq/L 22-33 Creat 0.75 mg/dL 0.50-1.50 eGFR 75 mL/min/1.73m2 >59 Globulin 2.2 g/dL 2.3-3.5 Glucose 105 mg/dL 70-110 Osmo 260 280-295 Potassium 4.6 mmol/L 3.5-5.3 Sodium 125 mmol/L 134-148 TBil 0.4 mg/dL 0.2-1.2 TP 5.4 g/dL 6.0-8.3 Comprehensive Metabolic Panel - 02/02/19 05:30 Albumin 3.2 g/dL 3.6-5.1 ALP 74 U/L 35-130 ALT 13 U/L 6-45 Anion Gap 11 6-14 AST 24 U/L 2-40 BUN 11 mg/dL 5-25 Calcium 8.8 mg/dL 8.3-10.4 Chloride 90 mmol/L 95-114 CO2 27 mEq/L 22-33 Creat 0.68 mg/dL 0.50-1.50 eGFR 84 mL/min/1.73m2 >59 Globulin 2.0 g/dL 2.3-3.5 Glucose 97 mg/dL 70-110 Osmo 257 280-295 Potassium 4.3 mmol/L 3.5-5.3 Sodium 124 mmol/L 134-148 TBil 0.3 mg/dL 0.2-1.2 TP 5.2 g/dL 6.0-8.3 [facility] 02/03/19 05:30 Anion Gap 11 6-14 BUN 11 mg/dL 5-25 Calcium 8.3 mg/dL 8.3-10.4 Chloride 92 mmol/L 95-114 CO2 27 mEq/L 22-33 Creat 0.64 mg/dL 0.50-1.50 eGFR 90 mL/min/1.73m2 >59 Glucose 97 mg/dL 70-110 Osmo 261 280-295 Potassium 4.4 mmol/L 3.5-5.3 Sodium 126 mmol/L 134-148 [facility] 02/04/19 05:51 Anion Gap 15 6-14 BUN 8 mg/dL 5-25 Calcium 8.5 mg/dL 8.3-10.4 Chloride 88 mmol/L 95-114 CO2 25 mEq/L 22-33 Creat 0.66 mg/dL 0.50-1.50 eGFR 87 mL/min/1.73m2 >59 Glucose 119 mg/dL 70-110 Osmo 257 280-295 Potassium 4.3 mmol/L 3.5-5.3 Sodium 124 mmol/L 134-148 [facility] 02/05/19 05:26 Anion Gap 12 6-14 BUN 8 mg/dL 5-25 Calcium 8.5 mg/dL 8.3-10.4 Chloride 92 mmol/L 95-114 CO2 27 mEq/L 22-33 Creat 0.63 mg/dL 0.50-1.50 eGFR 91 mL/min/1.73m2 >59 Glucose 93 mg/dL 70-110 Osmo 261 280-295 Potassium 4.4 mmol/L 3.5-5.3 Sodium 127 mmol/L 134-148 [facility] 02/06/19 05:20 Anion Gap 12 6-14 BUN 8 mg/dL 5-25 Calcium 8.3 mg/dL 8.3-10.4 Chloride 93 mmol/L 95-114 CO2 29 mEq/L 22-33 Creat 0.67 mg/dL 0.50-1.50 eGFR 85 mL/min/1.73m2 >59 Glucose 90 mg/dL 70-110 Osmo 267 280-295 Potassium 4.2 mmol/L 3.5-5.3 Sodium 130 mmol/L 134-148 [facility] - 02/07/19 05:40 Anion Gap 13 6-14 BUN 10 mg/dL 5-25 Calcium 9.0 mg/dL 8.3-10.4 Chloride 89 mmol/L 95-114 CO2 33 mEq/L 22-33 Creat 0.69 mg/dL 0.50-1.50 eGFR 82 mL/min/1.73m2 >59 Glucose 92 mg/dL 70-110 Osmo 270 280-295 Potassium 4.4 mmol/L 3.5-5.3 Sodium 131 mmol/L 134-148 [facility] - 02/08/19 05:10 Anion Gap 14 6-14 BUN 11 mg/dL 5-25 Calcium 8.9 mg/dL 8.3-10.4 Chloride 90 mmol/L 95-114 CO2 32 mEq/L 22-33 Creat 0.78 mg/dL 0.50-1.50 eGFR 71 mL/min/1.73m2 >59 Glucose 115 mg/dL 70-110 Osmo 271 280-295 Potassium 4.5 mmol/L 3.5-5.3 Sodium 131 mmol/L 134-148 [facility] - 02/11/19 15:33 GLUCOSE 80 mg/dL 65-99 UREA NITROGEN (BUN) 19 mg/dL 7-25 CREATININE 1.01 mg/dL 0.60-0.93 eGFR NON-AFR. SAUDI ARABIAN 53 mL/min/1.73m2 > OR = 60 eGFR 62 mL/min/1.73m2 > OR = 60 BUN/CREATININE RATIO 19 (calc) 6-22 SODIUM 134 mmol/L 135-146 POTASSIUM 4.4 mmol/L 3.5-5.3 CHLORIDE 93 mmol/L 98-110 CARBON DIOXIDE 33 mmol/L 20-32 CALCIUM 8.9 mg/dL 8.6-10.4 PROTEIN, TOTAL 5.6 g/dL 6.1-8.1 ALBUMIN 3.4 g/dL 3.6-5.1 GLOBULIN 2.2 g/dL (calc) 1.9-3.7 ALBUMIN/GLOBULIN RATIO 1.5 (calc) 1.0-2. 5 BILIRUBIN, TOTAL 0.4 mg/dL 0.2-1.2 ALKALINE PHOSPHATASE 69 U/L 33-130 AST 22 U/L 10-35 ALT 13 U/L 6-29 MYCOPLASMA, IgM - 02/11/19 15:33 MYCOPLASMA PNEUMONIAE ANTIBODY (IGM) 49 U/mL NRG Thyroid Stimulating Hormone - 02/27/19 1 1:02 TSH 7.36 mIU/mL 0.32-5.00 Comprehensive Metabolic Panel - 02/27/19 11:20 Albumin 2.9 g/dL 3.6-5.1 ALP 82 U/L 35-130 ALT 12 U/L 6-45 Anion Gap 17 6-14 AST 21 U/L 2-40 BUN 11 mg/dL 5-25 Calcium 9.1 mg/dL 8.3-10.4 Chloride 95 mmol/L 95-114 CO2 29 mEq/L 22-33 Creat 0.77 mg/dL 0.50-1.50 eGFR 72 mL/min/1.73m2 >59 Globulin 2.9 g/dL 2.3-3.5 Glucose 115 mg/dL 70-110 Osmo 283 280-295 Potassium 3.5 mmol/L 3.5-5.3 Sodium 137 mmol/L 134-148 TBil 0.4 mg/dL 0.2-1.2 TP 5.8 g/dL 6.0-8.3 Urinalysis - 02/27/19 12:06 Icotest N/A Negative Urine Volume Urine Volume Sufficient (10mL) Urine-Appearance Clear Clear Urine-Bacteria 2+ Urine-Bilirubin Negative Negative Urine-Blood Negative Negative Urine-Color Yellow Colorless-[place] ow Urine-Epithelial Cells 10-20/HPF Urine-Glucose Negative Negative Urine-Ketones Negative Negative Urine-Leukocytes 1+ Negative Urine-Nitrite Negative Negative Urine-Other Culture to follow Urine-pH 7.0 5-8.5 Urine-Protein Negative Negative Urine-RBC 0-2/HPF Urine-Specific Slemp 1.015 1.000-1 .030 Urine-WBC 20-40/HPF Urobilinogen 0.2 E.U./dL 0.2-1.0 Urine Culture - 02/27/19 12:06 PRELIM CULTURE RESULTS 20,000-50,000 Gram Po sitive Mixed April. FINAL CULTURE RESULTS Probable Skin Contamin ant NO Pathogens Isolated No Further Workup done MEDIA PLATED Setup at 12:48 on 02/27/2019 CULTURE SOURCE voided Bacteria identification in isolate by an aerobe culture - 03/11/19 10:00 Bacteria identification in isolate by anaerobe culture NOANA NRG Gram stain microscopy - 03/11/19 10:00 Gram stain microscopy No bacteria seen NRG Bacteria identification in wound by cult ure - 03/11/19 10:00 Bacteria identification in wound by culture NG NRG Mycoplasma - 06/13/19 14:05 Mycoplasma Negative Negative CMP - 06/24/19 15:09 GLUCOSE 80 mg/dL 65-99 UREA NITROGEN (BUN) 22 mg/dL 7-25 CREATININE 1.09 mg/dL 0.60-0.93 eGFR NON-AFR. SAUDI ARABIAN 49 mL/min/1.73m2 > OR = 60 eGFR 56 mL/min/1.73m2 > OR = 60 BUN/CREATININE RATIO 20 (calc) 6-22 SODIUM 136 mmol/L 135-146 POTASSIUM 4.9 mmol/L 3.5-5.3 CHLORIDE 98 mmol/L 98-110 CARBON DIOXIDE 27 mmol/L 20-32 CALCIUM 8.5 mg/dL 8.6-10.4 PROTEIN, TOTAL 5.4 g/dL 6.1-8.1 ALBUMIN 3.1 g/dL 3.6-5.1 GLOBULIN 2.3 g/dL (calc) 1.9-3.7 ALBUMIN/GLOBULIN RATIO 1.3 (calc) 1.0-2. 5 BILIRUBIN, TOTAL 0.3 mg/dL 0.2-1.2 ALKALINE PHOSPHATASE 86 U/L 33-130 AST 16 U/L 10-35 ALT 8 U/L 6-29 CBC - 06/24/19 15:09 WHITE BLOOD CELL COUNT 7.1 Thousand/uL 3 .8-10.8 RED BLOOD CELL COUNT 3.71 Million/uL 3.8 0-5.10 HEMOGLOBIN 11.1 g/dL 11.7-15.5 HEMATOCRIT 33.8 % 35.0-45.0 MCV 91.1 fL 80.0-100.0 MCH 29.9 pg 27.0-33.0 MCHC 32.8 g/dL 32.0-36.0 RDW 14.5 % 11.0-15.0 PLATELET COUNT 374 Thousand/uL 140-400 MPV 9.6 fL 7.5-12.5 ABSOLUTE NEUTROPHILS 4991 cells/uL 1500- 7800 ABSOLUTE LYMPHOCYTES 1392 cells/uL 850-3 900 ABSOLUTE MONOCYTES 618 cells/uL 200-950 ABSOLUTE EOSINOPHILS 57 cells/uL 15-500 ABSOLUTE BASOPHILS 43 cells/uL 0-200 NEUTROPHILS 70.3 % NRG LYMPHOCYTES 19.6 % NRG MONOCYTES 8.7 % NRG EOSINOPHILS 0.8 % NRG BASOPHILS 0.6 % NRG VITAMIN B12/FOLATE, SERUM PANEL - 15:09 VITAMIN B12 >2000 pg/mL 200-1100 FOLATE, SERUM 11.5 ng/mL NRG LDH - 07/13/19 17:24 LD 182 U/L 120-250 CBC - 07/13/19 17:24 WHITE BLOOD CELL COUNT 4.7 Thousand/uL 3 .8-10.8 RED BLOOD CELL COUNT 3.45 Million/uL 3.8 0-5.10 HEMOGLOBIN 10.1 g/dL 11.7-15.5 HEMATOCRIT 31.1 % 35.0-45.0 MCV 90.1 fL 80.0-100.0 MCH 29.3 pg 27.0-33.0 MCHC 32.5 g/dL 32.0-36.0 RDW 14.5 % 11.0-15.0 PLATELET COUNT 372 Thousand/uL 140-400 MPV 9.9 fL 7.5-12.5 ABSOLUTE NEUTROPHILS 2618 cells/uL 1500- 7800 ABSOLUTE LYMPHOCYTES 1321 cells/uL 850-3 900 ABSOLUTE MONOCYTES 653 cells/uL 200-950 ABSOLUTE EOSINOPHILS 80 cells/uL 15-500 ABSOLUTE BASOPHILS 28 cells/uL 0-200 NEUTROPHILS 55.7 % NRG LYMPHOCYTES 28.1 % NRG MONOCYTES 13.9 % NRG EOSINOPHILS 1.7 % NRG BASOPHILS 0.6 % NRG BNP - 09/11/19 16:00 BNP 738.70 pg/ml 0.00-100.00 ANEMIA PANEL - 11/02/19 15:48 IRON, TOTAL 60 mcg/dL 45-160 FERRITIN 188 ng/mL 16-288 IRON BINDING CAPACITY 197 mcg/dL (calc) 250-450 % SATURATION 30 % (calc) 16-45 CMP - 11/02/19 15:48 GLUCOSE 92 mg/dL 65-99 UREA NITROGEN (BUN) 19 mg/dL 7-25 CREATININE 0.85 mg/dL 0.60-0.93 eGFR NON-AFR. [place]UDI [place] 66 mL/min/1.73m2 > OR = 60 eGFR 76 mL/min/1.73m2 > OR = 60 BUN/CREATININE RATIO NOT APPLICABLE (calc) 6-22 SODIUM 141 mmol/L 135-146 POTASSIUM 4.3 mmol/L 3.5-5.3 CHLORIDE 101 mmol/L 98-110 CARBON DIOXIDE 30 mmol/L 20-32 CALCIUM 8.6 mg/dL 8.6-10.4 PROTEIN, TOTAL 4.8 g/dL 6.1-8.1 ALBUMIN 2.7 g/dL 3.6-5.1 GLOBULIN 2.1 g/dL (calc) 1.9-3.7 ALBUMIN/GLOBULIN RATIO 1.3 (calc) 1.0-2. 5 BILIRUBIN, TOTAL 0.4 mg/dL 0.2-1.2 ALKALINE PHOSPHATASE 99 U/L 37-153 AST 16 U/L 10-35 ALT 8 U/L 6-29 LDH - 11/02/19 15:48 LD 179 U/L 120-250 CBC - 11/02/19 15:48 WHITE BLOOD CELL COUNT 6.3 Thousand/uL 3 .8-10.8 RED BLOOD CELL COUNT 3.85 Million/uL 3.8 0-5.10 HEMOGLOBIN 11.8 g/dL 11.7-15.5 HEMATOCRIT 36.9 % 35.0-45.0 MCV 95.8 fL 80.0-100.0 MCH 30.6 pg 27.0-33.0 MCHC 32.0 g/dL 32.0-36.0 RDW 18.4 % 11.0-15.0 PLATELET COUNT 360 Thousand/uL 140-400 MPV 10.0 fL 7.5-12.5 ABSOLUTE NEUTROPHILS 3667 cells/uL 1500- 7800 ABSOLUTE LYMPHOCYTES 1922 cells/uL 850-3 900 ABSOLUTE MONOCYTES 636 cells/uL 200-950 ABSOLUTE EOSINOPHILS 38 cells/uL 15-500 ABSOLUTE BASOPHILS 38 cells/uL 0-200 NEUTROPHILS 58.2 % NRG LYMPHOCYTES 30.5 % NRG MONOCYTES 10.1 % NRG EOSINOPHILS 0.6 % NRG BASOPHILS 0.6 % NRG Comprehensive Metabolic Panel - 11/30/19 08:38 Albumin 2.5 g/dL 3.6-5.1 ALP 103 U/L 35-130 ALT 8 U/L 6-45 Anion Gap 15 6-14 AST 23 U/L 2-40 BUN 23 mg/dL 5-25 Calcium 8.0 mg/dL 8.3-10.4 Chloride 101 mmol/L 95-114 CO2 30 mEq/L 22-33 Creat 0.84 mg/dL 0.50-1.50 eGFR 65 mL/min/1.73m2 >59 Globulin 2.4 g/dL 2.3-3.5 Glucose 94 mg/dL 70-110 Osmo 296 280-295 Potassium 3.5 mmol/L 3.5-5.3 Sodium 142 mmol/L 134-148 TBil 0.5 mg/dL 0.2-1.2 TP 4.9 g/dL 6.0-8.3 COVID19 - 11/30/19 08:47 COVID19 NEGATIVE test performed at [facility] Blood Culture - 11/30/19 08:47 PRELIM CULTURE RESULTS Blood Culture Negativ e, No Growth Day 1 FINAL CULTURE RESULTS Blood Culture Negative , No Growth Day 5 MEDIA PLATED Blood Culture Media Position C49 CULTURE SOURCE right wrist iv start Blood Culture - 11/30/19 09:15 PRELIM CULTURE RESULTS Blood Culture Negativ e, No Growth Day 1 FINAL CULTURE RESULTS Blood Culture Negative , No Growth Day 5 MEDIA PLATED Blood Culture Media Position C43 CULTURE SOURCE left hand Urinalysis - 11/30/19 09:20 Icotest N/A Negative Urine Volume Urine Volume Sufficient (10mL) Urine-Appearance Clear Clear Urine-Bacteria Negative Urine-Bilirubin Negative Negative Urine-Blood Negative Negative Urine-Color Yellow Colorless-[place] ow Urine-Epithelial Cells None Urine-Glucose Negative Negative Urine-Ketones Negative Negative Urine-Leukocytes Negative Negative Urine-Nitrite Negative Negative Urine-Other Urine Saved if Culture Need ed (48hrs from time of collection) Urine-pH 5.5 5-8.5 Urine-Protein Negative Negative Urine-RBC Negative Urine-Specific Slemp 1.015 1.000-1 .030 Urine-WBC Negative Urobilinogen 0.2 E.U./dL 0.2-1.0 Comprehensive Metabolic Panel - 12/01/19 05:00 Albumin 2.4 g/dL 3.6-5.1 ALP 87 U/L 35-130 ALT 6 U/L 6-45 Anion Gap 15 6-14 AST 15 U/L 2-40 BUN 20 mg/dL 5-25 Calcium 7.6 mg/dL 8.3-10.4 Chloride 101 mmol/L 95-114 CO2 29 mEq/L 22-33 Creat 0.79 mg/dL 0.50-1.50 eGFR 70 mL/min/1.73m2 >59 Globulin 2.1 g/dL 2.3-3.5 Glucose 107 mg/dL 70-110 Osmo 296 280-295 Potassium 3.3 mmol/L 3.5-5.3 Sodium 142 mmol/L 134-148 TBil 0.5 mg/dL 0.2-1.2 TP 4.5 g/dL 6.0-8.3 Comprehensive Metabolic Panel - 12/02/19 05:30 Albumin 2.3 g/dL 3.6-5.1 ALP 81 U/L 35-130 ALT 7 U/L 6-45 Anion Gap 15 6-14 AST 16 U/L 2-40 BUN 20 mg/dL 5-25 Calcium 7.6 mg/dL 8.3-10.4 Chloride 102 mmol/L 95-114 CO2 29 mEq/L 22-33 Creat 0.77 mg/dL 0.50-1.50 eGFR 72 mL/min/1.73m2 >59 Globulin 2.1 g/dL 2.3-3.5 Glucose 79 mg/dL 70-110 Osmo 295 280-295 Potassium 4.0 mmol/L 3.5-5.3 Sodium 142 mmol/L 134-148 TBil 0.3 mg/dL 0.2-1.2 TP 4.4 g/dL 6.0-8.3 Comprehensive Metabolic Panel - 12/03/19 05:00 Albumin 2.4 g/dL 3.6-5.1 ALP 82 U/L 35-130 ALT 8 U/L 6-45 Anion Gap 17 6-14 AST 20 U/L 2-40 BUN 21 mg/dL 5-25 Calcium 7.7 mg/dL 8.3-10.4 Chloride 102 mmol/L 95-114 CO2 28 mEq/L 22-33 Creat 0.75 mg/dL 0.50-1.50 eGFR 75 mL/min/1.73m2 >59 Globulin 2.5 g/dL 2.3-3.5 Glucose 88 mg/dL 70-110 Osmo 295 280-295 Potassium 4.7 mmol/L 3.5-5.3 Sodium 142 mmol/L 134-148 TBil 0.3 mg/dL 0.2-1.2 TP 4.9 g/dL 6.0-8.3 Arterial Blood Gas - 12/06/19 16:01 Base 9.00 mmol/L 1.80-4.20 HCO3 33 mmol/L 20-31 O2 Sat 92 RM AIR % 95-100 pCO2 48 mm/Hg 35-45 pH 7.45 7.35-7.45 PO2 62 mm/Hg 80-95 BMP - 12/06/19 16:35 Anion Gap 15 6-14 BUN 19 mg/dL 5-25 Calcium 8.4 mg/dL 8.3-10.4 Chloride 99 mmol/L 95-114 CO2 30 mEq/L 22-33 Creat 0.81 mg/dL 0.50-1.50 eGFR 68 mL/min/1.73m2 >59 Glucose 92 mg/dL 70-110 Osmo 291 280-295 Potassium 4.2 mmol/L 3.5-5.3 Sodium 140 mmol/L 134-148 Urinalysis - 12/06/19 20:30 Icotest N/A Negative Urine Volume Urine Volume Sufficient (10mL) Urine Yeast No Yeast present Urine-Appearance Clear Clear Urine-Bacteria Negative Urine-Bilirubin Negative Negative Urine-Blood Negative Negative Urine-Color Yellow Colorless-[place] ow Urine-Epithelial Cells 0-5/HPF Urine-Glucose Negative Negative Urine-Ketones Negative Negative Urine-Leukocytes Negative Negative Urine-Nitrite Negative Negative Urine-Other Urine Saved if Culture Need ed (48hrs from time of collection) Urine-pH 7.0 5-8.5 Urine-Protein Negative Negative Urine-RBC Negative Urine-Specific Slemp 1.020 1.000-1 .030 Urine-WBC Nothing Seen on Microscopic Urobilinogen 0.2 0.2-1.0 Protime - 12/06/19 22:05 INR 1.1 1.0-4.0 Protime 12.8 Sec 9.9-12.8 Comprehensive Metabolic Panel - 12/07/19 05:35 Albumin 2.4 g/dL 3.6-5.1 ALP 75 U/L 35-130 ALT 8 U/L 6-45 Anion Gap 15 6-14 AST 15 U/L 2-40 BUN 20 mg/dL 5-25 Calcium 8.0 mg/dL 8.3-10.4 Chloride 98 mmol/L 95-114 CO2 33 mEq/L 22-33 Creat 0.84 mg/dL 0.50-1.50 eGFR 65 mL/min/1.73m2 >59 Globulin 2.1 g/dL 2.3-3.5 Glucose 80 mg/dL 70-110 Osmo 295 280-295 Potassium 4.1 mmol/L 3.5-5.3 Sodium 142 mmol/L 134-148 TBil 0.3 mg/dL 0.2-1.2 TP 4.5 g/dL 6.0-8.3 Cytology - 12/07/19 13:10 Cyt Sent to [facility] Pathology Other Culture - 12/07/19 14:30 PRELIM CULTURE RESULTS No Growth 24 hours FINAL CULTURE RESULTS No Growth 48 hours MEDIA PLATED Setup at 15:05 on 12/07/2019 Lactic Acid Dehydrogenase (LD), Body Flu id - 12/07/19 14:30 LD, BODY FLUID 134 IU/L LD, Body Fluid - 12/07/19 14:30 LD, Body Fluid 134 IU/L Comprehensive Metabolic Panel - 12/08/19 05:20 Albumin 2.5 g/dL 3.6-5.1 ALP 77 U/L 35-130 ALT 8 U/L 6-45 Anion Gap 17 6-14 AST 13 U/L 2-40 BUN 21 mg/dL 5-25 Calcium 8.0 mg/dL 8.3-10.4 Chloride 98 mmol/L 95-114 CO2 31 mEq/L 22-33 Creat 0.79 mg/dL 0.50-1.50 eGFR 70 mL/min/1.73m2 >59 Globulin 2.2 g/dL 2.3-3.5 Glucose 77 mg/dL 70-110 Osmo 295 280-295 Potassium 3.7 mmol/L 3.5-5.3 Sodium 142 mmol/L 134-148 TBil 0.3 mg/dL 0.2-1.2 TP 4.7 g/dL 6.0-8.3 Comprehensive Metabolic Panel - 12/09/19 04:36 Albumin 2.4 g/dL 3.6-5.1 ALP 71 U/L 35-130 ALT 8 U/L 6-45 Anion Gap 16 6-14 AST 17 U/L 2-40 BUN 19 mg/dL 5-25 Calcium 7.8 mg/dL 8.3-10.4 Chloride 98 mmol/L 95-114 CO2 30 mEq/L 22-33 Creat 0.78 mg/dL 0.50-1.50 eGFR 71 mL/min/1.73m2 >59 Globulin 2.3 g/dL 2.3-3.5 Glucose 86 mg/dL 70-110 Osmo 291 280-295 Potassium 4.3 mmol/L 3.5-5.3 Sodium 140 mmol/L 134-148 TBil 0.3 mg/dL 0.2-1.2 TP 4.7 g/dL 6.0-8.3 Procalcitonin - 12/09/19 08:57 PROCALCITONIN 0.11 0.00-0.10 Blood Culture - 12/09/19 08:57 PRELIM CULTURE RESULTS Blood Culture Negativ e, No Growth Day 1 FINAL CULTURE RESULTS Blood Culture Negative , No Growth Day 5 MEDIA PLATED Blood Culture Media Position A11 CULTURE SOURCE right hand Blood Culture - 12/09/19 09:26 PRELIM CULTURE RESULTS Blood Culture Negativ e, No Growth Day 1 FINAL CULTURE RESULTS Blood Culture Negative , No Growth Day 5 MEDIA PLATED Blood Culture Media Position C46 CULTURE SOURCE left hand PROCALCITONIN (PCT) - 12/09/19 13:09 PROCALCITONIN (PCT) 0.11 ng/mL <0.10 Comprehensive Metabolic Panel - 12/10/19 05:00 Albumin 2.7 g/dL 3.6-5.1 ALP 82 U/L 35-130 ALT 9 U/L 6-45 Anion Gap 15 6-14 AST 16 U/L 2-40 BUN 17 mg/dL 5-25 Calcium 7.9 mg/dL 8.3-10.4 Chloride 102 mmol/L 95-114 CO2 29 mEq/L 22-33 Creat 0.91 mg/dL 0.50-1.50 eGFR 60 mL/min/1.73m2 >59 Globulin 2.3 g/dL 2.3-3.5 Glucose 92 mg/dL 70-110 Osmo 294 280-295 Potassium 4.3 mmol/L 3.5-5.3 Sodium 142 mmol/L 134-148 TBil 0.3 mg/dL 0.2-1.2 TP 5.0 g/dL 6.0-8.3 VIT B-12 - 12/11/19 05:00 Vitamin B12 731.00 pg/mL 213.00-816.00 Comprehensive Metabolic Panel - 12/11/19 05:50 Albumin 2.4 g/dL 3.6-5.1 ALP 73 U/L 35-130 ALT 9 U/L 6-45 Anion Gap 15 6-14 AST 16 U/L 2-40 BUN 15 mg/dL 5-25 Calcium 7.7 mg/dL 8.3-10.4 Chloride 103 mmol/L 95-114 CO2 31 mEq/L 22-33 Creat 0.82 mg/dL 0.50-1.50 eGFR 67 mL/min/1.73m2 >59 Globulin 1.9 g/dL 2.3-3.5 Glucose 76 mg/dL 70-110 Osmo 299 280-295 Potassium 4.1 mmol/L 3.5-5.3 Sodium 145 mmol/L 134-148 TBil 0.3 mg/dL 0.2-1.2 TP 4.3 g/dL 6.0-8.3 Comprehensive Metabolic Panel - 12/12/19 05:35 Albumin 2.4 g/dL 3.6-5.1 ALP 77 U/L 35-130 ALT <6 U/L 6-45 Anion Gap 13 6-14 AST 12 U/L 2-40 BUN 11 mg/dL 5-25 Calcium 7.8 mg/dL 8.3-10.4 Chloride 105 mmol/L 95-114 CO2 30 mEq/L 22-33 Creat 0.69 mg/dL 0.50-1.50 eGFR 82 mL/min/1.73m2 >59 Globulin 2.0 g/dL 2.3-3.5 Glucose 77 mg/dL 70-110 Osmo 296 280-295 Potassium 4.3 mmol/L 3.5-5.3 Sodium 144 mmol/L 134-148 TBil 0.2 mg/dL 0.2-1.2 TP 4.4 g/dL 6.0-8.3 CMP - 12/23/19 17:07 GLUCOSE 108 mg/dL 65-99 UREA NITROGEN (BUN) 20 mg/dL 7-25 CREATININE 1.08 mg/dL 0.60-0.93 eGFR NON-AFR. SAUDI ARABIAN 49 mL/min/1.73m2 > OR = 60 eGFR 57 mL/min/1.73m2 > OR = 60 BUN/CREATININE RATIO 19 (calc) 6-22 SODIUM 142 mmol/L 135-146 POTASSIUM 4.8 mmol/L 3.5-5.3 CHLORIDE 102 mmol/L 98-110 CARBON DIOXIDE 32 mmol/L 20-32 CALCIUM 8.4 mg/dL 8.6-10.4 PROTEIN, TOTAL 4.7 g/dL 6.1-8.1 ALBUMIN 2.5 g/dL 3.6-5.1 GLOBULIN 2.2 g/dL (calc) 1.9-3.7 ALBUMIN/GLOBULIN RATIO 1.1 (calc) 1.0-2. 5 BILIRUBIN, TOTAL 0.3 mg/dL 0.2-1.2 ALKALINE PHOSPHATASE 90 U/L 37-153 AST 16 U/L 10-35 ALT 9 U/L 6-29 CBC - 12/23/19 17:07 WHITE BLOOD CELL COUNT 6.4 Thousand/uL 3 .8-10.8 RED BLOOD CELL COUNT 3.53 Million/uL 3.8 0-5.10 HEMOGLOBIN 11.8 g/dL 11.7-15.5 HEMATOCRIT 35.4 % 35.0-45.0 MCV 100.3 fL 80.0-100.0 MCH 33.4 pg 27.0-33.0 MCHC 33.3 g/dL 32.0-36.0 RDW 13.7 % 11.0-15.0 PLATELET COUNT 386 Thousand/uL 140-400 MPV 10.5 fL 7.5-12.5 ABSOLUTE NEUTROPHILS 4115 cells/uL 1500- 7800 ABSOLUTE LYMPHOCYTES 1453 cells/uL 850-3 900 ABSOLUTE MONOCYTES 781 cells/uL 200-950 ABSOLUTE EOSINOPHILS 32 cells/uL 15-500 ABSOLUTE BASOPHILS 19 cells/uL 0-200 NEUTROPHILS 64.3 % NRG LYMPHOCYTES 22.7 % NRG MONOCYTES 12.2 % NRG EOSINOPHILS 0.5 % NRG BASOPHILS 0.3 % NRG TSH - 12/23/19 17:07 TSH 23.94 mIU/L 0.40-4.50 CULTURE, ANAEROBIC AND AEROBIC - 0 17:09 CULTURE, ANAEROBIC BACTERIA W/GRAM STAIN NRG CULTURE, AEROBIC BACTERIA NRG Thyroid Stimulating Hormone - 01/15/20 1 7:31 TSH 7.98 mIU/mL 0.32-5.00 Mycoplasma - 01/15/20 17:31 Mycoplasma Negative Negative Urinalysis - 01/15/20 17:31 Icotest Negative Negative Urine Casts None Seen Urine Crystals None Seen Urine Volume Urine Volume Sufficient (10mL) Urine Yeast No Yeast present Urine-Appearance Clear Clear Urine-Bacteria Negative Urine-Bilirubin 1+ Negative Urine-Blood Negative Negative Urine-Color Yellow Colorless-[place] ow Urine-Epithelial Cells 5-10/HPF Urine-Glucose Negative Negative Urine-Ketones Trace Negative Urine-Leukocytes Negative Negative Urine-Mucus Negative Urine-Nitrite Negative Negative Urine-Other Urine Saved if Culture Need ed (48hrs from time of collection) Urine-pH 5.0 5-8.5 Urine-Protein Negative Negative Urine-RBC Negative Urine-Specific Slemp 1.020 1.000-1 .030 Urine-WBC Negative Urobilinogen 0.2 E.U./dL 0.2-1.0 Arterial blood gas measurement - 0 00:20 Blood pCO2 52 mm[Hg] 35-45 Blood pO2 58 mm[Hg] 79-93 Arterial blood bicarbonate measurement (moles/volume) 30 mmol/L 23-27 Arterial blood base excess by calculation 4.5 mmol /L -2.5-2.5 Arterial blood oxygen saturation measurement 87 % 94-100 * Inhaled oxygen flow rate ROOM AIR NRG Arterial blood pH measurement with patient temperature correction 7.37 7.37-7.43 Arterial blood carbon dioxide, total measurement (mole s/volume) 31.5 mmol/L 21.0-31.0 Body site RIGHT RAIDAL NRG Assessment of wrist artery patency prior to arterial p uncture YES-POS NRG Setting of ventilation mode NO NR G Measurement of body temperature 35.5 NRG Encounters ACCT No. Visit Date/Time Discharge Status Pt. Type Provider Facility Loc./Unit Complaint [id number] 01/04/2020 13:45:00 01/04/2020 23:59: 59 [facility] Outpatient KINGA PRICE [facility] [id number] 12/31/2019 16:20:00 Document Registration [id number] 12/23/2019 16:40:00 Document Registration [id number] 11/02/2019 15:00:00 Document Registration [id number] 07/13/2019 17:00:00 Document Registration [id number] 06/24/2019 14:45:00 Document Registration [id number] 02/11/2019 15:15:00 Document Registration [id number] 12/30/2018 15:20:00 Document Registration [id number] 12/08/2018 16:24:00 Document Registration [id number] 12/08/2018 16:00:00 Document Registration [id number] 11/06/2018 16:00:00 Document Registration [id number] 11/05/2018 14:00:00 Document Registration [id number] 09/08/2018 14:30:00 Document Registration [id number] 02/07/2018 14:48:00 Document Registration [id number] 12/30/2019 12:21:00 23:59:59 CLS Outpatient KINGA PRICE MD [facility] RAD ABN X-RAY [id number] 12/09/2019 13:09:00 23:59:59 CLS Outpatient RAQUEL OLGUIN DO [facility] LABNPT [id number] 11/11/2019 14:00:00 23:59:59 CLS Preadmit KINGA PRICE MD [facility] CARD ACUTE SYSTOLIC CHF [id number] 03/25/2019 09:32:00 23:59:59 CLS Outpatient EDMUNDO, SIM R STOCK LETTERER [facility] WOUNDCARE [id number] 03/18/2019 09:23:00 23:59:59 CLS Outpatient EDMUNDO, SIM R STOCK LETTERER [facility] [id number] 03/11/2019 09:32:00 23:59:59 CLS Outpatient EDMUNDO, SIM R STOCK LETTERER [facility] [id number] 03/09/2019 09:40:00 23:59:59 CLS Outpatient EDMUNDO, SIM R STOCK LETTERER [facility] [id number] 03/04/2019 09:40:00 23:59:59 CLS Outpatient EDMUNDO, SIM R STOCK LETTERER [facility] [id number] 03/02/2019 11:06:00 23:59:59 CLS Outpatient EDMUNDO, SIM R STOCK LETTERER [facility] [id number] 02/25/2019 09:43:00 23:59:59 CLS Outpatient EDMUNDO, SIM R STOCK LETTERER [facility] [id number] 02/18/2019 09:34:00 019 23:59:59 CLS Outpatient SIM WYATT APRN [facility] [id number] 12/08/2013 12:47:00 014 23:59:59 CLS Outpatient RANDI CHOU, RUBY Shelton [facility] CARD THYROID CA [id number] 11/25/2012 12:17:00 00:01:00 DIS Outpatient [id number] 12/08/2012 12:48:00 23:59:59 CLS Outpatient [id number] 11/25/2012 12:43:00 23:59:59 CLS Outpatient [id number] 01/16/2020 00:36:00 Document Registration [id number] 12/13/2019 10:12:00 12/13/2019 23:59 :00 DIS Outpatient Raquel Olguin [id number] 12/09/2019 09:31:00 12/12/2019 13:20 :00 DIS Inpatient [facility] [id number] 12/06/2019 15:46:00 12/09/2019 11:30 :00 DIS Inpatient [facility] enter ICU [id number] 11/30/2019 08:13:00 12/03/2019 11:15 :00 DIS Inpatient [facility] [id number] 09/11/2019 15:39:00 09/11/2019 23:59 :00 DIS Outpatient Paul Naqvi [id number] 09/11/2019 14:47:00 09/11/2019 23:59 :00 DIS Outpatient Paul Naqvi [id number] 06/13/2019 13:59:00 06/13/2019 23:59 :00 DIS Outpatient Paul Naqvi [id number] 06/13/2019 13:18:00 06/13/2019 23:59 :00 DIS Outpatient Paul Naqvi [id number] 05/23/2019 09:26:00 05/23/2019 23:59: 00 DIS Outpatient Paul Naqvi [id number] 02/27/2019 10:11:00 02/27/2019 12:38: 00 DIS Outpatient [facility] ER [id number] 02/03/2019 10:00:00 02/08/2019 10:15: 00 [facility] [id number] 01/30/2019 09:19:00 02/03/2019 10:00: 00 DIS Inpatient Raquel Olguin [facility] enter MED-SURG [id number] 01/18/2019 11:06:00 01/18/2019 14:59: 00 DIS Outpatient Lizz[facility] ER [id number] 05/09/2018 14:38:00 05/09/2018 23:59: 00 DIS Outpatient Paul Naqvi [id number] 02/21/2018 13:32:00 02/21/2018 23:59: 00 DIS Outpatient Driss Paul [id number] 02/20/2018 12:32:00 02/20/2018 23:59: 00 DIS Outpatient César Theresa [id number] 02/16/2018 14:18:00 02/18/2018 12:30: 00 DIS Outpatient César [facility] MED-SURG [id number] 02/07/2018 15:08:00 02/07/2018 23:59: 00 DIS Outpatient Paul Naqvi [id number] 02/07/2018 14:48:00 02/07/2018 23:59: 00 DIS Outpatient DrissDarriusPaul [id number] 08/18/2017 13:30:00 08/18/2017 17:00: 00 DIS Outpatient Lizzette [facility] ER [id number] 05/31/2017 13:40:00 06/03/2017 13:50: 00 DIS Inpatient Paul Naqvi [facility] MED-SURG [id number] 02/09/2017 15:48:00 02/09/2017 17:25: 00 [id number] 01/15/2020 17:20:00 Document Registration [id number] 09/27/2018 16:16:00 Document Registration [id number] 05/09/2018 13:57:00 Document Registration [id number] 02/21/2018 12:42:00 Document Registration [id number] 02/07/2018 13:55:00 Document Registration [id number] 05/31/2017 13:52:53 Document Registration [id number] 02/01/2019 11:09:00 Document Registration [id number] 12/10/2019 18:08:00 Document Registration
--- NOTE | 2020-01-16 01:42 | Pulmonary Consultation ---
History of Present Illness History of Present Illness Date Seen by Provider: Jan 16, 2020 Time Seen by Provider: 01:40 Date of Admission History of Present Illness 79yo transferred from [facility] [place] secondary to PNA and hypotension. Allergies and Home Medications Allergies Coded Allergies: No Known Drug Allergies (Verified Allergy, Unknown, 09/18/07) Sepsis Event Evaluation Height, Weight, BMI Height: '" Weight: lbs. oz. kg; 17.91 BMI Method: Exam Exam Vital Signs Date Time Temp Pulse Resp B/P (MAP) Pulse Ox O2 Delivery O2 Flow Rate FiO2 01/16/20 00:15 101 17 50/41 (44) Room Air 01/16/20 00:00 100 17 72/56 (61) Room Air 01/15/20 23:45 93 17 43/30 (34) Room Air 01/15/20 23:30 35.4 90 18 65/43 (50) Room Air 01/15/20 23:05 91 Height & Weight Height: '" Weight: lbs. oz. kg; 17.91 BMI Method: Assessment/Plan Assessment/Plan PNA -Labs and CXR are pending -COVID - pending Hypotension -IVF -Levophed DUKE GRESHAM DO Jan 16, 2020 01:42
--- NOTE | 2020-01-16 01:43 | Pulmonary Procedures ---
Pulmonary Procedures Date of Procedure Date of Service: Jan 16, 2020 Lumen: triple Central Line Procedure: betadine prep, sterile drapes applied, sterile dressing applied Position: internal jugular (R) Anesthesia: Lidocaine Volume Anesthetic (ccs): 5 Complications: none Post Position: sutured, good blood return (CXR is pending \) DUKE GRESHAM DO Jan 16, 2020 01:43
[2020-01-16] MEDS: SENNOSIDES 8.6 MG (SENOKOT) TAB PO SCH ×3 (02:08→22:03)
[2020-01-16] MEDS: DOCUSATE SODIUM 100 MG (COLACE) CAP PO SCH ×3 (02:08→22:03)
[2020-01-16] MEDS: inSUlin ASPART (NovoLOG) 1 UNIT/0.01 ML (CHARGE PER UNIT) SC SCH ×5 (02:09→21:56)
[2020-01-16 03:20] LABS: BASOPHILS % (AUTO) 0 % (0-10); EOSINOPHILS % (AUTO) 1 % (0-10); HEMATOCRIT 31 % (35-52); HEMOGLOBIN 9.6 G/DL (11.5-16.0); LYMPHOCYTES % (AUTO) 18 % (12-44); MEAN CORPUSCULAR HEMOGLOBIN 33 PG (25-34); MEAN CORPUSCULAR HGB CONC 31 G/DL (32-36); MEAN CORPUSCULAR VOLUME 107 FL (80-99); MEAN PLATELET VOLUME 9.5 FL (7.4-10.4); MONOCYTES # (AUTO) 0.6 X 10^3 (0.0-1.0); MONOCYTES % (AUTO) 11 % (0-12); NEUTROPHILS % (AUTO) 70 % (42-75); PLATELET COUNT 275 10^3/uL (130-400); RED CELL DISTRIBUTION WIDTH 15.5 % (10.0-14.5); WHITE BLOOD COUNT 5.7 10^3/uL (4.3-11.0)
[2020-01-16 03:29] LABS: POTASSIUM 4.2 MMOL/L (3.6-5.0)
[2020-01-16 03:30] LABS: CALCIUM 7.8 MG/DL (8.5-10.1)
[2020-01-16 03:34] LABS: PHOSPHORUS 4.1 MG/DL (2.3-4.7)
[2020-01-16 03:35] LABS: CREATININE SERUM 1.18 MG/DL (0.60-1.30)
[2020-01-16 03:37] LABS: MAGNESIUM 1.7 MG/DL (1.6-2.4)
[2020-01-16] MEDS: ENOXAPARIN 30 MG/0.3 ML (LOVENOX) SYR SC SCH ×2 (03:39→22:03)
[2020-01-16] MEDS: LACTATED RINGERS 1,000 ML IV SCH ×3 (03:44→16:33)
[2020-01-16] MEDS: KCL 20 MEQ TAB (K-DUR) PO SCH (06:00)
[2020-01-16] MEDS: POTASSIUM CL 10MEQ/50ML IVPB 50 ML IV SCH (06:00)
[2020-01-16] MEDS: MAGNESIUM 1 GM/100 ML IVPB 100 ML IV SCH (06:00)
[2020-01-16] MEDS ORDERED: CEFEPIME INJECTION 1,000 MG in WATER (STERILE) FOR INJECTION 10 ML IV SCH ×3 (06:00)
--- NOTE | 2020-01-16 06:09 | NUR ---
MAT Protocol Pt scored 1 for Albuterol Inhaler PRN due to PUI, Keep sats greater than 90% Re-evaluate in 72 hours or sooner if needed! Addendum: 01/16/20 at 0610 by RALF GREY RT Amended: Links added.
[2020-01-16] MEDS ORDERED: RT-ALBUTEROL INHALER HFA (VENTOLIN HFA) 18 GM IH SCH (06:15)
--- NOTE | 2020-01-16 06:54 | Diagnostic Imaging Report ---
EXAMINATION: Chest radiograph, portable AP view. DATE: 01/16/2020 2:29 AM hours. INDICATION: 79-year-old female, central line placement. COMPARISON: CT chest December 30, 2019. FINDINGS: The right-sided central venous line overlies the mid upper SVC. There are aortic calcifications. There is a right-sided pneumothorax measuring 2.1 cm from the right lung apex. There is blunting of the left lateral costophrenic angle and nonspecific left basilar airspace consolidation. There is multifocal airspace consolidation in the right lung with probable right pleural effusion. The bones appear somewhat demineralized. IMPRESSION: 1. Right-sided pneumothorax measuring 2.1 cm in size from the lung apex. 2. Nonspecific multifocal airspace consolidation in the right lung and left lung base with probable bilateral pleural effusions. Report was called to Denia/[facility] by liv at 6:52AM. Dictated by: Dictated on workstation # [id number]
--- NOTE | 2020-01-16 06:57 | NUR ---
RADIOLOGY CALLED THIS RN TO REPORT THAT PNEUMOTHORAX ON RIGHT SIDE IS 2.1 CM. THIS RN LET DR. GRESHAM KNOW. PT O2 SAT IS 100% ON 3 LITERS NC AND IS NOT IN ANY RESPIRATORY DISTRESS AT THIS TIME.
--- NOTE | 2020-01-16 07:49 | Diagnostic Imaging Report ---
Indication: Dyspnea, follow-up right pneumothorax. Comparison: Earlier same day. Discussion: Single portable upright view of the chest was obtained. Right apical pneumothorax measures 1.5 cm, slightly decreased. Moderate right and small left pleural effusions are stable. Stable heart size. No osseous abnormality. Right IJ central venous catheter stable. Impression: 1. Right hydropneumothorax with stable fluid component and decreased air component. 2. Small left pleural effusion, stable. Dictated by: Dictated on workstation # [id number]
--- NOTE | 2020-01-16 11:17 | Diagnostic Imaging Report ---
EXAMINATION: Chest radiograph, portable AP view. DATE: 01/16/2020 11:02 AM hours. INDICATION: 79-year-old female, follow-up pneumothorax. COMPARISON: January 16, 2020 at 0646 hours. FINDINGS: There is a right-sided pneumothorax measuring approximately 1.7 cm in the lung apex which is essentially unchanged since the comparison exam. There is a right internal jugular central venous line with tip overlying the mid SVC. There is multifocal airspace consolidation in the right lung with probable right-sided pleural fluid. There is also unchanged nonspecific left basilar airspace consolidation with probable left pleural effusion. IMPRESSION: 1. Unchanged size of the small right pneumothorax. 2. Redemonstrated and essentially unchanged multifocal airspace consolidation in the right lung base and left lung base with probable bilateral pleural effusions. Dictated by: Dictated on workstation # [id number]
--- NOTE | 2020-01-16 13:31 | History & Physical-Hospitalist ---
History of Present Illness HPI/Chief Complaint Cookie Lofton is a 79-year-old female who was transferred from [facility] with recurrent pneumonia and hypotension. There reported that she is treated for pneumonia about a month ago. They said that her blood pressures were low on arrival but had stabilized and were within normal limits. Upon my examination, she reports that she came to the emergency room due to weakness. She says that it is been getting worse over about the past week. She reports that it is really been going on over the past couple months since she has been having pneumonias. She denies any weight loss, but she appears very thin. She says that she has been eating. She says she would like to take ensure, but she is lactose intolerant. She denies having any fevers or chills. She denies shortness of breath and cough. She denies abdominal pain, nausea, or vomiting. Source: patient Exam Limitations: no limitations Date Seen 01/16/20 Time Seen by a Provider: 10:10 Attending Physician Precious Humphrey MD PCP Marlon Randall MD Referring Physician Date of Admission Jan 16, 2020 at 00:00 Home Medications & Allergies Home Medications Reviewed patient Home Medication Reconciliation performed by pharmacy medication reconciliations septic technician and/or nursing. Patients Allergies have been reviewed. Allergies Allergies Coded Allergies No Known Drug Allergies (Verified Allergy, Unknown, 09/18/07) Past Nouegjj-Hghjdm-Oxheoz Hx Past Med/Social Hx: Reviewed Nursing Past Med/Soc Hx Patient Social History Alcohol Use: Denies Use Recreational Drug Use: No Smoking Status: Never a Smoker Physical Abuse Screen: No Sexual Abuse: No Recent Foreign Travel: No Contact w/other who traveled: No Recent Hopitalizations: Yes (PNEUMONIA) Recent Infectious Disease Expo: No Immunizations Up To Date Pediatric: No Date of Pneumonia Vaccine: Aug 17, 2009 Seasonal Allergies Seasonal Allergies: No Past Medical History Currently Using CPAP: No Currently Using BIPAP: No Genitourinary: Kidney Stones Gastrointestinal: Gastroesophageal Reflux, Hiatal Hernia, Ulcer Musculoskeletal: Osteoporosis, Arthritis, Fibromyalgia, Scoliosis, Chronic Back Pain HEENT: Cataract, Dysphagia, Tonsilitis Loss of Vision: Denies Hearing Impairment: Denies Cancer: Thyroid Did You Recieve Any Treatments: No What Type of Treatment Did You: Surgical Intervention History of Blood Disorders: Yes (IRON DEF. ANEMIA) Adverse Reaction to Blood Renee: No Review of Systems Constitutional: weakness EENTM: no symptoms reported Respiratory: no symptoms reported Cardiovascular: no symptoms reported Gastrointestinal: no symptoms reported Genitourinary: no symptoms reported Musculoskeletal: no symptoms reported Skin: no symptoms reported Psychiatric/Neurological: No Symptoms Reported Physical Exam Physical Exam Vital Signs Vital Signs - First Documented 01/15/20 01/15/20 01/16/20 23:05 23:30 02:56 Temp 35.4 Pulse 91 Resp 18 B/P (MAP) 65/43 (50) Pulse Ox 96 O2 Delivery Room Air O2 Flow Rate 3.00 FiO2 32 Capillary Refill : Height, Weight, BMI Height: '" Weight: lbs. oz. kg; 17.91 BMI Method: General Appearance: No Apparent Distress, Thin HEENT: PERRL/EOMI, Pharynx Normal Neck: Normal Inspection Respiratory: Lungs Clear, No Respiratory Distress, Decreased Breath Sounds Cardiovascular: Regular Rate, Rhythm, No Edema, No Murmur Gastrointestinal: Normal Bowel Sounds, Non Tender, Soft Extremity: Normal Inspection, Non Tender, Pedal Edema Neurologic/Psychiatric: Alert, Oriented x3, Normal Mood/Affect, Motor Weakness Skin: Normal Color, Cool Lymphatic: No Adenopathy Results Results/Procedures Labs Laboratory Tests 01/16/20 03:00 Patient resulted labs reviewed. Imaging: Reviewed Imaging Report Assessment/Plan Admission Diagnosis Pneumonia Admission Status: Inpatient Order (span 2 midnights) Reason for Inpatient Admission: Recurrent pneumonia, hypotension Assessment and Plan Bilateral pneumonia Pleural effusion Pneumothorax Low blood pressure reading Chest x-ray with bilateral consolidations, small pleural effusions, small right pneumothorax WBC normal, procalcitonin normal Discontinue vancomycin Continue cefepime Repeat procalcitonin tomorrow, and if <0.25 likely discontinue cefepime BNP slightly elevated Add on troponin Low blood pressure readings, unlikely true hypotension Pulmonology consulted, appreciate assistance Repeat chest x-ray tomorrow to monitor pneumothorax COVID PCR pending Acute kidney injury Creatinine 1.7 at [place], improved to 1.18 today, baseline reportedly around 0.8 Continue IV fluids Macrocytic anemia Hemoglobin 9.6 MCV 107 Obtain iron studies, B12, folate Weakness Debility Check TSH and free T4 PT/OT DVT prophylaxis: Lovenox Diagnosis/Problems Diagnosis/Problems (1) Pneumothorax Status: Acute (2) Pleural effusion Status: Acute (3) Acute kidney injury Status: Acute (4) Anemia Status: Acute (5) Low blood pressure reading Status: Acute (6) Pneumonia Status: Acute Clinical Quality Measures DVT/VTE Risk/Contraindication: Risk Factor Score Per Nursin RFS Level Per Nursing on Admit: 4+=Very High PRECIOUS HUMPHREY MD Jan 16, 2020 13:31
[2020-01-16 14:23] LABS: FREE T4 (FREE THYROXINE) 1.05 NG/DL (0.70-1.48)
[2020-01-17] VITALS (12 sets, daily range): BP systolic 88–129; BP diastolic 65–88
[2020-01-17] MEDS: LACTATED RINGERS 1,000 ML IV SCH (00:15)
[2020-01-17 04:01] LABS: BASOPHILS % (AUTO) 0 % (0-10); EOSINOPHILS % (AUTO) 1 % (0-10); HEMATOCRIT 30 % (35-52); HEMOGLOBIN 9.8 G/DL (11.5-16.0); LYMPHOCYTES # (AUTO) 1.1 X 10^3 (1.0-4.0); LYMPHOCYTES % (AUTO) 19 % (12-44); MEAN CORPUSCULAR HEMOGLOBIN 34 PG (25-34); MEAN CORPUSCULAR HGB CONC 32 G/DL (32-36); MEAN CORPUSCULAR VOLUME 106 FL (80-99); MEAN PLATELET VOLUME 8.9 FL (7.4-10.4); MONOCYTES # (AUTO) 0.6 X 10^3 (0.0-1.0); MONOCYTES % (AUTO) 12 % (0-12); NEUTROPHILS # (AUTO) 3.8 X 10^3 (1.8-7.8); NEUTROPHILS % (AUTO) 69 % (42-75); PLATELET COUNT 297 10^3/uL (130-400); RED CELL DISTRIBUTION WIDTH 15.7 % (10.0-14.5); WHITE BLOOD COUNT 5.6 10^3/uL (4.3-11.0)
[2020-01-17 04:15] LABS: POTASSIUM 4.1 MMOL/L (3.6-5.0)
[2020-01-17 04:20] LABS: PHOSPHORUS 3.4 MG/DL (2.3-4.7)
[2020-01-17 04:21] LABS: CREATININE SERUM 1.02 MG/DL (0.60-1.30)
[2020-01-17 04:23] LABS: MAGNESIUM 1.8 MG/DL (1.6-2.4)
--- NOTE | 2020-01-17 05:22 | Pulmonary Consultation ---
History of Present Illness History of Present Illness Date Seen by Provider: Jan 17, 2020 Time Seen by Provider: 05:16 Date of Admission History of Present Illness 79yo transferred from [facility] secondary to PNA and hypotension. Allergies and Home Medications Allergies Coded Allergies: No Known Drug Allergies (Verified Allergy, Unknown, 09/18/07) Home Medications Carvedilol 6.25 Mg Tablet, 6.25 MG PO BID, (Reported) Furosemide 20 Mg Tablet, 20 MG PO Q48H, (Reported) TAKES ALONG WITH METOLAZONE EVERY OTHER DAY Hydrocodone/Acetaminophen 1 Each Tablet, 1 EACH PO TID PRN for PAIN-MODERATE (5- 7), (Reported) Levothyroxine Sodium 137 Mcg Tablet, 137 MCG PO HS, (Reported) Lisinopril 10 Mg Tablet, 10 MG PO DAILY, (Reported) Metolazone 2.5 Mg Tablet, 2.5 MG PO Q48H, (Reported) TAKES ALONG WITH FUROSEMIDE EVERY OTHER DAY Pantoprazole Sodium 40 Mg Tablet.dr, 40 MG PO DAILY, (Reported) Sumatriptan Succinate 50 Mg Tablet, 100 MG PO UD PRN for MIGRAINE, (Reported) TAKES 2 (50MG) TABS AT ONSET OF MIGRAINE AND MAY REPEAT IN 2 HOURS IF NEEDED. DO NOT EXCEED 2 DOSES (4 TABS) PER DAY Tramadol HCl 50 Mg Tablet, 50-100 MG PO TID PRN for PAIN-MODERATE (5-7), (Reported) Past Jluuugd-Xvuaao-Xstwfe Hx Past Med/Social Hx: Reviewed Nursing Past Med/Soc Hx Patient Social History Alcohol Use: Denies Use Recreational Drug Use: No Smoking Status: Never a Smoker Recent Foreign Travel: No Contact w/Someone Who Travel: No Recent Infectious Disease Expo: No Recent Hopitalizations: Yes (PNEUMONIA) Immunizations Up To Date PED Vaccines UTD: No Date of Pneumonia Vaccine: Aug 17, 2009 Seasonal Allergies Seasonal Allergies: No Past Medical History Pneumonia Currently Using CPAP: No Currently Using BIPAP: No Neurological: No Genitourinary: Yes Kidney Stones Gastrointestinal: Yes (HEPATIC ANEURYSM) Gastroesophageal Reflux, Hiatal Hernia, Ulcer Osteoporosis, Arthritis, Fibromyalgia, Scoliosis, Chronic Back Pain Endocrine: Yes Cataract, Dysphagia, Tonsilitis Loss of Vision: Denies Hearing Impairment: Denies Cancer: Yes Thyroid Did You Recieve Any Treatments: No What Type of Treatment Did You: Surgical Intervention Psychosocial: No Integumentary: No Blood Disorders: Yes (IRON DEF. ANEMIA) Adverse Reaction/Blood Tranf: No Review of Systems Time Seen by Provider: 05:24 Sepsis Event Evaluation Height, Weight, BMI Height: '" Weight: lbs. oz. kg; 17.91 BMI Method: Exam Exam Vital Signs Date Time Temp Pulse Resp B/P (MAP) Pulse Ox O2 Delivery O2 Flow Rate FiO2 01/17/20 04:40 Room Air 01/17/20 04:00 36.9 01/17/20 04:00 97 Room Air 01/17/20 04:00 98 18 96 Nasal Cannula 2.00 01/17/20 03:00 103 16 100 Nasal Cannula 2.00 01/17/20 02:00 94 18 100 Nasal Cannula 2.00 01/17/20 01:00 95 27 100 Nasal Cannula 2.00 01/17/20 01:00 100 01/17/20 00:00 Nasal Cannula 2.00 01/17/20 00:00 94 18 100 Nasal Cannula 2.00 01/17/20 00:00 37.5 01/17/20 00:00 98 Room Air 01/16/20 23:00 87 18 95 Nasal Cannula 3.00 01/16/20 22:00 87 26 100 Nasal Cannula 3.00 01/16/20 21:57 117/80 (92) 01/16/20 21:00 91 26 95 Nasal Cannula 3.00 01/16/20 20:57 127/90 (102) 01/16/20 20:00 90 11 98 Nasal Cannula 3.00 01/16/20 20:00 99 Nasal Cannula 2.00 01/16/20 19:57 121/85 (97) 01/16/20 19:48 36.3 123/80 (94) Nasal Cannula 2.00 01/16/20 19:00 90 15 99 Nasal Cannula 3.00 01/16/20 19:00 90 01/16/20 18:00 103 14 125/85 (98) 98 Nasal Cannula 3.00 01/16/20 17:00 127/86 (100) 01/16/20 17:00 92 9 100 Nasal Cannula 3.00 01/16/20 16:00 90 17 100 Nasal Cannula 3.00 01/16/20 16:00 122/76 (91) 01/16/20 16:00 98 Nasal Cannula 3.00 01/16/20 15:00 99 29 100 Nasal Cannula 3.00 01/16/20 15:00 130/85 (100) 01/16/20 14:00 83 10 100 Nasal Cannula 3.00 01/16/20 14:00 133/88 (103) 01/16/20 13:00 123/85 (98) 01/16/20 12:49 86 01/16/20 12:40 139/87 (104) 100 Nasal Cannula 3.00 01/16/20 12:00 80 14 100 Nasal Cannula 3.00 01/16/20 12:00 98 Nasal Cannula 3.00 01/16/20 12:00 132/90 (104) 01/16/20 11:00 89 19 100 Nasal Cannula 3.00 01/16/20 11:00 111/68 (82) 01/16/20 10:00 89 10 90 Nasal Cannula 3.00 01/16/20 10:00 115/79 (91) 01/16/20 09:00 96 16 Nasal Cannula 3.00 01/16/20 09:00 96 16 95/62 (73) 100 Nasal Cannula 3.00 01/16/20 08:00 37.4 93 12 106/76 (86) 98 Nasal Cannula 3.00 01/16/20 08:00 98 Nasal Cannula 3.00 01/16/20 07:00 97 01/16/20 07:00 90 14 102/68 (79) 98 Nasal Cannula 3.00 01/16/20 06:00 99 14 99 Room Air 01/16/20 05:56 35.4 96 96 I & O 01/17/20 07:00 Intake Total 1775 ml Output Total 1025 ml Balance 750 ml Height & Weight Height: '" Weight: lbs. oz. kg; 17.91 BMI Method: General Appearance: No Apparent Distress, Thin HEENT: PERRL/EOMI, Pharynx Normal Neck: Normal Inspection Respiratory: Lungs Clear, No Respiratory Distress, Decreased Breath Sounds Cardiovascular: Regular Rate, Rhythm, No Edema, No Murmur Extremity: Normal Inspection, Non Tender, Pedal Edema Neurologic/Psychiatric: Alert, Oriented x3, Normal Mood/Affect, Motor Weakness Skin: Normal Color, Cool Lymphatic: No Adenopathy Results Lab Laboratory Tests 01/16/20 03:00 01/17/20 03:55 Assessment/Plan Assessment/Plan pulmonary infiltrates r/o Pneumonia -Labs and CXR are pending -COVID - pending Hypotension -- improved -IVF -Levophed Renal failure DUKE GRESHAM DO Jan 17, 2020 05:21
--- NOTE | 2020-01-17 05:26 | Pulmonary Progress Note ---
Subjective Time Seen by a Provider: 05:25 Subjective/Events-last exam Pt appears to be doing better. Sepsis Event Evaluation Height, Weight, BMI Height: '" Weight: lbs. oz. kg; 17.91 BMI Method: Focused Exam Lactate Level 01/16/20 03:00: Lactic Acid Level 0.56 Exam Exam Vital Signs Date Time Temp Pulse Resp B/P (MAP) Pulse Ox O2 Delivery O2 Flow Rate FiO2 01/17/20 04:40 Room Air 01/17/20 04:00 36.9 01/17/20 04:00 97 Room Air 01/17/20 04:00 98 18 96 Nasal Cannula 2.00 01/17/20 03:00 103 16 100 Nasal Cannula 2.00 01/17/20 02:00 94 18 100 Nasal Cannula 2.00 01/17/20 01:00 95 27 100 Nasal Cannula 2.00 01/17/20 01:00 100 01/17/20 00:00 Nasal Cannula 2.00 01/17/20 00:00 94 18 100 Nasal Cannula 2.00 01/17/20 00:00 37.5 01/17/20 00:00 98 Room Air 01/16/20 23:00 87 18 95 Nasal Cannula 3.00 01/16/20 22:00 87 26 100 Nasal Cannula 3.00 01/16/20 21:57 117/80 (92) 01/16/20 21:00 91 26 95 Nasal Cannula 3.00 01/16/20 20:57 127/90 (102) 01/16/20 20:00 90 11 98 Nasal Cannula 3.00 01/16/20 20:00 99 Nasal Cannula 2.00 01/16/20 19:57 121/85 (97) 01/16/20 19:48 36.3 123/80 (94) Nasal Cannula 2.00 01/16/20 19:00 90 15 99 Nasal Cannula 3.00 01/16/20 19:00 90 01/16/20 18:00 103 14 125/85 (98) 98 Nasal Cannula 3.00 01/16/20 17:00 127/86 (100) 01/16/20 17:00 92 9 100 Nasal Cannula 3.00 01/16/20 16:00 90 17 100 Nasal Cannula 3.00 01/16/20 16:00 122/76 (91) 01/16/20 16:00 98 Nasal Cannula 3.00 01/16/20 15:00 99 29 100 Nasal Cannula 3.00 01/16/20 15:00 130/85 (100) 01/16/20 14:00 83 10 100 Nasal Cannula 3.00 01/16/20 14:00 133/88 (103) 01/16/20 13:00 123/85 (98) 01/16/20 12:49 86 01/16/20 12:40 139/87 (104) 100 Nasal Cannula 3.00 01/16/20 12:00 80 14 100 Nasal Cannula 3.00 01/16/20 12:00 98 Nasal Cannula 3.00 01/16/20 12:00 132/90 (104) 01/16/20 11:00 89 19 100 Nasal Cannula 3.00 01/16/20 11:00 111/68 (82) 01/16/20 10:00 89 10 90 Nasal Cannula 3.00 01/16/20 10:00 115/79 (91) 01/16/20 09:00 96 16 Nasal Cannula 3.00 01/16/20 09:00 96 16 95/62 (73) 100 Nasal Cannula 3.00 01/16/20 08:00 37.4 93 12 106/76 (86) 98 Nasal Cannula 3.00 01/16/20 08:00 98 Nasal Cannula 3.00 01/16/20 07:00 97 01/16/20 07:00 90 14 102/68 (79) 98 Nasal Cannula 3.00 01/16/20 06:00 99 14 99 Room Air 01/16/20 05:56 35.4 96 96 I & O 01/17/20 07:00 Intake Total 1775 ml Output Total 1025 ml Balance 750 ml Height & Weight Height: '" Weight: lbs. oz. kg; 17.91 BMI Method: General Appearance: No Apparent Distress, Thin HEENT: PERRL/EOMI, Pharynx Normal Neck: Normal Inspection Respiratory: Lungs Clear, No Respiratory Distress, Decreased Breath Sounds Cardiovascular: Regular Rate, Rhythm, No Edema, No Murmur Extremity: Normal Inspection, Non Tender, Pedal Edema Neurologic/Psychiatric: Alert, Oriented x3, Normal Mood/Affect, Motor Weakness Skin: Normal Color, Cool Lymphatic: No Adenopathy Results Lab Laboratory Tests 01/16/20 03:00 01/17/20 03:55 Assessment/Plan Assessment/Plan pulmonary infiltrates r/o mass -PCT is negative x 2. Pt has no leukocytosis and no fever. -Check CT of chest r/o mass -D/C Abx -Labs and CXR are pending -COVID - Negative Small stable right PTX -Monitor Hypotension -- improved -IVF -Levophed Pulmonary edema -Check echo -Check BNP Anemia -Monitor Renal failure -Improved -Monitor DUKE GRESHAM DO Jan 17, 2020 05:26
[2020-01-17] MEDS: MAGNESIUM 1 GM/100 ML IVPB 100 ML IV SCH (05:44)
[2020-01-17] MEDS: POTASSIUM CL 10MEQ/50ML IVPB 50 ML IV SCH (05:44)
[2020-01-17] MEDS: KCL 20 MEQ TAB (K-DUR) PO SCH (05:45)
[2020-01-17] MEDS: inSUlin ASPART (NovoLOG) 1 UNIT/0.01 ML (CHARGE PER UNIT) SC SCH ×2 (05:45→11:44)
[2020-01-17] MEDS ORDERED: CEFEPIME INJECTION 1,000 MG in WATER (STERILE) FOR INJECTION 10 ML IV SCH (06:00)
[2020-01-17] MEDS: DOCUSATE SODIUM 100 MG (COLACE) CAP PO SCH ×2 (08:00→20:49)
[2020-01-17] MEDS: SENNOSIDES 8.6 MG (SENOKOT) TAB PO SCH ×2 (08:00→20:49)
--- NOTE | 2020-01-17 08:08 | Diagnostic Imaging Report ---
HISTORY: Dyspnea COMPARISON: 01/16/2020 TECHNIQUE: Frontal view of the chest FINDINGS: There is a moderate right pleural effusion with associated right basilar airspace opacities. There is a small left pleural effusion with airspace opacities. There are emphysematous changes in the lungs bilaterally. There is scarring at the right lung apex with an unchanged small right apical pneumothorax. The cardiac silhouette is stable in size. There is aortic atherosclerosis. There is diffuse osteopenia. The right jugular line appears stable in position. IMPRESSION: 1. Unchanged small right apical pneumothorax. Unchanged right apical scarring. 2. Stable moderate right pleural effusion and small left pleural effusion. Dictated by: Dictated on workstation # [id number]
[2020-01-17] MEDS ORDERED: HOLD METFORMIN - RECEIVED CONTRAST 20 ML VIAL IV SCH (09:15)
[2020-01-17] MEDS ORDERED: NS 100 ML (IVPB) BAG IV ONE (09:15)
[2020-01-17] MEDS ORDERED: CATHETER FLUSH 10 ML SYR IV PRN (09:15)
[2020-01-17] MEDS ORDERED: IOHEXOL 350 MG/ML 100 ML (OMNIPAQUE 350) VIAL IV ONE (09:15)
--- NOTE | 2020-01-17 10:01 | NUR ---
CM/SS: Visited with pt as to plan for discharge Plan: Undetermined at this time - Pt is from home and plans to return there. Summary: Pt reports feeling better today. Pt does report that she is from home and lives with her . Prior to this admissions she was living at home independently and did not have services or help in the home. Pt reports she has two daughters that live in the area. She reports having supports as well. Pt is pleasant and eager to feel better and return home. This worker will follow up.
--- NOTE | 2020-01-17 10:07 | Physical Therapy Evaluation ---
PT Evaluation-General Medical Diagnosis Admission Date Jan 16, 2020 at 00:00 Medical Diagnosis: persistant RLL effusion/pneumonia Onset Date: Jan 16, 2020 Therapy Diagnosis Therapy Diagnosis: generalized weakness/debility Precautions Precautions/Isolations: Fall Prevention, Standard Precautions Weight Bear Status Right Lower Extremity: Right Weight Bearing/Tolerated Left Lower Extremity: Left Weight Bearing/Tolerated Referral Physician: Rudy Reason for Referral: Evaluation/Treatment Medical History Additional Medical History thyroid cancer Current History transfer from [facility] secondary to recurrent pneumonia and hypotension Reviewed History: Yes Social History Home: Single Level Current Living Status: Spouse Entry Into Home: Stairs With Railing PT Steps Into Home: 4 Prior Prior Level of Function SCALE: Activities may be completed with or without assistive devices. 2-Szciirfatk-nlpiptu completes the activity by him/herself with no assistance from a helper. 5-Set-up or Clean-up Assistance-helper sets up or cleans up; patient completes activity. [place] assists only prior to or following the activity. 4-Supervision or Touching Assistance-helper provides verbal cues and/or touching/steadying and/or contact guard assistance as patient completes activity. Assistance may be provided throughout the activity or intermittently. 3-Partial/Moderate Assistance-helper does LESS THAN HALF the effort. [place] lifts, holds or supports trunk or limbs, but provides less than half the effort. 2-Substantial/Maximal Assistance-helper does MORE THAN HALF the effort. [place] lifts or holds trunk or limbs and provides more than half the effort. 2-Yfozttkpr-qstufs does ALL the effort. Patient does none of the effort to complete the activity. Or, the assistance of 2 or more helpers is required for the patient to complete the activity. If activity was not attempted, code reason: 7-Patient Refused. 9-Not Applicable-not attempted and the patient did not perform the activity before the current illness, exacerbation or injury. 10-Not Attempted due to Environmental Limitations-(lack of equipment, weather restraints, etc.). 88-Not Attempted due to Medical Conditions or Safety Concerns. Bed Mobility: 6 Transfers (B,C,W/C): 6 Gait: 6 Stairs: 6 Indoor Mobility (Ambulation): Independent Stairs: Independent Prior Devices Use: Walker (4WW) PT Evaluation-Current Subjective Patient agrees to PT. Pain Numeric Pain Scale: 0-No Pain Location: No Pain Reported Objective Patient Orientation: Normal For Age Attachments: Oxygen, Webster Catheter, IV ROM/Strength ROM Lower Extremities bilateral LE WFL Strength Lower Extremities 3+/5 grossly bilateral LE Integumentary/Posture Integumentary refer to nursing notes Bowel Incontinence: No Bladder Incontinence: Webster Cath Posture kyphotic Neuromuscular (Tone, Coordination, Reflexes) grossly intact Sensory Vision: Wears Glasses Hearing: Functional Sensation Right Lower Extremit: Intact Sensation Left Lower Extremity: Intact Transfers Roll Left to Right (QC): 5 Lying to Sitting/Side of Bed(Q: 5 Sit to Stand (QC): 4 Chair/Kfk-bw-Etgvi Xfer(QC): 4 Gait Does the Patient Walk?: Yes Mode of Locomotion: Walk Anticipated Mode of Locomotion: Walk Walk 10 feet (QC): 4 Gait Assistive Device: FWW Comments/Gait Description safe and functional gait sequence/self limits Balance Sitting Static: Normal Sitting Dynamic: Normal Standing Static: Normal Standing Dynamic: Normal Assessment/Needs 79 y.o. female, will benefit from skilled PT to address functional strength and mobility to improve current LOF to safely return to home at maximum LOF. Rehab Potential: Fair PT Mcfp Goals Mcfp Goals PT Mcfp Goals Time Frame: Jan 29, 2020 Roll Left & Right (QC): 6 Sit to Lying (QC): 6 Lying-Sitting on Side/Bed(QC): 6 Sit to Stand (QC): 6 Chair/Pia-pw-Qtydr Xfer(QC): 6 Toilet Transfer (QC): 6 Does the Patient Walk: Yes Walk 10 feet (QC): 6 Walk 50ft with 2 Turns (QC): 6 Walk 150 ft (QC): 6 1 Step (curb) (QC): 6 4 Steps (QC): 6 PT Plan Problem List Problem List: Activity Tolerance, Functional Strength Treatment/Plan Treatment Plan: Continue Plan of Care Treatment Plan: Bed Mobility, Education, Functional Activity Amee, Functional Strength, Gait, Safety, Therapeutic Exercise, Transfers Treatment Duration: Jan 29, 2020 Frequency: 6 times per week Estimated Hrs Per Day: .25 hour per day Patient and/or Family Agrees t: Yes Time/GCodes Time In: 845 Time Out: 902 Total Billed Treatment Time: 17 Total Billed Treatment 1 visit EVModC 17 min ADE VICENTE PT Jan 17, 2020 10:07
--- NOTE | 2020-01-17 10:14 | Progress Note - Hospitalist ---
DURAN JACKSON MED STUDENT 01/17/20 1014: Subjective HPI/CC On Admission Date Seen by Provider: Jan 17, 2020 Time Seen by Provider: 09:00 Cookie Lofton is a 79-year-old female who was transferred from [facility] with recurrent pneumonia and hypotension. There reported that she is treated for pneumonia about a month ago. They said that her blood pressures were low on arrival but had stabilized and were within normal limits. Upon my examination, she reports that she came to the emergency room due to weakness. She says that it is been getting worse over about the past week. She reports that it is really been going on over the past couple months since she has been having pneumonias. She denies any weight loss, but she appears very thin. She says that she has been eating. She says she would like to take ensure, but she is lactose intolerant. She denies having any fevers or chills. She denies shortness of breath and cough. She denies abdominal pain, nausea, or vomiting. Subjective/Events-last exam Ms. Lofton reports feeling well today, she denies having any cough or difficulty breathing. Reports having some mild light headedness when sitting up. She is tachycardic. CXR from 01/17/20 shows unchanged small right apical pneumothorax, unchanged right apical scarring, and stable moderate right pleural effusion and small left pleural effusion. Review of Systems General: No Chills; Fatigue HEENT: No Visual Changes, No Sinus Congestion, No Sore Throat Pulmonary: No Dyspnea, No Cough Cardiovascular: Lt Headedness (sitting up); No: Chest Pain, Palpitations Gastrointestinal: No: Nausea, Vomiting, Abdominal Pain, Diarrhea, Constipation Genitourinary: No Dysuria; Other (catheter) Neurological: Weakness; No: Numbness, Incoordination Focused Exam Lactate Level 01/16/20 03:00: Lactic Acid Level 0.56 Objective Exam Vital Signs Vital Signs Date Time Temp Pulse Resp B/P (MAP) Pulse Ox O2 Delivery O2 Flow Rate FiO2 01/17/20 08:09 107/82 (90) 01/17/20 08:00 36.8 01/17/20 07:54 92 Room Air 01/17/20 07:50 106 18 01/17/20 04:00 2.00 01/16/20 02:56 32 Capillary Refill : General Appearance: No Apparent Distress, Chronically ill, Thin HEENT: PERRL/EOMI; No Pale Conjunctivae (L), No Pale Conjunctivae (R), No Scleral Icterus (L), No Scleral Icterus (R) Neck: Non Tender, Supple; No Lymphadenopathy (L), No Lymphadenopathy (R) Respiratory: Lungs Clear, No Accessory Muscle Use, No Respiratory Distress, Decreased Breath Sounds Cardiovascular: Regular Rate, Rhythm, No Murmur, Normal Peripheral Pulses Extremity: Pedal Edema (tenderness on exam bilaterally), Slow Capillary Refill Skin: Normal Color, Warm/Dry Results/Procedures Lab Laboratory Tests 01/17/20 03:55 Patient resulted labs reviewed. Imaging: Reviewed Imaging Report Assessment/Plan Assessment and Plan Assess & Plan/Chief Complaint Assessment: pleural effusion pneumothorax hypotension JIMMY h/o recurrent pneumonia macrocytic anemia Plan: CT scan pending monitor pneumothorax monitor kidney function, continue IV fluids continue DVT prophylaxis Clinical Quality Measures DVT/VTE Risk/Contraindication: Risk Factor Score Per Nursin RFS Level Per Nursing on Admit: 4+=Very High REBECCA OLGUIN DO 01/17/20 1043: Subjective Subjective/Events-last exam Pt extremely debilitated Overall has extreme poor reserve Denies any pain Lower extremity edema from hypoalbuminemia causing third space fluid transition and she has been struggling with that for several months Echo done today CT scan was done last week Very difficult situation Palliative care consulted Didn't really eat much either Unsure if she could tolerate inpatient rehab even Review of Systems General: Fatigue, Malaise Pulmonary: Dyspnea, Cough Cardiovascular: Edema Objective Exam General Appearance: No Apparent Distress, WD/WN, Cachetic, Thin Respiratory: No Accessory Muscle Use, No Respiratory Distress, Decreased Breath Sounds Neurologic/Psychiatric: Alert, Oriented x3, No Motor/Sensory Deficits, Normal Mood/Affect Assessment/Plan Assessment and Plan Assess & Plan/Chief Complaint Assessment: Respiratory distress PNA Frail status Poor reserve Poor prognosis Plan: ICU status CT scan Palliative care consult Extremely poor reserve prognosis very guarded to poor Supervisory-Addendum Brief Verification & Attestation Participated in pt care: history, MDM, physical Personally performed: exam, history, MDM, supervision of care Care discussed with: Medical Student Procedures: n/a Results interpretation: Verified all documentation Verification and Attestation of Medical Student E/M Service A medical student performed and documented this service in my presence. I reviewed and verified all information documented by the medical student and made modifications to such information, when appropriate. I personally performed the physical exam and medical decision making. Rebecca Olguin, Jan 17, 2020,20:52 DURAN JACKSON MED STUDENT Jan 17, 2020 10:14 REBECCA OLGUIN DO Jan 17, 2020 10:43
--- NOTE | 2020-01-17 10:40 | Diagnostic Imaging Report ---
PROCEDURE: CT chest with contrast only. TECHNIQUE: Multiple contiguous axial images were obtained through the chest after administration of intravenous contrast. Auto Exposure Controls were utilized during the CT exam to meet ALARA standards for radiation dose reduction. INDICATION: Pleural effusions and pulmonary infiltrates. Evaluate for possible potential lung mass. Correlation is made with prior chest CT from 12/30/2019. There is a small right apical pneumothorax. Moderate to large right pleural effusion with small to moderate left pleural effusion is noted. Pleural fluid layers of thickness approximately 5.1 cm compared with 5.8 cm on prior. No definite loculated effusion is seen. No pericardial fluid is detected. The thoracic aorta is normal caliber. No dissection is seen. Pulmonary arterial system is unremarkable. There is a some small amount of infiltrate or atelectasis in the right upper lobe. There continues to be a small area of consolidation in the inferior aspect of the right upper lobe however this does appear to be improved and most likely represents improving atelectasis or infiltrate. There is some parenchymal consolidation in the right lower lobe, perhaps compressive atelectasis from pleural fluid. No infiltrates in the left lung are identified. There is minimal compressive atelectasis in the left lower lobe. The upper abdomen again demonstrates circumscribed low density lesions throughout the liver, similar to prior and perhaps small cysts. The patient does have moderate amount of ascites. IMPRESSION: 1. Development of a very small right apical pneumothorax. 2. Moderate to large right and wzmal-cl-snfoyhnu left pleural effusions, similar to prior examination from 12/30/2019. There has been some improved aeration in the right upper lobe when compared with prior exam. No discrete mass is identified. There is some parenchymal consolidation/atelectasis in the right lower lobe. 3. Upper abdominal ascites. Dictated by: Dictated on workstation # [id number]
[2020-01-17 11:17] LABS: ALBUMIN 2.3 GM/DL (3.2-4.5); BILIRUBIN,DIRECT 0.1 MG/DL (0.0-0.3); BILIRUBIN,INDIRECT 0.1 MG/DL; BILIRUBIN,TOTAL 0.2 MG/DL (0.1-1.0); TOTAL PROTEIN 4.3 GM/DL (6.4-8.2)
--- NOTE | 2020-01-17 12:09 | Occupational Therapy Eval ---
OT Evaluation-General/PLF Medical Diagnosis Admission Date Jan 16, 2020 at 00:00 Medical Diagnosis: persistant RLL effusion/pneumonia Onset Date: Jan 16, 2020 Therapy Diagnosis Therapy Diagnosis: Weakness Precautions Precautions/Isolations: Fall Prevention, Standard Precautions Weight Bear Status Weight Bearing Restriction: Weight Bearing/Tolerated Referral Physician: Rudy Referral Reason: Activity Tolerance, Self Care, Evaluation/Treatment, Strengthening/ROM Medical History Additional Medical History Low blood pressure, multiple hospitalizations with pneumonia. Reviewed History: Yes Social History Home: Single Level Current Living Status: Spouse Entry Into Home: Stairs With Railing Steps Into Home: 4 ADL-Prior Level of Function SCALE: Activities may be completed with or without assistive devices. 6-Iqprrfrxld-rmsrajw completes the activity by him/herself with no assistance from a helper. 5-Set-up or Clean-up Assistance-helper sets up or cleans up; patient completes activity. [place] assists only prior to or following the activity. 4-Supervision or Touching Assistance-helper provides verbal cues and/or touching/steadying and/or contact guard assistance as patient completes activity. Assistance may be provided throughout the activity or intermittently. 3-Partial/Moderate Assistance-helper does LESS THAN HALF the effort. [place] lifts, holds or supports trunk or limbs, but provides less than half the effort. 2-Substantial/Maximal Assistance-helper does MORE THAN HALF the effort. [place] lifts or holds trunk or limbs and provides more than half the effort. 2-Bmwqiifsk-xavvvy does ALL the effort. Patient does none of the effort to complete the activity. Or, the assistance of 2 or more helpers is required for the patient to complete the activity. If activity was not attempted, code reason: 7-Patient Refused. 9-Not Applicable-not attempted and the patient did not perform the activity before the current illness, exacerbation or injury. 10-Not Attempted due to Environmental Limitations-(lack of equipment, weather restraints, etc.). 88-Not Attempted due to Medical Conditions or Safety Concerns. ADL PLOF Comments Pt. reports that she was independent with daily tasks prior to this hosp italization. Pt. lives with spouse but does not have outside care. Pt. uses a walker at home, and only wears oxygen at night per her. Self Care: Independent Functional Cognition: Unknown DME/Equipment: Bath Chair, Shower DME/Equipment Comments Pt. uses walker. Drive Self: No OT Current Status Subjective Pt. does not report pain, but states that she is confused as to why she is here so much. Reports feeling weak. Appearance Pt. is up in reclining chair when OT enters room. Spouse in room with her. Mental Status/Objective Patient Orientation: Person, Place Attachments: Webster Catheter, IV, Oxygen, Telemetry Current Glasses/Contacts: Yes Hand Dominance: Right Upper Extremity ROM Pt. is able to flex bilateral shoulders WFL, but right shoulder movement is slower and more labored than left. Upper Extremity Strength Right UE- 3/5 Left UE- 3+/5 ADL-Treatment On/Off Footwear (QC): 1 (Pt. is unable to doff/don slipper socks while seated in chair.) Pt. is in chair. She requests to stay sitting in chair when OT asks if she would like to go back to bed. Pt. states that she doesn't understand why she is so weak at this time. OT explains illness. Pt. agrees to participate in OT eval. Pt. is unable to reach feet, by either bending to them or bringing them up to her in sitting. She reports that she has a good appetite, but due to not having her bottom dentures, she can't chew well at this time. Pt. attempts to stand from chair, but states that her LE are "too weak." OT assists her with mod assist into stance. Pt. is able to maintain standing at walker for approximately 1 minutes. OT checks bottom and skin intact. Pt. sits and shows OT small wound on left elbow. Completes bilateral UE shoulder flexion AROM, x 10 reps. This significantly fatigues pt. and she requires increased time with right UE before finishing all reps. At end of treatment, pt's bilateral LE elevated and pillows placed for positioning under bilateral UE. All needs are met. Education OT Patient Education: Correct positioning, Disease process, Modified ADL techniques, Progress toward Goal/Update tx plan, Purpose of tx/functional activities, Reviewed precautions, Rehab process, Transfer techniques Teaching Recipient: Patient Teaching Methods: Demonstration, Discussion Response to Teaching: Verbalize Understanding, Return Demonstration OT Short Term Goals Short Term Goals Time Frame: Jan 31, 2020 Eatin Oral hygiene: 3 Toileting hygiene: 3 Shower/bathe self: 3 Upper body dressin Lower body dressin Putting on/taking off footwear: 3 OT [facility] Goals Rn Hemodialysis Charge Goals Time Frame: Feb 14, 2020 Eating (QC): 5 Oral Hygiene (QC): 5 Toileting Hygiene (QC): 4 Shower/Bathe Self (QC): 4 Upper Body Dressing (QC): 5 Lower Body Dressing (QC): 4 On/Off Footwear (QC): 4 Additional Goals: 1-Demonstrate ADL Tasks, 2-Verbalize Understanding, 3- ImproveStrength/Amee 1=Demonstrate adherence to instructed precautions during ADL tasks. 2=Patient will verbalize/demonstrate understanding of assistive devices/modifications for ADL. 3=Patient will improve strength/tolerance for activity to enable patient to perform ADL's. OT Education/Plan Problem List/Assessment Assessment: Decreased Activ Tolerance, Decreased UE Strength, Dependent Transfers, Impaired Funct Balance, Impaired I ADL's, Impaired Self-Care Skills, Restricted Funct UE ROM Discharge Recommendations Plan/Recommendations: Continue POC Therapy Discharge Recommendati: Post Acute OT Comment Discharge location and equipment needs to be determined. Treatment Plan/Plan of Care Treatment,Training & Education: Yes Patient would benefit from OT for education, treatment and training to promote independence in ADL's, mobility, safety and/or upper extremity function for ADL's. Plan of Care: ADL Retraining, Caregiver Training, Functional Mobility, UE Funct Exercise/Act Treatment Duration: Feb 14, 2020 Frequency: 5 times per week Estimated Hrs Per Day: .25 hour per day Agreement: Yes Rehab Potential: Fair Time/GCodes Start Time: 11:25 Stop Time: 11:45 Total Time Billed (hr/min): 20 Billed Treatment Time 1, EVH x 20minutes BENEDICT DEUTSCH OT Jan 17, 2020 12:09
--- NOTE | 2020-01-17 13:13 | NUR ---
PALLIATIVE CARE RN in to see patient after requested by Dr. Fernandes. Patient is sitting in chair just having finished her lunch. She is alert and oriented and pleasantly agreeable to visit. Noted patient to be quite emaciated with clavicles prominently visible, shoulder bones with barely any covering, skin around eyes sunken. When I stood her up to place pillow under her bottom, I noted her spine to also be very visible with very little fat protecting her natalya prominences. She and her both report that she eats well. She is lactose intolerant and has requested ensure clear. Patient reports being very health without any underlying conditions until about 3 months ago when she had Pneumonia for the first time. Since that time she has had several readmission to the hospital for recurrent Pneumonias. She denied any heart problems or lung dz past the Pneumonias. She reports being up and mobile in the home, reporting that she does do the cooking and is responsible for her own ADL's. We had a fairly lengthy discussing regarding her health and the need to have a very serious conversation with her and kids regarding her wishes in regard to CODE status. SHe made not decisions today but the conversation in started. Will continue to follow and offer assist as able.
--- NOTE | 2020-01-17 14:55 | NUR ---
TRANSFERRED FROM ICU TO ROOM 420 PER W/C. ALERT AND COOPERATIVE. COLOR PALE. RESP. REGULAR. V/S=98/60 P=106 RESP=20 O2 SAT=90 % ON R/A TEMP=36.6. RIGHT TRIPLE LUMEN IJ IN PLACE. SITE CLEAR. HUTTON CATH WITH CLEAR YELLOW URINE NOTED. LEFT LEG WITH 2+ EDEMA AND RIGHT LEG WITH 1+ EDEMA (NON-PITTING). AT BEDSIDE. TELEMETRY ON. RATES LOW BACK PAIN 10/14. PT. STATES SHE FEELS MUCH BETTER THAN SHE DID EARLIER.
--- NOTE | 2020-01-17 15:32 | NUR ---
PATIENT TRANSFERRED TO ROOM 420 AT THIS TIME, REPORT GIVEN TO KERRY LEAL, TO ASSUME CARE OF PATIENT. PERSONAL BELONGINGS SENT WITH PATIENT.
--- NOTE | 2020-01-17 15:43 | Consultation-Cardiology ---
HPI-Cardiology Cardiology Consultation: Date of Consultation 01/17/20 Date of Admission Attending Physician Rebecca Briseno DO Admitting Physician Marlon Randall MD Consulting Physician Luis COX MD HPI: Time Seen by a Provider: 13:00 Chief Complaint: Shortness of breath This is a 79-year-old lady who was admitted for recurrent pneumonia. She was treated with pneumonia a month ago. She also complains of weakness. She denies any chest pain or shortness of breath. She denies any other cardiac complaints. She is not an active smoker. Pertinent family history is negative. She was found to have pneumonia and was treated appropriately. Echocardiogram showed moderate to severe aortic stenosis therefore cardiology was consulted. She denies any shortness of breath, chest pain or syncope. Review of Systems-Cardiology Review of Systems Constitutional: As described under HPI; No As described under HPI, No no symp toms reported, No chills, No fever, No lightheadedness; tiredness Eyes: No As described under HPI, No no symptoms reported, No blindness, No blurred vision, No contact lenses, No drainage, No decreased acuity, No foreign body sensation, No pain, No vision change Ears/Nose/Throat: No As described under HPI, No no symptoms reported, No arborist representative zaheer hearing loss, No ear discharge, No ear pain, No nasal drainage, No ulcerations Respiratory: No no symptoms reported; As described under HPI; No As described under HPI, No cough, No orthopnea; shortness of breath; No SOB with excertion Cardiovascular: No no symptoms reported; As described under HPI; No As described under HPI, No chest pain, No edema, No irregular heart rate, No lightheadedness, No palpitations Gastrointestinal: No no symptoms reported, No As described under HPI, No abdomen distended, No abdominal pain, No blood streaked bowels, No constipation, No diarrhea, No nausea, No vomiting, No stool coloration changes Genitourinary: No As described under HPI, No burning, No dysuria, No discharge, No frequency, No flank pain, No hematuria, No urgency : Yes : No Skin: No rash, No skin related problems, No ulcerations Psychiatric/Neurological: No anxiety, No depression, No seizure, No focal weakness, No syncope Hematologic: No bleeding abnormalities MFC-Xqfgly-Uxqxdd Hx Patient Social History Alcohol Use: Denies Use Recreational Drug Use: No Smoking Status: Never a Smoker Recent Foreign Travel: No Recent Infectious Disease Expo: No Hospitalization with Isolation: Airborne Physical Abuse Screen: No Sexual Abuse: No Immunizations Up To Date Date of Pneumonia Vaccine: Aug 17, 2009 Past Medical History PMH As described under Assessment. Allergies and Home Medications Allergies Coded Allergies: No Known Drug Allergies (Verified Allergy, Unknown, 09/18/07) Home Medications Carvedilol 6.25 Mg Tablet, 6.25 MG PO BID, (Reported) Furosemide 20 Mg Tablet, 20 MG PO Q48H, (Reported) TAKES ALONG WITH METOLAZONE EVERY OTHER DAY Hydrocodone/Acetaminophen 1 Each Tablet, 1 EACH PO TID PRN for PAIN-MODERATE (5- 7), (Reported) Levothyroxine Sodium 137 Mcg Tablet, 137 MCG PO HS, (Reported) Lisinopril 10 Mg Tablet, 10 MG PO DAILY, (Reported) Metolazone 2.5 Mg Tablet, 2.5 MG PO Q48H, (Reported) TAKES ALONG WITH FUROSEMIDE EVERY OTHER DAY Pantoprazole Sodium 40 Mg Tablet.dr, 40 MG PO DAILY, (Reported) Sumatriptan Succinate 50 Mg Tablet, 100 MG PO UD PRN for MIGRAINE, (Reported) TAKES 2 (50MG) TABS AT ONSET OF MIGRAINE AND MAY REPEAT IN 2 HOURS IF NEEDED. DO NOT EXCEED 2 DOSES (4 TABS) PER DAY Tramadol HCl 50 Mg Tablet, 50-100 MG PO TID PRN for PAIN-MODERATE (5-7), (Reported) Patient Home Medication List Home Medication List Reviewed: Yes Physical Exam-Cardiology Physical Exam Vital Signs/I&O 01/18/20 01/18/20 01/18/20 01/18/20 06:38 07:40 09:00 11:59 Temp 37.1 36.9 Pulse 92 112 115 Resp 20 22 B/P (MAP) 108/62 (77) 98/64 (75) Pulse Ox 94 94 O2 Delivery Room Air Nasal Cannula Room Air O2 Flow Rate 2.00 01/18/20 01/18/20 01/18/20 12:34 14:27 15:00 Temp 36.9 Pulse 102 92 Pulse Ox 98 O2 Delivery Nasal Cannula O2 Flow Rate 2.00 FiO2 28 01/18/20 00:00 Intake Total 640 ml Output Total 525 ml Balance 115 ml Capillary Refill : Constitutional: appears stated age, AAO x 3; No apparent distress, No well-dev eloped, No well-nourished HEENT: PERRL; No discharge; hearing is well preserved, oral hygience is good; No ulceration, No xanthelasmas are seen Neck: No carotid bruit; carotid pulses are 2 + bilaterally Respiratory: chest is bilaterally symmetric, lungs clear to percussion Cardiovascular: regular rate-rhythm, S1 and S2, systolic murmur Gastrointestinal: soft, audible bowel sounds; No spleenomegaly Rectal: deferred Extremities: normal range of motion, non-tender, normal inspection; No clubbing, No cyanosis; no lower extremity edema bilateral; No significant edema Neurologic/Psychiatric: no motor/sensory deficits, alert, normal mood/affect, oriented x 3, power is 5/5 both on sides Skin: normal color, warm/dry; No rash, No ulcerations Data Review Labs Laboratory Tests 01/18/20 05:10: White Blood Count 5.3, Red Blood Count 3.09L, Hemoglobin 10.4L, Hematocrit 33L, Mean Corpuscular Volume 107H, Mean Corpuscular Hemoglobin 34, Mean Corpuscular Hemoglobin Concent 32, Red Cell Distribution Width 15.8H, Platelet Count 278, Mean Platelet Volume 9.3, Neutrophils (%) (Auto) 65, Lymphocytes (%) (Auto) 21, Monocytes (%) (Auto) 12, Eosinophils (%) (Auto) 2, Basophils (%) (Auto) 0, Neut rophils # (Auto) 3.5, Lymphocytes # (Auto) 1.1, Monocytes # (Auto) 0.7, Eosinophils # (Auto) 0.1, Basophils # (Auto) 0.0, Sodium Level 138, Potassium Level 4.1, Chloride Level 102, Carbon Dioxide Level 29, Anion Gap 7, Blood Urea Nitrogen 26H, Creatinine 0.74, Estimat Glomerular Filtration Rate > 60, BUN/Creatinine Ratio 35, Glucose Level 101, Calcium Level 8.4L, Phosphorus Level 2.3, Magnesium Level 1.8 A/P-Cardiology Assessment/Admission Diagnosis Pneumonia, Sepsis, Moderate to severe aortic stenosis, Significant debility Plan Pneumonia, defer to the primary team. Sepsis, significantly improved. Moderate to severe aortic stenosis, echocardiogram showed hyperdynamic LV function with moderate to severe aortic stenosis with mean gradient of 44 mmHg and aortic valve area 1.1 cm. Patient denies cardiac symptoms. Will probably require consultation for aortic surgery versus percutaneous aortic valve replacement versus medical therapy. I will arrange appropriately. However due to her fragility and generalized debility, I think she will not be a good candidate for aortic surgery anyways. Discussed briefly with Dr. briseno. IV fluids are recommended. Significant debility Thank you for your consultation. Please call me if you have any questions. Be Cox MD, FACP, FACC, FSCAI, FHRS, CCDS Interventional Cardiology Cardiac Electrophysiology Vascular Medicine and Endovascular Interventions Clinical Quality Measures DVT/VTE Risk/Contraindication: Risk Factor Score Per Nursin RFS Level Per Nursing on Admit: 4+=Very High Luis COX MD Jan 17, 2020 15:43
[2020-01-17] MEDS ORDERED: LISI10TA2 PO (15:57)
[2020-01-17] MEDS ORDERED: FURO20TA4 PO (15:57)
[2020-01-17] MEDS ORDERED: CARV6.25 PO (15:57)
[2020-01-17] MEDS ORDERED: TRAM50TA3 PO (15:57)
[2020-01-17] MEDS ORDERED: PANT40TA2 PO (15:57)
[2020-01-17] MEDS ORDERED: HYDR-4342 PO (15:57)
[2020-01-17] MEDS ORDERED: SUMA50TA2 PO (15:57)
[2020-01-17] MEDS ORDERED: LEVO137T2 PO (15:57)
--- NOTE | 2020-01-17 15:58 | NUR ---
I SPOKE WITH THE PATIENT ( I CALLED HER ROOM PHONE) THEN CALLED [facility] TO COMPLETE THE MED REC FUROSEMIDE 20MG: DIRECTIONS SHOW 1 TAB EVERY 3 DAYS PRN BUT PT SAYS SHE TAKES Q 48 HOURS HOWEVER IT WAS LAST FILLED 02-08-2019 #30- THE PAST DUE FILL WAS DOCUMENTED ON THE MED REC FILL DATES: 02-08-2019 FUROSEMIDE 20MG #30 10-15-2019 PROTONIX 40MG #90/90DS 11-05-2019 COREG 6.25MG #180/90DS 12-22-2019 LISINOPRIL 10MG #90/90DS 12-22-2019 TRAMADOL 50MG #168 12-26-2019 LEVOTHYROXINE 137MCG #30/30DS 12-31-2019 NORCO 7.5/325MG #84 I WILL CONTINUE TO TRY AND FOLLOW UP WITH THE PT REGARDING FUROSEMIDE Addendum: 01/18/20 at 0850 by NOLA ALDRIDGE CPhT WAS ABLE TO SPEAK WITH THE PT TODAY- SHE REMEMBERED THAT SHE PICKED UP FUROSEMIDE LAST AT [facility]. THAT PHARMACY STILL HAS DIRECTIONS OF 1 TAB EVERY 72 HOURS AND PT SAYS SHE IS TAKING EVERY 48 HOURS. LAST FILLED 10-22-2019 FUROSEMIDE 20MG #30/60DS PT ALSO REMEMBERED SHE TAKES METOLAZONE AND IT WAS ALSO FILLED AT [facility]- THEY HAVE DIRECTIONS OF 1 TAB DAILY HOWEVER PT SAYS SHE ONLY TAKES METOLAZONE WHEN SHE TAKES FUROSEMIDE (EVERY 48 HOURS) LAST FILLED 10-12-2019 METOLAZONE 2.5MG #30/60DS
--- NOTE | 2020-01-17 18:30 | NUR ---
PT. REQUESTS HUTTON CATH TO BE REMOVED. PT. STATES " I CAN'T TAKE THAT CATHETER ANYMORE , PLEASE TAKE IT OUT." HUTTON CATH REMOVED PER PT. REQUESTS. ALLEVYN DRESSING APPLIED TO COCCYX AREA, REDNESS NOTED. NO OPENED AREA'S. TURNED AND RE-POSITIONED. ALLEVYN DRESSING APPLIED TO LEFT LOWER LEG WOUND.
[2020-01-17] MEDS: ENOXAPARIN 30 MG/0.3 ML (LOVENOX) SYR SC SCH (20:49)
[2020-01-17] MEDS ORDERED: HYDROcodone/APAP 7.5 MG/325 MG (LORTAB, LORCET PLUS) TABLET PO PRN (21:45)
[2020-01-17] MEDS ORDERED: SUMAtriptan 50 MG (IMITREX) TAB PO PRN (21:45)
[2020-01-18] VITALS (7 sets, daily range): BP systolic 84–108; BP diastolic 54–70
[2020-01-18 05:30] LABS: BASOPHILS % (AUTO) 0 % (0-10); EOSINOPHILS # (AUTO) 0.1 10^3/uL (0.0-0.3); EOSINOPHILS % (AUTO) 2 % (0-10); HEMATOCRIT 33 % (35-52); HEMOGLOBIN 10.4 G/DL (11.5-16.0); LYMPHOCYTES # (AUTO) 1.1 X 10^3 (1.0-4.0); LYMPHOCYTES % (AUTO) 21 % (12-44); MEAN CORPUSCULAR HEMOGLOBIN 34 PG (25-34); MEAN CORPUSCULAR HGB CONC 32 G/DL (32-36); MEAN CORPUSCULAR VOLUME 107 FL (80-99); MEAN PLATELET VOLUME 9.3 FL (7.4-10.4); MONOCYTES # (AUTO) 0.7 X 10^3 (0.0-1.0); MONOCYTES % (AUTO) 12 % (0-12); NEUTROPHILS # (AUTO) 3.5 X 10^3 (1.8-7.8); NEUTROPHILS % (AUTO) 65 % (42-75); PLATELET COUNT 278 10^3/uL (130-400); RED CELL DISTRIBUTION WIDTH 15.8 % (10.0-14.5); WHITE BLOOD COUNT 5.3 10^3/uL (4.3-11.0)
[2020-01-18 05:34] LABS: CHLORIDE 102 MMOL/L (98-107); POTASSIUM 4.1 MMOL/L (3.6-5.0); SODIUM 138 MMOL/L (135-145)
[2020-01-18 05:36] LABS: CALCIUM 8.4 MG/DL (8.5-10.1); GLUCOSE 101 MG/DL (70-105)
[2020-01-18 05:38] LABS: CARBON DIOXIDE 29 MMOL/L (21-32)
[2020-01-18 05:40] LABS: CREATININE SERUM 0.74 MG/DL (0.60-1.30); GFR ESTIMATED > 60; PHOSPHORUS 2.3 MG/DL (2.3-4.7)
[2020-01-18 05:41] LABS: BUN/CREATININE RATIO 35
[2020-01-18 05:42] LABS: MAGNESIUM 1.8 MG/DL (1.6-2.4)
[2020-01-18] MEDS: POTASSIUM CL 10MEQ/50ML IVPB 50 ML IV SCH (05:43)
[2020-01-18] MEDS: MAGNESIUM 1 GM/100 ML IVPB 100 ML IV SCH (05:44)
[2020-01-18] MEDS: KCL 20 MEQ TAB (K-DUR) PO SCH (05:44)
--- NOTE | 2020-01-18 08:17 | Pulmonary Progress Note ---
Sepsis Event Evaluation Height, Weight, BMI Height: '" Weight: lbs. oz. kg; 17.91 BMI Method: Focused Exam Lactate Level 01/16/20 03:00: Lactic Acid Level 0.56 Exam Exam Vital Signs Date Time Temp Pulse Resp B/P (MAP) Pulse Ox O2 Delivery O2 Flow Rate FiO2 01/18/20 07:40 37.1 112 20 108/62 (77) 94 Room Air 01/18/20 04:00 36.3 101 20 102/62 (75) 93 Room Air 01/18/20 01:00 103 01/18/20 00:00 36.2 109 20 105/70 (82) 91 Room Air 01/17/20 21:00 Room Air 01/17/20 20:00 37.2 97 18 88/65 (73) 92 Room Air 01/17/20 19:48 100 01/17/20 16:00 37.4 110 18 102/73 (83) 93 Room Air 01/17/20 12:35 117 01/17/20 12:15 110 18 107/78 (88) 100 Nasal Cannula 2.00 01/17/20 12:00 37.0 01/17/20 11:11 106 19 104/76 (85) 100 Nasal Cannula 2.00 01/17/20 10:42 112 44 112/76 (88) 99 Nasal Cannula 2.00 I & O 01/18/20 07:00 Intake Total 1024 ml Output Total 725 ml Balance 299 ml Height & Weight Height: '" Weight: lbs. oz. kg; 17.91 BMI Method: General Appearance: No Apparent Distress, WD/WN, Cachetic, Thin HEENT: PERRL/EOMI; No Pale Conjunctivae (L), No Pale Conjunctivae (R), No Scleral Icterus (L), No Scleral Icterus (R) Neck: Non Tender, Supple; No Lymphadenopathy (L), No Lymphadenopathy (R) Respiratory: No Accessory Muscle Use, No Respiratory Distress, Decreased Breath Sounds Cardiovascular: Regular Rate, Rhythm, No Murmur, Normal Peripheral Pulses Extremity: Pedal Edema (tenderness on exam bilaterally), Slow Capillary Refill Neurologic/Psychiatric: Alert, Oriented x3, No Motor/Sensory Deficits, Normal Mood/Affect Skin: Normal Color, Warm/Dry Lymphatic: No Adenopathy Results Lab Laboratory Tests 7/13/20 03:55 01/18/20 05:10 Assessment/Plan Assessment/Plan pulmonary infiltrates r/o mass -PCT is negative x 2. Pt has no leukocytosis and no fever. -Check CT of chest reviewed -D/C Abx -Labs and CXR are pending -COVID - Negative Small stable right PTX -Monitor Hypotension -- improved -IVF -Levophed Pulmonary edema -Check echo -Check BNP Anemia -Monitor Renal failure -Improved -Monitor DUKE GRESHAM DO Jan 18, 2020 08:17
[2020-01-18] MEDS: PANTOPRAZOLE 40 MG (PROTONIX) TAB PO SCH (08:31)
[2020-01-18] MEDS: LEVOTHYROXINE 112 MCG (LEVOTHROID) TAB PO SCH (08:31)
[2020-01-18] MEDS: SENNOSIDES 8.6 MG (SENOKOT) TAB PO SCH ×2 (08:32→20:12)
[2020-01-18] MEDS: DOCUSATE SODIUM 100 MG (COLACE) CAP PO SCH ×2 (08:32→20:12)
[2020-01-18] MEDS ORDERED: METO2.5T PO (08:46)
--- NOTE | 2020-01-18 09:30 | NUR ---
IRF Evaluation Determination: Accepted Chart review complete and findings discussed with Dr. Fernandes - patient accepted. Anticipate admission, 01/18/20. 11:[address] Fernandes, met with patient to discuss details related to program. Patient agreeable to admission. 11:11 Attempted to contact patient's to discuss interaction with patient and plan; busy signal. Attempted to contact patient's daughter, Lindsey and got no answer; message left requesting a call back. Thank you for this referral.
--- NOTE | 2020-01-18 09:34 | Progress Note - Hospitalist ---
Subjective HPI/CC On Admission Date Seen by Provider: Jan 18, 2020 Time Seen by Provider: 08:45 Cookie Lofton is a 79-year-old female who was transferred from [facility] with recurrent pneumonia and hypotension. There reported that she is treated for pneumonia about a month ago. They said that her blood pressures were low on arrival but had stabilized and were within normal limits. Upon my examination, she reports that she came to the emergency room due to weakness. She says that it is been getting worse over about the past week. She reports that it is really been going on over the past couple months since she has been having pneumonias. She denies any weight loss, but she appears very thin. She says that she has been eating. She says she would like to take ensure, but she is lactose intolerant. She denies having any fevers or chills. She denies shortness of breath and cough. She denies abdominal pain, nausea, or vomiting. Subjective/Events-last exam reports feeling improved today overall, but still doesn't feel well. Her SOB has improved and she feels willing and able to get into the chair rather than lie in bed. She is happy that her mac was removed, denies any dysuria, frequency, or incontinence. CT yesterday showed small R apical pneumothorax, moderate R and okile-hg-mxrxixfc L pleural effusions similar to prior exam 12/30/19, improved aeration in RUL compared to previous, some RLL parenchymal consolidation, no discrete mass, and upper abdominal ascites. Review of Systems General: No Chills; Fatigue (improved) HEENT: No Head Aches, No Sinus Congestion, No Sore Throat Pulmonary: Dyspnea (much improved); No Cough Gastrointestinal: No: Abdominal Pain, Diarrhea, Constipation Genitourinary: No Dysuria, No Frequency, No Incontinence Musculoskeletal: other (arthritis pain) Neurological: No: Numbness, Confusion Focused Exam Lactate Level 01/16/20 03:00: Lactic Acid Level 0.56 Objective Exam Vital Signs Vital Signs Date Time Temp Pulse Resp B/P (MAP) Pulse Ox O2 Delivery O2 Flow Rate FiO2 01/18/20 07:40 37.1 112 20 108/62 (77) 94 Room Air 01/17/20 12:15 2.00 01/16/20 02:56 32 Capillary Refill : General Appearance: No Apparent Distress, Chronically ill, Cachetic HEENT: PERRL/EOMI; No Pale Conjunctivae (L), No Pale Conjunctivae (R), No Scleral Icterus (L), No Scleral Icterus (R) Neck: No Lymphadenopathy (L), No Lymphadenopathy (R), No Thyromegaly Respiratory: No Respiratory Distress, Crackles (lower lobes), Wheezing (L mid and lower posts) Cardiovascular: Regular Rate, Rhythm, Systolic Murmur, Tachycardia Extremity: Non Tender, No Calf Tenderness, Pedal Edema (1+) Neurologic/Psychiatric: Alert, Oriented x3, Normal Mood/Affect Skin: Normal Color, Warm/Dry Results/Procedures Lab Laboratory Tests 01/18/20 05:10 Patient resulted labs reviewed. Imaging: Reviewed Imaging Report Assessment/Plan Assessment and Plan Assess & Plan/Chief Complaint Assessment: pleural effusion pneumothorax hypotension JIMMY h/o recurrent pneumonia macrocytic anemia Plan: met with palliative care, discussing code status with family monitor pneumothorax monitor kidney function, continue IV fluids continue DVT prophylaxis Clinical Quality Measures DVT/VTE Risk/Contraindication: Risk Factor Score Per Nursin RFS Level Per Nursing on Admit: 4+=Very High DURAN JACKSON MED STUDENT Jan 18, 2020 09:33
--- NOTE | 2020-01-18 09:47 | Physical Therapy Daily Note ---
PT Daily Note-Current Subjective Patient is in bed and agrees to PT. Pain Numeric Pain Scale: 0-No Pain Location: No Pain Reported Mental Status Patient Orientation: Normal For Age Transfers SCALE: Activities may be completed with or without assistive devices. 6-Gramykjmce-pxxvlua completes the activity by him/herself with no assistance from a helper. 5-Set-up or Clean-up Assistance-helper sets up or cleans up; patient completes activity. [place] assists only prior to or following the activity. 4-Supervision or Touching Assistance-helper provides verbal cues and/or touching/steadying and/or contact guard assistance as patient completes activity. Assistance may be provided throughout the activity or intermittently. 3-Partial/Moderate Assistance-helper does LESS THAN HALF the effort. [place] lifts, holds or supports trunk or limbs, but provides less than half the effort. 2-Substantial/Maximal Assistance-helper does MORE THAN HALF the effort. [place] lifts or holds trunk or limbs and provides more than half the effort. 3-Brsmxtijx-uvfnsd does ALL the effort. Patient does none of the effort to complete the activity. Or, the assistance of 2 or more helpers is required for the patient to complete the activity. If activity was not attempted, code reason: 7-Patient Refused. 9-Not Applicable-not attempted and the patient did not perform the activity before the current illness, exacerbation or injury. 10-Not Attempted due to Environmental Limitations-(lack of equipment, weather restraints, etc.). 88-Not Attempted due to Medical Conditions or Safety Concerns. Roll Left & Right (QC): 6 Lying to Sitting/Side of Bed(Q: 6 Sit to Stand (QC): 5 Chair/Rnn-ar-Clyci Xfer(QC): 5 Weight Bearing Right Lower Extremity: Right Weight Bearing/Tolerated Left Lower Extremity: Left Weight Bearing/Tolerated Gait Training Does the Patient Walk?: Yes Distance: 225' Walk 10 feet (QC): 4 Walk 50 ft with 2 Turns(QC): 4 Walk 150 ft (QC): 4 Gait Assistive Device: FWW CGA for safety due to decreased functional endurance/noted scoliosis with leg length Exercises Supine Ex: Ankle pumps, Quad Set, Heel Slides, Straight leg raise Supine Reps: 10 Seated Therapy Exercises: Ankle pumps, Long arc quads Seated Reps: 15 Assessment Patient fatigues with minimal activity and is up in recliner with cushion in place for comfort. PT to increase activity as tolerated by patient. 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 Senior Living Goals PT Senior Living Goals Time Frame: Jan 29, 2020 Roll Left & Right (QC): 6 Sit to Lying (QC): 6 Lying-Sitting on Side/Bed(QC): 6 Sit to Stand (QC): 6 Chair/Qbu-xz-Gvmox Xfer(QC): 6 Toilet Transfer (QC): 6 Does the Patient Walk: Yes Walk 10 feet (QC): 6 Walk 50ft with 2 Turns (QC): 6 Walk 150 ft (QC): 6 1 Step (curb) (QC): 6 4 Steps (QC): 6 PT Plan Treatment/Plan Treatment Plan: Continue Plan of Care Treatment Plan: Bed Mobility, Education, Functional Activity Amee, Functional Strength, Gait, Safety, Therapeutic Exercise, Transfers Treatment Duration: Jan 29, 2020 Frequency: 6 times per week Estimated Hrs Per Day: .25 hour per day Patient and/or Family Agrees t: Yes Time/GCodes Time In: 911 Time Out: 936 Total Billed Treatment Time: 23 Total Billed Treatment 1 visit GT 13 min EX 10 min ADE VICENTE PT Jan 18, 2020 09:47
--- NOTE | 2020-01-18 10:42 | NUR ---
PALLIATIVE CARE RN in to see patient. She is so pleasant with a big smile upon my arrival. Dr Fernandes arrives for her assessment while there. Plan is to take patient to INPT Rehab so that she can get stronger before going back home with . Will continue to see patient when on Rehab and attempt to get more firm CODE status decision.
--- NOTE | 2020-01-18 10:51 | Discharge Summary ---
Discharge Summary Hospital Course Problems/Dx: (1) Pneumothorax Status: Acute (2) Pleural effusion Status: Acute (3) Acute kidney injury Status: Acute (4) Anemia Status: Acute (5) Low blood pressure reading Status: Acute (6) Pneumonia Status: Acute Hospital Course Date of Admission: Jan 16, 2020 at 00:00 Admission Diagnosis : Family Physician/Provider: Marlon Randall MD Date of Discharge: 01/18/20 Discharge Diagnosis: [ ] Hospital Course: [ ] Labs and Pending Lab Test: Laboratory Tests 01/17/20 11:01: Glucometer 102 01/18/20 05:10: White Blood Count 5.3, Red Blood Count 3.09L, Hemoglobin 10.4L, Hematocrit 33L, Mean Corpuscular Volume 107H, Mean Corpuscular Hemoglobin 34, Mean Corpuscular Hemoglobin Concent 32, Red Cell Distribution Width 15.8H, Platelet Count 278, Mean Platelet Volume 9.3, Neutrophils (%) (Auto) 65, Lymphocytes (%) (Auto) 21, Monocytes (%) (Auto) 12, Eosinophils (%) (Auto) 2, Basophils (%) (Auto) 0, Neutrophils # (Auto) 3.5, Lymphocytes # (Auto) 1.1, Monocytes # (Auto) 0.7, Eosinophils # (Auto) 0.1, Basophils # (Auto) 0.0, Sodium Level 138, Potassium Level 4.1, Chloride Level 102, Carbon Dioxide Level 29, Anion Gap 7, Blood Urea Nitrogen 26H, Creatinine 0.74, Estimat Glomerular Filtration Rate > 60, BUN/Creatinine Ratio 35, Glucose Level 101, Calcium Level 8.4L, Phosphorus Level 2.3, Magnesium Level 1.8 Home Meds Active Reported Metolazone 2.5 Mg Tablet 2.5 Mg PO Q48H TAKES ALONG WITH FUROSEMIDE EVERY OTHER DAY Sumatriptan Succinate 50 Mg Tablet 100 Mg PO UD PRN TAKES 2 (50MG) TABS AT ONSET OF MIGRAINE AND MAY REPEAT IN 2 HOURS IF NEEDED. DO NOT EXCEED 2 DOSES (4 TABS) PER DAY Furosemide 20 Mg Tablet 20 Mg PO Q48H TAKES ALONG WITH METOLAZONE EVERY OTHER DAY Protonix (Pantoprazole Sodium) 40 Mg Tablet.dr 40 Mg PO DAILY Hydrocodone-Acetamin 7.5-325 (Hydrocodone/Acetaminophen) 1 Each Tablet 1 Each PO TID PRN Coreg (Carvedilol) 6.25 Mg Tablet 6.25 Mg PO BID Tramadol HCl 50 Mg Tablet 50-100 Mg PO TID PRN Levothyroxine Sodium 137 Mcg Tablet 137 Mcg PO HS Lisinopril 10 Mg Tablet 10 Mg PO DAILY Discharge Physical Examination Vital Signs Vital Signs Date Time Temp Pulse Resp B/P (MAP) Pulse Ox O2 Delivery O2 Flow Rate FiO2 01/18/20 07:40 37.1 112 20 108/62 (77) 94 Room Air 01/17/20 12:15 2.00 01/16/20 02:56 32 Allergies: Coded Allergies: No Known Drug Allergies (Verified Allergy, Unknown, 09/18/07) Discharge Summary Date of Admission Jan 16, 2020 at 00:00 Date of Discharge Discharge Date: Jan 18, 2020 Admission Diagnosis Pneumonia Discharge Diagnosis Assessment: Respiratory distress PNA Frail status Poor reserve Poor prognosis Plan: ICU status CT scan Palliative care consult Extremely poor reserve prognosis very guarded to poor (1) Pneumothorax Status: Acute (2) Pleural effusion Status: Acute (3) Acute kidney injury Status: Acute (4) Anemia Status: Acute (5) Low blood pressure reading Status: Acute (6) Pneumonia Status: Acute Clinical Quality Measures DVT/VTE Risk/Contraindication: Risk Factor Score Per Nursin RFS Level Per Nursing on Admit: 4+=Very High RAQUEL OLGUIN DO Jan 18, 2020 10:51
--- NOTE | 2020-01-18 11:30 | NUR ---
TARE WORKER CALLED AND STATED PULSE IS 160. CHECKED ON PT. , SHE WAS IN BATHROOM STRAINING TO HAVE A BM. PT. HAD MOD AMT. FORMED HARD BROWN BM. STATED SHE WAS "FEELING SOA,WEAK AND NOT FEELING WELL." RETURNED TO BED, BP=90/60 RESP=20 O2 SAT=94% PER R/A. O2 APPLIED PER N/C AT 2 L PER MIN PER PT. REQUEST. PT. STATES SHE USES OXYGEN AT HOME NEEDED AND AT NIGHT.
[2020-01-18] MEDS: ANTACID SUSP 30 ML UDC (MYLANTA) PO PRN ×2 (11:48→19:02)
--- NOTE | 2020-01-18 12:00 | NUR ---
RESTING QUIETLY IN BED. NN=[id number]. EYES CLOSED.
--- NOTE | 2020-01-18 12:40 | Progress Note ---
DURAN JACKSON MED STUDENT 01/18/20 1240: Progress Note Hospital Course: Ms. Lofton is a 79 F who who first came to the [facility] due to weakness. She has a history of recurrent pneumonia, and was transferred from the [facility] to [facility] ICU 01/15 with recurrent pneumonia and hypotension. The hypotension had been stabilized by the time of her arrival at [facility]. Initial CXR 01/15 showed right-sided pneumothorax measuring 2.1 cm in size from the lung apex and nonspecific multifocal airspace consolidation in the right lung and left lung base with probable bilateral pleural effusions. Later CXRs confirmed bilateral pleural effusions, which remained stable. R pneumothorax also remained stable. CT scan 01/16 obtained to rule out mass, which showed development of a very small right apical pneumothorax, moderate to large right and nurco-wc-hmssfvak left pleural effusions, similar to prior examination from 12/30/2019, some improved aeration in the right upper lobe when compared with prior exam, some parenchymal consolidation/atelectasis in the right lower lobe, and upper abdominal ascites. No discrete mass was identified. Echo 01/16 showed EF 80-85% with restrictive physiology, severe aortic stenosis, and moderate tricuspid regurgitation. She was transferred from ICU to Med/Surg 01/16. She was also seen by palliative care 01/16, who began conversation about code status, which is still ongoing as she discusses her decision with her family. She will be transferred to inpatient rehab 01/17. REBECCA OLGUIN DO 01/18/202058: Progress Note Pt doing pretty well Walking with therapy Reviewed echocardiogram and Dr. Cox and I spoke along with Dr. May and it appears she has severe aortic stenosis along with moderate mitral regurgitation causing the source of the pleural effusion and diastolic heart failure Heart rate was in the 140s requiring Dr. Cox contacted and she will likely go to rehab tomorrow I did attempt to talk to the who she reports has dementia, I will try to reach out to the daughter and explain the options, but I sat down and talked to her in-depth about the situation of her heart and she needs to stabilize before obtaining outpatient consultation with cardiology Bowels moved two days ago Physical Exam AFVSS, Pleasant, frail, thin, fatigued RRR, CTB, diminished in bases No edema Supervisory-Addendum Brief Verification & Attestation Participated in pt care: history, MDM, physical Personally performed: exam, history, MDM, supervision of care Care discussed with: Medical Student Procedures: n/a Results interpretation: Verified all documentation Verification and Attestation of Medical Student E/M Service A medical student performed and documented this service in my presence. I reviewed and verified all information documented by the medical student and made modifications to such information, when appropriate. I personally performed the physical exam and medical decision making. Rebecca Olguin, Jan 18, 2020,20:57 Assessment/Plan Assessment and Plan Assess & Plan/Chief Complaint Assessment: Respiratory distress PNA Frail status Poor reserve Poor prognosis Aortic stenosis PHTN Plan: 4th floor CT scan Palliative care consult IRF? Extremely poor reserve prognosis very guarded to poor DURAN JACKSON MED STUDENT Jan 18, 2020 12:40 REBECCA OLGUIN DO Jan 18, 2020 20:59
--- NOTE | 2020-01-18 13:14 | NUR ---
RD ASSESSMENT PMHx: pneumonia; HTN; GERD; osteoporosis; scoliosis; CA(thyroid) PT INTERACTION: Pt was awake and pleasant during dietary consult for malnutrition. Pt states current appetite is pretty good, and has been this way for awhile. Note avg PO intake 36% x2d, per chart review. Pt states following a regular diet at home, but is lactose intolerant. Pt states some issues with chewing/swallowing food as she is missing bottom teeth. Pt states no recent issues with nausea, vomiting, constipation, or diarrhea, and that her last BM was "the day before I got here." Note pt currently on bowel regimen of colace BID; and senna BID, per chart review. Pt states no recent wt changes. Note unable to determine recent wt hx, per chart review. Upon visual assessment, pt appears thin and frail, with some visible signs of muscle/fat loss that could either be from advanced age or malnutrition. Note pt has BMI of 16.9, which given pt's age, is classified as Underweight. Given PO intake and visual assessment, pt meets criteria for malnutrition, per ASPEN guidelines. ABNORMAL NUTRITION-RELATED LAB VALUES LOW: Ca 8.4; Pro 4.3; alb 2.3 HIGH: BUN 26 Est. kcal needs: 1350 kcal | 30 kcal/kg Est. Pro needs: 63 g Pro | 1.4 g Pro/kg PES STATEMENT: Inadequate oral intake (NI-2.1) related to loss of appetite as evidenced by pt interview | avg PO intake 36% x2d INTERVENTION: Continue with current diet order of DYS3 Advanced/Ground Meat diet. Switch current supplementation order from Ensure Clear (vary) with meals TID, to Ensure Enlive (vary) with meals TID. Ensure Enlive is suitable for lactose intolerant pts, and provides 350 kcal and 13 g Pro per serving, to increase kcal intake. Will continue to follow and reassess as pt needs, intake, and status change. MONITOR/EVALUATE: PO Intake; Plan of Care; Hydration Status; Weight Status; Lab Values Brannon Valadez, MS, RD, LD
--- NOTE | 2020-01-18 13:21 | Occupational Ther Daily Note ---
OT Current Status-Daily Note Subjective Pt. reports, "I just don't feel well." Nursing aware and states that pt's HR is elevated. Appearance Pt. is returning from bathroom with nurse aide when OT enters room. Mental Status/Objective Patient Orientation: Person, Place ADL-Treatment Therapy Code Descriptions/Definitions Functional [place] Measure: 0=Not Assessed/NA 4=Minimal Assistance 1=Total Assistance 5=Supervision or Setup 2=Maximal Assistance 6=Modified [place] 3=Moderate Assistance 7=Complete IndependenceSCALE: Activities may be completed with or without assistive devices. 4-Tkelfqurlo-zhqutdd completes the activity by him/herself with no assistance from a helper. 5-Set-up or Clean-up Assistance-helper sets up or cleans up; patient completes activity. [place] assists only prior to or following the activity. 4-Supervision or Touching Assistance-helper provides verbal cues and/or touching/steadying and/or contact guard assistance as patient completes activity. Assistance may be provided throughout the activity or intermittently. 3-Partial/Moderate Assistance-helper does LESS THAN HALF the effort. [place] lifts, holds or supports trunk or limbs, but provides less than half the effort. 2-Substantial/Maximal Assistance-helper does MORE THAN HALF the effort. [place] lifts or holds trunk or limbs and provides more than half the effort. 4-Ftuibnydk-swtnbn does ALL the effort. Patient does none of the effort to complete the activity. Or, the assistance of 2 or more helpers is required for the patient to complete the activity. If activity was not attempted, code reason: 7-Patient Refused. 9-Not Applicable-not attempted and the patient did not perform the activity before the current illness, exacerbation or injury. 10-Not Attempted due to Environmental Limitations-(lack of equipment, weather restraints, etc.). 88-Not Attempted due to Medical Conditions or Safety Concerns. Other Treatment Pt. has just finished toileting. Nursing reports to this therapist that pt's HR is in the 150/160 range. Pt. transfers from standing to sitting on side of bed with CGA. Pt. sits on side and maintains balance while talking with OT, approximately 5 minutes. Pt. states that she isn't feeling well. Reports feeling "a little depressed." Pt. states that she is not up to doing much more. Transfers sit-supine with min assist. Pt. is encouraged to position self in bed, and is able to do so with SBA. Pt. made comfortable, and all needs are met. Education OT Patient Education: Correct positioning, Purpose of tx/functional activities, Reviewed precautions, Rehab process, Transfer techniques Teaching Recipient: Patient Teaching Methods: Demonstration, Discussion Response to Teaching: Verbalize Understanding, Return Demonstration OT Short Term Goals Short Term Goals Time Frame: Jan 31, 2020 Eatin Oral hygiene: 3 Toileting hygiene: 3 Shower/bathe self: 3 Upper body dressin Lower body dressin Putting on/taking off footwear: 3 OT Fdc Goals Fdc Goals Time Frame: Feb 14, 2020 Eating (QC): 5 Oral Hygiene (QC): 5 Toileting Hygiene (QC): 4 Shower/Bathe Self (QC): 4 Upper Body Dressing (QC): 5 Lower Body Dressing (QC): 4 On/Off Footwear (QC): 4 Additional Goals: 1-Demonstrate ADL Tasks, 2-Verbalize Understanding, 3- ImproveStrength/Amee 1=Demonstrate adherence to instructed precautions during ADL tasks. 2=Patient will verbalize/demonstrate understanding of assistive devices/modifications for ADL. 3=Patient will improve strength/tolerance for activity to enable patient to perform ADL's. OT Education/Plan Problem List/Assessment Assessment: Decreased Activ Tolerance, Decreased UE Strength, Dependent Transfers, Impaired I ADL's, Impaired Self-Care Skills Discharge Recommendations Plan/Recommendations: Continue POC Treatment Plan/Plan of Care Treatment,Training & Education: Yes Patient would benefit from OT for education, treatment and training to promote independence in ADL's, mobility, safety and/or upper extremity function for ADL's. Plan of Care: ADL Retraining, Caregiver Training, Functional Mobility, UE Funct Exercise/Act Treatment Duration: Feb 14, 2020 Frequency: 5 times per week Estimated Hrs Per Day: .25 hour per day Agreement: Yes Rehab Potential: Fair Time/GCodes Start Time: 11:40 Stop Time: 11:55 Total Time Billed (hr/min): 15 Billed Treatment Time 1, BENEDICT VILCHIS OT Jan 18, 2020 13:21
[2020-01-18] MEDS ORDERED: RT-ALBUTEROL SULF 2.5 MG/3 ML PRE-MIX VIAL INH PRN (16:00)
--- NOTE | 2020-01-18 16:44 | Cardiology Progress Note ---
Cardiology SOAP Progress Note Subjective: No cardiac complaints. Objective: I&O/Vital Signs 01/19/20 01/19/20 01/19/20 01/19/20 07:06 08:00 09:00 10:44 Temp 36.7 36.7 Pulse 103 103 Resp 20 20 B/P (MAP) 95/59 (71) 95/59 Pulse Ox 92 96 98 98 O2 Delivery Nasal Cannula Room Air Room Air Room Air O2 Flow Rate 1.50 1.50 01/19/20 00:00 Intake Total 1340 ml Balance 1340 ml Constitutional: AAO x 3 Respiratory: chest is bilaterally symmetric, lungs clear to auscultation Cardiovascular: regular rate-rhythm, S1 and S2, systolic murmur Gastrointestional: soft, audible bowel sounds Extremities: normal range of motion, non-tender, normal inspection, no lower extremity edema bilateral Neurologic/Psychiatric: no motor/sensory deficits, alert, normal mood/affect, oriented x 3 Skin: normal color, warm/dry Results/Procedures: Labs Laboratory Tests 01/19/20 05:15: White Blood Count 5.1, Red Blood Count 2.58L, Hemoglobin 8.4L, Hematocrit 28L, Mean Corpuscular Volume 107H, Mean Corpuscular Hemoglobin 33, Mean Corpuscular Hemoglobin Concent 30L, Red Cell Distribution Width 16.1H, Platelet Count 245, Mean Platelet Volume 9.2, Neutrophils (%) (Auto) 63, Lymphocytes (%) (Auto) 20, Monocytes (%) (Auto) 14H, Eosinophils (%) (Auto) 2, Basophils (%) (Auto) 0, Neutrophils # (Auto) 3.2, Lymphocytes # (Auto) 1.0, Monocytes # (Auto) 0.7, Eosinophils # (Auto) 0.1, Basophils # (Auto) 0.0, Sodium Level 140, Potassium Level 4.0, Chloride Level 103, Carbon Dioxide Level 31, Anion Gap 6, Blood Urea Nitrogen 23H, Creatinine 0.64, Estimat Glomerular Filtration Rate > 60, BUN/Creatinine Ratio 36, Glucose Level 89, Calcium Level 7.9L, Corrected Calcium 9.3, Phosphorus Level 2.0L, Magnesium Level 2.1, Total Bilirubin 0.3, Aspartate Amino Transf (AST/SGOT) 15, Alanine Aminotransferase (ALT/SGPT) < 6, Alkaline Phosphatase 69, Total Protein 3.9L, Albumin 2.2L A/P: Assessment/Dx: Pneumonia, Sepsis, Moderate to severe aortic stenosis, Significant debility Plan: Pneumonia, defer to the primary team. Sepsis, significantly improved. Moderate to severe aortic stenosis, echocardiogram showed hyperdynamic LV function with moderate to severe aortic stenosis with mean gradient of 44 mmHg and aortic valve area 1.1 cm. Patient denies cardiac symptoms. Will probably require consultation for aortic surgery versus percutaneous aortic valve replacement versus medical therapy. I will arrange appropriately. However due to her fragility and generalized debility, I think she will not be a good candidate for aortic surgery anyways. Discussed briefly with Dr. briseno. IV fluids are recommended. Significant debility Thank you for your consultation. Please call me if you have any questions. Be Cox MD, FACP, FACC, FSCAI, FHRS, CCDS Interventional Cardiology Cardiac Electrophysiology Vascular Medicine and Endovascular Interventions Focused Exam Lactate Level Luis COX MD Jan 18, 2020 16:44
[2020-01-18] MEDS: RT-ALBUTEROL SULF 2.5 MG/3 ML PRE-MIX VIAL INH SCH ×2 (19:07→21:40)
--- NOTE | 2020-01-18 19:25 | Physician Query Clarification ---
"Physician Query-General Query to Physician: The medical record reflects the following clinical scenario: History/Risk factors: Repeated bouts of Pneumonia, Clinical Findings: BMI 17, Third spacing due to low albumin, Albumin 2.3 Treatment: Ensure supplements, Monitoring Question: What condition best reflects the above clinical scenario? Please document response in the Progress notes or Discharge Summary. 1. Severe protein/Calorie malnutrition 2. Debility (as currently documented) 3. Other , with explanation of the clinical findings 4. Clinically undetermined, no explanation for the clinical findings Please remember a lack of response to the above will prompt a phone page by CDI/coding staff In responding to this query, please exercise your independent professional judgment. The purpose of this communication is to more accurately reflect the complexity of your patients condition. The fact that a question is asked does not imply that any particular answer is desired or expected. Thank you for timely response to this clarification. Sasha Damon, MSN, RN RN Specialist-Clinical Doc Improvement CD -Health Info Mgmt Operations [address] [facility] t: [phone] | f: [phone] If you are unable to reach me at my extension, I may be working from home. Please contact me at [phone] PHYSICIAN RESPONSE: Based on the clinical findings in the record, please respond to the query above on this document as an addendum. 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 Clinical Senior Ui Software Engineer/[employer] Supervisor This is a permanent part of the medical record SASHA DAMON Jan 18, 2020 19:25 RAQUEL OLGUIN DO Jan 18, 2020 20:10"
[2020-01-18] MEDS: ENOXAPARIN 30 MG/0.3 ML (LOVENOX) SYR SC SCH (20:12)
--- NOTE | 2020-01-18 21:00 | Progress Note - Hospitalist ---
Subjective HPI/CC On Admission Date Seen by Provider: Jan 18, 2020 Time Seen by Provider: 09:30 Cookie Lofton is a 79-year-old female who was transferred from [facility] with recurrent pneumonia and hypotension. There reported that she is treated for pneumonia about a month ago. They said that her blood pressures were low on arrival but had stabilized and were within normal limits. Upon my examination, she reports that she came to the emergency room due to weakness. She says that it is been getting worse over about the past week. She reports that it is really been going on over the past couple months since she has been having pneumonias. She denies any weight loss, but she appears very thin. She says that she has been eating. She says she would like to take ensure, but she is lactose intolerant. She denies having any fevers or chills. She denies shortness of breath and cough. She denies abdominal pain, nausea, or vomiting. Subjective/Events-last exam see bridge note for details Review of Systems General: Fatigue Pulmonary: Dyspnea Focused Exam Lactate Level 01/16/20 03:00: Lactic Acid Level 0.56 Objective Exam Vital Signs Vital Signs Date Time Temp Pulse Resp B/P (MAP) Pulse Ox O2 Delivery O2 Flow Rate FiO2 01/18/20 20:00 37.5 110 20 84/54 (64) 93 Room Air 01/18/20 19:09 21 01/18/20 15:00 2.00 Capillary Refill : General Appearance: No Apparent Distress, WD/WN, Chronically ill, Thin Results/Procedures Lab Laboratory Tests 01/18/20 05:10 Patient resulted labs reviewed. Imaging: Reviewed Imaging Report Assessment/Plan Assessment and Plan Assess & Plan/Chief Complaint Assessment: Respiratory distress PNA Frail status Poor reserve Poor prognosis Aortic stenosis PHTN Plan: 4th floor CT scan Palliative care consult IRF? Extremely poor reserve prognosis very guarded to poor Clinical Quality Measures DVT/VTE Risk/Contraindication: Risk Factor Score Per Nursin RFS Level Per Nursing on Admit: 4+=Very High RAQUEL OLGUIN DO Jan 18, 2020 21:00
[2020-01-19 00:55] VITALS: BP 93/67
[2020-01-19] MEDS: RT-ALBUTEROL SULF 2.5 MG/3 ML PRE-MIX VIAL INH SCH ×2 (02:31→07:06)
[2020-01-19 04:00] VITALS: BP 88/64
[2020-01-19] MEDS: LEVOTHYROXINE 112 MCG (LEVOTHROID) TAB PO SCH (05:37)
[2020-01-19 05:47] LABS: BASOPHILS % (AUTO) 0 % (0-10); EOSINOPHILS # (AUTO) 0.1 10^3/uL (0.0-0.3); EOSINOPHILS % (AUTO) 2 % (0-10); HEMATOCRIT 28 % (35-52); HEMOGLOBIN 8.4 G/DL (11.5-16.0); LYMPHOCYTES % (AUTO) 20 % (12-44); MEAN CORPUSCULAR HEMOGLOBIN 33 PG (25-34); MEAN CORPUSCULAR HGB CONC 30 G/DL (32-36); MEAN CORPUSCULAR VOLUME 107 FL (80-99); MEAN PLATELET VOLUME 9.2 FL (7.4-10.4); MONOCYTES # (AUTO) 0.7 X 10^3 (0.0-1.0); MONOCYTES % (AUTO) 14 % (0-12); NEUTROPHILS # (AUTO) 3.2 X 10^3 (1.8-7.8); NEUTROPHILS % (AUTO) 63 % (42-75); PLATELET COUNT 245 10^3/uL (130-400); RED CELL DISTRIBUTION WIDTH 16.1 % (10.0-14.5); WHITE BLOOD COUNT 5.1 10^3/uL (4.3-11.0)
[2020-01-19 06:06] LABS: ALBUMIN 2.2 GM/DL (3.2-4.5); CHLORIDE 103 MMOL/L (98-107); SODIUM 140 MMOL/L (135-145)
[2020-01-19 06:08] LABS: CALCIUM 7.9 MG/DL (8.5-10.1)
[2020-01-19 06:09] LABS: GLUCOSE 89 MG/DL (70-105); TOTAL PROTEIN 3.9 GM/DL (6.4-8.2)
[2020-01-19 06:10] LABS: CARBON DIOXIDE 31 MMOL/L (21-32)
[2020-01-19] MEDS: KCL 20 MEQ TAB (K-DUR) PO SCH (06:10)
[2020-01-19] MEDS: POTASSIUM CL 10MEQ/50ML IVPB 50 ML IV SCH (06:10)
[2020-01-19 06:11] LABS: BILIRUBIN,TOTAL 0.3 MG/DL (0.1-1.0)
[2020-01-19 06:12] LABS: ALKALINE PHOSPHATASE 69 U/L (40-136)
[2020-01-19 06:13] LABS: CREATININE SERUM 0.64 MG/DL (0.60-1.30); GFR ESTIMATED > 60
[2020-01-19 06:14] LABS: BUN/CREATININE RATIO 36
[2020-01-19 06:15] LABS: ALANINE AMINOTRANSFERASE < 6 U/L (0-55); MAGNESIUM 2.1 MG/DL (1.6-2.4)
[2020-01-19] MEDS: MAGNESIUM 1 GM/100 ML IVPB 100 ML IV SCH (06:31)
[2020-01-19] MEDS: PANTOPRAZOLE 40 MG (PROTONIX) TAB PO SCH (07:38)
[2020-01-19] MEDS: DOCUSATE SODIUM 100 MG (COLACE) CAP PO SCH (07:38)
[2020-01-19] MEDS: SENNOSIDES 8.6 MG (SENOKOT) TAB PO SCH (07:38)
[2020-01-19 08:00] VITALS: BP 95/59
--- NOTE | 2020-01-19 10:01 | NUR ---
PALLIATIVE CARE RN in to see patient. She was intended to go to [facility] yesterday and did not get there for some reason. In speaking with her today, she reports feeling very weak with the hope that she will not transition today but rather wait until tomorrow. Unsure of the benefit that will give us. Patient is very emotional today, with crying spells. She is recounting the last 10 years worth of medical problems and her ability to "get through" it. Discussed the blessing she was given over the last 10 years of time with family, watching her grandkids be born etc., but also discussed that her body although she "gets through", it is never as strong as before and all those medical issues could be catching up with her. She agreed that this is likely the case. She does want to fill out a DPOA and Living Will when her daughter gets her. I will be happy to assist her in this endeavor.
--- NOTE | 2020-01-19 10:05 | Discharge Summary ---
Diagnosis/Chief Complaint Date of Admission Jan 16, 2020 at 00:00 Date of Discharge Discharge Date: Jan 19, 2020 Discharge Time: 10:00 Discharge Diagnosis Hypoxia PNA Pleural effusion Debility chronic Frail status Valvular heart disease Discharge Summary Discharge Physical Examination Allergies: Coded Allergies: No Known Drug Allergies (Verified Allergy, Unknown, 09/18/07) Vitals & I&Os Vital Signs Date Time Temp Pulse Resp B/P (MAP) Pulse Ox O2 Delivery O2 Flow Rate FiO2 01/19/20 10:44 36.7 103 20 95/59 98 Room Air 1.50 01/19/20 02:31 21 General Appearance: Alert, Oriented X3, Cooperative Respiratory: Clear to Auscultation Cardiovascular: Regular Rate Hospital Course Was the Problem List Reviewed?: Yes Hospital Course: Pt had a lengthy complicated hospital course for 4 days after she was admitted form [facility] for hypoxia and pleural effusions, recurrent pneumonia and severe frail status. She was found to have B/L pleural effusions. Pulmonology evaluated her for diastolic heart failure. Cardiology evaluated her valvular heart disease showing some aortic stenosis and pt required inpatient rehab to strengthen and improve slowly in order to have any type of workup from cardiology in order to prevent the recurrence of pleural effusion and CHF. Her bowels were moving at time of DC and she was in stable status at time of DC. Labs (last 24 hrs) Laboratory Tests 01/16/20 00:20: Blood Gas Puncture Site RIGHT RAIDAL, Blood Gas Patient Temperature 35.5, Arterial Blood pH 7.37, Arterial Blood Partial Pressure CO2 52H, Arterial Blood Partial Pressure O2 58L, Arterial Blood HCO3 30H, Arterial Blood Total CO2 31.5H , Arterial Blood Oxygen Saturation 87L, Arterial Blood Base Excess 4.5H, Lorenzo Test YES-POS, Blood Gas Ventilator Setting NO, Blood Gas Inspired Oxygen ROOM AIR 01/16/20 03:00: White Blood Count 5.7, Red Blood Count 2.89L, Hemoglobin 9.6L, Hematocrit 31L, Mean Corpuscular Volume 107H, Mean Corpuscular Hemoglobin 33, Mean Corpuscular Hemoglobin Concent 31L, Red Cell Distribution Width 15.5H, Platelet Count 275, Mean Platelet Volume 9.5, Neutrophils (%) (Auto) 70, Lymphocytes (%) (Auto) 18, Monocytes (%) (Auto) 11, Eosinophils (%) (Auto) 1, Basophils (%) (Auto) 0, Neutrophils # (Auto) 4.0, Lymphocytes # (Auto) 1.0, Monocytes # (Auto) 0.6, Eosinophils # (Auto) 0.0, Basophils # (Auto) 0.0, Sodium Level 141, Potassium Level 4.2, Chloride Level 104, Carbon Dioxide Level 24, Anion Gap 13, Blood Urea Nitrogen 43H, Creatinine 1.18, Estimat Glomerular Filtration Rate 44, BUN/Creatinine Ratio 36, Glucose Level 66L, Lactic Acid Level 0.56, Calcium Level 7.8L, Phosphorus Level 4.1, Magnesium Level 1.7, B-Type Natriuretic Peptide 280.8H, Procalcitonin 0.09 01/16/20 12:02: Glucometer 24*L 01/16/20 12:13: Glucometer 101 01/16/20 12:18: Iron Level 46, Total Iron Binding Capacity 161L, Unsaturated Iron Binding Capacity 115, Transferrin % Saturation 29, Ferritin 175.6, Troponin I 0.060H, Vitamin B12 Level 881, Folate 9.5, Thyroid Stimulating Hormone (TSH) 3.56, Free Thyroxine 1.05 01/16/20 16:03: Glucometer 79 01/16/20 19:45: Iron Level 31L 01/16/20 21:42: Glucometer 119H 01/17/20 03:55: White Blood Count 5.6, Red Blood Count 2.88L, Hemoglobin 9.8L, Hematocrit 30L, Mean Corpuscular Volume 106H, Mean Corpuscular Hemoglobin 34, Mean Corpuscular Hemoglobin Concent 32, Red Cell Distribution Width 15.7H, Platelet Count 297, Mean Platelet Volume 8.9, Neutrophils (%) (Auto) 69, Lymphocytes (%) (Auto) 19, Monocytes (%) (Auto) 12, Eosinophils (%) (Auto) 1, Basophils (%) (Auto) 0, Neutrophils # (Auto) 3.8, Lymphocytes # (Auto) 1.1, Monocytes # (Auto) 0.6, Eosinophils # (Auto) 0.0, Basophils # (Auto) 0.0, Sodium Level 139, Potassium Level 4.1, Chloride Level 103, Carbon Dioxide Level 27, Anion Gap 9, Blood Urea Nitrogen 33H, Creatinine 1.02, Estimat Glomerular Filtration Rate 52, BUN/Creatinine Ratio 32, Glucose Level 92, Calcium Level 8.0L, Phosphorus Level 3.4, Magnesium Level 1.8, Total Bilirubin 0.2, Direct Bilirubin 0.1, Indirect Bilirubin 0.1, Aspartate Amino Transf (AST/SGOT) 19, Alanine Aminotransferase (ALT/SGPT) 10, Alkaline Phosphatase 83, B-Type Natriuretic Peptide 319.6H, Total Protein 4.3L, Albumin 2.3L, Procalcitonin 0.07 01/17/20 05:05: Glucometer 85 01/17/20 11:01: Glucometer 102 01/18/20 05:10: White Blood Count 5.3, Red Blood Count 3.09L, Hemoglobin 10.4L, Hematocrit 33L, Mean Corpuscular Volume 107H, Mean Corpuscular Hemoglobin 34, Mean Corpuscular Hemoglobin Concent 32, Red Cell Distribution Width 15.8H, Platelet Count 278, Mean Platelet Volume 9.3, Neutrophils (%) (Auto) 65, Lymphocytes (%) (Auto) 21, Monocytes (%) (Auto) 12, Eosinophils (%) (Auto) 2, Basophils (%) (Auto) 0, Neutrophils # (Auto) 3.5, Lymphocytes # (Auto) 1.1, Monocytes # (Auto) 0.7, Eosinophils # (Auto) 0.1, Basophils # (Auto) 0.0, Sodium Level 138, Potassium Level 4.1, Chloride Level 102, Carbon Dioxide Level 29, Anion Gap 7, Blood Urea Nitrogen 26H, Creatinine 0.74, Estimat Glomerular Filtration Rate > 60, BUN/Creatinine Ratio 35, Glucose Level 101, Calcium Level 8.4L, Phosphorus Level 2.3, Magnesium Level 1.8 01/19/20 05:15: White Blood Count 5.1, Red Blood Count 2.58L, Hemoglobin 8.4L, Hematocrit 28L, Mean Corpuscular Volume 107H, Mean Corpuscular Hemoglobin 33, Mean Corpuscular Hemoglobin Concent 30L, Red Cell Distribution Width 16.1H, Platelet Count 245, Mean Platelet Volume 9.2, Neutrophils (%) (Auto) 63, Lymphocytes (%) (Auto) 20, Monocytes (%) (Auto) 14H, Eosinophils (%) (Auto) 2, Basophils (%) (Auto) 0, Neutrophils # (Auto) 3.2, Lymphocytes # (Auto) 1.0, Monocytes # (Auto) 0.7, Eosinophils # (Auto) 0.1, Basophils # (Auto) 0.0, Sodium Level 140, Potassium Level 4.0, Chloride Level 103, Carbon Dioxide Level 31, Anion Gap 6, Blood Urea Nitrogen 23H, Creatinine 0.64, Estimat Glomerular Filtration Rate > 60, BUN/Creatinine Ratio 36, Glucose Level 89, Calcium Level 7.9L, Corrected Calcium 9.3, Phosphorus Level 2.0L, Magnesium Level 2.1, Total Bilirubin 0.3, Aspartate Amino Transf (AST/SGOT) 15, Alanine Aminotransferase (ALT/SGPT) < 6, Alkaline Phosphatase 69, Total Protein 3.9L, Albumin 2.2L Pending Labs Laboratory Tests 01/16/20 00:20: Blood Gas Puncture Site RIGHT RAIDAL, Blood Gas Patient Temperature 35.5, Arterial Blood pH 7.37, Arterial Blood Partial Pressure CO2 52, Arterial Blood Partial Pressure O2 58, Arterial Blood HCO3 30, Arterial Blood Total CO2 31.5, Arterial Blood Oxygen Saturation 87, Arterial Blood Base Excess 4.5, Lorenzo Test YES-POS, Blood Gas Ventilator Setting NO, Blood Gas Inspired Oxygen ROOM AIR 01/16/20 03:00: White Blood Count 5.7, Red Blood Count 2.89, Hemoglobin 9.6, Hematocrit 31, Mean Corpuscular Volume 107, Mean Corpuscular Hemoglobin 33, Mean Corpuscular Hemoglobin Concent 31, Red Cell Distribution Width 15.5, Platelet Count 275, M makayla Platelet Volume 9.5, Neutrophils (%) (Auto) 70, Lymphocytes (%) (Auto) 18, Monocytes (%) (Auto) 11, Eosinophils (%) (Auto) 1, Basophils (%) (Auto) 0, Neutrophils # (Auto) 4.0, Lymphocytes # (Auto) 1.0, Monocytes # (Auto) 0.6, Eosinophils # (Auto) 0.0, Basophils # (Auto) 0.0, Sodium Level 141, Potassium Level 4.2, Chloride Level 104, Carbon Dioxide Level 24, Anion Gap 13, Blood Urea Nitrogen 43, Creatinine 1.18, Estimat Glomerular Filtration Rate 44, BUN/Creatinine Ratio 36, Glucose Level 66, Lactic Acid Level 0.56, Calcium Level 7.8, Phosphorus Level 4.1, Magnesium Level 1.7, B-Type Natriuretic Peptide 280.8, Procalcitonin 0.09 7/12/20 12:02: Glucometer 24 01/16/20 12:13: Glucometer 101 01/16/20 12:18: Iron Level 46, Total Iron Binding Capacity 161, Unsaturated Iron Binding Capacity 115, Transferrin % Saturation 29, Ferritin 175.6, Troponin I 0.060, Vitamin B12 Level 881, Folate 9.5, Thyroid Stimulating Hormone (TSH) 3.56, Free Thyroxine 1.05 01/16/20 16:03: Glucometer 79 01/16/20 19:45: Iron Level 31 01/16/20 21:42: Glucometer 119 01/17/20 03:55: White Blood Count 5.6, Red Blood Count 2.88, Hemoglobin 9.8, Hematocrit 30, Mean Corpuscular Volume 106, Mean Corpuscular Hemoglobin 34, Mean Corpuscular Hemoglobin Concent 32, Red Cell Distribution Width 15.7, Platelet Count 297, Mean Platelet Volume 8.9, Neutrophils (%) (Auto) 69, Lymphocytes (%) (Auto) 19, Monocytes (%) (Auto) 12, Eosinophils (%) (Auto) 1, Basophils (%) (Auto) 0, Neutrophils # (Auto) 3.8, Lymphocytes # (Auto) 1.1, Monocytes # (Auto) 0.6, Eosinophils # (Auto) 0.0, Basophils # (Auto) 0.0, Sodium Level 139, Potassium Level 4.1, Chloride Level 103, Carbon Dioxide Level 27, Anion Gap 9, Blood Urea Nitrogen 33, Creatinine 1.02, Estimat Glomerular Filtration Rate 52, BUN/Creatinine Ratio 32, Glucose Level 92, Calcium Level 8.0, Phosphorus Level 3.4, Magnesium Level 1.8, Total Bilirubin 0.2, Direct Bilirubin 0.1, Indirect Bilirubin 0.1, Aspartate Amino Transf (AST/SGOT) 19, Alanine Aminotransferase (ALT/SGPT) 10, Alkaline Phosphatase 83, B-Type Natriuretic Peptide 319.6, Total Protein 4.3, Albumin 2.3, Procalcitonin 0.07 01/17/20 05:05: Glucometer 85 01/17/20 11:01: Glucometer 102 01/18/20 05:10: White Blood Count 5.3, Red Blood Count 3.09, Hemoglobin 10.4, Hematocrit 33, Mean Corpuscular Volume 107, Mean Corpuscular Hemoglobin 34, Mean Corpuscular Hemoglobin Concent 32, Red Cell Distribution Width 15.8, Platelet Count 278, Mean Platelet Volume 9.3, Neutrophils (%) (Auto) 65, Lymphocytes (%) (Auto) 21, Monocytes (%) (Auto) 12, Eosinophils (%) (Auto) 2, Basophils (%) (Auto) 0, Neutrophils # (Auto) 3.5, Lymphocytes # (Auto) 1.1, Monocytes # (Auto) 0.7, Eosinophils # (Auto) 0.1, Basophils # (Auto) 0.0, Sodium Level 138, Potassium Level 4.1, Chloride Level 102, Carbon Dioxide Level 29, Anion Gap 7, Blood Urea Nitrogen 26, Creatinine 0.74, Estimat Glomerular Filtration Rate > 60, BUN/Creatinine Ratio 35, Glucose Level 101, Calcium Level 8.4, Phosphorus Level 2.3, Magnesium Level 1.8 01/19/20 05:15: White Blood Count 5.1, Red Blood Count 2.58, Hemoglobin 8.4, Hematocrit 28, Mean Corpuscular Volume 107, Mean Corpuscular Hemoglobin 33, Mean Corpuscular Hemoglobin Concent 30, Red Cell Distribution Width 16.1, Platelet Count 245, Mean Platelet Volume 9.2, Neutrophils (%) (Auto) 63, Lymphocytes (%) (Auto) 20, Monocytes (%) (Auto) 14, Eosinophils (%) (Auto) 2, Basophils (%) (Auto) 0, Neutrophils # (Auto) 3.2, Lymphocytes # (Auto) 1.0, Monocytes # (Auto) 0.7, Eosinophils # (Auto) 0.1, Basophils # (Auto) 0.0, Sodium Level 140, Potassium Level 4.0, Chloride Level 103, Carbon Dioxide Level 31, Anion Gap 6, Blood Urea Nitrogen 23, Creatinine 0.64, Estimat Glomerular Filtration Rate > 60, BUN/Creatinine Ratio 36, Glucose Level 89, Calcium Level 7.9, Corrected Calcium 9.3, Phosphorus Level 2.0, Magnesium Level 2.1, Total Bilirubin 0.3, Aspartate Amino Transf (AST/SGOT) 15, Alanine Aminotransferase (ALT/SGPT) < 6, Alkaline Phosphatase 69, Total Protein 3.9, Albumin 2.2 Discharge Home Medications: Active Scripts Active Reported Metolazone 2.5 Mg Tablet 2.5 Mg PO Q48H TAKES ALONG WITH FUROSEMIDE EVERY OTHER DAY Sumatriptan Succinate 50 Mg Tablet 100 Mg PO UD PRN TAKES 2 (50MG) TABS AT ONSET OF MIGRAINE AND MAY REPEAT IN 2 HOURS IF NEEDED. DO NOT EXCEED 2 DOSES (4 TABS) PER DAY Furosemide 20 Mg Tablet 20 Mg PO Q48H TAKES ALONG WITH METOLAZONE EVERY OTHER DAY Protonix (Pantoprazole Sodium) 40 Mg Tablet.dr 40 Mg PO DAILY Hydrocodone-Acetamin 7.5-325 (Hydrocodone/Acetaminophen) 1 Each Tablet 1 Each PO TID PRN Coreg (Carvedilol) 6.25 Mg Tablet 6.25 Mg PO BID Tramadol HCl 50 Mg Tablet 50-100 Mg PO TID PRN Levothyroxine Sodium 137 Mcg Tablet 137 Mcg PO HS Lisinopril 10 Mg Tablet 10 Mg PO DAILY Instructions to patient/family Please see electronic discharge instructions given to patient. Clinical Quality Measures DVT/VTE Risk/Contraindication: Risk Factor Score Per Nursin RFS Level Per Nursing on Admit: 4+=Very High RAQUEL OLGUIN DO Jan 19, 2020 10:05
[2020-01-19 10:44] VITALS: BP 95/59
--- NOTE | 2020-01-19 14:51 | Discharge Summary ---
Discharge Summary Hospital Course Was the Problem List Reviewed?: Yes Problems/Dx: (1) Pneumothorax Status: Acute (2) Pleural effusion Status: Acute (3) Acute kidney injury Status: Acute (4) Anemia Status: Acute (5) Low blood pressure reading Status: Acute (6) Pneumonia Status: Acute Hospital Course Date of Admission: Jan 16, 2020 at 00:00 Admission Diagnosis : Family Physician/Provider: Marlon Randall MD Date of Discharge: 01/19/20 Discharge Diagnosis: [ ] Hospital Course: Hypoxia, respiratory insufficiency, pleural affusions, Valvular heart disease, severe malnutrition, Labs and Pending Lab Test: Laboratory Tests 01/19/20 05:15: White Blood Count 5.1, Red Blood Count 2.58L, Hemoglobin 8.4L, Hematocrit 28L, Mean Corpuscular Volume 107H, Mean Corpuscular Hemoglobin 33, Mean Corpuscular Hemoglobin Concent 30L, Red Cell Distribution Width 16.1H, Platelet Count 245, Mean Platelet Volume 9.2, Neutrophils (%) (Auto) 63, Lymphocytes (%) (Auto) 20, Monocytes (%) (Auto) 14H, Eosinophils (%) (Auto) 2, Basophils (%) (Auto) 0, Neutrophils # (Auto) 3.2, Lymphocytes # (Auto) 1.0, Monocytes # (Auto) 0.7, Eosinophils # (Auto) 0.1, Basophils # (Auto) 0.0, Sodium Level 140, Potassium Level 4.0, Chloride Level 103, Carbon Dioxide Level 31, Anion Gap 6, Blood Urea Nitrogen 23H, Creatinine 0.64, Estimat Glomerular Filtration Rate > 60, BUN/Creatinine Ratio 36, Glucose Level 89, Calcium Level 7.9L, Corrected Calcium 9.3, Phosphorus Level 2.0L, Magnesium Level 2.1, Total Bilirubin 0.3, Aspartate Amino Transf (AST/SGOT) 15, Alanine Aminotransferase (ALT/SGPT) < 6, Alkaline Phosphatase 69, Total Protein 3.9L, Albumin 2.2L Home Meds Active Reported Metolazone 2.5 Mg Tablet 2.5 Mg PO Q48H TAKES ALONG WITH FUROSEMIDE EVERY OTHER DAY Sumatriptan Succinate 50 Mg Tablet 100 Mg PO UD PRN TAKES 2 (50MG) TABS AT ONSET OF MIGRAINE AND MAY REPEAT IN 2 HOURS IF NEEDED. DO NOT EXCEED 2 DOSES (4 TABS) PER DAY Furosemide 20 Mg Tablet 20 Mg PO Q48H TAKES ALONG WITH METOLAZONE EVERY OTHER DAY Protonix (Pantoprazole Sodium) 40 Mg Tablet.dr 40 Mg PO DAILY Hydrocodone-Acetamin 7.5-325 (Hydrocodone/Acetaminophen) 1 Each Tablet 1 Each PO TID PRN Coreg (Carvedilol) 6.25 Mg Tablet 6.25 Mg PO BID Tramadol HCl 50 Mg Tablet 50-100 Mg PO TID PRN Levothyroxine Sodium 137 Mcg Tablet 137 Mcg PO HS Lisinopril 10 Mg Tablet 10 Mg PO DAILY Assessment/Pt Instructions In patient rehab admission Discharge Planning: <30 minutes discharge planning Discharge Instructions Discharge Diet: Low Sodium Diet Activity as Tolerated: Yes Discharge Physical Examination Vital Signs Vital Signs Date Time Temp Pulse Resp B/P (MAP) Pulse Ox O2 Delivery O2 Flow Rate FiO2 01/19/20 10:44 36.7 103 20 95/59 98 Room Air 1.50 01/19/20 02:31 21 Respiratory: Decreased Breath Sounds Neurologic/Psychiatric: Alert, Oriented x3 Allergies: Coded Allergies: No Known Drug Allergies (Verified Allergy, Unknown, 09/18/07) Discharge Summary Date of Admission Jan 16, 2020 at 00:00 Date of Discharge Jan 19, 2020 at 10:34 Discharge Date: Jan 19, 2020 Discharge Time: 10:00 Admission Diagnosis Pneumonia Discharge Diagnosis Assessment: Respiratory distress PNA Frail status Poor reserve Poor prognosis Aortic stenosis PHTN Plan: 4th floor CT scan Palliative care consult IRF? Extremely poor reserve prognosis very guarded to poor (1) Pneumothorax Status: Acute (2) Pleural effusion Status: Acute (3) Acute kidney injury Status: Acute (4) Anemia Status: Acute (5) Low blood pressure reading Status: Acute (6) Pneumonia Status: Acute Clinical Quality Measures DVT/VTE Risk/Contraindication: Risk Factor Score Per Nursin RFS Level Per Nursing on Admit: 4+=Very High RAQUEL OLGUIN DO Jan 19, 2020 14:51
--- NOTE | 2020-01-20 12:32 | Physician Query Clarification ---
PQ-Conflicting Diagnosis Admission/Discharge Admission Date: Jan 16, 2020 at 00:00 Discharge Date: Jan 19, 2020 at 10:34 Dr. Fernandes The medical record reflects the following clinical scenario: History/Risk Factors: Pneumonia. ARF Clinical Findings: T35.4, P 101, R 19, BP 65/42, WBC 5.7, Lactic 0.56 Treatment: IV Vancomycin, IV Cefepime Question: Do you agree with the impression of the Sepsis per Dr. Cox. Please document a response in Progress Note or Discharge Summary. 1. Yes, patient had sepsis with severe sepsis(JIMMY) 2. Yes, patient had sepsis no severe sepsis 3. No, patient did not have sepsis. Pneumonia only 4. Other, with explanation of clinical findings 5. Clinically undetermined, no explanation for clinical findings. PHYSICIAN RESPONSE Do you agree w/Consulting Dx?: Yes Please remember a lack of response to the above will prompt a phone page by CDI/Coding staff. In responding to this query, please exercise your independent professional judgment. The purpose of this communication is to more accurately reflect the complexity of your patients condition. The fact that a question is asked does not imply that any particular answer is desired or expected. Thank you for your timely response to this clarification. Requestors name: Angeline [email or web address] THIS PHYSICIAN QUERY FORM IS A PERMANENT PART OF THE MEDICAL RECORD ANGELINE KELLY Jan 20, 2020 12:32 RAQUEL FERNANDES DO Jan 20, 2020 21:01
--- NOTE | 2020-01-20 12:40 | Physician Query Clarification ---
PQ-Further Specificity Admission/Discharge Admission Date: Jan 16, 2020 at 00:00 Discharge Date: Jan 19, 2020 at 10:34 Dr. Fernandes The medical record reflects the following clinical scenario: History/Risk Factors: Pneumonia, acute renal failure, protein-calorie malnutrition Clinical Findings: Albumin 2.3, BMI 18.0, 3rd spacing d/t low albumin Treatment: Ensure supplements, monitoring Question: Can you further specify the severity of the protein-calorie malnutrition per the clinical indicators above? Please document a response in the Progress Notes or Discharge Summary. 1. Severe 2. Moderate 3. Mild 4. Other, with explanation of the clinical findings. 5. Clinically undetermined, no explanation for the clinical findings. PHYSICIAN RESPONSE Can you specify per above: 2 Please remember a lack of response to the above will prompt a phone page by CDI/Coding staff. In responding to this query, please exercise your independent professional judgment. The purpose of this communication is to more accurately reflect the complexity of your patients condition. The fact that a question is asked does not imply that any particular answer is desired or expected. Thank you for your timely response to this clarification. Requestors name: Graham [email or web address] THIS PHYSICIAN QUERY FORM IS A PERMANENT PART OF THE MEDICAL RECORD GRAHAM KELLY Jan 20, 2020 12:40 RAQUEL FERNANDES DO Jan 20, 2020 21:01
[2020-01-24] MEDS ORDERED: CARV3.122 PO (10:55)
== END 2020-01-19 10:34 | DRG 871 ==
LOC: ICU 01-16 → 4TH 01-17 15:32
PROVIDERS: ADMIT Internal Medicine; ATTEND Internal Medicine
PROC: 02HV33Z Insertion of Infusion Device into Superior Vena Cava, Percutaneous Approach (ICD-10-PCS; principal; 2020-01-16)
DX: A41.9 Sepsis, unspecified organism (principal); J18.9 Pneumonia, unspecified organism; J93.83 Other pneumothorax; J90 Pleural effusion, not elsewhere classified; N17.9 Acute kidney failure, unspecified; Z68.1 Body mass index [BMI] 19.9 or less, adult; I50.30 Unspecified diastolic (congestive) heart failure; E44.0 Moderate protein-calorie malnutrition; I95.9 Hypotension, unspecified; I08.0 Rheumatic disorders of both mitral and aortic valves; I27.20 Pulmonary hypertension, unspecified; D53.9 Nutritional anemia, unspecified; K21.9 Gastro-esophageal reflux disease without esophagitis; K46.9 Unspecified abdominal hernia without obstruction or gangrene; M79.7 Fibromyalgia; M19.91 Primary osteoarthritis, unspecified site; M81.0 Age-related osteoporosis without current pathological fracture; M41.9 Scoliosis, unspecified; R13.10 Dysphagia, unspecified; E89.0 Postprocedural hypothyroidism; E88.09 Other disorders of plasma-protein metabolism, not elsewhere classified; R53.81 Other malaise; Z87.11 Personal history of peptic ulcer disease; Z86.79 Personal history of other diseases of the circulatory system
CPT/HCPCS: 36415; 71045; 71260; 80048; 80053; 80076; 82607; 82728; 82746; 82805; 82962; 83540; 83605; 83735; 83880; 84100; 84145; 84439; 84443; 84484; 85025; 93306; 94640; 94760

== ENCOUNTER 2020-01-18 10:53 | Inpatient (IN) | payer MEDICARE, OTHER ==
[~2020-01-18] VITALS: Ht 162.5 cm; Wt 47.4 kg
[~2020-01-18 10:53] MED LIST changes: +CARV6.25 PO; -CATHETER FLUSH 10 ML SYR IV PRN; +FURO20TA4 PO; -HOLD METFORMIN - RECEIVED CONTRAST 20 ML VIAL IV SCH; +HYDR-4342 PO; -IOHEXOL 350 MG/ML 100 ML (OMNIPAQUE 350) VIAL IV ONE; +LEVO137T2 PO; +LISI10TA2 PO; +METO2.5T PO; -NS 100 ML (IVPB) BAG IV ONE; +PANT40TA2 PO; +SUMA50TA2 PO; +TRAM50TA3 PO
[2020-01-18] MEDS ORDERED: LOPERAMIDE 2 MG (IMODIUM) TABLET PO PRN (11:30)
[2020-01-18] MEDS ORDERED: CALCIUM CARBONATE 500 MG (TUMS) TAB.CHEW PO PRN (11:30)
[2020-01-18] MEDS ORDERED: MELATONIN 3 MG TABLET PO PRN (11:30)
[2020-01-18] MEDS ORDERED: LACTULOSE SYRUP 10GM/15ML (ENULOSE) 30ML UDC PO PRN (11:30)
[2020-01-18] MEDS ORDERED: ONDANSETRON 4 MG (ZOFRAN) ORAL DISSOLVE TAB PO PRN (11:30)
[2020-01-18] MEDS ORDERED: DOCUSATE SODIUM 100 MG (COLACE) CAP PO PRN (11:30)
[2020-01-18] MEDS ORDERED: guaiFENesin/CODEINE (ROBITUSSIN AC) 10ML UDC PO PRN (11:30)
[2020-01-18] MEDS ORDERED: ALPRAZolam 0.25 MG (XANAX) TAB PO PRN (11:30)
[2020-01-18] MEDS ORDERED: diphenhydrAMINE 25 MG TAB (BENADRYL) PO PRN (11:30)
[2020-01-18] MEDS ORDERED: FLEET ENEMA ADULT 1 EA BTL PR PRN (11:30)
[2020-01-18] MEDS ORDERED: BISACODYL 10 MG SUPP (DULCOLAX) PR PRN (11:30)
[2020-01-19 10:15] VITALS: BP 94/61
[2020-01-19] MEDS: DOCUSATE SODIUM 100 MG (COLACE) CAP PO SCH ×3 (11:17→21:02)
[2020-01-19] MEDS: polyethylene glycoL POWDER 17 GM (MIRALAX) PACK PO SCH ×3 (11:17→21:02)
[2020-01-19] MEDS: SENNA W/DOCUSATE (SENOKOT S) TABLET PO SCH ×2 (11:17→11:18)
--- NOTE | 2020-01-19 11:37 | Physical Therapy Evaluation ---
PT Evaluation-General Medical Diagnosis Admission Date Jan 19, 2020 at 10:15 Medical Diagnosis: pneumonia Onset Date: Jan 17, 2020 Therapy Diagnosis Therapy Diagnosis: weakness, decreased activity tolerance Precautions Precautions/Isolations: Standard Precautions Weight Bear Status Right Lower Extremity: Right Weight Bearing/Tolerated Left Lower Extremity: Left Weight Bearing/Tolerated Referral Physician: Dr. Fernandes Reason for Referral: Evaluation/Treatment Medical History Current History Pt transferred from 4th floor to [facility]. Pt initially transferred from [place] to ED secondary to pneumonia/hypotension Reviewed History: Yes Social History Home: Single Level Current Living Status: Spouse Entry Into Home: Stairs With Railing PT Steps Into Home: 4 Prior Prior Level of Function SCALE: Activities may be completed with or without assistive devices. 4-Lxurtpotsn-sfwbczw completes the activity by him/herself with no assistance from a helper. 5-Set-up or Clean-up Assistance-helper sets up or cleans up; patient completes activity. [place] assists only prior to or following the activity. 4-Supervision or Touching Assistance-helper provides verbal cues and/or touching/steadying and/or contact guard assistance as patient completes activity. Assistance may be provided throughout the activity or intermittently. 3-Partial/Moderate Assistance-helper does LESS THAN HALF the effort. [place] lifts, holds or supports trunk or limbs, but provides less than half the effort. 2-Substantial/Maximal Assistance-helper does MORE THAN HALF the effort. [place] lifts or holds trunk or limbs and provides more than half the effort. 8-Fzlmftqbg-jfdwzx does ALL the effort. Patient does none of the effort to complete the activity. Or, the assistance of 2 or more helpers is required for the patient to complete the activity. If activity was not attempted, code reason: 7-Patient Refused. 9-Not Applicable-not attempted and the patient did not perform the activity before the current illness, exacerbation or injury. 10-Not Attempted due to Environmental Limitations-(lack of equipment, weather restraints, etc.). 88-Not Attempted due to Medical Conditions or Safety Concerns. Bed Mobility: 6 Transfers (B,C,W/C): 6 Gait: 6 Stairs: 6 Indoor Mobility (Ambulation): Needed Some Help Stairs: Needed Some Help Prior Devices Use: Walker PT Evaluation-Current Subjective Pt agreeable to therapy at this time, daughter present at bedside. Pt has frequent complaints of shortness of breath during session. Pt/Family Goals Following session, pt supine in bed with call light and tray within reach, no further needs at this time. Daughter present at bedside Objective Patient Orientation: Person, Place, Time, Situation ROM/Strength ROM Lower Extremities WFL Strength Lower Extremities grossly 3/5 with functional mobility. Integumentary/Posture Integumentary refer to nursing notes Posture Pt with kyphotic thoracic spine, forward head and rounded shoulders. Noted scoliosis throughout spine. Sensory Vision: Wears Glasses Hearing: Functional Hand Dominance: Right Sensation Right Lower Extremit: Intact Sensation Left Lower Extremity: Intact Transfers Roll Left to Right (QC): 3 Sit to Lying (QC): 2 Lying to Sitting/Side of Bed(Q: 3 Sit to Stand (QC): 3 Chair/Ats-al-Ygrbn Xfer(QC): 3 Toilet Transfer (QC): 3 Car Transfer (QC): 2 Pt requires assistance to elevate BLEs into bed and into car during car transfer. Once in bed pt able to reposition herself. Sit to stand with Mod A to achieve upright position, requiring occasional cueing for hand placement and to reach for walker once in upright position. Assistance on sit-stand during initial elevation, requires assistance to achieve terminal stance position. Gait Does the Patient Walk?: Yes Mode of Locomotion: Walk Anticipated Mode of Locomotion: Walk Walk 10 feet (QC): 4 Walk 50 ft with 2 Turns(QC): 4 Walk 150 ft (QC): 88 Walking 10ft/uneven surface-QC: 88 Distance: 30', 50' Gait Assistive Device: FWW Comments/Gait Description Pt with slow gait sequence. Pt takes shuffling steps requiring cueing for bigger steps and for walker mgmt as she occasionally pushes it into chairs. When turning to sit, pt requires cueing to bring walker with her all the way as she tends to push it to the side. No LOB noted during ambulation, SBA for safety. Wheelchair Training Wheel 50 ft with 2 turns (QC): 9 Wheel 150 ft (QC): 9 Stairs 1 Step (curb) (QC): 4 4 Steps (QC): 88 12 Steps (QC): 88 Walking Assistive Device: Walker SBA for safety, pt able to safely utilize walker and ascend/descend curb step without LOB. Balance Sitting Static: Good Sitting Dynamic: Good Standing Static: Good Standing Dynamic: Fair Picking up an Object (QC): 88 Treatment [place] with OT this visit. OT working on ADLs and UE strength while PT working on functional mobility, balance and LE strength. Need of 2 skilled clinicians to ensure pt safety with transfers and gait. Pt able to complete gait and step training with PT prior to transfer to chair. Then pt completed bed bath with OT assistance prior to gait training and car transfer. Following car transfer pt vocalized that she was too fatigued to ambulate to return to her room, so pt placed in wheelchair and pushed to room. Pt then completed transfer to bed with min A for safety, and then was positioned in bed with call light and tray within reach, daughter present at bedside. No further needs at this time. Assessment/Needs Pt is a 79 year old female with limitations in LE strength, balance, and decreased activity tolerance which impact pts overall functional mobility Pt would benefit from skilled PT to address above mentioned limitations and ensure safety upon return home to reside with her . Rehab Potential: Good PT Short Term Goals Short Term Goals Time Frame: Feb 02, 2020 Roll Left & Right: 5 Sit to lyin Sit to stand: 5 Chair/cez-em-vpdio transfer: 5 Toilet transfer: 5 Car transfer: 5 Walk 50 feet with two turns: 5 Walk 150 feet: 5 4 steps: 5 PT Penitentiary Goals Penitentiary Goals PT Penitentiary Goals Time Frame: Feb 16, 2020 Roll Left & Right (QC): 6 Sit to Lying (QC): 6 Lying-Sitting on Side/Bed(QC): 6 Sit to Stand (QC): 6 Chair/Vlg-ad-Wkcit Xfer(QC): 6 Toilet Transfer (QC): 6 Car Transfer (QC): 6 Does the Patient Walk: Yes Walk 10 feet (QC): 6 Walk 50ft with 2 Turns (QC): 6 Walk 150 ft (QC): 6 Walking 10ft on Uneven Surface: 6 1 Step (curb) (QC): 6 4 Steps (QC): 6 12 Steps (QC): 6 Picking up an Object (QC): 6 Wheel 50 feet with 2 turns (QC: 9 Wheel 150 feet: 9 PT Plan Problem List Problem List: Activity Tolerance, Functional Strength, Safety, Balance, Gait, Transfer, Bed Mobility Treatment/Plan Treatment Plan: Continue Plan of Care Treatment Plan: Bed Mobility, Education, Functional Activity Amee, Functional Strength, Group Therapy, Gait, Safety, Therapeutic Exercise, Transfers Treatment Duration: Feb 16, 2020 Frequency: Modified Program (IRF) Estimated Hrs Per Day: 1 hour per day Patient and/or Family Agrees t: Yes Intensity waiver - pt will receive at least 60 min of physical therapy a day Safety Risks/Education Patient Education: Gait Training, Transfer Techniques Teaching Recipient: Patient Teaching Methods: Discussion Response to Teaching: Reinforcement Needed Time/GCodes Time In: 1015 Time Out: 1125 Total Billed Treatment Time: 60 Total Billed Treatment 7175-1029 PT eval (10 min) 2459-2073 OT eval (10 min) 7521-9609 PT/OT cotreat (50 min) 1 visit 1 EVModC (10 min) FA x 3 (50 min) SKY PORTER PT Jan 19, 2020 11:37
--- NOTE | 2020-01-19 11:49 | PM&R Post Admission Assessment ---
PM&R HP Date of Visit: Jan 19, 2020 Time of Visit: 10:30 History of Present Illness CC: Severe debility with pleural effusions HPI: This is a [address] Randall known to me from [facility] admissions for recurrent pneumonia and pleural effusions in addition to poor reserve residual from 30 years ago when she was admitted for gastric ulcer bleed and required resection and has remained very debilitated nutrition gutierrez and malnourished c ausing a poor reserve so she required inpatient rehab for structured PT to continue cardiology and pulmonology care, maintained on O2 as needed and slowly regain her function of ADLs, stamina, and ambulation. Patient meets IRF criteria and does not have a qualifying 60% diagnosis. Patient will be admitted to IRF due to the current COVID-19 crisis. This patient is an appropriate ARU 40% patient, who during this COVID emergency, requires the admission to acute rehab. Patient was admitted to the ARU during this COVID-19 emergency. The ARU is the best and most appropriate post-acute care setting for this patient at this current time. Patient meets IRF admission criteria, however, will be unable to tolerate 3 hours of therapy/5 days per week. This patient's individualized intensive rehabilitation plan is to receive 2 hours of therapy per day, by receiving 1 hour of PT and 1 hour of OT 5 out of 7 days per the patient's week. As an interdisciplinary team, we will discuss this patient's ability to tolerate an increase in the intensity of therapy to be provided throughout the patient's stay. Past Cujyinh-Lclkyz-Escspa Hx Past Med/Social Hx: Reviewed Nursing Past Med/Soc Hx, Reviewed and Corrections made Patient Social History Marrital Status: Employed/Student: retired Alcohol Use: Denies Use Smoking Status: Never a Smoker Recent Hopitalizations: Yes (PNEUMONIA) Immunizations Up To Date Pediatric: No Date of Pneumonia Vaccine: Aug 17, 2009 Seasonal Allergies Seasonal Allergies: No Past Medical History stomach ulcer resection at 49yo Respiratory: Pneumonia Currently Using CPAP: No Currently Using BIPAP: No Cardiac: Hypertension, Valvular Heart Disease Genitourinary: Kidney Stones Gastrointestinal: Gastroesophageal Reflux, Hiatal Hernia, Ulcer Musculoskeletal: Osteoporosis, Arthritis, Fibromyalgia, Scoliosis, Chronic Back Pain HEENT: Cataract, Dysphagia, Tonsilitis Loss of Vision: Denies Hearing Impairment: Denies Cancer: Thyroid Did You Recieve Any Treatments: No What Type of Treatment Did You: Surgical Intervention History of Blood Disorders: Yes (IRON DEF. ANEMIA) Adverse Reaction to Blood Renee: No Prior Level of Function Bed Mobility: 6 Transfers: 6 Gait: 6 Stairs: 6 Indoor Mobility (Ambulation): Needed Some Help Stairs: Needed Some Help Prior Devices Use: Walker Current Level of Fuctioning Roll Left to Right: 3 Sit to Lyin Lying to Sitting/Side of Bed: 3 Sit to Stand: 3 Chair/Iik-ob-Yviwn Xfer: 3 Car Transfer: 2 Does the Patient Walk: Yes Mode of Locomotion: Walk Anticipated Mode of Locomotion: Walk Walk 10 feet: 4 Walk 50 ft with 2 Turns: 4 Walk 150 ft: 88 Walking 10ft on uneven surface: 88 Gait Assistive Device: FWW Wheel 50 ft with 2 turns: 9 Wheel 150 ft: 9 1 Step (curb): 4 4 Steps: 88 Walking Assistive Device: Walker 12 Steps: 88 Picking up an Object: 88 PM&R Allergy/Meds/Data Review Allergies Coded Allergies: No Known Drug Allergies (Verified Allergy, Unknown, 09/18/07) Home Medications Scheduled Carvedilol (Coreg), 6.25 MG PO BID, (Reported) Furosemide (Furosemide), 20 MG PO Q48H, (Reported) Levothyroxine Sodium (Levothyroxine Sodium), 137 MCG PO HS, (Reported) Lisinopril (Lisinopril), 10 MG PO DAILY, (Reported) Metolazone (Metolazone), 2.5 MG PO Q48H, (Reported) Pantoprazole Sodium (Protonix), 40 MG PO DAILY, (Reported) Scheduled PRN Hydrocodone/Acetaminophen (Hydrocodone-Acetamin 7.5-325), 1 EACH PO TID PRN for PAIN-MODERATE (5-7), (Reported) Sumatriptan Succinate (Sumatriptan Succinate), 100 MG PO UD PRN for MIGRAINE, (Reported) Tramadol HCl (Tramadol HCl), 50-100 MG PO TID PRN for PAIN-MODERATE (5-7), (Reported) Current Medications Current Medications Reviewed Review of Systems Constitutional: see HPI, dizziness, malaise, weakness EENTM: no symptoms reported Respiratory: dyspnea on exertion, short of breath, wheezing Cardiovascular: palpitations Gastrointestinal: constipation Genitourinary: no symptoms reported Musculoskeletal: no symptoms reported Skin: no symptoms reported Psychiatric/Neurological: No Symptoms Reported All Other Systems Reviewed Negative Unless Noted: Yes Physical Exam Physical Exam Vital Signs Capillary Refill : Height, Weight, BMI Height: '" Weight: lbs. oz. kg; 17.91 BMI Method: General Appearance: No Apparent Distress, WD/WN, Chronically ill, Cachetic, Thin Eyes: Bilateral Eye Normal Inspection, Bilateral Eye PERRL HEENT: PERRL/EOMI, Normal ENT Inspection, Pharynx Normal Neck: Full Range of Motion, Normal Inspection, Non Tender, Supple, Carotid Bruit Respiratory: Chest Non Tender, Lungs Clear, No Accessory Muscle Use, No Respiratory Distress, Decreased Breath Sounds Cardiovascular: Regular Rate, Rhythm, No Edema, No Gallop, No JVD, No Murmur, Normal Peripheral Pulses Gastrointestinal: Normal Bowel Sounds, No Organomegaly, No Pulsatile Mass, Non Tender, Soft Back: Normal Inspection, No CVA Tenderness, No Vertebral Tenderness Extremity: Normal Capillary Refill, Normal Inspection, Normal Range of Motion, Non Tender, No Calf Tenderness, No Pedal Edema Neurologic/Psychiatric: Alert, Oriented x3, No Motor/Sensory Deficits, Normal Mood/Affect, mortgage banker II-XII Norm as Tested, Abnormal Gait, Motor Weakness (generalized) Skin: Normal Color, Warm/Dry Lymphatic: No Adenopathy PM&R Medical Assessment & Plan REHAB/MEDICAL ASSESSMENT AND PLAN: REHAB IMPAIRMENT GROUP: Debility ETIOLOGIC DIAGNOSIS: Debility The comorbidities that impact the patients function and/or functional outcome by: severe chronic cachexia, severe and recurrent pleural effusion, hypoxia, severe deconditioning, poor reserve REHAB PLAN: The patient is being admitted to our comprehensive inpatient rehabilitation facility and can tolerate the intensity of service consisting of at least: 180 minutes of therapy a day, 5 out of 7 days a week Rehab treatment will consist of: PT OT will focus on regaining independence of ADL's and increase stamina with the use of O2 and improve enough to DC home The patient/family has a good understanding of our discharge process and will benefit from an interdisciplinary inpatient rehabilitation program. The patient has potential to make improvement and is in need of at least two of the following multidisciplinary therapies including but not limited to physical, occupational, speech, and prosthetics and orthotics. Additionally the patient will need services from respiratory, nutritional services, wound care, psychology, etc. (Customize this to each patient). Given the patients complex condition and risk of further medical complications, rehabilitation services cannot be safely or effectively provided at a lower level of care such as a senior living facility. BARRIERS TO DISCHARGE: Severe poor reserve ESTIMATED LOS: 7 days DISPOSITION: Home RELEVANT CHANGES SINCE PREADMISSION SCREENING: I have compared the patients medical and functional status at the time of the preadmission screening and there are: no changes PROGNOSIS: Guarded REHABILITATION GOALS: 1. PT OT will focus on regaining independence of ADL's and increase stamina with the use of O2 and improve enough to DC home All the above goals were reviewed with the patient and he/she is in agreement. By signing this document, I acknowledge that I have personally performed a full physical examination on this patient within 24 hours of admission to this inpatient rehabilitation facility and have determined the patient to be able to tolerate the above course of treatment at an intensive level for a reasonable period of time. I will be completing a detailed individualized Plan of Care for this patient by day #4 of the patients stay based upon the Preadmission Screen, the Post-Admission Evaluation, and the therapy evaluations. Admission Dx/Comorbidities: (1) Debility ICD Codes: R53.81 - Other malaise (2) Aortic stenosis ICD Codes: I35.0 - Nonrheumatic aortic (valve) stenosis (3) Acute kidney injury Status: Acute ICD Codes: N17.9 - Acute kidney failure, unspecified (4) Low blood pressure reading Status: Acute ICD Codes: R03.1 - Nonspecific low blood-pressure reading (5) Pneumonia Status: Acute ICD Codes: J18.9 - Pneumonia, unspecified organism (6) Pleural effusion Status: Acute ICD Codes: J90 - Pleural effusion, not elsewhere classified (7) Anemia Status: Acute ICD Codes: D64.9 - Anemia, unspecified (8) Pneumothorax Status: Acute ICD Codes: J93.9 - Pneumothorax, unspecified Assessment/Plan Assessment and Plan Assess & Plan/Chief Complaint Assessment: Debility Chronic cachexia Aortic stenosis Bilateral pleural effusions Hypothyroidism Malnutrition Migraines Fibromyalgia Edema Hypoxia O2 dependence new Plan: IRF protocol Diuresis Home meds O2 Monitor pleural effusions RAQUEL OLGUIN DO Jan 19, 2020 11:49
--- NOTE | 2020-01-19 11:50 | Occupational Therapy Eval ---
OT Evaluation-General/PLF Medical Diagnosis Admission Date Jan 19, 2020 at 10:15 Medical Diagnosis: pneumonia Onset Date: Jan 16, 2020 Therapy Diagnosis Therapy Diagnosis: Weakness, Decreased ADL skills Weight Bear Status Weight Bearing Restriction: Full Weight Bearing Referral Physician: Dr. Fernandes Referral Reason: Activity Tolerance, Self Care, Evaluation/Treatment, Strengthening/ROM Medical History Pertinent Medical History: Arthritis, GERD Additional Medical History kidney stones, hiatal hernia, ulcer, osteoporosis, scoliosis, chronic back pain, cataract, thyroid cancer Current History Pt. has been hospitalized multiple times for pneumonia in the last three months. Reviewed History: Yes Social History Home: Single Level Current Living Status: Spouse ADL-Prior Level of Function SCALE: Activities may be completed with or without assistive devices. 6-Gwyljautta-dqpkipt completes the activity by him/herself with no assistance from a helper. 5-Set-up or Clean-up Assistance-helper sets up or cleans up; patient completes activity. [place] assists only prior to or following the activity. 4-Supervision or Touching Assistance-helper provides verbal cues and/or touching/steadying and/or contact guard assistance as patient completes activity. Assistance may be provided throughout the activity or intermittently. 3-Partial/Moderate Assistance-helper does LESS THAN HALF the effort. [place] lifts, holds or supports trunk or limbs, but provides less than half the effort. 2-Substantial/Maximal Assistance-helper does MORE THAN HALF the effort. [place] lifts or holds trunk or limbs and provides more than half the effort. 9-Wueofhybb-hncwzj does ALL the effort. Patient does none of the effort to complete the activity. Or, the assistance of 2 or more helpers is required for the patient to complete the activity. If activity was not attempted, code reason: 7-Patient Refused. 9-Not Applicable-not attempted and the patient did not perform the activity before the current illness, exacerbation or injury. 10-Not Attempted due to Environmental Limitations-(lack of equipment, weather restraints, etc.). 88-Not Attempted due to Medical Conditions or Safety Concerns. ADL PLOF Comments Pt. reports that she was independent with daily skills prior to illness. Pt. used a walker at home. Self Care: Independent Functional Cognition: Independent DME/Equipment: Bath Chair, Shower DME/Equipment Comments Walker OT Current Status Subjective Pt. does not report pain, but reports that she feels SOA. Appearance Pt. is alert but reports feeling SOA throughout treatment. Sats monitored and are 94% on room air. BP at 94/61. Mental Status/Objective Patient Orientation: Person, Place, Time, Situation Attachments: IV Current Glasses/Contacts: Yes Dentures/Partials: Yes Upper Extremity ROM Limited at shoulder level. Pt. has scoliosis and kyphotic posture. WFL all o ther planes. ADL-Treatment Eating (QC): 88 (Food not present. Pt. reports that she is unable to eat very much due to having had stomach surgery previously.) Oral Hygiene (QC): 10 (Pt. fatigued and time did not allow.) Shower/Bathe Self (QC): 3 (Min assist overall up in chair for sponge bath. Pt. declines showering. Pt. requires steadying assist in stance to wash mesha area. Pt. able to lean over to bathe bilateral feet.) Upper Body Dressing (QC): 2 (Max assist overal to doff/don house robe adequately.) Lower Body Dressing (QC): 3 (Pt. requires mod assist overall to thread bilateral feet through brief. Pt. puts both legs into same hole, and OT assisted.) On/Off Footwear (QC): 2 (Pt. unable to doff/don slipper socks.) Toileting Hygiene (QC): 3 (Min assist in stance to doff/don brief over hips.) Other Treatments Pt. participates in co-treatment from OT/PT due to fatigue and level of skilled needs. OT focused on ADL skills and training while PT focused on mobility and transfers. Pt. fatigues easily and requires frequent rest breaks. Pt. agrees to sponge bathe up in chair, but street clothing not here yet. Ambulated with walker with min assist. However, pt. fatigues and requires transfer to [facility] to get back to room. Mod assist for sit-supine and all needs met. Education OT Patient Education: Correct positioning, Energy conservation, Modified ADL techniques, Progress toward Goal/Update tx plan, Purpose of tx/functional activities, Rehab process, Transfer techniques Teaching Recipient: Patient, Family Teaching Methods: Demonstration, Discussion Response to Teaching: Verbalize Understanding, Return Demonstration, Reinforcement Needed OT Short Term Goals Short Term Goals Time Frame: Jan 26, 2020 Eatin Oral hygiene: 3 Toileting hygiene: 3 Shower/bathe self: 3 Upper body dressin Lower body dressin Putting on/taking off footwear: 3 OT Mortgage Closing Clerk Goals Mortgage Closing Clerk Goals Time Frame: Feb 09, 2020 Eating (QC): 6 Oral Hygiene (QC): 6 Toileting Hygiene (QC): 6 Shower/Bathe Self (QC): 4 Upper Body Dressing (QC): 5 Lower Body Dressing (QC): 4 On/Off Footwear (QC): 4 Additional Goals: 1-Demonstrate ADL Tasks, 2-Verbalize Understanding, 3- ImproveStrength/Amee 1=Demonstrate adherence to instructed precautions during ADL tasks. 2=Patient will verbalize/demonstrate understanding of assistive devices/modifications for ADL. 3=Patient will improve strength/tolerance for activity to enable patient to perform ADL's. OT Education/Plan Problem List/Assessment Assessment: Decreased Activ Tolerance, Decreased UE Strength, Dependent Tra nsfers, Edema, Impaired Coordination, Impaired Funct Balance, Impaired I ADL's, Impaired Self-Care Skills Discharge Recommendations Plan/Recommendations: Continue POC Therapy Discharge Recommendati: Post Acute OT Treatment Plan/Plan of Care Treatment,Training & Education: Yes Patient would benefit from OT for education, treatment and training to promote independence in ADL's, mobility, safety and/or upper extremity function for ADL's. Plan of Care: ADL Retraining, Functional Mobility, UE Funct Exercise/Act Treatment Duration: Feb 09, 2020 Frequency: Modified Program (IRF) Estimated Hrs Per Day: Other (Intensity Waiver- 60minutes per day for OT) Agreement: Yes Rehab Potential: Fair Time/GCodes Start Time: 10:25 Stop Time: 11:35 Total Time Billed (hr/min): 60 Billed Treatment Time 3542-8419 1, [facility] 10 minutes OT eval only [id number]- ADL x 30minutes, FA x 20minutes- Co-treatment with PT. Please see above note for designated roles. BENEDICT DEUTSCH OT Jan 19, 2020 11:50
[2020-01-19] MEDS ORDERED: polyethylene glycoL POWDER 17 GM (MIRALAX) PACK PO PRN (12:00)
[2020-01-19] MEDS ORDERED: ONDANSETRON 4 MG (ZOFRAN) ORAL DISSOLVE TAB PO PRN (12:00)
[2020-01-19] MEDS ORDERED: RT-ALBUTEROL SULF 2.5 MG/3 ML PRE-MIX VIAL INH PRN (12:00)
[2020-01-19] MEDS ORDERED: BISACODYL 10 MG SUPP (DULCOLAX) PR PRN (12:00)
[2020-01-19] MEDS ORDERED: ACETAMINOPHEN 325 MG TABLET PO PRN (12:00)
[2020-01-19] MEDS ORDERED: HYDROcodone/APAP 7.5 MG/325 MG (LORTAB, LORCET PLUS) TABLET PO PRN (12:00)
[2020-01-19] MEDS ORDERED: CATHETER FLUSH 10 ML SYR IV PRN (12:00)
[2020-01-19] MEDS ORDERED: ONDANSETRON 4 MG/2 ML (SDV) Z0FRAN IV PRN (12:00)
[2020-01-19] MEDS ORDERED: ANTACID SUSP 30 ML UDC (MYLANTA) PO PRN (12:00)
[2020-01-19] MEDS ORDERED: MELATONIN 3 MG TABLET PO PRN (12:00)
[2020-01-19] MEDS ORDERED: SUMAtriptan 50 MG (IMITREX) TAB PO PRN (12:00)
--- NOTE | 2020-01-19 12:15 | NUR ---
THE MED REC WAS COMPLETED ON 01-17-2020 ON 4TH FLOOR AND NO CHANGED WERE MADE WHILE ON 4TH
--- NOTE | 2020-01-19 12:18 | NUR ---
PALLIATIVE CARE RN visited with patient and daughter regarding Durable Power of Spice Grinder. She has named 3 people do be surrogate decision makers if she is unable to do so for herself. Primary responsibility will go to Jose Shah, daughter. Copy of Durable Power of Spice Grinder placed on chart with original and 2 copies given to Jose. They are waiting to complete the Living Will until all family can sit together to discuss. PC RN will continue to follow and offer support as needed.
--- OUTSIDE RECORDS SUMMARY | 2020-01-19 12:23 | XMS REPORT | Continuity of Care Document ---
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 02/22/2019 SIM WYATT [...] VENOUS INSUFFICIENCY (CHRONIC) (PERIPHER 03/01/2019 SIM WYATT BANQUET ATTENDANT Ot I 96 GANGRENE, NOT ELSEWHERE CLASSIFIED 03/01/2019 SIM WYATT BANQUET ATTENDANT Ot L97.212 NON-PRESSURE CHRONIC ULCER OF RIGHT CALF 03/04/2019 SIM WYATT BANQUET ATTENDANT Ot I 10 ESSENTIAL (PRIMARY) HYPERTENSION 03/04/2019 SIM WYATT APRN Ot I25.10 ATHSCL HEART DISEASE OF [place] CORONARY 03/04/2019 SIM WYATT BANQUET ATTENDANT Ot L97.212 NON-PRESSURE CHRONIC ULCER OF RIGHT CALF 03/04/2019 SIM WYATT APRN Ot M19.90 UNSPECIFIED OSTEOARTHRITIS, UNSPECIFIED 03/08/2019 SIM WYATT BANQUET ATTENDANT Ot I 10 ESSENTIAL (PRIMARY) HYPERTENSION 03/08/2019 SIM WYATT APRN Ot I25.10 ATHSCL HEART DISEASE OF [place] CORONARY 03/08/2019 SIM WYATT BANQUET ATTENDANT Ot L97.212 NON-PRESSURE CHRONIC ULCER OF RIGHT CALF 03/08/2019 SIM WYATT BANQUET ATTENDANT Ot M19.90 UNSPECIFIED OSTEOARTHRITIS, UNSPECIFIED 03/11/2019 SIM WYATT APRN Ot D64.9 ANEMIA, UNSPECIFIED 03/11/2019 EDMUNDO, SIM R BANQUET ATTENDANT Ot G62.9 POLYNEUROPATHY, UNSPECIFIED 03/11/2019 EDMUNDO SIM R BANQUET ATTENDANT Ot H26.9 UNSPECIFIED CATARACT 03/11/2019 MOJGAN WYATTN R BANQUET ATTENDANT Ot I 10 ESSENTIAL (PRIMARY) HYPERTENSION 03/11/2019 SIM WYATT R BANQUET ATTENDANT Ot I25.10 ATHSCL HEART DISEASE OF [place] CORONARY 03/11/2019 SIM WYATT R BANQUET ATTENDANT Ot I49.9 CARDIAC ARRHYTHMIA, UNSPECIFIED 03/11/2019 MOJGAN WYATTN R BANQUET ATTENDANT Ot K52.9 NONINFECTIVE GASTROENTERITIS AND COLITIS 03/11/2019 EDMUNDO SIM R BANQUET ATTENDANT Ot L97.212 NON-PRESSURE CHRONIC ULCER OF RIGHT CALF 03/11/2019 SIM WYATT R BANQUET ATTENDANT Ot M19.90 UNSPECIFIED OSTEOARTHRITIS, UNSPECIFIED 03/11/2019 SIM WYATT R BANQUET ATTENDANT Ot 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 03/11/2019 EDMUNDO SIM R BANQUET ATTENDANT Ot I87.2 VENOUS INSUFFICIENCY (CHRONIC) (PERIPHER 03/11/2019 SIM WYATT R BANQUET ATTENDANT Ot L97.212 NON-PRESSURE CHRONIC ULCER OF RIGHT CALF 03/15/2019 SIM WYATT R BANQUET ATTENDANT Ot D64.9 ANEMIA, UNSPECIFIED 03/15/2019 SIM WYATT R BANQUET ATTENDANT Ot G62.9 POLYNEUROPATHY, UNSPECIFIED 03/15/2019 SIM WYATT R BANQUET ATTENDANT Ot H26.9 UNSPECIFIED CATARACT 03/15/2019 SIM WYATT R BANQUET ATTENDANT Ot I 10 ESSENTIAL (PRIMARY) HYPERTENSION 03/15/2019 SIM WYATT BANQUET ATTENDANT Ot I25.10 ATHSCL HEART DISEASE OF [place] CORONARY 03/15/2019 SIM WYATT R BANQUET ATTENDANT Ot I49.9 CARDIAC ARRHYTHMIA, UNSPECIFIED 03/15/2019 EDMUNDO SIM R BANQUET ATTENDANT Ot K52.9 NONINFECTIVE GASTROENTERITIS AND COLITIS 03/15/2019 EDMUNDO SIM R BANQUET ATTENDANT Ot L97.212 NON-PRESSURE CHRONIC ULCER OF RIGHT CALF 03/15/2019 SIM WYATT R BANQUET ATTENDANT Ot M19.90 UNSPECIFIED OSTEOARTHRITIS, UNSPECIFIED 03/15/2019 EDMUNDO SIM R BANQUET ATTENDANT Ot 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 03/15/2019 SIM WYATT R BANQUET ATTENDANT Ot I87.2 VENOUS INSUFFICIENCY (CHRONIC) (PERIPHER 03/15/2019 EDMUNDO SIM R BANQUET ATTENDANT Ot L97.212 NON-PRESSURE CHRONIC ULCER OF RIGHT CALF 03/22/2019 SIM WYATT R BANQUET ATTENDANT Ot I87.2 VENOUS INSUFFICIENCY (CHRONIC) (PERIPHER 03/22/2019 EDMUNDO SIM R BANQUET ATTENDANT Ot I 96 GANGRENE, NOT ELSEWHERE CLASSIFIED 03/22/2019 SIM WYATT R BANQUET ATTENDANT Ot L97.212 NON-PRESSURE CHRONIC ULCER OF RIGHT CALF 03/22/2019 EDMUNDO SIM R BANQUET ATTENDANT Ot I87.2 VENOUS INSUFFICIENCY (CHRONIC) (PERIPHER 03/22/2019 EDMUNDO, SIM R BANQUET ATTENDANT Ot I 96 GANGRENE, NOT ELSEWHERE CLASSIFIED 03/22/2019 EDMUNDO SIM R BANQUET ATTENDANT Ot L97.212 NON-PRESSURE CHRONIC ULCER OF RIGHT CALF 03/25/2019 EDMUNDO SIM R BANQUET ATTENDANT Ot I 10 ESSENTIAL (PRIMARY) HYPERTENSION 03/25/2019 EDMUNDO SIM R BANQUET ATTENDANT Ot I25.10 ATHSCL HEART DISEASE OF [place] CORONARY 03/25/2019 EDMUNDO SIM R BANQUET ATTENDANT Ot L97.212 NON-PRESSURE CHRONIC ULCER OF RIGHT CALF 03/25/2019 EDMUNDO SIM R BANQUET ATTENDANT Ot M19.90 UNSPECIFIED OSTEOARTHRITIS, UNSPECIFIED 03/29/2019 EDMUNDO SIM R BANQUET ATTENDANT Ot I 10 ESSENTIAL (PRIMARY) HYPERTENSION 03/29/2019 EDMUNDO SIM R BANQUET ATTENDANT Ot I25.10 ATHSCL HEART DISEASE OF [place] CORONARY 03/29/2019 EDMUNDO SIM R BANQUET ATTENDANT Ot L97.212 NON-PRESSURE CHRONIC ULCER OF RIGHT CALF 03/29/2019 EDMUNDO SIM R BANQUET ATTENDANT Ot M19.90 UNSPECIFIED OSTEOARTHRITIS, UNSPECIFIED 03/30/2019 SIM WYATT R BANQUET ATTENDANT Ot I87.2 VENOUS INSUFFICIENCY (CHRONIC) (PERIPHER 03/30/2019 EDMUNDO SIM R BANQUET ATTENDANT Ot I 96 [place]ANGR[place], NOT ELSEWHERE CLASSIFIED 03/30/2019 SIM WYATT R BANQUET ATTENDANT Ot L97.212 NON-PRESSURE CHRONIC ULCER OF RIGHT CALF 03/31/2019 SIM WYATT R BANQUET ATTENDANT Ot I87.2 VENOUS INSUFFICIENCY (CHRONIC) (PERIPHER 03/31/2019 EDMUNDO SIM R BANQUET ATTENDANT Ot I 96 [place]GR[place], NOT ELSEWHERE CLASSIFIED 03/31/2019 SIM WYATT R BANQUET ATTENDANT Ot L97.212 NON-PRESSURE CHRONIC ULCER OF RIGHT CALF 03/31/2019 SIM WYATT R BANQUET ATTENDANT Ot D64.9 ANEMIA, UNSPECIFIED 03/31/2019 SIM WYATT R BANQUET ATTENDANT Ot G62.9 POLYNEUROPATHY, UNSPECIFIED 03/31/2019 SIM WYATT R BANQUET ATTENDANT Ot H26.9 UNSPECIFIED CATARACT 03/31/2019 SIM WYATT R BANQUET ATTENDANT Ot I 10 ESSENTIAL (PRIMARY) HYPERTENSION 03/31/2019 SIM WYATT R BANQUET ATTENDANT Ot I25.10 ATHSCL HEART DISEASE OF [place] CORONARY 03/31/2019 SIM WYATT R BANQUET ATTENDANT Ot I49.9 CARDIAC ARRHYTHMIA, UNSPECIFIED 03/31/2019 SIM WYATT R BANQUET ATTENDANT Ot K52.9 NONINFECTIVE GASTROENTERITIS AND COLITIS 03/31/2019 SIM WYATT R BANQUET ATTENDANT Ot L97.212 NON-PRESSURE CHRONIC ULCER OF RIGHT CALF 03/31/2019 SIM WYATT BANQUET ATTENDANT Ot M19.90 UNSPECIFIED OSTEOARTHRITIS, UNSPECIFIED 04/01/2019 SIM WYATT BANQUET ATTENDANT Ot I87.2 VENOUS INSUFFICIENCY (CHRONIC) (PERIPHER 04/01/2019 SIM WYATT R BANQUET ATTENDANT Ot I 96 [place]ANGR[place], NOT ELSEWHERE CLASSIFIED 04/01/2019 SIM WYATT R BANQUET ATTENDANT Ot L97.212 NON-PRESSURE CHRONIC ULCER OF RIGHT CALF 04/14/2019 EDMUNDO SIM R BANQUET ATTENDANT Ot I87.2 VENOUS INSUFFICIENCY (CHRONIC) (PERIPHER 04/14/2019 SIM WYATT R BANQUET ATTENDANT Ot L97.212 NON-PRESSURE CHRONIC ULCER OF RIGHT CALF 04/14/2019 EDMUNDO SIM R BANQUET ATTENDANT Ot I87.2 VENOUS INSUFFICIENCY (CHRONIC) (PERIPHER 04/14/2019 SIM WYATT R BANQUET ATTENDANT Ot I 96 [place]GR[place], NOT ELSEWHERE CLASSIFIED 04/14/2019 SIM WYATT R BANQUET ATTENDANT Ot L97.212 NON-PRESSURE CHRONIC ULCER OF RIGHT CALF 04/20/2019 SIM WYATT R BANQUET ATTENDANT Ot I87.2 VENOUS INSUFFICIENCY (CHRONIC) (PERIPHER 04/20/2019 SIM WYATT R BANQUET ATTENDANT Ot L97.212 NON-PRESSURE CHRONIC ULCER OF RIGHT [...] M79.652 PAIN IN LEFT THIGH 12/03/2019 Raquel Olugin W M79.673 PAIN IN UNSPECIFIED FOOT 12/03/2019 [...] 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 12/09/2019 Raquel Ogluin W K21.9 GASTRO- ESOPHAGEAL REFLUX DISEASE WITHOUT [...] ESOPHAGEAL REFLUX DISEASE WITHOUT ESOPHAGITIS 12/09/2019 Raquel Ogluin W M25.579 PAIN IN UNSPECIFIED ANKLE AND [...] Raquel W R53.81 OTHER MALAISE 12/12/2019 Raquel Olguin R53.83 OTHER FATIGUE 12/12/2019 Dom Arquel W 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 12/12/2019 Dom Raquel W R82.998 OTHER ABNORMAL FINDINGS IN URINE 12/13/2019 RAQUEL OLGUIN DO Ot Z01.89 ENCOUNTER FOR OTHER SPECIFIED SPECIAL EX 12/14/2019 RAQUEL OLGUIN DO Ot Z01.89 ENCOUNTER FOR OTHER SPECIFIED SPECIAL EX 12/14/2019 SIM WYATT BANQUET ATTENDANT Ot 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 12/14/2019 SIM WYATT BANQUET ATTENDANT Ot I87.2 VENOUS INSUFFICIENCY (CHRONIC) (PERIPHER 12/14/2019 EDMUNDO, SIM R BANQUET ATTENDANT Ot L97.212 NON-PRESSURE CHRONIC ULCER OF RIGHT CALF 12/14/2019 EDMUNDO SIM R BANQUET ATTENDANT Ot I87.2 VENOUS INSUFFICIENCY (CHRONIC) (PERIPHER 12/14/2019 EDMUNDO, SIM R BANQUET ATTENDANT Ot I 96 GANGRENE, NOT ELSEWHERE CLASSIFIED 12/14/2019 EDMUNDO SIM R BANQUET ATTENDANT Ot L97.212 NON-PRESSURE CHRONIC ULCER OF RIGHT CALF 12/14/2019 EDMUNDO SIM R BANQUET ATTENDANT Ot I 10 ESSENTIAL (PRIMARY) HYPERTENSION 12/14/2019 EDMUNDO, SIM R BANQUET ATTENDANT Ot I25.10 ATHSCL HEART DISEASE OF [place] CORONARY 12/14/2019 EDMUNDO, SIM R BANQUET ATTENDANT Ot L97.212 NON-PRESSURE CHRONIC ULCER OF RIGHT CALF 12/14/2019 EDMUNDO, SIM R BANQUET ATTENDANT Ot M19.90 UNSPECIFIED OSTEOARTHRITIS, UNSPECIFIED 12/14/2019 EDMUNDO SIM R BANQUET ATTENDANT Ot I87.2 VENOUS INSUFFICIENCY (CHRONIC) (PERIPHER 12/14/2019 EDMUNDO, SIM R BANQUET ATTENDANT Ot I 96 [place]GRENE, NOT ELSEWHERE CLASSIFIED 12/14/2019 EDMUNDO SIM R BANQUET ATTENDANT Ot L97.212 NON-PRESSURE CHRONIC ULCER OF RIGHT CALF 12/14/2019 EDMUNDO SIM R BANQUET ATTENDANT Ot D64.9 ANEMIA, UNSPECIFIED 12/14/2019 EDMUNDO SIM R BANQUET ATTENDANT Ot G62.9 POLYNEUROPATHY, UNSPECIFIED 12/14/2019 EDMUNDO, SIM R BANQUET ATTENDANT Ot H26.9 UNSPECIFIED CATARACT 12/14/2019 EDMUNOD SIM R BANQUET ATTENDANT Ot I 10 ESSENTIAL (PRIMARY) HYPERTENSION 12/14/2019 EDMUNDO SIM R BANQUET ATTENDANT Ot I25.10 ATHSCL HEART DISEASE OF [place] CORONARY 12/14/2019 EDMUNDO SIM R BANQUET ATTENDANT Ot I49.9 CARDIAC ARRHYTHMIA, UNSPECIFIED 12/14/2019 EDMUNDO SIM R BANQUET ATTENDANT Ot K52.9 NONINFECTIVE GASTROENTERITIS AND COLITIS 12/14/2019 EDMUNDO SIM R BANQUET ATTENDANT Ot L97.212 NON-PRESSURE CHRONIC ULCER OF RIGHT CALF 12/14/2019 EDMUNDO SIM R BANQUET ATTENDANT Ot M19.90 UNSPECIFIED OSTEOARTHRITIS, UNSPECIFIED 12/14/2019 EDMUNDO, SIM R BANQUET ATTENDANT Ot I87.2 VENOUS INSUFFICIENCY (CHRONIC) (PERIPHER 12/14/2019 EDMUNDO, SIM R BANQUET ATTENDANT Ot I 96 [place]ANGRENE, NOT ELSEWHERE CLASSIFIED 12/14/2019 EDMUNDO SIM R BANQUET ATTENDANT Ot L97.212 NON-PRESSURE CHRONIC ULCER OF RIGHT CALF 12/14/2019 SIM WYATT R BANQUET ATTENDANT Ot I87.2 VENOUS INSUFFICIENCY (CHRONIC) (PERIPHER 12/14/2019 EDMUNDO SIM R BANQUET ATTENDANT Ot I 96 [place]GR[place], NOT ELSEWHERE CLASSIFIED 12/14/2019 EDMUNDO SIM R BANQUET ATTENDANT Ot L97.212 NON-PRESSURE CHRONIC ULCER OF RIGHT CALF 12/14/2019 SIM WYATT R BANQUET ATTENDANT Ot I87.2 VENOUS INSUFFICIENCY (CHRONIC) (PERIPHER 12/14/2019 EDMUNDO SIM R BANQUET ATTENDANT Ot L97.212 NON-PRESSURE CHRONIC ULCER OF RIGHT CALF 12/14/2019 KEANU OLGUIN DOI Ot Z01.89 ENCOUNTER FOR OTHER SPECIFIED SPECIAL EX 12/16/2019 SIM WYATT R BANQUET ATTENDANT Ot 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 12/16/2019 SIM WYATT R BANQUET ATTENDANT Ot I87.2 VENOUS INSUFFICIENCY (CHRONIC) (PERIPHER 12/16/2019 EDMUNDO SIM R BANQUET ATTENDANT Ot L97.212 NON-PRESSURE CHRONIC ULCER OF RIGHT CALF 12/16/2019 EDMUNDO SIM R BANQUET ATTENDANT Ot I87.2 VENOUS INSUFFICIENCY (CHRONIC) (PERIPHER 12/16/2019 SIM WYATT R BANQUET ATTENDANT Ot I 96 [place]ANGRENE, NOT ELSEWHERE CLASSIFIED 12/16/2019 EDMUNDO SMI R BANQUET ATTENDANT Ot L97.212 NON-PRESSURE CHRONIC ULCER OF RIGHT CALF 12/16/2019 MOJGAN WYATTN R BANQUET ATTENDANT Ot I 10 ESSENTIAL (PRIMARY) HYPERTENSION 12/16/2019 MOJGAN WYATTN R BANQUET ATTENDANT Ot I25.10 ATHSCL HEART DISEASE OF [place] CORONARY 12/16/2019 EDMUNDO SIM R BANQUET ATTENDANT Ot L97.212 NON-PRESSURE CHRONIC ULCER OF RIGHT CALF 12/16/2019 MOJGAN WYATTN R BANQUET ATTENDANT Ot M19.90 UNSPECIFIED OSTEOARTHRITIS, UNSPECIFIED 12/16/2019 EDMUNDO SIM R BANQUET ATTENDANT Ot I87.2 VENOUS INSUFFICIENCY (CHRONIC) (PERIPHER 12/16/2019 EDMUNDO SIM R BANQUET ATTENDANT Ot I 96 [place]GRENE, NOT ELSEWHERE CLASSIFIED 12/16/2019 EDMUNDO SIM R BANQUET ATTENDANT Ot L97.212 NON-PRESSURE CHRONIC ULCER OF RIGHT CALF 12/16/2019 MOJGAN WYATTN R BANQUET ATTENDANT Ot D64.9 ANEMIA, UNSPECIFIED 12/16/2019 EDMUNDO SIM R BANQUET ATTENDANT Ot G62.9 POLYNEUROPATHY, UNSPECIFIED 12/16/2019 EDMUNDO SIM R BANQUET ATTENDANT Ot H26.9 UNSPECIFIED CATARACT 12/16/2019 EDMUNDO SIM R BANQUET ATTENDANT Ot I 10 ESSENTIAL (PRIMARY) HYPERTENSION 12/16/2019 EDMUNDO SIM R BANQUET ATTENDANT Ot I25.10 ATHSCL HEART DISEASE OF [place] CORONARY 12/16/2019 EDMUNDO SIM R BANQUET ATTENDANT Ot I49.9 CARDIAC ARRHYTHMIA, UNSPECIFIED 12/16/2019 EDMUNDO SIM R BANQUET ATTENDANT Ot K52.9 NONINFECTIVE GASTROENTERITIS AND COLITIS 12/16/2019 EDMUNDO SIM R BANQUET ATTENDANT Ot L97.212 NON-PRESSURE CHRONIC ULCER OF RIGHT CALF 12/16/2019 EDMUNDO SIM R BANQUET ATTENDANT Ot M19.90 UNSPECIFIED OSTEOARTHRITIS, UNSPECIFIED 12/16/2019 EDMUNDO SIM R BANQUET ATTENDANT Ot I87.2 VENOUS INSUFFICIENCY (CHRONIC) (PERIPHER 12/16/2019 EDMUNDO, SIM R BANQUET ATTENDANT Ot I 96 [place]GRENE, NOT ELSEWHERE CLASSIFIED 12/16/2019 EDMUNDO SIM R BANQUET ATTENDANT Ot L97.212 NON-PRESSURE CHRONIC ULCER OF RIGHT CALF 12/16/2019 EDMUNDO, SIM R BANQUET ATTENDANT Ot I87.2 VENOUS INSUFFICIENCY (CHRONIC) (PERIPHER 12/16/2019 EDMUNDO, SIM R BANQUET ATTENDANT Ot I 96 [place]GR[place], NOT ELSEWHERE CLASSIFIED 12/16/2019 EDMUNDO SIM R BANQUET ATTENDANT Ot L97.212 NON-PRESSURE CHRONIC ULCER OF RIGHT CALF 12/16/2019 EDMUNDO SIM R BANQUET ATTENDANT Ot I87.2 VENOUS INSUFFICIENCY (CHRONIC) (PERIPHER 12/16/2019 EDMUNDO SIM R BANQUET ATTENDANT Ot L97.212 NON-PRESSURE CHRONIC ULCER OF RIGHT CALF 12/16/2019 RAQUEL OLGUIN DO Ot Z01.89 ENCOUNTER FOR OTHER SPECIFIED SPECIAL EX 01/03/2020 KINGA PRICE MD Ot I25.10 ATHSCL HEART DISEASE OF [place] CORONARY 01/03/2020 KINGA PRICE MD Ot I51.7 CARDIOMEGALY 01/03/2020 KINGA PRICE MD Ot 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 01/03/2020 KINGA PRICE MD Ot R93.89 ABNORMAL FINDINGS ON DX IMAGING OF OT B 01/17/2020 OLGUIN DO, RAQUEL Ot D53.9 NUTRITIONAL ANEMIA, UNSPECIFIED 01/17/2020 OLGUIN DO, RAQUEL Ot 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 HYPOTHYROIDISM 01/17/2020 OLGUIN DO, RAQUEL Ot J18.9 PNEUMONIA, UNSPECIFIED ORGANISM 01/17/2020 OLGUIN DO, RAQUEL Ot J90 PLEURAL EFFUSION, NOT ELSEWHERE CLASSIFI 01/17/2020 OLGUIN DO, RAQUEL Ot J93.83 OTHER PNEUMOTHORAX 01/17/2020 OLGUIN DO, RAQUEL Ot K21.9 GASTRO-ESOPHAGEAL REFLUX DISEASE WITHOUT 01/17/2020 OLGUIN DO, RAQUEL Ot K46.9 UNSPECIFIED ABDOMINAL HERNIA WITHOUT OBS 01/17/2020 OLGUIN DO, RAQUEL Ot M19.91 PRIMARY OSTEOARTHRITIS, UNSPECIFIED SITE 01/17/2020 OLGUIN DO, RAQUEL Ot M41.9 SCOLIOSIS, UNSPECIFIED 01/17/2020 OLGUIN DO, RAQUEL Ot M79.7 FIBROMYALGIA 01/17/2020 OLGUIN DO, RAQUEL Ot M81.0 AGE-RELATED OSTEOPOROSIS W/O CURRENT PAT 01/17/2020 OLGUIN DO, RAQUEL Ot N17.9 ACUTE KIDNEY FAILURE, UNSPECIFIED 01/17/2020 OLGUIN DO, RAQUEL Ot R03.1 NONSPECIFIC LOW BLOOD-PRESSURE READING 01/17/2020 OLGUIN DO, RAQUEL Ot R13.10 DYSPHAGIA, UNSPECIFIED 01/17/2020 OLGUIN DO, RAQUEL Ot R53.81 OTHER MALAISE 01/17/2020 OLGUIN DO, RAQUEL Ot Z86.79 PERSONAL HISTORY OF OTHER DISEASES OF TH 01/17/2020 OLGUIN DO, RAQUEL Ot Z87.11 PERSONAL HISTORY OF PEPTIC ULCER DISEASE 01/18/2020 OLGUIN DO, RAQUEL Ot D53.9 NUTRITIONAL ANEMIA, UNSPECIFIED 01/18/2020 OLGUIN DO, RAQUEL Ot 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 HYPOTHYROIDISM 01/18/2020 OLGUIN DO, RAQUEL Ot J18.9 PNEUMONIA, UNSPECIFIED ORGANISM 01/18/2020 OLGUIN DO, RAQUEL Ot J90 PLEURAL EFFUSION, NOT ELSEWHERE CLASSIFI 01/18/2020 OLGUIN DO, RAQUEL Ot J93.83 OTHER PNEUMOTHORAX 01/18/2020 OLGUIN DO, RAQUEL Ot K21.9 GASTRO-ESOPHAGEAL REFLUX DISEASE WITHOUT 01/18/2020 OLGUIN DO, RAQUEL Ot K46.9 UNSPECIFIED ABDOMINAL HERNIA WITHOUT OBS 01/18/2020 OLGUIN DO, RAQUEL Ot M19.91 PRIMARY OSTEOARTHRITIS, UNSPECIFIED SITE 01/18/2020 OLGUIN DO, RAQUEL Ot M41.9 SCOLIOSIS, UNSPECIFIED 01/18/2020 OLGUIN DO, RAQUEL Ot M79.7 FIBROMYALGIA 01/18/2020 OLGUIN DO, RAQUEL Ot M81.0 AGE-RELATED OSTEOPOROSIS W/O CURRENT PAT 01/18/2020 OLGUIN DO, RAQUEL Ot N17.9 ACUTE KIDNEY FAILURE, UNSPECIFIED 01/18/2020 OLGUIN DO, RAQUEL Ot R03.1 NONSPECIFIC LOW BLOOD-PRESSURE READING 01/18/2020 OLGUIN DO, RAQUEL Ot R13.10 DYSPHAGIA, UNSPECIFIED 01/18/2020 OLGUIN DO, RAQUEL Ot R53.81 OTHER MALAISE 01/18/2020 OLGUIN DO, RAQUEL Ot Z86.79 PERSONAL HISTORY OF OTHER DISEASES OF TH 01/18/2020 OLGUIN DO, RAQUEL Ot Z87.11 PERSONAL HISTORY OF PEPTIC ULCER DISEASE 01/19/2020 OLGUIN DO, RAQUEL Ot D53.9 NUTRITIONAL ANEMIA, UNSPECIFIED 01/19/2020 OLGUIN DO, RAQUEL Ot 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 HYPOTHYROIDISM 01/19/2020 OLGUIN DO, RAQUEL Ot J18.9 PNEUMONIA, UNSPECIFIED ORGANISM 01/19/2020 OLGUIN DO, RAQUEL Ot J90 PLEURAL EFFUSION, NOT ELSEWHERE CLASSIFI 01/19/2020 OLGUIN DO, RAQUEL Ot J93.83 OTHER PNEUMOTHORAX 01/19/2020 OLGUIN DO, RAQUEL Ot K21.9 GASTRO-ESOPHAGEAL REFLUX DISEASE WITHOUT 01/19/2020 OLGUIN DO, RAQUEL Ot K46.9 UNSPECIFIED ABDOMINAL HERNIA WITHOUT OBS 01/19/2020 OLGUIN DO, RAQUEL Ot M19.91 PRIMARY OSTEOARTHRITIS, UNSPECIFIED SITE 01/19/2020 OLGUIN DO, RAQUEL Ot M41.9 SCOLIOSIS, UNSPECIFIED 01/19/2020 OLGUIN DO, RAQUEL Ot M79.7 FIBROMYALGIA 01/19/2020 OLGUIN DO, RAQUEL Ot M81.0 AGE-RELATED OSTEOPOROSIS W/O CURRENT PAT 01/19/2020 OLGUIN DO, RAQUEL Ot N17.9 ACUTE KIDNEY FAILURE, UNSPECIFIED 01/19/2020 OLGUIN DO, RAQUEL Ot R03.1 NONSPECIFIC LOW BLOOD-PRESSURE READING 01/19/2020 RAQUEL OLGUIN DO Ot R13.10 DYSPHAGIA, UNSPECIFIED 01/19/2020 RAQUEL OLGUIN DO Ot R53.81 OTHER MALAISE 01/19/2020 RAQUEL OLGUIN DO Ot Z86.79 PERSONAL HISTORY OF OTHER DISEASES OF TH 01/19/2020 RAQUEL OLGUIN DO Ot Z87.11 PERSONAL HISTORY OF PEPTIC ULCER DISEASE Procedures Code Description Performed By Per formed On IN SERTION OF INFUSION DEV INTO SUP VENA 01/16/2020 Results Test Result Range Comprehensive Metabolic Panel [...] Negative Urine-Blood Negative Negative Urine-Color Yellow Colorless-Lt. [place] ow Urine-Epithelial Cells 10-20/HPF Urine-Glucose Negative Negative Urine-Ketones Negative Negative Urine-Leukocytes Negative Negative Urine-Nitrite Negative Negative Urine-Other Urine Saved if Culture Need ed (48hrs from time of collection) Urine-pH 7.0 5-8.5 Urine-Protein Trace Negative Urine-RBC 0-2/HPF Urine-Specific [place] 1.015 1.000-1 .030 Urine-WBC 0-3/HPF Urobilinogen 1.0 0.2-1.0 [facility] - 06/01/17 05:50 Anion Gap 14 6-14 BUN 13 mg/dL 5-25 Calcium 8.6 mg/dL 8.3-10.4 Chloride 91 mmol/L 95-114 CO2 28 mEq/L 22-33 Creat 0.79 mg/dL 0.50-1.50 eGFR 71 mL/min/1.73m2 >59 Glucose 96 mg/dL 70-110 Osmo 265 280-295 Potassium 4.5 mmol/L 3.5-5.3 Sodium 128 mmol/L 134-148 Lactic Acid - 06/02/17 07:00 Lactic Acid 8.9 mg/dL 4.5-19.8 [facility] - 06/03/17 07:19 Anion Gap 13 6-14 BUN 13 mg/dL 5-25 Calcium 8.7 mg/dL 8.3-10.4 Chloride 99 mmol/L 95-114 CO2 26 mEq/L 22-33 Creat 0.73 mg/dL 0.50-1.50 eGFR 77 mL/min/1.73m2 >59 Glucose 82 mg/dL 70-110 Osmo 274 280-295 Potassium 4.6 mmol/L 3.5-5.3 Sodium 133 mmol/L 134-148 Sputum Culture - 06/03/17 07:34 PRELIM CULTURE RESULTS Moderate Gram Positiv e Mixed [id number] Yeast FINAL CULTURE RESULTS No Further Workup done MEDIA PLATED Setup at 08:11 on 06/03/2017 Troponin I - 08/18/17 14:14 Troponin <0.020 ng/mL 0.0-0.4 Urinalysis - 02/12/18 14:14 Icotest N/A Negative Urine Volume Urine Volume Sufficient (10mL) Urine-Appearance Clear Clear Urine-Bacteria Trace Urine-Bilirubin Negative Negative Urine-Blood Negative Negative Urine-Color Yellow Colorless-Lt. [place] ow Urine-Epithelial Cells 5-10/HPF Urine-Glucose Negative Negative Urine-Ketones Negative Negative Urine-Leukocytes Negative Negative Urine-Nitrite Negative Negative Urine-Other Urine Saved if Culture Need ed (48hrs from time of collection) Urine-pH 6.0 5-8.5 Urine-Protein Negative Negative Urine-Specific [place] 1.010 1.000-1 .030 Urine-WBC 2-5/HPF Urobilinogen 0.2 E.U./dL 0.2-1.0 Mycoplasma - 02/07/18 14:48 Mycoplasma Negative Negative CBC with Auto Diff - 02/07/18 14:48 Baso% 0.20 % 0.00-2.50 Eos 0.1 K/uL 0.0-0.7 Eos% 1.2 % 0.0-7.0 Hct 43.2 % 36.0-46.0 Hgb 14.0 g/dL 13.0-15.0 Lym 1.57 K/uL 0.60-3.40 Lym% 26.5 % 10.0-50.0 MCH 32.2 pg 27.0-31.0 MCHC 32.4 g/dL 32.0-36.0 MCV 99.3 fL 80.0-97.0 [place]% 9.9 % 0.0-12.0 MPV 8.7 fL 7.4-10.0 Jill% 62.2 % 37.0-80.0 Plt 318 K/uL 150-400 RBC 4.35 M/uL 3.60-5.00 RDW 14.6 % 11.6-14.8 WBC 5.93 K/uL 5.00-10.00 Jill 3.69 K/uL 2.00-6.90 [place] 0.6 K/uL 0.0-0.9 Baso 0.0 K/uL 0.0-0.2 [...] Negative Urine-Blood Negative Negative Urine-Color Yellow Colorless-Lt. [place] ow Urine-Epithelial Cells 10-20/HPF Urine-Glucose Negative Negative Urine-Ketones Negative Negative Urine-Leukocytes 1+ Negative Urine-Nitrite Negative Negative Urine-Other Urine Saved if Culture Need ed (48hrs from time of collection) Urine-pH 7.5 5-8.5 Urine-Protein Trace Negative Urine-RBC Rare/HPF Urine-Specific [place] 1.015 1.000-1 .030 Urine-WBC 10-20/HPF Urobilinogen 0.2 E.U./dL 0.2-1.0 [facility] - 02/17/18 07:13 Anion Gap 17 6-14 BUN 12 mg/dL 5-25 Calcium 9.1 mg/dL 8.3-10.4 Chloride 91 mmol/L 95-114 CO2 26 mEq/L 22-33 Creat 0.75 mg/dL 0.50-1.50 eGFR 75 mL/min/1.73m2 >59 Glucose 98 mg/dL 70-110 [place] 269 280-295 Potassium 4.1 mmol/L 3.5-5.3 Sodium 130 mmol/L 134-148 [facility] - 02/18/18 07:41 Anion Gap 15 6-14 BUN 12 mg/dL 5-25 Calcium 8.6 mg/dL 8.3-10.4 Chloride 97 mmol/L 95-114 CO2 24 mEq/L 22-33 Creat 0.73 mg/dL 0.50-1.50 eGFR 77 mL/min/1.73m2 >59 Glucose 110 mg/dL 70-110 [place] 274 280-295 Potassium 4.2 mmol/L 3.5-5.3 Sodium 132 mmol/L 134-148 [facility] - 02/20/18 12:37 Anion Gap 14 6-14 [...] - 05/09/18 14:39 Sed Rate 9 mm/hr 9-15 PDM - 09 PANEL (PROFILE 1) - 09/08/18 15 :52 [...] 7-25 CREATININE 0.91 mg/dL 0.60-0.93 eGFR NON-AFR. SERBIAN 61 mL/min/1.73m2 > OR = 60 eGFR [...] Negative Urine-Blood Negative Negative Urine-Color Yellow Colorless-Lt. [place] ow Urine-Glucose Negative Negative Urine-Ketones Negative Negative Urine-Leukocytes Negative Negative Urine-Nitrite Negative Negative Urine-Other Urine Saved if Culture Need ed (48hrs from time of collection) Urine-pH 7.0 5-8.5 Urine-Protein Negative Negative Urine-RBC Negative Urine-Specific [place] 1.015 1.000-1 .030 Urine-WBC Rare/HPF Urobilinogen 0.2 [...] Negative Urine-Blood Negative Negative Urine-Color Yellow Colorless-Lt. [place] ow Urine-Epithelial Cells 10-20/HPF Urine-Glucose Negative Negative Urine-Ketones Negative Negative Urine-Leukocytes Trace Negative Urine-Nitrite Negative Negative Urine-Other Urine Saved if Culture Need ed (48hrs from time of collection) Urine-pH 7.0 5-8.5 Urine-Protein 1+ Negative Urine-RBC Negative Urine-Specific [place] 1.015 1.000-1 .030 Urine-WBC Negative Urobilinogen 0.2 [...] 0.3 mg/dL 0.2-1.2 TP 5.2 g/dL 6.0-8.3 [facility] 02/03/19 05:30 Anion Gap 11 6-14 BUN 11 mg/dL 5-25 Calcium 8.3 mg/dL 8.3-10.4 Chloride 92 mmol/L 95-114 CO2 27 mEq/L 22-33 Creat 0.64 mg/dL 0.50-1.50 eGFR 90 mL/min/1.73m2 >59 Glucose 97 mg/dL 70-110 [place] 261 280-295 Potassium 4.4 mmol/L 3.5-5.3 Sodium 126 mmol/L 134-148 [facility] 02/04/19 05:51 Anion Gap 15 6-14 BUN 8 mg/dL 5-25 Calcium 8.5 mg/dL 8.3-10.4 Chloride 88 mmol/L 95-114 CO2 25 mEq/L 22-33 Creat 0.66 mg/dL 0.50-1.50 eGFR 87 mL/min/1.73m2 >59 Glucose 119 mg/dL 70-110 [place] 257 280-295 Potassium 4.3 mmol/L 3.5-5.3 Sodium 124 mmol/L 134-148 [facility] 02/05/19 05:26 Anion Gap 12 6-14 BUN 8 mg/dL 5-25 Calcium 8.5 mg/dL 8.3-10.4 Chloride 92 mmol/L 95-114 CO2 27 mEq/L 22-33 Creat 0.63 mg/dL 0.50-1.50 eGFR 91 mL/min/1.73m2 >59 Glucose 93 mg/dL 70-110 [place] 261 280-295 Potassium 4.4 mmol/L 3.5-5.3 Sodium 127 mmol/L 134-148 [facility] 02/06/19 05:20 Anion Gap 12 6-14 BUN 8 mg/dL 5-25 Calcium 8.3 mg/dL 8.3-10.4 Chloride 93 mmol/L 95-114 CO2 29 mEq/L 22-33 Creat 0.67 mg/dL 0.50-1.50 eGFR 85 mL/min/1.73m2 >59 Glucose 90 mg/dL 70-110 [place] 267 280-295 Potassium 4.2 mmol/L 3.5-5.3 Sodium 130 mmol/L 134-148 [facility] 02/07/19 05:40 Anion Gap 13 6-14 BUN 10 mg/dL 5-25 Calcium 9.0 mg/dL 8.3-10.4 Chloride 89 mmol/L 95-114 CO2 33 mEq/L 22-33 Creat 0.69 mg/dL 0.50-1.50 eGFR 82 mL/min/1.73m2 >59 Glucose 92 mg/dL 70-110 [place] 270 280-295 Potassium 4.4 mmol/L 3.5-5.3 Sodium 131 mmol/L 134-148 [facility] 02/08/19 05:10 Anion Gap 14 6-14 BUN 11 mg/dL 5-25 Calcium 8.9 mg/dL 8.3-10.4 Chloride 90 mmol/L 95-114 CO2 32 mEq/L 22-33 Creat 0.78 mg/dL 0.50-1.50 eGFR 71 mL/min/1.73m2 >59 Glucose 115 mg/dL 70-110 [place] 271 280-295 Potassium 4.5 mmol/L 3.5-5.3 Sodium 131 mmol/L 134-148 [facility] 02/11/19 15:33 GLUCOSE 80 mg/dL 65-99 UREA NITROGEN (BUN) 19 mg/dL 7-25 CREATININE 1.01 mg/dL 0.60-0.93 eGFR NON-AFR. SERBIAN 53 mL/min/1.73m2 > OR = 60 eGFR [...] Negative Urine-Blood Negative Negative Urine-Color Yellow Colorless-Lt. [place] ow Urine-Epithelial Cells 10-20/HPF Urine-Glucose Negative Negative Urine-Ketones Negative Negative Urine-Leukocytes 1+ Negative Urine-Nitrite Negative Negative Urine-Other Culture to follow Urine-pH 7.0 5-8.5 Urine-Protein Negative Negative Urine-RBC 0-2/HPF Urine-Specific [place] 1.015 1.000-1 .030 Urine-WBC 20-40/HPF Urobilinogen 0.2 [...] 7-25 CREATININE 1.09 mg/dL 0.60-0.93 eGFR NON-AFR. SERBIAN 49 mL/min/1.73m2 > OR = 60 eGFR [...] 7-25 CREATININE 0.85 mg/dL 0.60-0.93 eGFR NON-AFR. SERBIAN 66 mL/min/1.73m2 > OR = 60 eGFR [...] 11/30/19 08:47 COVID19 NEGATIVE test performed at [facility] Blood Culture - 11/30/19 08:47 PRELIM CULTURE [...] Negative Urine-Blood Negative Negative Urine-Color Yellow Colorless-Lt. [place] ow Urine-Epithelial Cells None Urine-Glucose Negative Negative Urine-Ketones Negative Negative Urine-Leukocytes Negative Negative Urine-Nitrite Negative Negative Urine-Other Urine Saved if Culture Need ed (48hrs from time of collection) Urine-pH 5.5 5-8.5 Urine-Protein Negative Negative Urine-RBC Negative Urine-Specific [place] 1.015 1.000-1 .030 Urine-WBC Negative Urobilinogen 0.2 [...] Negative Urine-Blood Negative Negative Urine-Color Yellow Colorless-Lt[place] ow Urine-Epithelial Cells 0-5/HPF Urine-Glucose Negative Negative Urine-Ketones Negative Negative Urine-Leukocytes Negative Negative Urine-Nitrite Negative Negative Urine-Other Urine Saved if Culture Need ed (48hrs from time of collection) Urine-pH 7.0 5-8.5 Urine-Protein Negative Negative Urine-RBC Negative Urine-Specific [place] 1.020 1.000-1 .030 Urine-WBC Nothing Seen on [...] Cytology - 12/07/19 13:10 Cyt Sent to [facility] Pathology Other Culture - 12/07/19 14:30 PRELIM [...] 7-25 CREATININE 1.08 mg/dL 0.60-0.93 eGFR NON-AFR. SERBIAN 49 mL/min/1.73m2 > OR = 60 eGFR [...] W/GRAM STAIN NRG CULTURE, AEROBIC BACTERIA NRG Other Culture - 01/15/20 17:31 PRELIM CULTURE RESULTS Moderate Coagulase NE GATIVE [id number]/ID is not routinely performed on this isolate as it is a probable skin contaminant.[id number] notify Laboratory if SUSANNE/ID is desired for this sample. FINAL CULTURE RESULTS Moderate Coagulase NEG ATIVE [id number] Skin [id number] Further Workup Done MEDIA PLATED Setup at 18:36 on 01/15/2020 Urinalysis - 01/15/20 17:31 Icotest Negative Negative Urine Casts None Seen Urine Crystals None Seen Urine Volume Urine Volume Sufficient (10mL) Urine Yeast No Yeast present Urine-Appearance Clear Clear Urine-Bacteria Negative Urine-Bilirubin 1+ Negative Urine-Blood Negative Negative Urine-Color Yellow Colorless-Lt. [place] ow Urine-Epithelial Cells 5-10/HPF Urine-Glucose Negative Negative Urine-Ketones Trace Negative Urine-Leukocytes Negative Negative Urine-Mucus Negative Urine-Nitrite Negative Negative Urine-Other Urine Saved if Culture Need ed (48hrs from time of collection) Urine-pH 5.0 5-8.5 Urine-Protein Negative Negative Urine-RBC Negative Urine-Specific [place] 1.020 1.000-1 .030 Urine-WBC Negative Urobilinogen 0.2 E.U./dL 0.2-1.0 Blood Culture - 01/15/20 17:31 PRELIM CULTURE RESULTS Blood Culture Negativ e, No Growth Day 1 MEDIA PLATED Setup at 18:37 on 01/15/2020X [id number] Culture Media Position C48 CULTURE SOURCE right ac Blood Culture - 01/15/20 18:15 PRELIM CULTURE RESULTS Blood Culture Negativ e, No Growth Day 1 MEDIA PLATED Setup at 18:37 on 01/15/2020X [id number] Culture Media Position B27 CULTURE SOURCE left hand Arterial blood gas measurement - 0 00:20 [...] G Measurement of body temperature 35.5 NRG Complete blood count (CBC) with automate d white blood cell (WBC) differential - 01/16/20 03:00 Blood leukocytes automated count (number/volume) 5.7 10*3/uL 4.3-11.0 Blood erythrocytes automated count (number/volume) 2.89 10*6/uL 4.35-5.85 Venous blood hemoglobin measurement (mass/volume) 9.6 g/dL 11.5-16.0 Blood hematocrit (volume fraction) 31 % 35-52 Automated erythrocyte mean corpuscular volume 107 [foz_us] 80-99 Automated erythrocyte mean corpuscular h emoglobin (mass per erythrocyte) 33 pg 25-34 Automated erythrocyte mean corpuscular h emoglobin concentration measurement (mass/volume) 31 g/dL 32-36 Automated erythrocyte distribution width ratio 15. 5 % 10.0- 14.5 Automated blood platelet count (count/volume) 275 10*3/uL 130-400 Automated blood platelet mean volume measurement 9.5 [foz_us] 7.4-10.4 Automated blood neutrophils/100 leukocytes 70 % 42-75 Automated blood lymphocytes/100 leukocytes 18 % 12-44 Blood monocytes/100 leukocytes 11 % 0-12 Automated blood eosinophils/100 leukocytes 1 % 0-10 Automated blood basophils/100 leukocytes 0 % 0-10 Blood neutrophils automated count (number/volume) 4.0 10*3 1.8-7.8 Blood lymphocytes automated count (number/volume) 1.0 10*3 1.0-4.0 Blood monocytes automated count (number/volume) 0. 6 10*3 0.0-1.0 Automated eosinophil count 0.0 10*3/uL 0 .0-0.3 Automated blood basophil count (count/volume) 0.0 10*3/uL 0.0-0.1 Whole blood basic metabolic panel - 01/04 08/26 03:00 Serum or plasma sodium measurement (moles/volume) 141 mmol/L 135-145 Serum or plasma potassium measurement (moles/volume) 4.2 mmol/L 3.6-5.0 Serum or plasma chloride measurement (moles/volume) 104 mmol/L 98-107 Carbon dioxide 24 mmol/L 21-32 Serum or plasma anion gap determination (moles/volume) 13 mmol/L 5-14 Serum or plasma urea nitrogen measurement (mass/volume ) 43 mg/dL 7-18 Serum or plasma creatinine measurement (mass/volume) 1.18 mg/dL 0.60-1.30 Serum or plasma urea nitrogen/creatinine mass ratio 36 NRG Serum or plasma creatinine measurement w ith calculation of estimated glomerular filtration rate 44 NRG Serum or plasma glucose measurement (mass/volume) 66 mg/dL 70-105 Serum or plasma calcium measurement (mass/volume) 7.8 mg/dL 8.5-10.1 Blood lactic acid measurement (moles/vol ume) - 01/16/20 03:00 Blood lactic acid measurement (moles/volume) 0.56 mmol/L 0.50-2.00 Serum or plasma phosphate measurement (m ass/volume) - 01/16/20 03:00 Serum or plasma phosphate measurement (mass/volume) 4.1 mg/dL 2.3-4.7 Magnesium - 01/16/20 03:00 Magnesium 1.7 mg/dL 1.6-2.4 Serum or plasma lithium measurement (mol es/volume) - 01/16/20 03:00 BNP PT 280.8 pg/mL <100.0 PROCALCITONIN (PCT) - 01/16/20 03:00 PROCALCITONIN (PCT) 0.09 ng/mL <0.10 Capillary blood glucose measurement by g lucometer (mass/volume) - 01/16/20 12:02 Capillary blood glucose measurement by glucometer (mas s/volume) 24 mg/dL 70-110 Capillary blood glucose measurement by g lucometer (mass/volume) - 01/16/20 12:13 Capillary blood glucose measurement by glucometer (mas s/volume) 101 mg/dL 70-110 Serum or plasma troponin i.cardiac measu rement (mass/volume) - 01/16/20 12:18 Serum or plasma troponin i.cardiac measurement (mass/v olume) 0.060 ng/mL <0.028 THYROID STIMULATING HORMONE - 01/16/20 1 2:18 THYROID STIMULATING HORMONE 3.56 u[iU]/mL 0.35-4.94 Serum or plasma thyroxine (T4) free pa urement (mass/volume) - 01/16/20 12:18 Serum or plasma thyroxine (T4) free measurement (mass/ volume) 1.05 ng/dL 0.70-1.48 Serum or plasma folate measurement (mass /volume) - 01/16/20 12:18 Serum or plasma folate measurement (mass/volume) 9 .5 % >=4.0 Serum iron and total iron binding capaci ty panel - 01/16/20 12:18 TIBC 161 % 237-330 UIBC 115 % 25-500 Serum or plasma iron measurement (mass/volume) 46 % 33-167 Total iron binding capacity and transferrin saturation measurement 29 % 17-57 Serum or plasma ferritin measurement (mass/volume) 175.6 % 20.0-177.0 VITAMIN B 12 - 01/16/20 12:18 VITAMIN B 12 881 pg/mL 190-1100 Capillary blood glucose measurement by g lucometer (mass/volume) - 01/16/20 16:03 Capillary blood glucose measurement by glucometer (mas s/volume) 79 mg/dL 70-110 IRON TEST - 01/16/20 19:45 Serum or plasma iron measurement (mass/volume) 31 % 35-180 Capillary blood glucose measurement by g lucometer (mass/volume) - 01/16/20 21:42 Capillary blood glucose measurement by glucometer (mas s/volume) 119 mg/dL 70-110 Whole blood basic metabolic panel - 01/04 09/23 03:55 Serum or plasma sodium measurement (moles/volume) 139 mmol/L 135-145 Serum or plasma potassium measurement (moles/volume) 4.1 mmol/L 3.6-5.0 Serum or plasma chloride measurement (moles/volume) 103 mmol/L 98-107 Carbon dioxide 27 mmol/L 21-32 Serum or plasma anion gap determination (moles/volume) 9 mmol/L 5-14 Serum or plasma urea nitrogen measurement (mass/volume ) 33 mg/dL 7-18 Serum or plasma creatinine measurement (mass/volume) 1.02 mg/dL 0.60-1.30 Serum or plasma urea nitrogen/creatinine mass ratio 32 NRG Serum or plasma creatinine measurement w ith calculation of estimated glomerular filtration rate 52 NRG Serum or plasma glucose measurement (mass/volume) 92 mg/dL 70-105 Serum or plasma calcium measurement (mass/volume) 8.0 mg/dL 8.5-10.1 Complete blood count (CBC) with automate d white blood cell (WBC) differential - 01/17/20 03:55 Blood leukocytes automated count (number/volume) 5.6 10*3/uL 4.3-11.0 Blood erythrocytes automated count (number/volume) 2.88 10*6/uL 4.35-5.85 Venous blood hemoglobin measurement (mass/volume) 9.8 g/dL 11.5-16.0 Blood hematocrit (volume fraction) 30 % 35-52 Automated erythrocyte mean corpuscular volume 106 [foz_us] 80-99 Automated erythrocyte mean corpuscular h emoglobin (mass per erythrocyte) 34 pg 25-34 Automated erythrocyte mean corpuscular h emoglobin concentration measurement (mass/volume) 32 g/dL 32-36 Automated erythrocyte distribution width ratio 15. 7 % 10.0- 14.5 Automated blood platelet count (count/volume) 297 10*3/uL 130-400 Automated blood platelet mean volume measurement 8.9 [foz_us] 7.4-10.4 Automated blood neutrophils/100 leukocytes 69 % 42-75 Automated blood lymphocytes/100 leukocytes 19 % 12-44 Blood monocytes/100 leukocytes 12 % 0-12 Automated blood eosinophils/100 leukocytes 1 % 0-10 Automated blood basophils/100 leukocytes 0 % 0-10 Blood neutrophils automated count (number/volume) 3.8 10*3 1.8-7.8 Blood lymphocytes automated count (number/volume) 1.1 10*3 1.0-4.0 Blood monocytes automated count (number/volume) 0. 6 10*3 0.0-1.0 Automated eosinophil count 0.0 10*3/uL 0 .0-0.3 Automated blood basophil count (count/volume) 0.0 10*3/uL 0.0-0.1 Serum or plasma phosphate measurement (m ass/volume) - 01/17/20 03:55 Serum or plasma phosphate measurement (mass/volume) 3.4 mg/dL 2.3-4.7 Magnesium - 01/17/20 03:55 Magnesium 1.8 mg/dL 1.6-2.4 PROCALCITONIN (PCT) - 01/17/20 03:55 PROCALCITONIN (PCT) 0.07 ng/mL <0.10 Serum or plasma lithium measurement (mol es/volume) - 01/17/20 03:55 BNP PT 319.6 pg/mL <100.0 Liver function panel (serum or plasma al k phos, alb, total and direct bili, total protein, ALT, AST) - 01/17/20 03:55 Serum or plasma total bilirubin measurement (mass/volu me) 0.2 mg/dL 0.1-1.0 Serum or plasma alkaline phosphatase ahmet surement (enzymatic activity/volume) 83 U/L 40-136 Serum or plasma aspartate aminotransfera se measurement (enzymatic activity/volume) 19 U/L 5-34 Serum or plasma alanine aminotransferase measurement (enzymatic activity/volume) 10 U/L 0-55 Serum or plasma protein measurement (mass/volume) 4.3 g/dL 6.4-8.2 Serum or plasma albumin measurement (mass/volume) 2.3 g/dL 3.2-4.5 Bilirubin direct 0.1 mg/dL 0.0-0.3 Serum or plasma indirect bilirubin measurement (mass/v olume) 0.1 mg/dL NRG Capillary blood glucose measurement by g lucometer (mass/volume) - 01/17/20 05:05 Capillary blood glucose measurement by glucometer (mas s/volume) 85 mg/dL 70-110 Capillary blood glucose measurement by g lucometer (mass/volume) - 01/17/20 11:01 Capillary blood glucose measurement by glucometer (mas s/volume) 102 mg/dL 70-110 Complete blood count (CBC) with automate d white blood cell (WBC) differential - 01/18/20 05:10 Blood leukocytes automated count (number/volume) 5.3 10*3/uL 4.3-11.0 Blood erythrocytes automated count (number/volume) 3.09 10*6/uL 4.35-5.85 Venous blood hemoglobin measurement (mass/volume) 10.4 g/dL 11.5-16.0 Blood hematocrit (volume fraction) 33 % 35-52 Automated erythrocyte mean corpuscular volume 107 [foz_us] 80-99 Automated erythrocyte mean corpuscular h emoglobin (mass per erythrocyte) 34 pg 25-34 Automated erythrocyte mean corpuscular h emoglobin concentration measurement (mass/volume) 32 g/dL 32-36 Automated erythrocyte distribution width ratio 15. 8 % 10.0- 14.5 Automated blood platelet count (count/volume) 278 10*3/uL 130-400 Automated blood platelet mean volume measurement 9.3 [foz_us] 7.4-10.4 Automated blood neutrophils/100 leukocytes 65 % 42-75 Automated blood lymphocytes/100 leukocytes 21 % 12-44 Blood monocytes/100 leukocytes 12 % 0-12 Automated blood eosinophils/100 leukocytes 2 % 0-10 Automated blood basophils/100 leukocytes 0 % 0-10 Blood neutrophils automated count (number/volume) 3.5 10*3 1.8-7.8 Blood lymphocytes automated count (number/volume) 1.1 10*3 1.0-4.0 Blood monocytes automated count (number/volume) 0. 7 10*3 0.0-1.0 Automated eosinophil count 0.1 10*3/uL 0 .0-0.3 Automated blood basophil count (count/volume) 0.0 10*3/uL 0.0-0.1 Whole blood basic metabolic panel - 01/04 10/24 05:10 Serum or plasma sodium measurement (moles/volume) 138 mmol/L 135-145 Serum or plasma potassium measurement (moles/volume) 4.1 mmol/L 3.6-5.0 Serum or plasma chloride measurement (moles/volume) 102 mmol/L 98-107 Carbon dioxide 29 mmol/L 21-32 Serum or plasma anion gap determination (moles/volume) 7 mmol/L 5-14 Serum or plasma urea nitrogen measurement (mass/volume ) 26 mg/dL 7-18 Serum or plasma creatinine measurement (mass/volume) 0.74 mg/dL 0.60-1.30 Serum or plasma urea nitrogen/creatinine mass ratio 35 NRG Serum or plasma creatinine measurement w ith calculation of estimated glomerular filtration rate > NRG Serum or plasma glucose measurement (mass/volume) 101 mg/dL 70-105 Serum or plasma calcium measurement (mass/volume) 8.4 mg/dL 8.5-10.1 Serum or plasma phosphate measurement (m ass/volume) - 01/18/20 05:10 Serum or plasma phosphate measurement (mass/volume) 2.3 mg/dL 2.3-4.7 Magnesium - 01/18/20 05:10 Magnesium 1.8 mg/dL 1.6-2.4 Encounters ACCT No. Visit Date/Time Discharge Status Pt. Type Provider Facility Loc./Unit Complaint [id number] 01/04/2020 13:45:00 01/04/2020 23:59: 59 CLS Outpatient KINGA PRICE [facility] [id number] 12/31/2019 16:20:00 Document Registration [id number] 12/23/2019 16:40:00 Document Registration [id number] 11/02/2019 15:00:00 Document Registration [id number] 07/13/2019 17:00:00 Document Registration [id number] 06/24/2019 14:45:00 Document Registration [id number] 02/11/2019 15:15:00 Document Registration [id number] 12/30/2018 15:20:00 Document Registration [id number] 12/08/2018 16:24:00 Document Registration [id number] 12/08/2018 16:00:00 Document Registration [id number] 11/06/2018 16:00:00 Document Registration [id number] 11/05/2018 14:00:00 Document Registration [id number] 09/08/2018 14:30:00 Document Registration [id number] 02/07/2018 14:48:00 Document Registration [id number] 01/16/2020 00:00:00 10:34:00 DIS Inpatient RAQUEL OLGUIN DO [facility] 4TH PERSISTANT RLL EFFUSION ,PNA,SEPSIS [id number] 12/30/2019 12:21:00 23:59:59 CLS Outpatient KINGA PRICE MD [facility] RAD ABN X-RAY [id number] 12/09/2019 13:09:00 23:59:59 CLS Outpatient RAQUEL OLGUIN DO [facility] LABNPT [id number] 11/11/2019 14:00:00 23:59:59 CLS Preadmit KINGA PRICE MD [facility] CARD ACUTE SYSTOLIC CHF [id number] 03/25/2019 09:32:00 23:59:59 CLS Outpatient SIM WYATT APRN [facility] WOUNDCARE [id number] 03/18/2019 09:23:00 23:59:59 CLS Outpatient EDMUNDO SIM R BANQUET ATTENDANT [facility] WOUNDCARE [id number] 03/11/2019 09:32:00 23:59:59 CLS Outpatient EDMUNDO, SIM R BANQUET ATTENDANT [facility] WOUNDCARE [id number] 03/09/2019 09:40:00 23:59:59 CLS Outpatient EDMUNDO, SIM R BANQUET ATTENDANT [facility] WOUNDCARE [id number] 03/04/2019 09:40:00 23:59:59 CLS Outpatient EDMUNDO, SIM R BANQUET ATTENDANT [facility] WOUNDCARE [id number] 03/02/2019 11:06:00 23:59:59 CLS Outpatient EDMUNDO SIM R BANQUET ATTENDANT [facility] WOUNDCARE [id number] 02/25/2019 09:43:00 23:59:59 CLS Outpatient EDMUNDO SIM R BANQUET ATTENDANT [facility] WOUNDCARE [id number] 02/18/2019 09:34:00 23:59:59 CLS Outpatient EDMUNDO, SIM R BANQUET ATTENDANT [facility] WOUNDCARE [id number] 12/08/2013 12:47:00 014 23:59:59 CLS Outpatient RUBY BRYAN MD [facility] CARD THYROID CA [id number] 11/25/2012 12:17:00 00:01:00 DIS Outpatient [id number] 12/08/2012 12:48:00 23:59:59 CLS Outpatient [id number] 11/25/2012 12:43:00 23:59:59 CLS Outpatient [id number] 01/19/2020 10:15:[address] Inpatient RAQUEL OLGUIN DO [facility] IRF PNA;PE [id number] 01/15/2020 09:18:00 01/15/2020 23:59 :00 DIS Outpatient Paul Naqvi [id number] 01/15/2020 17:20:00 01/15/2020 22:13 :00 DIS Outpatient HARJINDER COSTA [facility] ER [id number] 12/13/2019 10:12:00 12/13/2019 23:59 :00 DIS Outpatient Raquel Olguin [id number] 12/09/2019 09:31:00 12/12/2019 13:20 :00 DIS Inpatient Raquel [facility] enter MED-SURG [id number] 12/06/2019 15:46:00 12/09/2019 11:30 :00 DIS Inpatient Raquel [facility]guin [facility] enter ICU [id number] 11/30/2019 08:13:00 12/03/2019 11:15 :00 DIS Inpatient Raquel [facility]guin [facility] enter ICU [id number] 09/11/2019 15:39:00 09/11/2019 23:59 :00 DIS Outpatient Paul Naqvi [id number] 09/11/2019 14:47:00 09/11/2019 23:59 :00 DIS Outpatient Paul Naqvi [id number] 06/13/2019 13:59:00 06/13/2019 23:59 :00 DIS Outpatient Paul Naqvi [id number] 06/13/2019 13:18:00 06/13/2019 23:59 :00 DIS Outpatient Paul Naqvi [id number] 05/23/2019 09:26:00 05/23/2019 23:59: 00 DIS Outpatient Paul Naqvi [id number] 02/27/2019 10:11:00 02/27/2019 12:38: 00 DIS Outpatient [facility] ER [id number] 02/03/2019 10:00:00 02/08/2019 10:15: 00 DIS Inpatient Raqule Olguin [facility] enter MED-SURG [id number] 01/30/2019 09:19:00 02/03/2019 10:00: 00 DIS Inpatient Raquel Olguin Medical [facility] enter MED-SURG [id number] 01/18/2019 11:06:00 01/18/2019 14:59: 00 DIS Outpatient [facility] ER [id number] 05/09/2018 14:38:00 05/09/2018 23:59: 00 DIS Outpatient Paul Naqvi [id number] 02/21/2018 13:32:00 02/21/2018 23:59: 00 DIS Outpatient Paul Naqvi [id number] 02/20/2018 12:32:00 02/20/2018 23:59: 00 DIS Outpatient Theresa Lindsey [id number] 02/16/2018 14:18:00 02/18/2018 12:30: 00 DIS Outpatient César [facility] MED-SURG [id number] 02/07/2018 15:08:00 02/07/2018 23:59: 00 DIS Outpatient Paul Naqvi [id number] 02/07/2018 14:48:00 02/07/2018 23:59: 00 DIS Outpatient Paul Naqvi [id number] 08/18/2017 13:30:00 08/18/2017 17:00: 00 [id number] 05/31/2017 13:40:00 06/03/2017 13:50: 00 DIS Inpatient Driss [facility] MED-SURG [id number] 02/09/2017 15:48:00 02/09/2017 17:25: 00 [id number] 09/27/2018 16:16:00 Document Registration [id number] 05/09/2018 13:57:00 Document Registration [id number] 02/21/2018 12:42:00 Document Registration [id number] 02/07/2018 13:55:00 Document Registration [id number] 05/31/2017 13:52:53 Document Registration [id number] 02/01/2019 11:09:00 Document Registration [id number] 12/10/2019 18:08:00 Document Registration
--- NOTE | 2020-01-19 15:52 | ST Cognitive Linguistic Eval ---
Speech Evaluation-General Medical Diagnosis pneumonia Onset Date: Jan 16, 2020 Therapy Diagnosis Therapy Diagnosis: Cognitive-communication Referral Referring Physician: Dr. Fernandes Medical History Pertinent Medical History: Arthritis, GERD Reviewed History: Yes Social History Current Living Status: Spouse Speech PLF-Current Status Prior Level of Function Patient lived at home with her spouse and was independent for much of her daily needs. Subjective Patient was pleasant and cooperative with the cognitive assessment Language Eval: Auditory Comprehends Simple Yes/No Ques: Functional Indent/Objects Multiple [place]: Functional Ident/Pics in Multiple [place]: Functional Follows 1-Step Commands: Functional Follows Complex Directions: Functional Follows General Conversations: Functional Language Eval: Verbal Language Completes Spontaneous Greeting: Functional Produces Auto, Serial Info: Functional Imitates Simple Words/Phrases: Functional Word Finding: Functional Requests Basic Needs: Functional States Basic Personal Info: Functional Expresses Complex Ideas: Functional Objective Cognitive Domain Attention: WNL Memory: WNL Problem Solving: Functional Executive Functions: WNL Visuospatial Skills: WNL Composite Severity Rating: WNL Clock Drawing Severity Rating: WNL Objective Formal/Standardized Tests [facility] Mental Status ([facility]) Results , within normal limits Oral Motor/Speech Production Within Normal Limits Impression v Speech Patient Assess Expression of Ideas/Wants: Expression (4) Understanding Verbal Content: Understands (4) Brief Interview-Mental Status: Yes Repetition of Three Words: Three (3) Temporal Orientation: Year: Correct (3) Temporal Orientation: Month: Accurate within 5 days(2) Temporal Orientation: Day: Correct (1) Recall : Wear to say "Sock": Yes, no cue required (2) Recall : Color: Yes, no cue required (2) Recall : Bed: Yes,after cueing (1) Memory/Recall Ability: Current season, That he or she is in a hsp/hsp unit Speech-Plan Patient/Family Goals Patient/Family Goals: Patient plans on returning to her home upon hospital discharge. Treatment Plan Speech Therapy Treatment Plan: Discontinue ST Treatment Duration: Jan 19, 2020 Frequency: 1 time per week Estimated Hrs Per Day: .25 hour per day Rehab Potential: Fair Barriers to Learning: None identified Pt/Family Agrees to Plan: Yes Safety Risks/Education Teaching Recipient: Patient, Family Teaching Methods: Discussion Response to Teaching: Verbalize Understanding Education Topics Provided: Safety within her room and communication of wants/needs Time Speech Therapy Time In: 15:30 Speech Therapy Time Out: 15:45 Total Billed Time: 15 Billed Treatment Time 1, TANESHANDAJI Serra Jan 19, 2020 15:52
[2020-01-19 18:00] VITALS: BP 94/68
[2020-01-19] MEDS: RT-ALBUTEROL SULF 2.5 MG/3 ML PRE-MIX VIAL INH SCH (18:25)
--- NOTE | 2020-01-19 20:30 | NUR ---
PATIENT STARTED ON NS IV BOLUS PER DR. SNOW.
[2020-01-19] MEDS ORDERED: DOCUSATE SODIUM 100 MG (COLACE) CAP PO SCH (21:00)
[2020-01-19] MEDS: NS IV 500 ML 500 ML IV SCH (21:01)
[2020-01-19] MEDS: SENNOSIDES 8.6 MG (SENOKOT) TAB PO SCH (21:02)
[2020-01-19] MEDS: ENOXAPARIN 30 MG/0.3 ML (LOVENOX) SYR SC SCH (21:02)
[2020-01-20 05:30] VITALS: BP 106/72
--- NOTE | 2020-01-20 05:37 | NUR ---
UNABLE TO OBTAIN 02 SAT READING AFTER MULTIPLE ATTEMPTS THIS SHIFT. 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 PATIENT HAS CHRONIC SOB, BUT IS OTHERWISE ASYMPTOMATIC OF LOW 02 SATS. NO CONFUSION OR LETHARGY NOTED. PATIENT IS WEARING 02 AT 2L VIA N/C PER HER REQUEST.
--- NOTE | 2020-01-20 06:22 | Individualized Plan of Care ---
Individualized Plan of Care Rehab Nursing IPOC Order Admission Date Jan 19, 2020 at 10:15 Current Orders Orders Admission Order(Inpt,Obs,Sdc) (01/18/20 11:25) Vital Signs: Per Unit Policy ( 08,16,00 (01/18/20 11:25) Caleb [place] 09,21 (01/18/20 11:25) Sequential Compression Device Q4H (01/18/20 11:25) Colorist Dyer-Inpt Rehab Con (01/18/20 11:25) Rehab Nursing Orders-Ipoc (01/18/20 11:25) Physical Therapy Rehab Orders (01/18/20 11:25) Occupational Therapy Rehab Ord (01/18/20 11:25) Speech Therapy Rehab Orders (01/18/20 11:25) Sodium 2g (2000 Mg) (01/18/20 Lunch) Precautions (Aru) (01/18/20 11:25) Weekly Weight WEEK (01/18/20 11:25) Rehab-Intensity Of Therapy (01/18/20 11:25) Initiate Admission Nursing Pro .admission (01/18/20 11:25) Alprazolam Tablet (Xanax Tablet) (01/18/20 11:30) Calcium Carbonate Chew Tablet (Antacid C (01/18/20 11:30) Diphenhydramine Tablet (Benadryl Tablet) (01/18/20 11:30) Docusate Sodium Capsule (Colace Capsule) (01/18/20 21:00) Docusate Sodium Capsule (Colace Capsule) (01/18/20 11:30) Bisacodyl Suppository (Dulcolax Supposit (01/18/20 11:30) Lactulose Oral Solution (Enulose Oral So (01/18/20 11:30) Na Phos/Na Biphos Enema (Fleet Enema Lei (01/18/20 11:30) Guaifenesin/Codeine Syrup (Robitussin Ac (01/18/20 11:30) Loperamide Tablet (Imodium Tablet) (01/18/20 11:30) Melatonin Tablet (Melatonin Tablet) (01/18/20 11:30) Polyethylene Glycol Powder Pkt (Miralax (01/18/20 21:00) Ondansetron Oral Dissolve Tab (Zofran (01/18/20 11:30) Senna S Tablet (Senokot S Tablet) (01/18/20 21:00) Cbc With Automated Diff (01/20/20 06:00) Comprehensive Metabolic Panel (01/20/20 06:00) Transfer - Bed/Room/Location (01/19/20 10:27) Venous Access Request Order (01/19/20 11:31) Code/Resuscitation (01/19/20 11:49) Covid-19 External Lab Results (01/19/20 11:49) Dys3 Advanced/Ground Meat (01/19/20 Lunch) Ensure Enlive (01/19/20 Lunch) Albuterol Pre-Mix Nebs (Rt) (Proventil (01/19/20 12:00) Docusate Sodium Capsule (Colace Capsule) (01/19/20 21:00) Bisacodyl Suppository (Dulcolax Supposit (01/19/20 12:00) Hydrocodone/Apap 7.5/325 Tab (Lortab 7. (01/19/20 12:00) Levothyroxine Tablet (Synthroid Tablet) (01/20/20 06:30) Enoxaparin Injection (Lovenox Injection) (01/19/20 20:30) Melatonin Tablet (Melatonin Tablet) (01/19/20 12:00) Polyethylene Glycol Powder Pkt (Miralax (01/19/20 12:00) Antacid Suspension (Mylanta Suspension (01/19/20 12:00) Pantoprazole Tablet (Protonix Tablet) (01/20/20 09:00) Sumatriptan Tablet (Imitrex Tablet) (01/19/20 12:00) Sennosides Tablet (Senokot Tablet) (01/19/20 21:00) Sodium Chloride Flush (Catheter Flush Sy (01/19/20 12:00) Acetaminophen Tablet/Caplet (Tylenol T (01/19/20 12:00) Ondansetron Injection (Zofran Injectio (01/19/20 12:00) Ondansetron Oral Dissolve Tab (Zofran (01/19/20 12:00) Oxycodone Immediate Rel Tablet (Oxyir Ta (01/19/20 12:00) Dietary Consult (01/19/20 11:49) Palliative Care Consult (01/19/20 11:49) Svn Small Volume Nebulizer (01/19/20 11:49) Patient Visit (01/19/20 ) Pt Eval Moderate Complexity (01/19/20 ) Functional Activities, Ea 15 (01/19/20 ) Dys3 Advanced/Ground Meat (01/19/20 Dinner) Ambulate 08,12,20 (01/19/20 16:02) Sequential Compression Device Q4H (01/19/20 16:02) Dvt/Vte Risk - Notifiy Physici Q4H (01/19/20 16:02) Patient Visit (01/19/20 ) Speech Sound Lang Comp (01/19/20 ) Mat Initiate Protocol (01/19/20 17:04) Albuterol Pre-Mix Nebs (Rt) (Proventil (01/19/20 21:00) Svn Small Volume Nebulizer (01/19/20 17:05) Ns Iv 500 Ml (Sodium Chloride 0.9%) (01/19/20 19:45) Consult Cardiology (01/19/20 19:41) Amb Us Guide Vascular Access (01/19/20 ) Iron Test (Fe) (01/20/20 09:26) Echo W Doppler/Color Flow (01/21/20 13:46) Ensure Enlive (01/20/20 Dinner) Rehab Nursing Orders: Ongoing Assess. of Cognitive Status, Ongoing Assess. of Function Status, Bladder Management, Bladder Scan, Bladder Training, Bowel Manag ement, Bowel Training, Disease Management & Educaiton, DVT Prophylaxis, Fall Prevention, Fluid/Electrolyte/Nutrition Mgmt, Infection Prevention, Medication Management & Education, Management of Risks & Complications, Management of Skin Intergrity, Nutrition Management, Pain Management, Patient/Family Support, Safety Management Intensity of Therapy to be met Patient to be seen: 15 hrs over 7 cons. days PT IPOC Problem List: Activity Tolerance, Functional Strength, Safety, Balance, Gait, Transfer, Bed Mobility Treatment Plan: Continue Plan of Care Bed Mobility, Education, Functional Activity Amee, Functional Strength, Group Therapy, Gait, Safety, Therapeutic Exercise, Transfers Treatment Duration: Feb 16, 2020 Frequency: Modified Program (IRF) Estimated Hrs Per Day: 1 hour per day OT IPOC Problems: Decreased Activ Tolerance, Decreased UE Strength, Dependent Transfers, Edema, Impaired Coordination, Impaired Funct Balance, Impaired I ADL's, Impaired Self-Care Skills OT Treatment, Training and Edu: Yes Plan of Care: ADL Retraining, Functional Mobility, UE Funct Exercise/Act Treatment Duration: Feb 09, 2020 Frequency: Modified Program (IRF) Estimated Hrs Per Day: Other (Intensity Waiver- 60minutes per day for OT) ST IPOC Speech Therapy Treatment Plan: Discontinue ST Treatment Duration: Jan 19, 2020 Frequency: 1 time per week Estimated Hrs Per Day: .25 hour per day Colorist Dyer/Case Mgmt Colorist Dyer/Case Managemen: Discharge Planning Dietitian/Venue Coordinator Dietitian/Venue Coordinator to monitor nutritional status and make changes and/or recommendations as needed and work with speech pathology on dietary upgrades as the occur. Physician IPOC Medical Issues being managed closely and that require the 24 hour availability of a physician: Severe dyspnea with hypoxia and bilateral pleural effusions with volume overload and significant malnutrition acute on chronic will be at high risk for decompensation Medical Issues: Bowel/Bladder Function, DVT Prophylaxis, Falls Precautions, Fluid/Electrolyte/Nutrition Balance, Infection Protection, Pain Management Brief Synthesis of Preadmission Screen, Post-Admission Evaluation, and Therapy Evaluations: PT OT will help patient with energy conservation and increased independence in ADL's and work on hypoxia with help in returning home to live independently with her Medical Prognosis: Fair Anticipated Length of Stay: 10 days RAQUEL OLGUIN DO Jan 20, 2020 06:22
[2020-01-20 06:49] LABS: BASOPHILS % (AUTO) 0 % (0-10); EOSINOPHILS # (AUTO) 0.1 10^3/uL (0.0-0.3); EOSINOPHILS % (AUTO) 2 % (0-10); HEMATOCRIT 27 % (35-52); HEMOGLOBIN 8.2 G/DL (11.5-16.0); LYMPHOCYTES % (AUTO) 23 % (12-44); MEAN CORPUSCULAR HEMOGLOBIN 33 PG (25-34); MEAN CORPUSCULAR HGB CONC 31 G/DL (32-36); MEAN CORPUSCULAR VOLUME 109 FL (80-99); MEAN PLATELET VOLUME 9.5 FL (7.4-10.4); MONOCYTES # (AUTO) 0.6 X 10^3 (0.0-1.0); MONOCYTES % (AUTO) 14 % (0-12); NEUTROPHILS # (AUTO) 2.6 X 10^3 (1.8-7.8); NEUTROPHILS % (AUTO) 61 % (42-75); PLATELET COUNT 241 10^3/uL (130-400); RED CELL DISTRIBUTION WIDTH 16.1 % (10.0-14.5); WHITE BLOOD COUNT 4.3 10^3/uL (4.3-11.0)
[2020-01-20] MEDS: LEVOTHYROXINE 112 MCG (LEVOTHROID) TAB PO SCH (06:55)
[2020-01-20 07:15] LABS: ALBUMIN 2.3 GM/DL (3.2-4.5); CHLORIDE 104 MMOL/L (98-107); POTASSIUM 4.5 MMOL/L (3.6-5.0); SODIUM 142 MMOL/L (135-145)
[2020-01-20 07:16] LABS: CALCIUM 7.8 MG/DL (8.5-10.1)
[2020-01-20 07:17] LABS: GLUCOSE 80 MG/DL (70-105); TOTAL PROTEIN 4.1 GM/DL (6.4-8.2)
[2020-01-20 07:19] LABS: BILIRUBIN,TOTAL 0.2 MG/DL (0.1-1.0); CARBON DIOXIDE 31 MMOL/L (21-32)
[2020-01-20 07:21] LABS: ALKALINE PHOSPHATASE 67 U/L (40-136); CREATININE SERUM 0.74 MG/DL (0.60-1.30); GFR ESTIMATED > 60
[2020-01-20 07:22] LABS: BUN/CREATININE RATIO 32
[2020-01-20 07:24] LABS: ALANINE AMINOTRANSFERASE 6 U/L (0-55)
[2020-01-20] MEDS: DOCUSATE SODIUM 100 MG (COLACE) CAP PO SCH ×2 (08:08→20:22)
[2020-01-20] MEDS: PANTOPRAZOLE 40 MG (PROTONIX) TAB PO SCH (08:08)
[2020-01-20] MEDS: SENNOSIDES 8.6 MG (SENOKOT) TAB PO SCH ×2 (08:09→20:22)
[2020-01-20] MEDS: polyethylene glycoL POWDER 17 GM (MIRALAX) PACK PO SCH ×2 (08:09→21:00)
--- NOTE | 2020-01-20 09:07 | Occupational Ther Daily Note ---
OT Current Status-Daily Note Subjective Pt seen in recliner chair this am. Alert/ oriented. Pt denies pain, then later states pain in B shins. Pt agrees to therapy, agrees to sponge bath and ther ex. Mental Status/Objective Patient Orientation: Person, Place, Situation, Normal For Age Attachments: IV, Oxygen (1L) ADL-Treatment Therapy Code Descriptions/Definitions Functional [place] Measure: 0=Not Assessed/NA 4=Minimal Assistance 1=Total Assistance 5=Supervision or Setup 2=Maximal Assistance 6=Modified [place] 3=Moderate Assistance 7=Complete IndependenceSCALE: Activities may be completed with or without assistive devices. 3-Wxuktoraml-ygvriqj completes the activity by him/herself with no assistance from a helper. 5-Set-up or Clean-up Assistance-helper sets up or cleans up; patient completes activity. [place] assists only prior to or following the activity. 4-Supervision or Touching Assistance-helper provides verbal cues and/or touching/steadying and/or contact guard assistance as patient completes activity. Assistance may be provided throughout the activity or intermittently. 3-Partial/Moderate Assistance-helper does LESS THAN HALF the effort. [place] lifts, holds or supports trunk or limbs, but provides less than half the effort. 2-Substantial/Maximal Assistance-helper does MORE THAN HALF the effort. [place] lifts or holds trunk or limbs and provides more than half the effort. 4-Bwepwdovp-mvlrxi does ALL the effort. Patient does none of the effort to complete the activity. Or, the assistance of 2 or more helpers is required for the patient to complete the activity. If activity was not attempted, code reason: 7-Patient Refused. 9-Not Applicable-not attempted and the patient did not perform the activity before the current illness, exacerbation or injury. 10-Not Attempted due to Environmental Limitations-(lack of equipment, weather restraints, etc.). 88-Not Attempted due to Medical Conditions or Safety Concerns. Eating (QC): 6 Oral Hygiene (QC): 7 (denies at this time. ) Bathing Location: L Arm, R Arm, L Upper Leg, R Upper Leg, L Lower Leg (including foot), R Lower Leg (including foot), Chest, Abdomen, Buttocks, Perineal Area Shower/Bathe Self (QC): 4 (CGA in stance for bottom hygiene. ) Upper Body Dressing (QC): 4 (CGA in stance for robe/ gown donning and doffing. ) Lower Body Dressing (QC): 4 (SBA in sit for reaching; CGA in stance to pull up) On/Off Footwear: 3 (mod A, pt able to doff, though requires assist to don BRANT bandages and socks on top. ) Toileting Hygiene (QC): 4 (CGA in stance during bottom/ mesah hygiene. ) Toilet Transfer (QC): 4 (SBA, use of walker. ) Other Treatment Pt seen in recliner, 02 donned with 1L. Nursing states pt utilizes for comfort and able to doff. Pt doffs without hesitation. Pt ambulates to commode with CGA and walker; no c/o SOB. Pt returns to reclienr, completes ADL tasks in chair. Min A for assist to sit to stand, Cues for breathing as pt c/o SOB. Pt talks with regular tempo and volume, pt educated on diaphragmatic breathing. Pt's BLE re-wrapped with BRANT wraps, pt has pitting edema dorsum of B feet. Pt states she wears BRANT wraps at home once weeping, pt educated on utilizing through week to prevent weeping/ wounds. Pt agrees, states can assist in donning. Pt educated on HEP and use of therabands for UE strengthening for fx activities, pt return demonstrates with min cues for tension/ positioning. Pt left in recliner with all needs met, call light in reach. Education OT Patient Education: Correct positioning, Exercise program, Home exercise program, Modified ADL techniques, Purpose of tx/functional activities, Safety issues, Transfer techniques Teaching Recipient: Patient Teaching Methods: Demonstration, Discussion Response to Teaching: Verbalize Understanding, Return Demonstration, Reinforcement Needed OT Short Term Goals Short Term Goals Time Frame: Jan 26, 2020 Eatin Oral hygiene: 3 Toileting hygiene: 3 Shower/bathe self: 3 Upper body dressin Lower body dressin Putting on/taking off footwear: 3 OT Bar Back Goals Bar Back Goals Time Frame: Feb 09, 2020 Eating (QC): 6 Oral Hygiene (QC): 6 Toileting Hygiene (QC): 6 Shower/Bathe Self (QC): 4 Upper Body Dressing (QC): 5 Lower Body Dressing (QC): 4 On/Off Footwear (QC): 4 Additional Goals: 1-Demonstrate ADL Tasks, 2-Verbalize Understanding, 3- ImproveStrength/Amee 1=Demonstrate adherence to instructed precautions during ADL tasks. 2=Patient will verbalize/demonstrate understanding of assistive devices/modifications for ADL. 3=Patient will improve strength/tolerance for activity to enable patient to perform ADL's. OT Education/Plan Problem List/Assessment Assessment: Decreased Activ Tolerance, Decreased UE Strength, Dependent Transfers, Edema, Impaired Funct Balance, Impaired I ADL's, Impaired Self-Care Skills Discharge Recommendations Plan/Recommendations: Continue POC Therapy Discharge Recommendati: Home & Family Treatment Plan/Plan of Care Treatment,Training & Education: Yes Patient would benefit from OT for education, treatment and training to promote independence in ADL's, mobility, safety and/or upper extremity function for ADL's. Plan of Care: ADL Retraining, Functional Mobility, UE Funct Exercise/Act Treatment Duration: Feb 09, 2020 Frequency: Modified Program (IRF) Estimated Hrs Per Day: Other (Intensity Waiver- 60minutes per day for OT) Agreement: Yes Rehab Potential: Fair Time/GCodes Start Time: 08:00 Stop Time: 09:00 Total Time Billed (hr/min): 60 Billed Treatment Time 1, ADL 3, EX (60) LAITH MULLER OTR Jan 20, 2020 09:07
[2020-01-20] MEDS: RT-ALBUTEROL SULF 2.5 MG/3 ML PRE-MIX VIAL INH SCH ×2 (09:12→18:53)
--- NOTE | 2020-01-20 09:29 | PM&R Progress Note ---
Subjective HPI/CC On Admission Date Seen by Provider: Jan 20, 2020 Time Seen by Provider: 09:30 Subjective/Events-last exam Mid-line is functioning well Hgb 8.2, I did order an iron level and likely will need iron infusions Slept in recliner last night Home O2 will be used as needed since she has at home to use at night too Improved edema with BRANT wraps 500 CCs of normal saline bolus helped her BP a lot yesterday and tachycardia improved Overall much improved and I did update her on the progress Checked meds and labs Conferred with RN Reviewed therapy notes Review of Systems General: Fatigue, Malaise Pulmonary: Dyspnea, Cough Neurological: Weakness, Incoordination Objective Exam Vital Signs Vital Signs Date Time Temp Pulse Resp B/P (MAP) Pulse Ox O2 Delivery O2 Flow Rate FiO2 01/20/20 18:53 95 Nasal Cannula 1.00 01/20/20 18:00 37.5 105 18 95/60 (72) Capillary Refill : Less Than 3 SecondsLess Than 3 Seconds General Appearance: No Apparent Distress, WD/WN, Chronically ill, Cachetic, Thin HEENT: PERRL/EOMI, Normal ENT Inspection, Pharynx Normal Neck: Full Range of Motion, Normal Inspection, Non Tender, Supple, Carotid Bruit Respiratory: Chest Non Tender, Lungs Clear, No Accessory Muscle Use, No Respiratory Distress, Decreased Breath Sounds Cardiovascular: Regular Rate, Rhythm, No Gallop, No JVD, No Murmur, Normal Per ipheral Pulses Gastrointestinal: Normal Bowel Sounds, No Organomegaly, No Pulsatile Mass, Non Tender, Soft Back: Normal Inspection, No CVA Tenderness, No Vertebral Tenderness Extremity: Normal Capillary Refill, Normal Inspection, Normal Range of Motion, Non Tender, No Calf Tenderness, No Pedal Edema, Pedal Edema Neurologic/Psychiatric: Alert, Oriented x3, No Motor/Sensory Deficits, Normal Mood/Affect, quality control associate II-XII Norm as Tested, Abnormal Gait, Motor Weakness (generalized) Skin: Normal Color, Warm/Dry Lymphatic: No Adenopathy Results/Procedures Lab Laboratory Tests 01/20/20 06:30 Patient resulted labs reviewed. FIM Transfers Therapy Code Descriptions/Definitions Functional [place] Measure: 0=Not Assessed/NA 4=Minimal Assistance 1=Total Assistance 5=Supervision or Setup 2=Maximal Assistance 6=Modified [place] 3=Moderate Assistance 7=Complete IndependenceSCALE: Activities may be completed with or without assistive devices. 1-Ksrwektgeq-lslgpsz completes the activity by him/herself with no assistance from a helper. 5-Set-up or Clean-up Assistance-helper sets up or cleans up; patient completes activity. [place] assists only prior to or following the activity. 4-Supervision or Touching Assistance-helper provides verbal cues and/or touching/steadying and/or contact guard assistance as patient completes activity. Assistance may be provided throughout the activity or intermittently. 3-Partial/Moderate Assistance-helper does LESS THAN HALF the effort. [place] lifts, holds or supports trunk or limbs, but provides less than half the effort. 2-Substantial/Maximal Assistance-helper does MORE THAN HALF the effort. [place] lifts or holds trunk or limbs and provides more than half the effort. 4-Ceuktcaef-txhkjr does ALL the effort. Patient does none of the effort to complete the activity. Or, the assistance of 2 or more helpers is required for the patient to complete the activity. If activity was not attempted, code reason: 7-Patient Refused. 9-Not Applicable-not attempted and the patient did not perform the activity before the current illness, exacerbation or injury. 10-Not Attempted due to Environmental Limitations-(lack of equipment, weather restraints, etc.). 88-Not Attempted due to Medical Conditions or Safety Concerns. Roll Left to Right (QC): 3 Sit to Lying (QC): 2 Sit to Stand (QC): 3 Chair/Ict-tx-Ngzek Xfer(QC): 3 Car Transfer (QC): 2 Gait Training Does the Patient Walk?: Yes Walk 10 feet (QC): 4 Walk 50 ft with 2 Turns(QC): 4 Walk 150 ft (QC): 88 Walking 10ft/uneven surface-QC: 88 Gait Assistive Device: FWW Wheelchair Training Wheel 50 ft with 2 turns (QC): 9 Wheel 150 ft (QC): 9 Stair Training 1 Step (curb) (QC): 4 4 Steps (QC): 88 12 Steps (QC): 88 Balance Picking up an Object (QC): 88 ADL-Treatment Eating (QC): 6 Oral Hygiene (QC): 7 (denies at this time. ) Bathing Location: L Arm, R Arm, L Upper Leg, R Upper Leg, L Lower Leg (includin g foot), R Lower Leg (including foot), Chest, Abdomen, Buttocks, Perineal Area Shower/Bathe Self (QC): 4 (CGA in stance for bottom hygiene. ) Upper Body Dressing (QC): 4 (CGA in stance for robe/ gown donning and doffing. ) Lower Body Dressing (QC): 4 (SBA in sit for reaching; CGA in stance to pull up) On/Off Footwear (QC): 3 (mod A, pt able to doff, though requires assist to don BRANT bandages and socks on top. ) Toileting Hygiene (QC): 4 (CGA in stance during bottom/ mesha hygiene. ) Toilet Transfer (QC): 4 (SBA, use of walker. ) Assessment/Plan Assessment and Plan Assess & Plan/Chief Complaint Assessment: Debility Chronic cachexia Aortic stenosis Bilateral pleural effusions Hypothyroidism Malnutrition Migraines Fibromyalgia Edema Hypoxia O2 dependence new Plan: IRF protocol Diuresis Home meds O2 Monitor pleural effusions (1) Debility (2) Aortic stenosis (3) Acute kidney injury Status: Acute (4) Low blood pressure reading Status: Acute (5) Pneumonia Status: Acute (6) Pleural effusion Status: Acute (7) Anemia Status: Acute (8) Pneumothorax Status: Acute RAQUEL OLGUIN DO Jan 20, 2020 09:29
[2020-01-20] MEDS: NS IV 500 ML 500 ML IV SCH (10:24)
--- NOTE | 2020-01-20 10:59 | Physical Therapy Daily Note ---
PT Daily Note-Current Subjective Pt in recliner with in room upon arrival. Pt agrees to PT and in very anxious. Mental Status Patient Orientation: Person, Place, Time Transfers SCALE: Activities may be completed with or without assistive devices. 0-Npmkkgvssg-ymrsgye completes the activity by him/herself with no assistance from a helper. 5-Set-up or Clean-up Assistance-helper sets up or cleans up; patient completes activity. [place] assists only prior to or following the activity. 4-Supervision or Touching Assistance-helper provides verbal cues and/or touching/steadying and/or contact guard assistance as patient completes activity. Assistance may be provided throughout the activity or intermittently. 3-Partial/Moderate Assistance-helper does LESS THAN HALF the effort. [place] lifts, holds or supports trunk or limbs, but provides less than half the effort. 2-Substantial/Maximal Assistance-helper does MORE THAN HALF the effort. [place] lifts or holds trunk or limbs and provides more than half the effort. 0-Xpvhxygix-inxvur does ALL the effort. Patient does none of the effort to complete the activity. Or, the assistance of 2 or more helpers is required for the patient to complete the activity. If activity was not attempted, code reason: 7-Patient Refused. 9-Not Applicable-not attempted and the patient did not perform the activity before the current illness, exacerbation or injury. 10-Not Attempted due to Environmental Limitations-(lack of equipment, weather restraints, etc.). 88-Not Attempted due to Medical Conditions or Safety Concerns. Sit to Stand (QC): 3 Pt very anxious and fears of falling with sit to stand. Weight Bearing Right Lower Extremity: Right Weight Bearing/Tolerated Left Lower Extremity: Left Weight Bearing/Tolerated Gait Training Does the Patient Walk?: Yes Distance: 100 x4 Walk 10 feet (QC): 4 Walk 50 ft with 2 Turns(QC): 4 Gait Persons Needed: 1 Gait Assistive Device: FWW Exercises Seated Therapy Exercises: Ankle pumps, Sit to stand (3), Long arc quads, Hip flexion, Kicking activity, Hip abd/add Seated Reps: 12 NuStep Minutes: 5 NuStep Workload: 3 Treatments Pt sit to stand requiring ModA and amb to gym needing rest breaks. Pt performs seated exercises prior to completing NuStep. Pt amb back to room and was left in recliner with all needs met, call light in hand. Assessment Current Status: Fair Progress Pt requires frequent rest breaks during activity. Pt is self limiting d/t fear a nd being anxious. PT Short Term Goals Short Term Goals Time Frame: Feb 02, 2020 Roll Left & Right: 5 Sit to lyin Sit to stand: 5 Chair/tlb-mj-qbjdf transfer: 5 Toilet transfer: 5 Car transfer: 5 Walk 50 feet with two turns: 5 Walk 150 feet: 5 4 steps: 5 PT Supervisor Mails Goals Long-Term Goals PT Supervisor Mails Goals Time Frame: Feb 16, 2020 Roll Left & Right (QC): 6 Sit to Lying (QC): 6 Lying-Sitting on Side/Bed(QC): 6 Sit to Stand (QC): 6 Chair/Nrw-ca-Jnzht Xfer(QC): 6 Toilet Transfer (QC): 6 Car Transfer (QC): 6 Does the Patient Walk: Yes Walk 10 feet (QC): 6 Walk 50ft with 2 Turns (QC): 6 Walk 150 ft (QC): 6 Walking 10ft on Uneven Surface: 6 1 Step (curb) (QC): 6 4 Steps (QC): 6 12 Steps (QC): 6 Picking up an Object (QC): 6 Wheel 50 feet with 2 turns (QC: 9 Wheel 150 feet: 9 PT Plan Problem List Problem List: Activity Tolerance, Functional Strength, Safety, Balance, Gait, Transfer Treatment/Plan Treatment Plan: Continue Plan of Care Treatment Plan: Bed Mobility, Education, Functional Activity Amee, Functional Strength, Group Therapy, Gait, Safety, Therapeutic Exercise, Transfers Treatment Duration: Feb 16, 2020 Frequency: Modified Program (IRF) Estimated Hrs Per Day: 1 hour per day Patient and/or Family Agrees t: Yes Safety Risks/Education Patient Education: Gait Training, Correct Positioning, Safety Issues Teaching Recipient: Patient, Family Teaching Methods: Demonstration, Discussion Response to Teaching: Verbalize Understanding, Return Demonstration Time/GCodes Time In: 1000 Time Out: 1100 Total Billed Treatment Time: 60 Total Billed Treatment 1, Ex x3 (45m), GT (15m) RICARDADMITRY CHEMICAL EQUIPMENT CONTROLLER Jan 20, 2020 10:59
--- NOTE | 2020-01-20 12:54 | Progress Note ---
DURAN JACKSON MED STUDENT 01/20/20 1254: Progress Note Subjective: Ms. Lofton reports doing better today, was participating in therapy prior to visit. She reported no SOB while using bands with arms while sitting down, but would experience SOB when she stands up to walk around. Reports cough productive of clear sputum. She reports that she feels a slight overall improvement in energy. Therapy reports that her edema has improved. Denies any fever, chills, CP, palpitations, abdominal pain, constipation, diarrhea, dysuria, frequency. Objective: - Neck - no lymphadenopathy, tenderness to palpation near prior IV site - Cardiac - RRR, systolic murmur - Pulmonary - bilateral lower lobe crackles, no wheezing, no respiratory distress - Extremities - 2+ radial pulses, 2+ pedal pulses, legs wrapped, mild tenderness to palpation of calves Assessment: Debility New O2 dependence Chronic cachexia Aortic stenosis Bilateral pleural effusions Malnutrition Hypothyroidism Migraines Plan: IRF protocol - anticipate staying 10 days or more to improve mobility and endurance monitor pleural effusions continue O2 at night home REBECCA Russell DO 01/20/20 2103: Supervisory-Addendum Brief Verification & Attestation Participated in pt care: history, MDM, physical Personally performed: exam, history, MDM, supervision of care Care discussed with: Medical Student Procedures: n/a Results interpretation: Verified all documentation Verification and Attestation of Medical Student E/M Service A medical student performed and documented this service in my presence. I reviewed and verified all information documented by the medical student and made modifications to such information, when appropriate. I personally performed the physical exam and medical decision making. Rebecca Olguin, Jan 20, 2020,21:03 DURAN JACKSON MED STUDENT Jan 20, 2020 12:54 REBECCA OLGUIN DO Jan 20, 2020 21:03
--- NOTE | 2020-01-20 12:57 | NUR ---
CM/SS ADMISSION Patient was admitted to ARU from [facility] 01/19/20 for debility. Other comorbidities are, in part, aortic stenosis, low BP, pneumonia, pleural effusion, anemia, pneumothorax. Patient has history of intermittent hospitalizations at [facility] for pneumonia, had gastric ulcer bleed with resection 30 years ago with resultant long-standing malnourishment and poor nutritional reserve. Patient resides at home with her spouse of 58 years, Duglas Lofton. He is at bedside today during interview. Patient and Duglas both express that the goal is for patient to return home as before when able. PCP: Dr. Marlon Randall, [facility], [place] PHARMACY: [facility] INSURANCE: Medicare and [employer] DME: Patient has 4WW with seat, home O2 noc, grab bars in bathroom, shower stool (no arms or back). BARRIERS TO DISCHARGE PLANNING: Ability to recuperate to a safe functional level at home influenced by age, long-standing fragility from poor overall reserve, persistent pneumonia. On the positive side, she does reside with spouse and has two children in close proximity. ADVANCED DIRECTIVE: Yes, patient completed one during her acute inpatient stay with [facility] as of 01/19/20. CONTACTS: Duglas Lofton, Spouse, DPOA HC [phone] Gely Large, Daughter, DPOA HC [address] [place] [address] Zaina, Daughter [place], [place] Duglas Lofton, Son [place], [place] Jose (Lindsey) Alyssa, Daughter, POA HC [address] [place] [address] Patient and spouse understood the process and purpose for weekly patient care conference and that her first review will be Sunday, January 26, 2020.
--- NOTE | 2020-01-20 13:33 | NUR ---
PALLIATIVE CARE RN in to see patient. She is sitting up in chair, in room. Patient reports doing well, feeling stronger, and is excited about going to [place] for a heart procedure. Patient and I are unsure what this procedure, however, she is hoping for living "a little while longer". Will continue to follow and offer support as able.
--- NOTE | 2020-01-20 13:57 | Cardiology Progress Note ---
Cardiology SOAP Progress Note Subjective: No cardiac complaints. Objective: I&O/Vital Signs 01/20/20 01/20/20 01/20/20 05:30 08:10 09:12 Temp 36.4 Pulse 96 Resp 16 B/P (MAP) 106/72 (83) Pulse Ox 93 O2 Delivery Nasal Cannula Nasal Cannula Nasal Cannula O2 Flow Rate 2.00 1.00 1.00 01/20/20 00:00 Intake Total 480 ml Balance 480 ml Constitutional: AAO x 3, PERRL, well-developed, well-nourished Respiratory: chest is bilaterally symmetric, lungs clear to auscultation Cardiovascular: regular rate-rhythm, S1 and S2, systolic murmur Gastrointestional: soft, audible bowel sounds Extremities: normal range of motion, non-tender, normal inspection, no lower extremity edema bilateral Neurologic/Psychiatric: no motor/sensory deficits, alert, normal mood/affect, oriented x 3 Results/Procedures: Labs Laboratory Tests 01/20/20 06:30: White Blood Count 4.3, Red Blood Count 2.46L, Hemoglobin 8.2L, Hematocrit 27L, Mean Corpuscular Volume 109H, Mean Corpuscular Hemoglobin 33, Mean Corpuscular Hemoglobin Concent 31L, Red Cell Distribution Width 16.1H, Platelet Count 241, Mean Platelet Volume 9.5, Neutrophils (%) (Auto) 61, Lymphocytes (%) (Auto) 23, Monocytes (%) (Auto) 14H, Eosinophils (%) (Auto) 2, Basophils (%) (Auto) 0, Neutrophils # (Auto) 2.6, Lymphocytes # (Auto) 1.0, Monocytes # (Auto) 0.6, Eosinophils # (Auto) 0.1, Basophils # (Auto) 0.0, Sodium Level 142, Potassium Level 4.5, Chloride Level 104, Carbon Dioxide Level 31, Anion Gap 7, Blood Urea Nitrogen 24H, Creatinine 0.74, Estimat Glomerular Filtration Rate > 60, BUN/Creatinine Ratio 32, Glucose Level 80, Calcium Level 7.8L, Corrected Calcium 9.2, Total Bilirubin 0.2, Aspartate Amino Transf (AST/SGOT) 14, Alanine Aminotransferase (ALT/SGPT) 6, Alkaline Phosphatase 67, Total Protein 4.1L, Albumin 2.3L A/P: Assessment/Dx: Pneumonia, Sepsis, resolved Moderate to severe aortic stenosis, Significant debility Hypotension Plan: Pneumonia, defer to the primary team. Sepsis, significantly improved. Moderate to severe aortic stenosis, echocardiogram showed hyperdynamic LV function with moderate to severe aortic stenosis with mean gradient of 44 mmHg and aortic valve area 1.1 cm. Patient denies cardiac symptoms. Dr. Fernandes discussed with me that there is a previous echocardiogram done a few weeks ago which showed [id number]-[id number]-[id number] aortic stenosis. Therefore there is a direct discrepancy between the 2 echocardiograms. I will request another echocardiogram tomorrow with more views of the aortic valve and gradient well use to make a decision. I discussed at length with the patient and about potential therapeutic options. Will probably require consultation for aortic surgery versus percutaneous aortic valve replacement versus medical therapy. I will arrange appropriately. However due to her fragility and generalized debility, I think she will not be a good candidate for aortic surgery anyways. Discussed briefly with Dr. fernandes. IV fluids are recommended. Significant debility- inpatient rehabilitation. Borderline hypertension yesterday without symptoms. 500 mL of fluid given. Thank you for your consultation. Please call me if you have any questions. Be Cox MD, FACP, FACC, FSCAI, FHRS, CCDS Interventional Cardiology Cardiac Electrophysiology Vascular Medicine and Endovascular Interventions Luis COX MD Jan 20, 2020 13:57
--- NOTE | 2020-01-20 14:04 | NUR ---
"RD ASSESSMENT PMHx: pneumonia; HTN; GERD; osteoporosis; scoliosis; CA(thyroid) PT INTERACTION: Pt was awake and pleasant during nutrition follow-up / consult for malnutrition. Please refer to previous Nutrition Note on 01/17 for malnutrition assessment. Pt states she has been eating better since last assessment. Note avg PO intake 44% x4d, per chart review. Note intake has been improving since last assessment. Pt states no issues with nausea, vomiting, constipation, or diarrhea since last assessment. Note last BM was 01/18, and pt currently on bowel regimen of colace BID; senna BID; and miralax BID, per chart review. ABNORMAL NUTRITION-RELATED LAB VALUES LOW: Ca 7.8; Pro 4.1; alb 2.3 HIGH: BUN 24 Est. kcal needs: 1425 kcal | 30 kcal/kg Est. Pro needs: 66 g Pro | 1.4 g Pro/kg PES STATEMENT: Inadequate oral intake (NI-2.1) related to loss of appetite as evidenced by pt interview | avg PO intake 44% x4d INTERVENTION: Continue with current diet order of DYS3 Advanced/Ground Meat diet. Add Ensure Enlive (vary) to meals TID, for increased kcal intake. Provides 350 kcal and 13 g Pro per serving. Encouraged pt to eat when able. Will continue to follow and reassess as pt needs, intake, and status change. MONITOR/EVALUATE: PO Intake; Plan of Care; Hydration Status; Weight Status; Lab Values Brannon Valadez, MS, RD, LD"
[2020-01-20 18:00] VITALS: BP 95/60
[2020-01-20] MEDS: ENOXAPARIN 30 MG/0.3 ML (LOVENOX) SYR SC SCH (20:22)
[2020-01-21] MEDS: LEVOTHYROXINE 112 MCG (LEVOTHROID) TAB PO SCH (05:06)
[2020-01-21 05:58] VITALS: BP 108/59
--- NOTE | 2020-01-21 06:30 | PM&R Progress Note ---
Subjective Subjective/Events-last exam Mid-line is functioning well Hgb 8.2, I did order an iron level and likely will need iron infusions Slept in recliner last night Home O2 will be used as needed since she has at home to use at night too Improved edema with BRANT wraps 500 CCs of normal saline bolus helped her BP a lot yesterday and tachycardia improved Overall much improved and I did update her on the progress Checked meds and labs Conferred with RN Reviewed therapy notes Objective Exam Vital Signs Vital Signs Date Time Temp Pulse Resp B/P (MAP) Pulse Ox O2 Delivery O2 Flow Rate FiO2 01/21/20 08:43 Room Air 01/21/20 05:58 36.8 112 22 108/59 (75) 99 1.00 Capillary Refill : Less Than 3 SecondsLess Than 3 Seconds General Appearance: No Apparent Distress, WD/WN, Chronically ill, Cachetic, Thin HEENT: PERRL/EOMI, Normal ENT Inspection, Pharynx Normal Neck: Full Range of Motion, Normal Inspection, Non Tender, Supple, Carotid Bruit Respiratory: Chest Non Tender, Lungs Clear, No Accessory Muscle Use, No Respiratory Distress, Decreased Breath Sounds Cardiovascular: Regular Rate, Rhythm, No Gallop, No JVD, No Murmur, Normal Peripheral Pulses Gastrointestinal: Normal Bowel Sounds, No Organomegaly, No Pulsatile Mass, Non Tender, Soft Back: Normal Inspection, No CVA Tenderness, No Vertebral Tenderness Extremity: Normal Capillary Refill, Normal Inspection, Normal Range of Motion, Non Tender, No Calf Tenderness, No Pedal Edema, Pedal Edema Neurologic/Psychiatric: Alert, Oriented x3, No Motor/Sensory Deficits, Normal Mood/Affect, gut cleaner II-XII Norm as Tested, Abnormal Gait, Motor Weakness ( generalized) Skin: Normal Color, Warm/Dry Lymphatic: No Adenopathy Results/Procedures Lab Patient resulted labs reviewed. FIM Transfers Therapy Code Descriptions/Definitions Functional [place] Measure: 0=Not Assessed/NA 4=Minimal Assistance 1=Total Assistance 5=Supervision or Setup 2=Maximal Assistance 6=Modified [place] 3=Moderate Assistance 7=Complete IndependenceSCALE: Activities may be completed with or without assistive devices. 0-Jdzfaberul-wavqykc completes the activity by him/herself with no assistance from a helper. 5-Set-up or Clean-up Assistance-helper sets up or cleans up; patient completes activity. [place] assists only prior to or following the activity. 4-Supervision or Touching Assistance-helper provides verbal cues and/or touching/steadying and/or contact guard assistance as patient completes activity. Assistance may be provided throughout the activity or intermittently. 3-Partial/Moderate Assistance-helper does LESS THAN HALF the effort. [place] lifts, holds or supports trunk or limbs, but provides less than half the effort. 2-Substantial/Maximal Assistance-helper does MORE THAN HALF the effort. [place] lifts or holds trunk or limbs and provides more than half the effort. 0-Rcnjxetnp-yomiow does ALL the effort. Patient does none of the effort to complete the activity. Or, the assistance of 2 or more helpers is required for the patient to complete the activity. If activity was not attempted, code reason: 7-Patient Refused. 9-Not Applicable-not attempted and the patient did not perform the activity before the current illness, exacerbation or injury. 10-Not Attempted due to Environmental Limitations-(lack of equipment, weather restraints, etc.). 88-Not Attempted due to Medical Conditions or Safety Concerns. Roll Left to Right (QC): 3 Sit to Lying (QC): 2 Sit to Stand (QC): 3 Chair/Rci-rj-Lnifp Xfer(QC): 3 Car Transfer (QC): 2 Gait Training Does the Patient Walk?: Yes Distance: 100 x4 Walk 10 feet (QC): 4 Walk 50 ft with 2 Turns(QC): 4 Walk 150 ft (QC): 88 Walking 10ft/uneven surface-QC: 88 Gait Persons Needed: 1 Gait Assistive Device: FWW Wheelchair Training Wheel 50 ft with 2 turns (QC): 9 Wheel 150 ft (QC): 9 Stair Training 1 Step (curb) (QC): 4 4 Steps (QC): 88 12 Steps (QC): 88 Balance Picking up an Object (QC): 88 ADL-Treatment Eating (QC): 6 Oral Hygiene (QC): 7 (denies at this time. ) Bathing Location: L Arm, R Arm, L Upper Leg, R Upper Leg, L Lower Leg (includin g foot), R Lower Leg (including foot), Chest, Abdomen, Buttocks, Perineal Area Shower/Bathe Self (QC): 4 (CGA in stance for bottom hygiene. ) Upper Body Dressing (QC): 4 (CGA in stance for robe/ gown donning and doffing. ) Lower Body Dressing (QC): 4 (SBA in sit for reaching; CGA in stance to pull up) On/Off Footwear (QC): 3 (mod A, pt able to doff, though requires assist to don BRANT bandages and socks on top. ) Toileting Hygiene (QC): 4 (CGA in stance during bottom/ mesha hygiene. ) Toilet Transfer (QC): 4 (SBA, use of walker. ) Assessment/Plan Assessment and Plan Assess & Plan/Chief Complaint Assessment: Debility Chronic cachexia Aortic stenosis Bilateral pleural effusions Hypothyroidism Malnutrition Migraines Fibromyalgia Edema Hypoxia O2 dependence new Plan: IRF protocol Diuresis Home meds O2 Monitor pleural effusions (1) Debility (2) Aortic stenosis (3) Acute kidney injury Status: Acute (4) Low blood pressure reading Status: Acute (5) Pneumonia Status: Acute (6) Pleural effusion Status: Acute (7) Anemia Status: Acute (8) Pneumothorax Status: Acute RAQUEL OLGUIN DO Jan 21, 2020 06:30
[2020-01-21] MEDS: DOCUSATE SODIUM 100 MG (COLACE) CAP PO SCH (07:59)
[2020-01-21] MEDS: SENNOSIDES 8.6 MG (SENOKOT) TAB PO SCH (08:00)
[2020-01-21] MEDS: PANTOPRAZOLE 40 MG (PROTONIX) TAB PO SCH (08:00)
[2020-01-21] MEDS: polyethylene glycoL POWDER 17 GM (MIRALAX) PACK PO SCH (08:00)
--- NOTE | 2020-01-21 08:44 | Occupational Ther Daily Note ---
OT Current Status-Daily Note Subjective Pt seen in recliner chair, pt c/o weakness. Pt denies pain at this time, stating just fatigued. Pt agrees to skilled OT tx session. Nursing present start of session. Mental Status/Objective Patient Orientation: Normal For Age Attachments: Oxygen ADL-Treatment Therapy Code Descriptions/Definitions Functional [place] Measure: 0=Not Assessed/NA 4=Minimal Assistance 1=Total Assistance 5=Supervision or Setup 2=Maximal Assistance 6=Modified [place] 3=Moderate Assistance 7=Complete IndependenceSCALE: Activities may be completed with or without assistive devices. 6-Ncukldsdkb-ozbvkjp completes the activity by him/herself with no assistance from a helper. 5-Set-up or Clean-up Assistance-helper sets up or cleans up; patient completes activity. [place] assists only prior to or following the activity. 4-Supervision or Touching Assistance-helper provides verbal cues and/or touching/steadying and/or contact guard assistance as patient completes activity. Assistance may be provided throughout the activity or intermittently. 3-Partial/Moderate Assistance-helper does LESS THAN HALF the effort. [place] lifts, holds or supports trunk or limbs, but provides less than half the effort. 2-Substantial/Maximal Assistance-helper does MORE THAN HALF the effort. [place] lifts or holds trunk or limbs and provides more than half the effort. 0-Zozvpbqaz-jexxux does ALL the effort. Patient does none of the effort to complete the activity. Or, the assistance of 2 or more helpers is required for the patient to complete the activity. If activity was not attempted, code reason: 7-Patient Refused. 9-Not Applicable-not attempted and the patient did not perform the activity before the current illness, exacerbation or injury. 10-Not Attempted due to Environmental Limitations-(lack of equipment, weather restraints, etc.). 88-Not Attempted due to Medical Conditions or Safety Concerns. Eating (QC): 6 Oral Hygiene (QC): 7 (denies, states wants to wait for daughter. Pt educated on OT/ PT role and assist for ADL tasks in order to get pt home. Pt agrees to tx, though continues to deny tooth brushing.) Shower/Bathe Self (QC): 7 (denies as she is fatigued.) Upper Body Dressing (QC): 7 (denies, desires to wait for daughter to bring shirt.) On/Off Footwear: 3 (pt completes RLE sock without assist, doffs LLE, pitting edema on LLE dorsum of foot and ankle, BRANT bandage applied and sock donned.) Other Treatment Pt seen in chair. Pt agrees to clean up as food is on face/ neck, completes with s/u. Pt denies changing clothes/ oral hygiene/ toileting tasks. Pt completes UE AROM, unable to utilize theraband due to pt's weakness. Pt able to complete 2/5 exercises from HEP/ memory, requires cues for additional exercises. Pt educated on energy conservation tasks and given hand out for added education. Pt denies n eeds, call light in reach, pt TD for positioning in chair (bottom to back of chair), LEs elevated. Education OT Patient Education: Correct positioning, Energy conservation, Exercise program, Home exercise program, Progress toward Goal/Update tx plan, Safety issues Teaching Recipient: Patient Teaching Methods: Demonstration, Handout, Discussion Response to Teaching: Verbalize Understanding, Return Demonstration, Reinforcement Needed OT Short Term Goals Short Term Goals Time Frame: Jan 26, 2020 Eatin Oral hygiene: 3 Toileting hygiene: 3 Shower/bathe self: 3 Upper body dressin Lower body dressin Putting on/taking off footwear: 3 OT [facility] Goals Train Brake Operator Goals Time Frame: Feb 09, 2020 Eating (QC): 6 Oral Hygiene (QC): 6 Toileting Hygiene (QC): 6 Shower/Bathe Self (QC): 4 Upper Body Dressing (QC): 5 Lower Body Dressing (QC): 4 On/Off Footwear (QC): 4 Additional Goals: 1-Demonstrate ADL Tasks, 2-Verbalize Understanding, 3- ImproveStrength/Amee 1=Demonstrate adherence to instructed precautions during ADL tasks. 2=Patient will verbalize/demonstrate understanding of assistive devices/modifications for ADL. 3=Patient will improve strength/tolerance for activity to enable patient to perform ADL's. OT Education/Plan Problem List/Assessment Assessment: Decreased Activ Tolerance, Decreased UE Strength, Dependent Transfers, Edema, Impaired Funct Balance, Impaired I ADL's, Impaired Self-Care Skills Discharge Recommendations Plan/Recommendations: Continue POC Treatment Plan/Plan of Care Treatment,Training & Education: Yes Patient would benefit from OT for education, treatment and training to promote independence in ADL's, mobility, safety and/or upper extremity function for ADL's. Plan of Care: ADL Retraining, Functional Mobility, UE Funct Exercise/Act Treatment Duration: Feb 09, 2020 Frequency: Modified Program (IRF) Estimated Hrs Per Day: Other (Intensity Waiver- 60minutes per day for OT) Agreement: Yes Rehab Potential: Fair Time/GCodes Start Time: 08:00 Stop Time: 08:30 Total Time Billed (hr/min): 30 Billed Treatment Time 1, ADL, FA (30) LAITH MULLER OTR Jan 21, 2020 08:43
[2020-01-21] MEDS ORDERED: IRON SUCROSE 200 MG/10 ML (VENOFER) VIAL IV SCH (09:00)
--- NOTE | 2020-01-21 09:30 | NUR ---
C/O FEELING VERY FATIGUED. STATES, "THIS IS THE WORST I'VE FELT"... BUT CANNOT BE SPECIFIC. DR. OLGUIN TO THE FLOOR AND NOTIFIED.
--- NOTE | 2020-01-21 10:48 | Discharge Summary ---
Diagnosis/Chief Complaint Date of Admission Jan 19, 2020 at 10:15 Date of Discharge Discharge Date: Jan 21, 2020 Discharge Diagnosis Assessment: Severe weakness due to severe anemia requiring transfer to 4th floor Debility Chronic cachexia Aortic stenosis Bilateral pleural effusions Hypothyroidism Malnutrition Migraines Fibromyalgia Edema Hypoxia O2 dependence new Plan: IRF protocol Diuresis Home meds O2 Monitor pleural effusions (1) Debility (2) Aortic stenosis (3) Acute kidney injury Status: Acute (4) Low blood pressure reading Status: Acute (5) Pneumonia Status: Acute (6) Pleural effusion Status: Acute (7) Anemia Status: Acute (8) Pneumothorax Status: Acute Discharge Summary Discharge Physical Examination Allergies: Coded Allergies: No Known Drug Allergies (Verified Allergy, Unknown, 09/18/07) Vitals & I&Os Vital Signs Date Time Temp Pulse Resp B/P (MAP) Pulse Ox O2 Delivery O2 Flow Rate FiO2 01/21/20 10:59 119 92/57 (69) 01/21/20 08:43 Room Air 01/21/20 05:58 36.8 22 99 1.00 Hospital Course Was the Problem List Reviewed?: Yes Brief course in IRF before transferred to 4th floor for acute care due to severe weakness and low BP and found to have hgb 6.1 requiring transfusions. Overall her severe debility and weakness and cachexia precludes anything but poor prognosis and patient's daughter was updated and patient transferred to 4th floor. Labs (last 24 hrs) Laboratory Tests 01/20/20 06:30: White Blood Count 4.3, Red Blood Count 2.46L, Hemoglobin 8.2L, Hematocrit 27L, Mean Corpuscular Volume 109H, Mean Corpuscular Hemoglobin 33, Mean Corpuscular Hemoglobin Concent 31L, Red Cell Distribution Width 16.1H, Platelet Count 241, Mean Platelet Volume 9.5, Neutrophils (%) (Auto) 61, Lymphocytes (%) (Auto) 23, Monocytes (%) (Auto) 14H, Eosinophils (%) (Auto) 2, Basophils (%) (Auto) 0, Ne utrophils # (Auto) 2.6, Lymphocytes # (Auto) 1.0, Monocytes # (Auto) 0.6, Eosinophils # (Auto) 0.1, Basophils # (Auto) 0.0, Sodium Level 142, Potassium Level 4.5, Chloride Level 104, Carbon Dioxide Level 31, Anion Gap 7, Blood Urea Nitrogen 24H, Creatinine 0.74, Estimat Glomerular Filtration Rate > 60, BUN/Creatinine Ratio 32, Glucose Level 80, Calcium Level 7.8L, Corrected Calcium 9.2, Iron Level 26L, Total Bilirubin 0.2, Aspartate Amino Transf (AST/SGOT) 14, Alanine Aminotransferase (ALT/SGPT) 6, Alkaline Phosphatase 67, Total Protein 4.1L, Albumin 2.3L Pending Labs Laboratory Tests 01/20/20 06:30: White Blood Count 4.3, Red Blood Count 2.46, Hemoglobin 8.2, Hematocrit 27, Mean Corpuscular Volume 109, Mean Corpuscular Hemoglobin 33, Mean Corpuscular Hemoglobin Concent 31, Red Cell Distribution Width 16.1, Platelet Count 241, Mean Platelet Volume 9.5, Neutrophils (%) (Auto) 61, Lymphocytes (%) (Auto) 23, Monocytes (%) (Auto) 14, Eosinophils (%) (Auto) 2, Basophils (%) (Auto) 0, Neutrophils # (Auto) 2.6, Lymphocytes # (Auto) 1.0, Monocytes # (Auto) 0.6, Eosinophils # (Auto) 0.1, Basophils # (Auto) 0.0, Sodium Level 142, Potassium Level 4.5, Chloride Level 104, Carbon Dioxide Level 31, Anion Gap 7, Blood Urea Nitrogen 24, Creatinine 0.74, Estimat Glomerular Filtration Rate > 60, BUN/Creatinine Ratio 32, Glucose Level 80, Calcium Level 7.8, Corrected Calcium 9.2, Iron Level 26, Total Bilirubin 0.2, Aspartate Amino Transf (AST/SGOT) 14, Alanine Aminotransferase (ALT/SGPT) 6, Alkaline Phosphatase 67, Total Protein 4.1, Albumin 2.3 Discharge Home Medications: Active Scripts Active Reported Metolazone 2.5 Mg Tablet 2.5 Mg PO Q48H TAKES ALONG WITH FUROSEMIDE EVERY OTHER DAY Sumatriptan Succinate 50 Mg Tablet 100 Mg PO UD PRN TAKES 2 (50MG) TABS AT ONSET OF MIGRAINE AND MAY REPEAT IN 2 HOURS IF NEEDED. DO NOT EXCEED 2 DOSES (4 TABS) PER DAY Furosemide 20 Mg Tablet 20 Mg PO Q48H TAKES ALONG WITH METOLAZONE EVERY OTHER DAY Protonix (Pantoprazole Sodium) 40 Mg Tablet.dr 40 Mg PO DAILY Hydrocodone-Acetamin 7.5-325 (Hydrocodone/Acetaminophen) 1 Each Tablet 1 Each PO TID PRN Coreg (Carvedilol) 6.25 Mg Tablet 6.25 Mg PO BID Tramadol HCl 50 Mg Tablet 50-100 Mg PO TID PRN Levothyroxine Sodium 137 Mcg Tablet 137 Mcg PO HS Lisinopril 10 Mg Tablet 10 Mg PO DAILY Instructions to patient/family Please see electronic discharge instructions given to patient. Diagnosis/Problems Diagnosis/Problems (1) Debility (2) Aortic stenosis (3) Acute kidney injury Status: Acute (4) Low blood pressure reading Status: Acute (5) Pneumonia Status: Acute (6) Pleural effusion Status: Acute (7) Anemia Status: Acute (8) Pneumothorax Status: Acute Clinical Quality Measures DVT/VTE Risk/Contraindication: Risk Factor Score Per Nursin RFS Level Per Nursing on Admit: 4+=Very High RAQUEL OLGUIN DO Jan 21, 2020 10:48
--- NOTE | 2020-01-21 10:58 | Physical Therapy Daily Note ---
PT Daily Note-Current Subjective Pt in bed upon arrival. Pt explained she doesn't feel well today and something is wrong. She repeatedly said something was wrong. Attempted to take O2 sats but couldn't read possibly secondary to Raynaud's. Pt went ahead and started tx with encouragement from therapist. Post very short amb RN came over and took BP in sitting and it was 92/57. Pt taken to recliner in WC as it was supposed that BP would be lower in standing. Dr. Fernandes came in and explained pt will be transferring back upstairs shortly d/t hypotension and some heart/lung issues. Mental Status Patient Orientation: Person, Place, Time, Situation Attachments: Oxygen (1 L) Transfers SCALE: Activities may be completed with or without assistive devices. 2-Tdjlkjpokf-vlchpxw completes the activity by him/herself with no assistance from a helper. 5-Set-up or Clean-up Assistance-helper sets up or cleans up; patient completes activity. [place] assists only prior to or following the activity. 4-Supervision or Touching Assistance-helper provides verbal cues and/or touching/steadying and/or contact guard assistance as patient completes activity. Assistance may be provided throughout the activity or intermittently. 3-Partial/Moderate Assistance-helper does LESS THAN HALF the effort. [place] lifts, holds or supports trunk or limbs, but provides less than half the effort. 2-Substantial/Maximal Assistance-helper does MORE THAN HALF the effort. [place] lifts or holds trunk or limbs and provides more than half the effort. 2-Jelmgqjxm-ygktjy does ALL the effort. Patient does none of the effort to complete the activity. Or, the assistance of 2 or more helpers is required for the patient to complete the activity. If activity was not attempted, code reason: 7-Patient Refused. 9-Not Applicable-not attempted and the patient did not perform the activity before the current illness, exacerbation or injury. 10-Not Attempted due to Environmental Limitations-(lack of equipment, weather restraints, etc.). 88-Not Attempted due to Medical Conditions or Safety Concerns. Sit to Lying (QC): 5 Lying to Sitting/Side of Bed(Q: 5 Sit to Stand (QC): 3 Chair/Cqs-um-Ktkva Xfer(QC): 2 Pt very fearful and resisted sit to stand. Fear and anxiety became greater at this point and dance fashion stand pivot transfer was best mode for transfer. Weight Bearing Right Lower Extremity: Right Weight Bearing/Tolerated Left Lower Extremity: Left Weight Bearing/Tolerated Gait Training Does the Patient Walk?: Yes Distance: 10 Walk 10 feet (QC): 4 Gait Persons Needed: 1 Gait Assistive Device: FWW Pt amb with kyphotic posture, short stride length, and shuffling gait. Pt required many rest breaks throughout amb. Pt repeatedly stated she couldn't go any farther with each step, pt kept stating she didn't feel like herself during amb. Assistance was given to bring chair closer to pt. Pt was extremely weak and fatigued throughout the ambulation. Wheelchair Training Does the Pt Use a Wheelchair?: Yes Type of Wheelchair: Manual Treatments Pt perform bed mobility and sits EOB with HOB up. Pt amb from bed to doorway and takes a seated rest break. D/t BP pt transfers to and taken back into room to recliner. Pt left in recliner RN to follow up for transfer to [facility] Medical. Assessment Current Status: Poor Progress, Fair Progress Pt has a very low activity tolerance, needing many rest breaks. Pt is still extremely weak and needs Mod/Max assistance for sit to stand. Pt felt like she couldn't go any farther in tx, needing encouragement to take a step forward. Pt is self limiting d/t fear of falling. D/t declining med status pt transferred off floor today. Extreme weakness and intolerance was noted during therapies. PT Short Term Goals Short Term Goals Time Frame: Feb 02, 2020 Roll Left & Right: 5 Sit to lyin Sit to stand: 5 Chair/shi-rz-zlapm transfer: 5 Toilet transfer: 5 Car transfer: 5 Walk 50 feet with two turns: 5 Walk 150 feet: 5 4 steps: 5 PT Care Home Goals Care Home Goals PT Care Home Goals Time Frame: Feb 16, 2020 Roll Left & Right (QC): 6 Sit to Lying (QC): 6 Lying-Sitting on Side/Bed(QC): 6 Sit to Stand (QC): 6 Chair/Rdu-wh-Escnp Xfer(QC): 6 Toilet Transfer (QC): 6 Car Transfer (QC): 6 Does the Patient Walk: Yes Walk 10 feet (QC): 6 Walk 50ft with 2 Turns (QC): 6 Walk 150 ft (QC): 6 Walking 10ft on Uneven Surface: 6 1 Step (curb) (QC): 6 4 Steps (QC): 6 12 Steps (QC): 6 Picking up an Object (QC): 6 Wheel 50 feet with 2 turns (QC: 9 Wheel 150 feet: 9 PT Plan Problem List Problem List: Activity Tolerance, Functional Strength, Safety, Gait, Transfer, Bed Mobility, ROM Treatment/Plan Treatment Plan: Continue Plan of Care, Discontinue PT (Pt transferred to [address] [place] [address]) Treatment Plan: Bed Mobility, Education, Functional Activity Amee, Functional Strength, Group Therapy, Gait, Safety, Therapeutic Exercise, Transfers Treatment Duration: Feb 16, 2020 Frequency: Modified Program (IRF) Estimated Hrs Per Day: 1 hour per day Patient and/or Family Agrees t: Yes Safety Risks/Education Patient Education: Gait Training, Correct Positioning, Safety Issues Teaching Recipient: Patient Teaching Methods: Discussion Response to Teaching: Verbalize Understanding Time/GCodes Time In: 1000 Time Out: 1050 Total Billed Treatment Time: 50 Total Billed Treatment 1, FA x2 (30m), GT (20m) YOSEPH BONE WELDER FITTER HELPER Jan 21, 2020 10:58
[2020-01-21 10:59] VITALS: BP 92/57
--- NOTE | 2020-01-21 11:05 | NUR ---
DC TO [address]GU[address]. BP 92/57, HR 119... DR. OLGUIN AWARE. REPORT TO KERRY LEAL.
--- NOTE | 2020-01-21 11:10 | NUR ---
DR. SNOW NOTIFIED OF TRANSFER TO [facility].
--- NOTE | 2020-01-21 11:31 | Therapy Team Discharge Summary ---
Therapy Discharge Summary Discharge Recommendations Date of Discharge Jan 21, 2020 at 11:02 Therapy D/C Recommendations: Other, See Comments (continued PT on SWB) Physical Therapy This patient was admitted to ARU post acute hospital stay due to pneumonia. Prior to the hospital stay, she was mod indep at home with intermittent assist from her spouse. Upon admit to ARU, she required min assist with bed mobiltiy and transfers and walked 50 ft with CGA with FWW; she was only able to attempt 1 step with FWW with CGA. Treatment was focused on functional strength and mobility. Pt presented with limited functional activity tolerance and required encouragement to participate as well as frequent rest breaks. At last visit, pt was CGA with transfers and only able to walk 10 ft with CGA. Pt seemed to have difficulty with participating in the requirements of ARU time. Goals unmet, although she was making progress. She is to transfer to swing bed status this date to pursue skilled therapies at a less intense level. Pt does have potential to improve with extended time. Will DC from ARU at this trinity.e Occupational Therapy Decreased Activ Tolerance, Decreased UE Strength, Dependent Transfers, Edema, Impaired Funct Balance, Impaired I ADL's, Impaired Self-Care Skills PT Casing Tier Goals Casing Tier Goals PT Casing Tier Goals Time Frame: Feb 16, 2020 Roll Left to Right (QC): 6 Sit to Lying (QC): 6 Lying-Sitting on Side/Bed(QC): 6 Sit to Stand (QC): 6 Chair/Qaa-qp-Nnwdi Xfer(QC): 6 Car Transfer (QC): 6 Does the Patient Walk: Yes Walk 10 feet (QC): 6 Walk 10ft-Uneven Surface(QC): 6 Walk 50ft with 2 Turns (QC): 6 Walk 150 ft (QC): 6 Wheel 50 feet with 2 turns (QC: 9 1 Step (curb) (QC): 6 4 Steps (QC): 6 12 Steps (QC): 6 Picking up an Object (QC): 6 Goals not met due to shortened LOS. OT Casing Tier Goals Assisted Goals Time Frame: Feb 09, 2020 Eating (QC): 6 Oral Hygiene (QC): 6 Shower/Bathe Self (QC): 4 Upper Body Dressing (QC): 5 Lower Body Dressing (QC): 4 On/Off Footwear (QC): 4 Toileting Hygiene (QC): 6 Toilet/Commode Transfer (QC): 6 Additional Goals: 1-Demonstrate ADL Tasks, 2-Verbalize Understanding, 3- ImproveStrength/Amee 1=Demonstrate adherence to instructed precautions during ADL tasks. 2=Patient will verbalize/demonstrate understanding of assistive devices/modifications for ADL. 3=Patient will improve strength/tolerance for activity to enable patient to perform ADL's. SADE DEVINE PT Jan 21, 2020 11:30
--- NOTE | 2020-01-24 10:14 | Therapy Team Discharge Summary ---
Therapy Discharge Summary Discharge Recommendations Date of Discharge Jan 21, 2020 at 11:02 Therapy D/C Recommendations: Other, See Comments Occupational Therapy Pt admits to ARU with PNA dx. Pt originally mod-min A with showering and LB dressing, max A UB dressing, footwear, and toileting. Pt on ARU for 3 tx sessions, d/c to higher level of care due to decreased medical status. D/c OT at this time. Decreased Activ Tolerance, Decreased UE Strength, Dependent Transfers, Edema, Impaired Funct Balance, Impaired I ADL's, Impaired Self-Care Skills PT International Freight Forwarder Goals [employer] Forwarder Goals PT Skilled Nursing Goals Time Frame: Feb 16, 2020 Roll Left to Right (QC): 6 Sit to Lying (QC): 6 Lying-Sitting on Side/Bed(QC): 6 Sit to Stand (QC): 6 Chair/Cnx-xb-Mlddl Xfer(QC): 6 Car Transfer (QC): 6 Does the Patient Walk: Yes Walk 10 feet (QC): 6 Walk 10ft-Uneven Surface(QC): 6 Walk 50ft with 2 Turns (QC): 6 Walk 150 ft (QC): 6 Wheel 50 feet with 2 turns (QC: 9 1 Step (curb) (QC): 6 4 Steps (QC): 6 12 Steps (QC): 6 Picking up an Object (QC): 6 OT [employer] Fre[employer] Forwarder Goals International Freight Forwarder Goals Time Frame: Feb 09, 2020 Eating (QC): 6 Oral Hygiene (QC): 6 Shower/Bathe Self (QC): 4 Upper Body Dressing (QC): 5 Lower Body Dressing (QC): 4 On/Off Footwear (QC): 4 Toileting Hygiene (QC): 6 Toilet/Commode Transfer (QC): 6 Additional Goals: 1-Demonstrate ADL Tasks, 2-Verbalize Understanding, 3- ImproveStrength/Amee 1=Demonstrate adherence to instructed precautions during ADL tasks. 2=Patient will verbalize/demonstrate understanding of assistive devices/modifications for ADL. 3=Patient will improve strength/tolerance for activity to enable patient to perform ADL's. LAITH MULLER OTR Jan 24, 2020 10:14
[2020-01-24] MEDS ORDERED: CARV3.122 PO (10:55)
== END 2020-01-21 11:02 | disposition short-term general hospital (02) | DRG 187 ==
PROVIDERS: ADMIT Internal Medicine; ATTEND Internal Medicine
DX: J90 Pleural effusion, not elsewhere classified (principal); R64 Cachexia; E46 Unspecified protein-calorie malnutrition; I35.0 Nonrheumatic aortic (valve) stenosis; D50.9 Iron deficiency anemia, unspecified; I10 Essential (primary) hypertension; E89.0 Postprocedural hypothyroidism; K21.9 Gastro-esophageal reflux disease without esophagitis; K44.9 Diaphragmatic hernia without obstruction or gangrene; G43.909 Migraine, unspecified, not intractable, without status migrainosus; M81.0 Age-related osteoporosis without current pathological fracture; M19.91 Primary osteoarthritis, unspecified site; M79.7 Fibromyalgia; M41.9 Scoliosis, unspecified; M54.9 Dorsalgia, unspecified; Z99.81 Dependence on supplemental oxygen; Z87.01 Personal history of pneumonia (recurrent); Z85.850 Personal history of malignant neoplasm of thyroid
CPT/HCPCS: 36415; 76937; 80053; 83540; 85025; 93306; 94640; 94760